=== PATIENT | female | born 1955 | race Caucasian/White ===

== ENCOUNTER → 2016-04-02 | Outpatient (CLI) | payer OTHER ==
[~2016-04-02] MED LIST: FLUO20CA34 PO; LISI-461 PO; OXYCONTIN PO; RANI150T3 PO; SYN25 PO; TYLENOL LIQUID PO; VSC/10 PO
== END | disposition home or self-care (01) ==
LOC: C.LABSPEC 08:42
PROVIDERS: ATTEND Obstetrics & Gynecology
DX: N76.0 Acute vaginitis (principal)

== ENCOUNTER → 2016-04-02 | Outpatient (CLI) | payer OTHER ==
[~2016-04-02] MED LIST changes: +CHOL2000 PO; +FLUO10CA48 PO; +SOLI10TA2 PO; +TAPE100T2 PO
--- NOTE | 2016-04-02 15:49 | MAMMOGRAPHY REPORT ---
BILATERAL DIGITAL SCREENING MAMMOGRAM WITH CAD: 04/02/2016 CLINICAL HISTORY: Routine screening. Patient has no complaints. TECHNIQUE: Bilateral CC, MLO and XCCL views were obtained. Current study was also evaluated with a Computer Aided Detection (CAD) system. COMPARISON: Comparison is made to exams dated: 09/03/2013 mammogram, 12/28/2009 mammogram - [facility], 08/03/2008, and 07/01/2007. BREAST COMPOSITION: The tissue of both breasts is almost entirely fatty. FINDINGS: There are benign rim calcifications within the right breast. No new suspicious mass, arch itectural distortion or cluster of microcalcifications is seen bilaterally. IMPRESSION: ACR BI-RADS CATEGORY 1: NEGATIVE There is no mammographic evidence of malignancy. A 1 year screening mammogram is recommended. The p atient will receive written notification of the results. Approximately 10% of breast cancers are not detected with mammography. A negative mammographic repor t should not delay biopsy if a clinically suggestive mass is present. Carolyn Montana M.D. ay/:04/02/2016 13:43:07 Machine Heel Builder: Jing RAMÍREZ(Jarrett)(Avery)([place]), [facility] letter sent: Normal 1/2 BI-RADS Code: ACR BI-RADS Category 1: Negative
== END | disposition home or self-care (01) ==
LOC: C.MAMM 13:14
PROVIDERS: ATTEND Obstetrics & Gynecology
DX: Z12.31 Encounter for screening mammogram for malignant neoplasm of breast (principal)

== ENCOUNTER → 2017-04-09 | Day surgery (SDC) | payer OTHER ==
[2017-04-04 09:23] VITALS: Ht 152.4 cm; Wt 140.4 kg
[~2017-04-09] VITALS: Ht 152.4 cm; Wt 140.4 kg
[~2017-04-09] MED LIST changes: +ATROPINE SULFATE 0.1 MG/ML 5ML SYR IV PRN; +EpHEDrine SULFATE INJ 50 MG/ML AMP IV PRN; -FLUO20CA34 PO; +LIDOCAINE HCL 2% 2 ML VIAL (20MG/ML) ONE; -OXYCONTIN PO; +PROPOFOL IV EMULSION 10 MG/ML 20 ML VIAL IV ONE; -RANI150T3 PO; +SODIUM CHLORIDE 0.9% 500ML 500 ML IV ONE; -SYN25 PO; -TYLENOL LIQUID PO; -VSC/10 PO
[2017-04-09 11:24] VITALS: TEMP 36.8
--- NOTE | 2017-04-09 11:36 | Endo History and Physical ---
History & Physical Date of Service: Apr 09, 2017. Chief Complaint: Screening Referring Physician: Andry Mcnamara History of Present Illness Average risk colorectal cancer screeing. Past Surgical History Hx Cardiac Surgery: No Hx Internal Defibrillator: No Hx Pacemaker: No Hx Abdominal Surgery: Yes (LAP BAND SURGERY, UTERINE ABLATION) Hx of Implantable Prosthesis: No Hx Post-Op Nausea and Vomiting: No Hx Cancer Surgery: No Hx Thoracic Surgery: No Hx Orthopedic: No Hx Urinary Tract Surgery: No Family History None Social History Smoking Status: Never Smoker Hx Substance Use: Yes (SEE MED REC) Hx Alcohol Use: Yes (OCCASIONALLY) Allergies Coded Allergies: No Known Allergies (Unverified , 04/04/17) Current Medications Reported Home Medications Medications Dose Route/Sig Max Daily Dose Days Date Category Vitamin D3 (Cholecalciferol) 2,000 Unit Cap 2 Cap PO WITH A MEAL 04/04/17 Reported Prozac (Fluoxetine HCl) 10 Mg Cap 10 Mg PO DAILY AFTERNOON 04/04/17 Reported Vesicare (Solifenacin) 10 Mg Tab 10 Mg PO HS 04/04/17 Reported Zestril (Lisinopril) 10 Mg Tab 10 Mg PO HS 04/04/17 Reported Nucynta (Tapentadol Hcl) 100 Mg Tab 1 Tab PO BID 04/04/17 Reported Vital Signs Weight (Kilograms): 140.45 Height (Feet): 5 Height (Inches): 0 Date Time Temp Pulse Resp B/P (MAP) Pulse Ox O2 Delivery O2 Flow Rate FiO2 04/09/17 11:24 36.8 82 18 112/69 (83) 95 Room Air Physical Exam General Appearance: WD/WN, no apparent distress, + obese Respiratory/Chest: Auscultation: breath sounds normal, no wheezing Cardiovascular: Heart Auscultation: RRR, no murmurs Assessment and Plan Screening colonoscopy today.
--- NOTE | 2017-04-09 12:10 | Discharge Instructions ---
Endoscopy Patient Instructions Date / Procedure(s) Performed Apr 09, 2017. Colonoscopy Allergy Information Coded Allergies: No Known Allergies (Unverified , 04/04/17) Discharge Date / Findings Apr 09, 2017. Diverticulosis Medication Instructions Restart Stopped Medication(s): Resume all medications today. Provider Instructions Activity Restrictions - No exercising or heavy lifting for 24 hours. - Do not drink alcohol the day of the procedure. - Do not drive a car or operate machinery until the day after the procedure. - Do not make any important decisions or sign important papers in 24 hours after the procedure. Following Day: - Return to full activity which may include returning to work/school. Diet Start your diet with liquids and light foods (jello, soup, juice, toast). Then eat your usual diet if not nauseated. Treatment For Common After Affects For mild abdominal pain, bloating, or excessive gas: - Rest - Eat lightly - Lie on right side Follow-Up Information Follow-up with Andry Mcnamara as scheduled Anesthesia Information What You Should Know You have had a procedure that required some medicine to reduce anxiety and discomfort. This treatment is called moderate sedation. After receiving the treatment, you may be sleepy, but you will be able to breathe on your own. The effects of the treatment may last for several hours. Follow these instructions along with Activity/Diet recommendations noted above: * Do NOT do anything where dizziness or clumsiness would be dangerous. * Rest quietly at home today, then you can be up and about tomorrow. * Have a responsible person stay with you the rest of today. * You may have had an I.V. today. If so, you may take the dressing off later today. Recommendations Call your doctor if: * Trouble breathing * Continuous vomiting for more than 24 hours * Temperature above 101 degrees * Severe abdominal pain or bloating * Pain not relieved by pain medicine ordered * There is increased drainage or redness from any incision * A large amount of rectal bleeding greater than 2-3 tablespoons. (If you had a polyp/s removed or have hemorrhoids, a small amount of blood - from the rectum is to be expected.) * You have any unanswered questions or concerns. IN THE EVENT OF A SERIOUS EMERGENCY, GO TO THE NEAREST EMERGENCY ROOM Your discharge instructions were prepared by provider Hever Delong. Patient Instructions Signature Page Ana Jacobsen Patient (or Guardian) Signature/Date: I have read and understand the instructions given to me by my caregivers. Caregiver/RN/Doctor Signature/Date: The above-named patient and/or guardian has received patient instructions on this date. + Original Patient Signature Page (only) stays with chart. Please make copy for patient.
--- NOTE | 2017-04-09 12:17 | GI REPORT ---
Procedure Date: 04/09/2017 11:33 AM Procedure: Colonoscopy Indications: Screening for colorectal malignant neoplasm Medicines: Monitored Anesthesia Care Complications: No immediate complications. Estimated blood loss: None. Estimated Blood Loss: Estimated blood loss: none. Procedure: Pre-Anesthesia Assessment: - Prior to the procedure, a History and Physical was performed, and patient medications, allergies and sensitivities were reviewed. The patient's tolerance of previous anesthesia was reviewed. - ASA Grade Assessment: III - A patient with severe systemic disease. After I obtained informed consent, the scope was passed under direct vision. Throughout the procedure, the patient's blood pressure, pulse, and oxygen saturations were monitored continuously. The scope was introduced through the anus and advanced to the terminal ileum, with identification of the appendiceal orifice and IC valve. The colonoscopy was performed with ease. The patient tolerated the procedure well. The quality of the bowel preparation was excellent. The bowel preparation used was split dose MIralax. Findings: Multiple medium-mouthed diverticula were found in the sigmoid colon. Impression: - Diverticulosis in the sigmoid colon. - No specimens collected. - The colon was otherwise normal to the terminal ileum with retroflexed views of the colon and terminal ileum. Recommendation: - Repeat colonoscopy in 10 years for screening purposes. - Discharge patient to home (with escort). Hever Delong M.D. Hever Delong MD 04/09/2017 12:16:56 PM This report has been signed electronically. Note Initiated On: 04/09/2017 11:33 AM I attest to the content of the Intraoperative Record and orders documented therein, exceptions below
[2017-04-09 12:47] VITALS: BP 121/84; PULSE 76; O2SAT 100
--- NOTE | 2017-04-09 13:07 | Anesthesiology Progress Note ---
Anesthesia Post Op Note Date & Time Apr 09, 2017 at 13:06 Vital Signs Pain Intensity: 0 Vital Signs Past 12 Hours Date Time Temp Pulse Resp B/P (MAP) Pulse Ox O2 Delivery O2 Flow Rate FiO2 04/09/17 12:47 76 18 121/84 (96) 100 Room Air 04/09/17 12:33 82 18 127/86 (100) 99 Room Air 04/09/17 12:18 84 18 124/91 (102) 94 Room Air 04/09/17 11:24 36.8 82 18 112/69 (83) 95 Room Air Notes Mental Status: alert / awake / arousable, participated in evaluation Pt Amnestic to Procedure: Yes Nausea / Vomiting: adequately controlled Pain: adequately controlled Airway Patency, RR, SpO2: stable & adequate BP & HR: stable & adequate Hydration State: stable & adequate Anesthetic Complications: no major complications apparent
== END | disposition home or self-care (01) ==
LOC: C.GI 10:36
PROVIDERS: ATTEND Internal Medicine Gastroenterology
DX: Z12.11 Encounter for screening for malignant neoplasm of colon (principal); K57.30 Diverticulosis of large intestine without perforation or abscess without bleeding; I10 Essential (primary) hypertension; E66.01 Morbid (severe) obesity due to excess calories; Z68.44 Body mass index [BMI] 60.0-69.9, adult; J45.909 Unspecified asthma, uncomplicated; Z98.890 Other specified postprocedural states; Z90.89 Acquired absence of other organs

== ENCOUNTER → 2017-05-15 | Outpatient (CLI) | payer OTHER ==
[~2017-05-15] MED LIST changes: -ATROPINE SULFATE 0.1 MG/ML 5ML SYR IV PRN; -EpHEDrine SULFATE INJ 50 MG/ML AMP IV PRN; -LIDOCAINE HCL 2% 2 ML VIAL (20MG/ML) ONE; -PROPOFOL IV EMULSION 10 MG/ML 20 ML VIAL IV ONE; -SODIUM CHLORIDE 0.9% 500ML 500 ML IV ONE
== END | disposition home or self-care (01) ==
LOC: C.PAPS 11:18
PROVIDERS: ATTEND Obstetrics & Gynecology
DX: Z12.4 Encounter for screening for malignant neoplasm of cervix (principal)

== ENCOUNTER 2023-07-23 04:23 | Inpatient (IN) ==
--- NOTE | 2023-07-23 04:58 | Emergency Department Note ---
Impression & Plan Weakness, Ambulatory dysfunction Admit to the [facility] ED Provider Note NAME: JEAN CLAUDE DYER AGE: 67 SEX: Female INFORMANT: Patient ED PROVIDER(S): Miguelina Boo DO CHIEF COMPLAINT: Weakness PLAN: Disposition: Admit to the [facility] MEDICAL DECISION MAKING: This is a 67-year-old female patient who presents to the emergency department with increasing generalized weakness and near falls. Patient states that her knees feel as if they are going to give out on her. She has had to call EMS multiple times over the past couple of days to help her stand up and prevent her from falling. Patient explains that she is currently unable to ambulate or move around. She even finds it quite difficult to even stand. Her boyfriend is no longer able to help her and she is at significant risk of falling. Laboratory studies revealed no evidence of leukocytosis. There was mild anemia with a hemoglobin of 11.7. Glucose was 101. TSH was normal. Troponin was negative. EKG revealed T wave inversion and ST segment depression in the inferior leads but this was in comparison to an EKG from 2010 which was the most recent on that I could find in the [facility] system. EMS was significant late concern for the patient's safety at home as she is unable to stand on her own and family as well as her boyfriend are unable to assist her safely. I discussed case with the [facility] and they will evaluate for further inpatient care. Care/management discussed with: The patient and the [facility]; I did discuss the case with the dry food products mixer and the patient's sister on the phone prior to arrival. Triage Nursing notes: Reviewed and agree with them. Vital Signs: reviewed and unremarkable Additional History obtained from: EMS and the patient's sister Chronic Medical/Social Conditions affecting care: Morbid obesity; chronic edema Differential Diagnosis: Acute renal failure, dehydration, UTI, significant ambulatory dysfunction Diagnostics, independently interpreted by me: ECG: Normal sinus rhythm at a rate of [address] segment elevation or ectopy. There is some T wave inversion noted in leads II and III with ST segment depression noted in aVF. There are no previous EKGs to compare to Cardiac Monitoring: Normal sinus rhythm at a rate of 90 Imaging studies: Portable chest x-ray: As per my independent interpretation- cardiomegaly with no pulmonary infiltrates or consolidation. HPI: 67 year old Female arrives for evaluation of weakness. Patient describes increasing generalized weakness and the feeling as if she is going to fall. She describes her knees feeling as if they are going to give out on her. She has had to call EMS multiple times over the past couple days to help her stand up and prevent her from falling. PAST MEDICAL HISTORY: Hypertension, diabetes, depression, PAST SURGICAL HISTORY: See Below, SOCIAL HISTORY: Patient lives with her boyfriend, HOME MEDICATIONS: See list ALLERGIES: None VITALS: See Below PHYSICAL EXAMINATION: HEENT: Head - normocephalic and atraumatic. Pupils are equal, round, and reactive to light. Extraocular eye muscles are intact, and sclera are anicteric. Nose - moist nasal mucosa without discharge. Mouth -extremely dry buccal mucosa. Oropharynx is nonerythematous and there is no tonsillar exudate or edema noted. Neck: Supple; no JVD, nuchal rigidity, cervical lymphadenopathy, or auscultated bruits. Heart: Regular rate and rhythm. There is a normal S1 and S2 with no murmurs, clicks, or gallops appreciated. Lungs: Extremely distant secondary to body habitus clear to auscultation bilaterally with no wheezes, rales, or rhonchi. Abdomen: Soft, completely nontender, nondistended, with good bowel sounds. There are no palpable pulsatile masses or hepatosplenomegaly. There is no guarding, rigidity, or rebound noted. Extremities: Significant edema both lower extremities Skin: warm and dry with good turgor and no rashes. Areas of breakdown on the buttocks Emergency department course: The patient was evaluated in room A-10. A complete history and physical was performed. A twelve-lead EKG was obtained. An order was placed for continuous cardiac monitoring. The patient was in a normal sinus rhythm at a rate of 90. Portable chest x-ray was performed. I reviewed laboratory results with the patient. I had a lengthy conversation with her about her home life situation and her limitations of mobility and my concerns for keeping her safe. I discussed the case with the [facility] Hospitalist and they will evaluate for further inpatient care. Past Med/Surg History Social History Smoking Status: Former smoker Preferred Language: Greenlandic Feels Safe at Home: Yes Allergies Allergies Allergy/AdvReac Type Severity Reaction Status Date / Time No Known Allergies Allergy Unverified 04/04/17 09:20 Home Meds Home Medications Medication Instructions Recorded Confirmed CHOLECALCIFEROL (VITAMIN D3) 2 cap PO WITH A MEAL #0 caps 04/04/17 07/23/23 Fluoxetine (Prozac) 10 mg PO DAILY AFTERNOON #0 caps 04/04/17 07/23/23 Lisinopril (Zestril) 10 mg PO HS #0 tabs 04/04/17 07/23/23 Solifenacin (Vesicare) 10 mg PO HS #0 tabs 04/04/17 07/23/23 Results & Data (ED) Vital Signs Vital Signs - 24 hr 07/23/23 04:30 07/23/23 04:32 07/23/23 04:32 Temperature 37.1 C Temperature Source Oral Pulse Rate 89 58 L Pulse Rate [Apical] Pulse Rate from SpO2 Sensor Pulse Rhythm Regular Pulse Rhythm [Apical] Pulse Strength Normal Pulse Strength [Apical] Respiratory Rate 20 19 Respiratory Effort / Characteristics Non-Labored Respiratory Depth Normal Respiratory Pattern Regular Blood Pressure 157/94 H 157/94 H Blood Pressure [Left Arm] Blood Pressure Mean 115 115 Blood Pressure Mean [Left Arm] Pulse Oximetry 95 95 95 Oxygen Delivery Method Room Air Room Air Sepsis Recent Fever Within 48 Hours No Sepsis New/Unexplained Change in Mental Status No Sepsis Action Taken by Nursing No Action Required 07/23/23 04:32 07/23/23 04:43 07/23/23 05:00 Temperature 37.1 C Temperature Source Oral Pulse Rate 90 Pulse Rate [Apical] 58 L Pulse Rate from SpO2 Sensor 89 Pulse Rhythm Pulse Rhythm [Apical] Regular Pulse Strength Pulse Strength [Apical] Normal Respiratory Rate 19 Respiratory Effort / Characteristics Non-Labored Respiratory Depth Normal Respiratory Pattern Regular Blood Pressure Blood Pressure [Left Arm] 157/94 H Blood Pressure Mean Blood Pressure Mean [Left Arm] 115 Pulse Oximetry 95 95 Oxygen Delivery Method Room Air Sepsis Recent Fever Within 48 Hours Sepsis New/Unexplained Change in Mental Status Sepsis Action Taken by Nursing 07/23/23 05:08 Temperature Temperature Source Pulse Rate 87 Pulse Rate [Apical] Pulse Rate from SpO2 Sensor Pulse Rhythm Pulse Rhythm [Apical] Pulse Strength Pulse Strength [Apical] Respiratory Rate 20 Respiratory Effort / Characteristics Respiratory Depth Respiratory Pattern Blood Pressure Blood Pressure [Left Arm] Blood Pressure Mean Blood Pressure Mean [Left Arm] Pulse Oximetry 95 Oxygen Delivery Method Room Air Sepsis Recent Fever Within 48 Hours Sepsis New/Unexplained Change in Mental Status Sepsis Action Taken by Nursing Laboratory Data 07/23/23 04:51 07/23/23 04:51 Lab Results 07/23/23 07/23/23 Range/Units 04:51 05:00 WBC 6.13 (4.8-10.8) K/ul RBC 3.86 L (4.20-5.40) M/uL Hgb 11.7 L (12.0-16.0) g/dl Hct 37.8 (37.0-47.0) % MCV 97.9 (80.0-100.0) fL MCH 30.3 (25.0-34.0) pg MCHC 31.0 L (32.0-36.0) g/dL RDW Std Deviation 51.7 H (36.4-46.3) fL RDW Coeff of [place] 14.4 (11.5-14.5) % Plt Count 192 (130-400) K/uL MPV 11.4 (9.4-12.4) fL Immature Gran % (Auto) 0.3 % Neut % (Auto) 77.8 % Lymph % (Auto) 12.7 % [place] % (Auto) 8.0 % Eos % (Auto) 0.7 % Baso % (Auto) 0.5 % Neut # (Auto) 4.77 (1.40-6.50) K/uL Lymph # (Auto) 0.78 L (1.20-3.40) K/uL [place] # (Auto) 0.49 (0.11-0.59) K/uL Eos # (Auto) 0.04 (0.00-0.50) K/uL Baso # (Auto) 0.03 (0.00-0.20) K/uL Immature Gran # (Auto) 0.02 (0.01-0.20) K/uL Sodium 142 (136-145) mmol/L Potassium 3.6 (3.5-5.1) mmol/L Chloride 106 (98-107) mmol/L Carbon Dioxide 30 (21-32) mmol/L Anion Gap 6 (3-11) BUN 15 (6-23) mg/dl Creatinine 0.54 L (0.6-1.2) mg/dl Est Cr Clr Drug Dosing 142.1 ml/min Est GFR ( Amer) 114.0 ml/min Est GFR (Non-Af Amer) 98.3 ml/min BUN/Creatinine Ratio 27.8 H (10-20) Glucose 101 H (70-99(Fasting)) mg/dl Calcium 9.7 (8.6-10.3) mg/dl Magnesium 1.9 (1.7-2.4) mg/dl Total Bilirubin 0.6 (0.2-1.0) mg/dl AST 28 (13-39) U/L ALT 16 (7-52) U/L Alkaline Phosphatase 60 (34-104) U/L Troponin I High Sens 9.8 (0-14) pg/ml Total Protein 6.9 (6.0-8.3) gm/dl Albumin 4.3 (3.4-5.0) gm/dl Globulin 2.6 (2.5-4.0) gm/dl Albumin/Globulin Ratio 1.7 (0.9-2) TSH 0.740 (0.300-4.500) uIu/ml Urine Color Yellow Urine Appearance Clear (Clear) Urine pH 5.0 (4.5-7.5) Ur Specific [place] 1.026 (1.000-1.030) Urine Protein 1+ H (Negative) Urine Glucose (UA) Negative (Negative) Urine Ketones 1+ H (Negative) Urine Blood Negative (Negative) Urine Nitrite Negative (Negative) Urine Bilirubin Negative (Negative) Urine Urobilinogen Negative (Negative) Ur Leukocyte Esterase Negative (Negative) Urine WBC (Auto) 0-5 (0-5) /hpf Urine RBC (Auto) 0-2 (0-2) /hpf U Hyaline Cast (Auto) 0-2 (0-2) /lpf U Epithel Cells (Auto) 0-2 (0-2) /hpf Urine Bacteria (Auto) None Seen (None Seen) Administered Medications Lactated Ringer's (Lr) 1,000 mls @ 75 mls/hr IV .[id number] ONE Stop: 07/23/23 19:13 Last Admin: 07/23/23 06:05 Dose: 75 mls/hr Documented By: NAWAF Discharge Plan Visit Data Chief Complaint: Weakness Stated Complaint: WEAKNESS ED Provider: Miguelina Boo Discharge Problem: Weakness, Ambulatory dysfunction Forms Stand Alone Forms: My [facility] Prescriptions Prescriptions: No Action CHOLECALCIFEROL (VITAMIN D3) 2,000 UNIT capsule 2 cap PO WITH A MEAL Qty: 0 Fluoxetine (Prozac) 10 MG capsule 10 mg PO DAILY AFTERNOON Qty: 0 Lisinopril (Zestril) 10 MG tablet 10 mg PO HS Qty: 0 Solifenacin (Vesicare) 10 MG tablet 10 mg PO HS Qty: 0 Referrals Referrals: Andry Mcnamara DO [Outside Practitioners] -
[2023-07-23 05:06] LABS: Basophils # (auto) 0.03 K/uL (0.00-0.20); Basophils % (auto) 0.5 %; Eosinophils # (auto) 0.04 K/uL (0.00-0.50); Eosinophils % (auto) 0.7 %; Hematocrit (blood only) 37.8 % (37.0-47.0); Hemoglobin 11.7 g/dl (12.0-16.0); Immature Granulocytes # (auto) 0.02 K/uL (0.01-0.20); Immature Granulocytes % (auto) 0.3 %; Lymphocytes # (auto) 0.78 K/uL (1.20-3.40); Lymphocytes % (auto) 12.7 %; Mean Corpuscular Hemoglobin 30.3 pg (25.0-34.0); Mean Corpuscular Volume 97.9 fL (80.0-100.0); Mean Platelet Volume 11.4 fL (9.4-12.4); Monocytes # (auto) 0.49 K/uL (0.11-0.59); Neutrophils # (auto) 4.77 K/uL (1.40-6.50); Neutrophils % (auto) 77.8 %; Platelet Count 192 K/uL (130-400); RDW Coefficient of Variation 14.4 % (11.5-14.5); RDW Standard Deviation 51.7 fL (36.4-46.3); Red Blood Count 3.86 M/uL (4.20-5.40); White Blood Count 6.13 K/ul (4.8-10.8)
[2023-07-23 05:11] LABS: Appearance Urine Clear (Clear); Bacteria Urine Automated None Seen (None Seen); Bilirubin Urine Negative (Negative); Blood Urine Negative (Negative); Cast Urine Automated 0-2 /lpf (0-2); Color Urine Yellow; Epithelial Cell Urine Auto 0-2 /hpf (0-2); Glucose Urine UA Negative (Negative); Ketones Urine 1+ (Negative); Leukocyte Esterase Urine Negative (Negative); Nitrite Urine Negative (Negative); Protein Urine 1+ (Negative); RBC Urine Automated 0-2 /hpf (0-2); Specific Gravity Urine 1.026 (1.000-1.030); Urobilinogen Urine Negative (Negative); WBC Urine Automated 0-5 /hpf (0-5)
[2023-07-23 05:22] LABS: Albumin Globulin Ratio 1.7 (0.9-2); Albumin Level 4.3 gm/dl (3.4-5.0); BUN Creatinine Ratio 27.8 (10-20); Bilirubin,Total 0.6 mg/dl (0.2-1.0); Calcium 9.7 mg/dl (8.6-10.3); Creatinine Clr Calc Pharmacy 142.1 ml/min; Est GFR (Non-African American) 98.3 ml/min; Globulin 2.6 gm/dl (2.5-4.0); Magnesium 1.9 mg/dl (1.7-2.4); Potassium 3.6 mmol/L (3.5-5.1); Total Protein 6.9 gm/dl (6.0-8.3)
[2023-07-23 05:28] LABS: Troponin I High Sensitivity 9.8 pg/ml (0-14)
[2023-07-23 05:37] LABS: Thyroid Stimulating Hormone 0.74 uIu/ml (0.300-4.500)
[2023-07-23] MEDS: LACTATED RINGER'S 1,000 ML IV ONE (06:05)
--- NOTE | 2023-07-23 06:48 | History & Physical Report ---
Date of Service July 23, 2023 Assessment & Plan (1) Ambulatory dysfunction: Plan: Ambulatory dysfunction/functional disability From progressive/end-stage osteoarthritis of both knees in the setting of morbid obesity hypertension, slight elevated secondary discomfort hypothyroidism, euthyroid as of today's TSH, patient currently not on maintenance medications prediabetes, hemoglobin A1c of 5.3 from last year Bilateral adrenal adenomas, nonfunctioning adrenal incidentaloma with some radiology characteristics suspicious of carcinoma as per as per Endo note stable measurement from remote CT from 2012. No need for additional testing as per outpatient provider as per patient. NAFLD, no overt decompensation mood disorder, stable past tobacco abuse OBS GMF Analgesia update plain knee x-rays re: worsening pain with history of falls Orthopedics consult Re: Worsening bilateral knee pain [place] [facility] [place] OT eval May need rehab placement DVT prophylaxis. Lovenox subcu Full code Patient requests her boyfriend to be given updates regarding care. Mr. Tommy Carvalho, contact #[phone]. Text document was generated using [employer] voice recognition software. It may contain grammatical or spelling errors. Kindly contact undersigned for clarification of any documentation item in question. History of Present Illness Chief Complaint: Weakness, worsening knee pain, inability to stand Primary Care Provider: Lina Serna MD History obtained from patient and records. Medical history significant for hypertension, hypothyroidism, prediabetes, morbid obesity, adrenal adenoma, history gastric banding, NAFLD, mood disorder, past tobacco abuse. Patient has had bad arthritis in both knees the last few decades. 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 Severe end-stage osteoarthritis with severe deformity. Patient BMI deemed prohibitive risk for surgery. Supervised weight loss recommended to get to goal BMI to allow for surgery as per note. Last outpatient x-ray showed advanced osteoarthritis of both knees from 2020 Worsening disability from worsening bilateral knee pain over the last few months. Patient having trouble getting up and moving around at home. Home physical therapy services requested by PCP's office last month eventually declined by patient because she could not do recommended PT. Increasing weakness leading to falls on standing up. noted the last few days EMS had to be called to patient's home 3 times this week to help patient get up. Patient denies headache, chest pain, SOB, syncope, abdominal pain. Patient convinced by family and EMS last night that she had to go to hospital to get help. 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 Allergies Allergy/AdvReac Type Severity Reaction Status Date / Time No Known Allergies Allergy Unverified 04/04/17 09:20 Home Medications Medication Instructions Recorded Confirmed Type CHOLECALCIFEROL (VITAMIN D3) 2 cap PO WITH A MEAL #0 caps 04/04/17 07/23/23 History Fluoxetine (Prozac) 10 mg PO DAILY AFTERNOON #0 caps 04/04/17 07/23/23 History Lisinopril (Zestril) 10 mg PO HS #0 tabs 04/04/17 07/23/23 History Solifenacin (Vesicare) 10 mg PO HS #0 tabs 04/04/17 07/23/23 History Past Med/Surg History Social History Smoking Status: Former smoker Preferred Language: Azeri Feels Safe at Home: Yes Review of Systems Review of Systems: As per HPI, all other systems reviewed and negative Physical Exam Physical Exam: GENERAL: Comfortable, pleasant, morbidly obese, no respiratory distress SKIN: Normal color, warm HEENT: Bespectacled, [place] palpebral conjunctivae, no ptosis, dry buccal mucosa NECK : Supple, short neck, no tenderness CHEST : Decreased breath sounds, no tenderness HEART : RRR, no obvious murmurs ABDOMEN: Some distention, nontender EXTREMITIES : Bilateral LE swelling (lymphedema like), bilateral knee tenderness NEUROLOGIC : Coherent, no facial asymmetry, no other gross focality Results & Data Results & Data Vital Signs (Past 12 Hours) Vital Signs Temp Pulse Pulse Resp BP BP Pulse Ox 07/23/23 06:00 94 07/23/23 05:08 87 20 95 07/23/23 05:00 95 07/23/23 04:43 90 07/23/23 04:32 37.1 C 58 L 19 157/94 H 95 07/23/23 04:32 95 07/23/23 04:32 37.1 C 58 L 19 157/94 H 95 07/23/23 04:30 89 20 157/94 H 95 O2 Del Method 07/23/23 06:00 07/23/23 05:08 Room Air 07/23/23 05:00 07/23/23 04:43 07/23/23 04:32 Room Air 07/23/23 04:32 Room Air 07/23/23 04:32 Room Air 07/23/23 04:30 Laboratory Results Laboratory Results WBC 6.13 K/ul (4.8-10.8) 07/23/23 04:51 RBC 3.86 M/uL (4.20-5.40) L 07/23/23 04:51 Hgb 11.7 g/dl (12.0-16.0) L 07/23/23 04:51 Hct 37.8 % (37.0-47.0) 07/23/23 04:51 MCV 97.9 fL (80.0-100.0) 07/23/23 04:51 MCH 30.3 pg (25.0-34.0) 07/23/23 04:51 MCHC 31.0 g/dL (32.0-36.0) L 07/23/23 04:51 RDW Std Deviation 51.7 fL (36.4-46.3) H 07/23/23 04:51 RDW Coeff of Gal[place] 14.4 % (11.5-14.5) 07/23/23 04:51 Plt Count 192 K/uL (130-400) 07/23/23 04:51 MPV 11.4 fL (9.4-12.4) 07/23/23 04:51 Immature Gran % (Auto) 0.3 % 07/23/23 04:51 Neut % (Auto) 77.8 % 07/23/23 04:51 Lymph % (Auto) 12.7 % 07/23/23 04:51 Wright % (Auto) 8.0 % 07/23/23 04:51 Eos % (Auto) 0.7 % 07/23/23 04:51 Baso % (Auto) 0.5 % 07/23/23 04:51 Neut # (Auto) 4.77 K/uL (1.40-6.50) 07/23/23 04:51 Lymph # (Auto) 0.78 K/uL (1.20-3.40) L 07/23/23 04:51 Wright # (Auto) 0.49 K/uL (0.11-0.59) 07/23/23 04:51 Eos # (Auto) 0.04 K/uL (0.00-0.50) 07/23/23 04:51 Baso # (Auto) 0.03 K/uL (0.00-0.20) 07/23/23 04:51 Immature Gran # (Auto) 0.02 K/uL (0.01-0.20) 07/23/23 04:51 Sodium 142 mmol/L (136-145) 07/23/23 04:51 Potassium 3.6 mmol/L (3.5-5.1) 07/23/23 04:51 Chloride 106 mmol/L (98-107) 07/23/23 04:51 Carbon Dioxide 30 mmol/L (21-32) 07/23/23 04:51 Anion Gap 6 (3-11) 07/23/23 04:51 BUN 15 mg/dl (6-23) 07/23/23 04:51 Creatinine 0.54 mg/dl (0.6-1.2) L 07/23/23 04:51 Est Cr Clr Drug Dosing 142.1 ml/min 07/23/23 04:51 Est GFR ( Amer) 114.0 ml/min 07/23/23 04:51 Est GFR (Non-Af Amer) 98.3 ml/min 07/23/23 04:51 BUN/Creatinine Ratio 27.8 (10-20) H 07/23/23 04:51 Glucose 101 mg/dl (70-99(Fasting)) H 07/23/23 04:51 Calcium 9.7 mg/dl (8.6-10.3) 07/23/23 04:51 Magnesium 1.9 mg/dl (1.7-2.4) 07/23/23 04:51 Total Bilirubin 0.6 mg/dl (0.2-1.0) 07/23/23 04:51 AST 28 U/L (13-39) 07/23/23 04:51 ALT 16 U/L (7-52) 07/23/23 04:51 Alkaline Phosphatase 60 U/L (34-104) 07/23/23 04:51 Troponin I High Sens 9.8 pg/ml (0-14) 07/23/23 04:51 Total Protein 6.9 gm/dl (6.0-8.3) 07/23/23 04:51 Albumin 4.3 gm/dl (3.4-5.0) 07/23/23 04:51 Globulin 2.6 gm/dl (2.5-4.0) 07/23/23 04:51 Albumin/Globulin Ratio 1.7 (0.9-2) 07/23/23 04:51 TSH 0.740 uIu/ml (0.300-4.500) 07/23/23 04:51 Urine Color Yellow 07/23/23 05:00 Urine Appearance Clear (Clear) 07/23/23 05:00 Urine pH 5.0 (4.5-7.5) 07/23/23 05:00 Ur Specific [place] 1.026 (1.000-1.030) 07/23/23 05:00 Urine Protein 1+ (Negative) H 07/23/23 05:00 Urine Glucose (UA) Negative (Negative) 07/23/23 05:00 Urine Ketones 1+ (Negative) H 07/23/23 05:00 Urine Blood Negative (Negative) 07/23/23 05:00 Urine Nitrite Negative (Negative) 07/23/23 05:00 Urine Bilirubin Negative (Negative) 07/23/23 05:00 Urine Urobilinogen Negative (Negative) 07/23/23 05:00 Ur Leukocyte Esterase Negative (Negative) 07/23/23 05:00 Urine WBC (Auto) 0-5 /hpf (0-5) 07/23/23 05:00 Urine RBC (Auto) 0-2 /hpf (0-2) 07/23/23 05:00 U Hyaline Cast (Auto) 0-2 /lpf (0-2) 07/23/23 05:00 U Epithel Cells (Auto) 0-2 /hpf (0-2) 07/23/23 05:00 Urine Bacteria (Auto) None Seen (None Seen) 07/23/23 05:00 Diagnostic Findings Chest x-ray as per interpretation cardiomegaly, elevated right hemidiaphragm, no congestion
[2023-07-23] MEDS ORDERED: PROMETHAZINE HCL 12.5 MG in SODIUM CHLORIDE 0.9% 50 ML IV PRN (06:57)
[2023-07-23] MEDS ORDERED: MoRPHine SULFATE 4 MG/ML 1 ML CARP\\VIAL IV PRN (06:57)
--- NOTE | 2023-07-23 07:02 | XRay Report ---
XR chest 1V portable CLINICAL HISTORY: weakness COMPARISON STUDY: No previous studies for comparison. FINDINGS: There is moderate elevation of the right hemidiaphragm. No consolidation to suggest pneumon ia. No pneumothorax or pleural effusion is present. There is mild cardiomegaly without evidence for p ulmonary edema. Right hilar prominence is likely due to pulmonary vessels. There is osteoarthritis of the bilateral glenohumeral joints. IMPRESSION: 1. No acute cardiopulmonary findings. 2. Cardiomegaly without evidence for pulmonary edema. 3. Moderate elevation of the right hemidiaphragm. 4. Right hilar prominence, likely due to pulmonary vessels. ACT 112: Negative or not required by law. Electronically signed by: Rigoberto Oliver M.D. 07/23/2023 7:00 AM
--- NOTE | 2023-07-23 07:16 | XRay Report ---
XR knee LT 1 or 2V routine CLINICAL HISTORY: Left knee pain. COMPARISON: None FINDINGS: Severe tricompartmental joint space narrowing with extensive osteophytosis of the left kne e is present. Near complete loss of the joint space is noted. There are no fractures. There are no os seous lesions. Lateral view is compromised given difficulty positioning. No definite joint effusion. Suprapatellar calcific density versus a large osteophyte is present. There are no osseous lesions. Th ere is diffuse soft tissue swelling. IMPRESSION: 1. Severe tricompartmental osteoarthritis of the left knee. 2. No fractures within the left knee. 3. Diffuse soft tissue swelling. ACT 112: Negative or not required by law. Electronically signed by: Rigoberto Oliver M.D. 07/23/2023 7:15 AM
--- NOTE | 2023-07-23 07:18 | XRay Report ---
XR knee RT 1 or 2V routine CLINICAL HISTORY: Right knee pain. COMPARISON STUDY: None. FINDINGS: Suboptimal evaluation of the right knee due to the patient's body habitus. No definite frac ture or dislocation. Severe tricompartmental osteoarthritis with [id number] articulation and large marginal osteophytes. There is diffuse soft tissue edema. Nondiagnostic evaluation for a knee effusio n. IMPRESSION: 1. Suboptimal evaluation of the right knee. No definite fracture or dislocation. 2. Severe tricompartmental osteoarthritis. 3. Diffuse soft tissue edema. ACT 112: Negative or not required by law. Electronically signed by: Parish Huddleston M.D. 07/23/2023 7:17 AM
--- OUTSIDE RECORDS SUMMARY | 2023-07-23 08:56 | External Medical Summary | Summary of Care ---
Author Name Unknown Organization [facility] Address [address] [facility] [place] [address] Phone [phone] Care Team Providers Care Hand Outside Cutter Name Role Phone Lina Serna MD Primary Care Provider [phone] Reason for Visit * Reason Comments NEW PATIENT Both feet * Evaluate & Treat - Unlimited Visits (Within 30 days (routine)) - Authorized Specialty Diagnoses / Procedures Referred By Shell da silva Referred To Contact Podiatry Diagnoses Pain in both feet Lina Serna MD [address] [place] [address] Referral ID Status Reason Start Date Expiration Date Visits Requested Visits Authorized [id number] Authorized Specialty Services Required 06/24/[phone] Encounter Details Date Type Department Care Team (Latest Contact Info) Description 07/04/2023 1:00 PM EDT Office Visit Podiatry [facility] [address] [place] [address] Neema Ozuna DPM [address] [place] [address] Foot pain, bilateral*; Primary osteoarthritis of both feet; Callus of foot; Pain in both feet [M79.671, M79.672] Allergies No known active allergiesdocumented as of this encounter (statuses as of 07/05/2023) Medications Medication Sig Dispensed Refills Start Date End Date Status TYLENOL ARTHRITIS PAIN 650 MG PO TBCR Take 2 Tablets by mouth in the morning and 2 Tablets before bedtime. 0 Active Cholecalciferol (VITAMIN D) 2000 UNITS CapsuleIndications:Vi tamin D deficiency Take 3,000 Units by mouth daily. 0 01/28/2015 Active diphenhydrAMINE HCl 25 MG Oral Capsule Take 1 Capsule by mouth every 6 hours as needed for Itching. 0 Active Diclofenac Sodium 1 % External Gel Apply topically to affected area. Apply to affected areas 0 Active Calcium Carb-Cholecalciferol 1000-20 MG-MCG Oral Tablet Take by mouth. 0 Active Lisinopril 10 MG Oral Tablet (Prinivil)Indications :HTN, goal below 140/90 Take 1 Tablet by mouth in the morning. 90 Tablet 3 07/30/2022 Active FLUoxetine HCl 20 MG Oral Capsule (PROzac) Take 1 Capsule by mouth in the morning. 90 Capsule 2 04/30/2023 Active Solifenacin Succinate 10 MG Oral Tablet (VESIcare)Indications :Female stress incontinence Take 1 Tablet by mouth in the morning. 90 Tablet 2 04/30/2023 Active NATURAL SUPPLEMENT Take by mouth at bedtime. THC gummies at night for sleep 0 Active Morphine Sulfate ER 30 MG Oral Tablet Extended Release (Ms Contin)Indications:Pr imary osteoarthritis of both knees Take 1 Tablet by mouth in the morning and 1 Tablet before bedtime. Due on 06/29/23. 60 Tablet 0 06/27/2023 Active documented as of this encounter (statuses as of 07/05/2023) Active Problems Problem Noted Date Diagnosed Date High risk for fracture due to osteoporosis by DE XA scan 11/15/2022 Morbid obesity with BMI of 60.0-69.9, adult 07/2020 Major depressive disorder, r ecurrent episode, in partial remission 04/02/2019 Controlled substance agreement signed 09/19/2016 Adrenal adenoma 03/03/2012 OA (osteoarthritis) of knee 02/25/2012 Vitamin D deficiency 10/10/2011 Gastric banding status 08/07/2011 [facility] OTHER*[id number] 06/19/2011 Osteoarthritis of multiple joints 05/17/2011 HTN, GOAL BELOW 140/90 02/21/2009 Overview: Modified per HTN protocol #16. Female stress incontinence 08/26/2007 ADVANCE DIRECTIVE INFORMATION 09/20/2004 Overview: No, Advance Directive brochure given to patient. OSTEOARTHROS NOS-UNSPEC documented as of this encounter (statuses as of 07/05/2023) Resolved Problems Problem Noted Date Diagnosed Date Resolved Date Prediabetes 10/10/2020 05/17/2021 Overview: Per Prediabetes protocol Knee osteoarthritis 05/05/2014 09/19/19 18 BMI 50.0-59.9, adult 04/29/2013 021 Depression 10/22/2012 04/02/2019 Other chronic nonalcoholic liver disease 05/17/2011 09/18/2017 BMI 60.0-69.9, adult 05/16/2011 014 Hypothyroidism 12/13/2009 03/21/2018 Obesity, morbid (more than 1 00 lbs over ideal weight or BMI > 40) 06/28/2009 05/16/2011 Overview: Per Obesity Taxonomy ICD-10 update of inactive term Urinary incontinence 08/26/2007 008 Overview: ICD-10 update of inactive term Morbid obesity, BMI not known 03/10/2007 06/28/2009 Overview: Per Obesity Taxonomy OBESITY, UNSPECIFIED 007 HYPERTENSION NOS 02/21/2009 Overview: Modified per HTN protocol #16. ADJ DISORDER W/DEPRES MOOD 1 05/21/2016 documented as of this encounter (statuses as of 07/05/2023) Immunizations Name Administration Dates Next Due COVID-19 mRNA, LNP-s, No Pre serve, 2-Dose Series ([employer]) 03/28/2021,06/28/2020,05/30/2020 H1N1 2009 Influenza, IM 06/15/2009 Pneumococcal Conjugate Vacci ne, 20-valent ([id number]) 01/02/2022 Pneumococcal Polysaccharide PPV23 (Pneumovax) 09/19/2016 Seasonal Influenza Virus Vac cine, Unspecified Formulation 01/12/2020 Seasonal Influenza, PF, 6 M & above, IM , (FluLaval or Fluzone) 01/11/2021,12/24/2018,03/21/2018,03/20 Seasonal Influenza, Quadriva lent Hd (Fluzone Hd) 01/02/2022 Seasonal Influenza, Quadriva lent, No Preserve, IM 01/05/2020,03/21/2016,01/27/2015 Seasonal Influenza, Split, I IV3, With Preserve, Inj 05/05/2014,01/15/2013,02/25/2012,05/16,02/16/2010,12/09/2008,12/31/2007 ,03/10/2007,03/01/2006 TDAP (age 10 and older)(Boostrix) 09/18/2017 Zoster Vaccine Recombinant (Shingrix) 09/08/2019 ,06/02/2019 documented as of this encounter Social History Tobacco Use Types Packs/Day Years Used Date Smoking Tobacco: Former Cigarettes Q uit: 09/11/1991 Smokeless Tobacco: Never Alcohol Use Standard Drinks/Week Comments Yes 0 (1 standard drink = 0.6 oz pur e alcohol) Rare PHQ-2 Answer Date Recorded PHQ Adult Total Score 2 06/24/2023 Hunger Vital Sign Answer Date Recorded Within the past 12 months, y ou worried that your food would run out before you got the money to buy more. Never true 06/24/19 24 Within the past 12 months, t he food you bought just didn't last and you didn't have money to get more. Never true 06/24/2023 Sex and Gender Information Value Date Recorded Sex Assigned at Female 10/07/2019 8:07 AM EDT Gender Identity Female 10/07/2019 8:07 AM EDT Sexual Orientation Straight 12/20/2021 1: 21 AM EDT Job Start Date Occupation Industry Not on file Not on file Not on file documented as of this encounter Progress Notes * Neema Ozuna, TYRELL - 07/05/2023 7:44 AM EDT Podiatry New Patient Note [facility] Name: Ana Bonilla : 1955 Date: 07/04/2023 CHIEF COMPLAINT: Right heel pain HISTORY OF PRESENT ILLNESS: This patient is a 67 year old female who presents today with complaintsof right heel pain. Pt unable to get into podiatry chair. States she does not do much walking. She states she had this before and has not gone away. Using an off-loading pad. Presents in wheelchair. Denies any other complaints. Past Medical History: Diagnosis Date ADJ DISORDER W/DEPRES MOOD HTN, goal to be determined Obesity, BMI not known Osteoarthrosis Osteoarthritis Past Surgical History: Procedure Laterality Date CARPAL TUNNEL SURGERY 1999' Right hand carpal tunnel surgery COLONOSCOPY, DIAGNOSTIC (RECTUM) 04/09/2017 normal, repeat 10 yrs/[facility] EGD, FLEXIBLE, DIAGNOSTIC 07/26/2011 UPPER GI ENDOSCOPY DIAGNOSTIC performed by KAREN LEGGETT at [place] [facility] GASTRIC BAND PLACEMENT/PORT, LAPAROSCOPIC 07/26/2011 LAPAROSCOPIC GASTRIC RESTRICTIVE SURGERY PLACEMENT BAND performed by KAREN LEGGETT at [place] [facility] LAPAROSCOPE PROCEDURE, LIVER 07/26/2011 UNLISTED LAPAROSCOPIC PROCEDURE LIVER performed by KAREN LEGGETT at [place] [facility] PATIENT EDU, TONSILECTOMY W/ POSS.* REMOVAL OF FIBROID UTERUS TUMOR TOTAL HYSTERECTOMY N/A 09/09/2017 Family History Problem Relation Age of Onset No Past Hx Mother Arthritis Father Social History Socioeconomic History Marital status: Single Tobacco Use Smoking status: Former Current packs/day: 0.00 Types: Cigarettes Quit date: 09/11/1991 Years since quittin.8 Smokeless tobacco: Never Substance and Sexual Activity Alcohol use: Yes Comment: Rare Drug use: No Sexual activity: Yes Partners: Male control/protection: Pill Social Determinants of Health Food Insecurity: No Food Insecurity (06/24/2023) Hunger Vital Sign Worried About Running Out of Food in the Last Year: Never true Ran Out of Food in the Last Year: Never true Current Outpatient Medications Medication Sig Dispense Refill TYLENOL ARTHRITIS PAIN 650 MG PO TBCR Take 2 Tablets by mouth in the morning and 2 Tablets before bedtime. Cholecalciferol (VITAMIN D) 2000 UNITS Capsule Take 3,000 Units by mouth daily. diphenhydrAMINE HCl 25 MG Oral Capsule Take 1 Capsule by mouth every 6 hours as needed for Itching. Diclofenac Sodium 1 % External Gel Apply topically to affected area. Apply to affected areas Calcium Carb-Cholecalciferol 1000-20 MG-MCG Oral Tablet Take by mouth. Lisinopril 10 MG Oral Tablet (Prinivil) Take 1 Tablet by mouth in the morning. 90 Tablet 3 FLUoxetine HCl 20 MG Oral Capsule (PROzac) Take 1 Capsule by mouth in the morning. 90 Capsule 2 Solifenacin Succinate 10 MG Oral Tablet (VESIcare) Take 1 Tablet by mouth in the morning. 90 Tablet2 NATURAL SUPPLEMENT Take by mouth at bedtime. THC gummies at night for sleep Morphine Sulfate ER 30 MG Oral Tablet Extended Release (Ms Contin) Take 1 Tablet by mouth in the morning and 1 Tablet before bedtime. Due on 06/29/23. 60 Tablet 0 No current facility-administered medications for this visit. ALLERGIES: Review of patient's allergies indicates: No Known Allergies REVIEW OF SYSTEMS: CONSTITUTIONAL: No change in weight, No weakness, No fatigue, and No fevers, sweats, or chills EYE: No recent significant change in vision and No eye pain, redness, discharge EARS: No ear pain and No recent change in hearing NOSE: No history of frequent colds or sinusitis and No nasal stuffiness PULMONARY: No cough, sputum, or hemoptysis and No recent change in breathing CARDIOVASCULAR: No chest pain and No shortness of breath SKIN/INTEGUMENTARY: No edema, No rash, and No itching NEUROLOGIC: Normal balance, No headaches, No seizures, and No weakness PSYCHIATRIC: No depression, No anxiety, and No psychosis FOCUSED PODIATRIC EXAM: Vitals: There were no vitals filed for this visit. General: Patient is awake alert oriented to person place time. No apparent distress. Vascular: DP/PT pulses palpable, jaswinder. CFT < 3 sec 1-5, jaswinder. No edema noted, jaswinder. Temperature gradient is normal warm to cold, jaswinder. Neurologic: Protective sensation intact to light touch, jaswinder. Sensation to sharp/dull is intact, jaswinder. There is no babinski response elicited, jaswinder. Ankle clonus is absent, jaswinder. Dermatological: Skin is normal in appearance with no open lesions or interdigital macerations, jaswinder. Nails 1-5, jaswinder are normal in length and thickness. Pedal hair is noted, jaswinder. Callus noted to the plantar right heel. Musculoskeletal: POP noted to the plantar right heel. No pain with active or passive ROM of the digits or ankle joint, jaswinder. Muscle strength is 5/5 for all muscle groups of the lower extremity, jaswinder. DIAGNOSTIC STUDIES: 3 views of bilateral feet- No acute fractures or dislocations noted. OA noted to the midfoot. Plantar and posterior heel spur noted. ASSESSMENT: Bilateral foot pain Callus, right heel OA, TMTJ, right PLAN: - Xrays personally reviewed and discussed with the pt. All questions answered. - Callus debrided to appropriate level with the use of a 15 blade x1 - Explained this will always come back as it is caused by pressure. - Explained we do not do any routine care anymore. List of local nail care providers given. - Activity to tolerance - Pt to RTC PRN. Instructed to call with any problems or questions. Neema Ozuna DPM Referring: Lina Serna MD documented in this encounter Nursing Notes * Justyna Brice LPN - 07/04/2023 1:16 PM EDT Pt presents for new visit, referred by PCP. Describes feeling of walking on a pebble with R heel x 2 months; had this before, has not gone away. C/o pain in the 'whole R foot'. C/o pain on the ball of L foot also. documented in this encounter Plan of Treatment Upcoming Encounters Date Type Department Care Team (Late st Contact Info) Description 07/10/2023 3:00 PM EDT Imaging [address] [address] Pending Results Name Type Priority Associated Diagnoses Date /Time XR FOOT 3 OR MORE VIEWS Medical Imaging Routine Foot pain, bilateral 07/04/2023 1:44 PM EDT Scheduled Procedures Name Priority Associated Diagnoses Date/Ti me COLONOSCOPY FLEXIBLE PROXIMAL DIAGNOSTIC Recall Screen for colon cancer Health Maintenance Due Date Last Done Comments Cologuard 2001 Fecal Occult Blood Test 2001 Sigmoidoscopy 2001 DXA Scan 2006 Mammogram 01/25/2022 01/25/2021, 12/31, 01/25/2020, Additional history exists *BISPHONATE OR OTHER ACCEPTABLE MEDICATION NEEDED FOR OSTEOPOROSIS (REFER TO SMARTSET #1146) 11/17/2022 COVID-19 Vaccine ( season) 2022 03/28/2021, 06/28/2020, 05/30/2020 GFR 11/16/2023 11/15/2022, 06/2021, 04/18/2021, Additional history exists Influenza Vaccine (FLU shot) (Season Ended) 2023 01/02/2022, 01/11/2021, 01/12/2020, Additional history exists Depression Screening 06/23/2024 06/24/2023 Albumin/Creatinine Ratio 01/02/2025 01/02/2022 Diabetes Screening 11/15/2025 11/15/2022, 0 11/15/2022, 01/02/2022, Additional history exists Colonoscopy 04/09/2027 04/09/2017, 03/21/2007 Colorectal Cancer Screening 04/09/2027 DTaP,Tdap,and Td Vaccines (2 - Td or Tdap) 09/19/2027 09/18/2017, 02/02/2003 Lipid Panel 11/16/2027 11/15/2022, 04/01, 04/02/2019, Additional history exists Zoster Vaccines Completed 09/08/2019, 06/02/2019 Pneumococcal Vaccine: 65+ Years Completed 01/02/2022, 09/19/2016 VITAMIN D LEVEL ONCE IN A LIFETIME-USE SMARTSET# [id number] Completed 11/15/2022, 03/21/2018, 03/21/2016, Additional history exists GARDASIL-HPV IMMUNIZATION SERIES Aged Out No longer eligible based on patient's age to complete this topic Hepatitis B Aged Out No longer eligi ble based on patient's age to complete this topic MENINGOCOCCAL (MENACTRA/MENVEO) Aged Out No longer eligible based on patient's age to complete this topic documented as of this encounter Medical Devices Implanted Type Area Laboratory Analyst Device Identifier Shelf Expiration Date Model / Serial / Lot Lap Band Realize Adj [id number] - [id number] Implanted:Qty: 1 on 07/26/2011 [place] [facility]/A: Abdomen JNJ : [employer] 11/30/2015 [id number] / / [id number] documented as of this encounter Visit Diagnoses Diagnosis Foot pain, bilateral- Primary Pain in limb Primary osteoarthritis of both feet Callus of foot Corns and callosities Pain in both feet [M79.671, M79.672] Pain in limb documented in this encounter Advance Directives Latest Code Status on File Code Status Date Activated Date Inactivated Comments Full Code 07/26/2011 8:04 AM 07/26/2011 10:32 AM This order reflects the patients wishes and were consensually agreed upon. Code Status History Code Status Date Activated Date Inactivated Comments Full Code 07/26/2011 7:25 AM 07/26/2011 8:04 AM This order reflects the patients wishes and were consensually agreed upon. Care Teams Hand Outside Cutter Relationship Specialty Start Date End Date Lina Serna MD [address] [place] [address] PCP - General Internal Medicine 01/11/21 documented as of this encounter
--- OUTSIDE RECORDS SUMMARY | 2023-07-23 08:56 | External Medical Summary | Summary of Care ---
Author Name Unknown Organization [facility] Address [address] [facility] [place] [address] Phone [phone] Care Team Providers Care Rn Urgent Care Name Role Phone Lina Serna MD Primary Care Provider [phone] Reason for Visit * Reason Onset Date Comments Test Results 07/11/2023 Encounter Details Date Type Department Care Team (Late st Contact Info) Description 07/11/2023 Telephone General Internal Medicine [facility] [address] [facility] [place] [address] Aldo Garcia MD [address] [place] [address] Test Results Allergies No known active allergiesdocumented as of this encounter (statuses as of 07/11/2023) Medications Medication Sig Dispensed Refills Start Date [...] as of this encounter (statuses as of 07/11/2023) Active Problems Problem Noted Date Diagnosed Date High risk for fracture due to osteoporosis by DE XA scan 11/15/2022 Morbid obesity with BMI of 60.0-69.9, adult 07/2020 Major depressive disorder, r ecurrent episode, in partial remission 04/02/2019 Controlled substance agreement signed 09/19/2016 Adrenal adenoma 03/03/2012 OA (osteoarthritis) of knee 02/25/2012 Vitamin D deficiency 10/10/2011 Gastric banding status 08/07/2011 [facility] OTHER*[id number] 06/19/2011 Osteoarthritis of multiple joints 05/17/2011 HTN, GOAL BELOW 140/90 02/21/2009 Overview: Modified per HTN protocol #16. Female stress incontinence 08/26/2007 ADVANCE DIRECTIVE INFORMATION 09/20/2004 Overview: No, Advance Directive brochure given to patient. OSTEOARTHROS NOS-UNSPEC documented as of this encounter (statuses as of 07/11/2023) Resolved Problems Problem Noted Date Diagnosed Date [...] as of this encounter (statuses as of 07/11/2023) Immunizations Name Administration Dates Next Due COVID-19 mRNA, LNP-s, No Pre serve, 2-Dose Series ([employer]) 03/28/2021,06/28/2020,05/30/2020 H1N1 2009 Influenza, IM 06/15/2009 Pneumococcal Conjugate Vacci ne, 20-valent ([id number]) 01/02/2022 Pneumococcal Polysaccharide PPV23 (Pneumovax) 09/19/2016 Seasonal [...] on file documented as of this encounter Miscellaneous Notes * Telephone Encounter - Bola Bui RN - 07/11/2023 11:37 AM EDT Message sent via [employer]. Provider to address: n/a Reason for Call: Test Results Contact: [facility] Contact Type: Test Results Outcome: See above Face to face time spent with Patient (minutes): 0 Total Time including non face to face (minutes): 10 Bola Bui RN BSN SAMUEL Primary Care Nurse Coordinator [facility] (Helping out) * Telephone Encounter - Bola Bui RN - 07/11/2023 11:34 AM EDT ----- Message from Aldo Garcia MD sent at 07/11/2023 10:42 AM EDT ----- U/s looks ok, no mass or fluid, if symptoms persist, f/u pcp documented in this encounter Plan of Treatment Scheduled Procedures Name Priority Associated Diagnoses Date/Ti [...] 2023 01/02/2022, 01/11/2021, 01/12/2020, Additional history exists Albumin/Creatinine Ratio 01/02/2025 01/02/2022 Diabetes Screening 11/15/2025 11/15/2022, 0 11/15/2022, 01/02/2022, Additional history exists Colonoscopy 04/09/2027 04/09/2017, 03/21/2007 Colorectal Cancer Screening 04/09/2027 DTaP,Tdap,and Td Vaccines (2 - Td or Tdap) 09/19/2027 09/18/2017, 02/02/2003 Lipid Panel 11/16/2027 11/15/2022, 04/01, 04/02/2019, Additional history exists Zoster Vaccines Completed 09/08/2019, 06/02/2019 Pneumococcal Vaccine: 65+ Years Completed 01/02/2022, 09/19/2016 VITAMIN D LEVEL ONCE IN A LIFETIME-USE SMARTSET# [id number] Completed 11/15/2022, 03/21/2018, 03/21/2016, Additional history exists [...] this encounter Medical Devices Implanted Type Area Assisted Living Housekeeper Device Identifier Shelf Expiration Date Model / Serial / Lot Lap Band Realize Adj [id number] - [id number] Implanted:Qty: 1 on 07/26/2011 at OR [facility] N/A: Abdomen JNJ : [employer] 11/30/2015 [id number] / / [id number] documented as of this encounter Advance Directives Latest Code Status [...] and were consensually agreed upon. Care Teams Rn Urgent Care Relationship Specialty Start Date End Date Lina Serna MD [address] [place] [address] PCP - General Internal Medicine 01/11/21 documented as of this encounter
--- OUTSIDE RECORDS SUMMARY | 2023-07-23 08:56 | External Medical Summary | Summary of Care ---
Author Name Unknown Organization [facility] Address [address] [facility] [place] [address] Phone [phone] Care Team Providers Care Fisher Reef Net Name Role Phone Lina Serna MD Primary Care Provider [phone] Reason for Visit * Reason Onset Date Comments FYI 07/09/2023 Encounter Details Date Type Department Care Team (Late st Contact Info) Description 07/09/2023 Telephone General Internal Medicine [facility] [address] [facility] [place] [address] Lina Serna MD [address] [place] [address] FYI Allergies No known active allergiesdocumented as of this encounter (statuses as of 07/09/2023) Medications Medication Sig Dispensed Refills Start Date [...] as of this encounter (statuses as of 07/09/2023) Active Problems Problem Noted Date Diagnosed Date High risk for fracture due to osteoporosis by DE XA scan 11/15/2022 Morbid obesity with BMI of 60.0-69.9, adult 07/2020 Major depressive disorder, r ecurrent episode, in partial remission 04/02/2019 Controlled substance agreement signed 09/19/2016 Adrenal adenoma 03/03/2012 OA (osteoarthritis) of knee 02/25/2012 Vitamin D deficiency 10/10/2011 Gastric banding status 08/07/2011 [facility] OTHER*[id number] 06/19/2011 Osteoarthritis of multiple joints 05/17/2011 HTN, GOAL BELOW 140/90 02/21/2009 Overview: Modified per HTN protocol #16. Female stress incontinence 08/26/2007 ADVANCE DIRECTIVE INFORMATION 09/20/2004 Overview: No, Advance Directive brochure given to patient. OSTEOARTHROS NOS-UNSPEC documented as of this encounter (statuses as of 07/09/2023) Resolved Problems Problem Noted Date Diagnosed Date [...] as of this encounter (statuses as of 07/09/2023) Immunizations Name Administration Dates Next Due COVID-19 mRNA, LNP-s, No Pre serve, 2-Dose Series ([employer]) 03/28/2021,06/28/2020,05/30/2020 H1N1 2009 Influenza, IM 06/15/2009 Pneumococcal Conjugate Vacci ne, 20-valent ([id number]) 01/02/2022 Pneumococcal Polysaccharide PPV23 (Pneumovax) 09/19/2016 Seasonal [...] Telephone Encounter - Bola Bui RN - 07/09/2023 2:32 PM EDT Images from the original note were not included. FYI Provider to address: n/a Reason for Call: FYI Contact: Telephone Call Contact Type: Information Outcome: See above Face to face time spent with Patient (minutes): 0 Total Time including non face to face (minutes): 10 Bola Bui RN BSN SAMUEL Primary Care Nurse Coordinator [facility] (Helping out) * Telephone Encounter - Radha Darling OSA - 07/09/2023 2:19 PM EDT [facility] sarah pérez providing physical therapy once per week for 3 weeks documented in this encounter Plan of Treatment Upcoming Encounters Date Type Department Care Team (Late st Contact Info) Description 07/10/2023 3:00 PM EDT Imaging Radiology, [place] [address] Scheduled Procedures Name Priority Associated Diagnoses Date/Ti [...] D LEVEL ONCE IN A LIFETIME-USE SMARTSET# [id number] Completed 11/15/2022, 03/21/2018, 03/21/2016, Additional history exists [...] this encounter Medical Devices Implanted Type Area Printed Circuit Boards Stripper Etcher Device Identifier Shelf Expiration Date Model / Serial / Lot Lap Band Realize Adj [id number] - [id number] Implanted:Qty: 1 on 07/26/2011 at OR [facility] [place] N/A: Abdomen JNJ : [employer] 11/30/2015 [id number] / / [id number] documented as of this [...] and were consensually agreed upon. Care Teams Fisher Reef Net Relationship Specialty Start Date End Date Lina Serna MD [address] [place] [address] PCP - General Internal Medicine 01/11/21 documented as of this encounter
--- OUTSIDE RECORDS SUMMARY | 2023-07-23 08:56 | External Medical Summary | Summary of Care ---
Author Name Unknown Organization [facility] Address [address] [facility] [place] [address] Phone [phone] Care Team Providers Care Armature Balancer Name Role Phone Lina Serna MD Primary Care Provider [phone] Reason for Visit * Reason Onset Date Comments Test Results 07/11/2023 Encounter Details Date Type Department Care Team (Late st Contact Info) Description 07/11/2023 Telephone General Internal Medicine [facility] [address] [place] [address] Aldo Garcia MD 200 [place] [address] Test Results Allergies No known active allergiesdocumented [...] D deficiency 10/10/2011 Gastric banding status 08/07/2011 [place] OTHER*[id number] 06/19/2011 Osteoarthritis of multiple joints 05/17/2011 HTN, [...] mRNA, LNP-s, No Pre serve, 2-Dose Series (FunCaptcha) 03/28/2021,06/28/2020,05/30/2020 H1N1 2009 Influenza, IM 06/15/2009 Pneumococcal Conjugate Vacci ne, 20-valent ([id number]) 01/02/2022 Pneumococcal Polysaccharide PPV23 (Pneumovax) 09/19/2016 Seasonal [...] 07/11/2023 11:37 AM EDT Message sent via TriPlay. Provider to address: n/a Reason for Call: Test Results Contact: [facility] Contact Type: Test Results Outcome: See above Face to face time spent with Patient (minutes): 0 Total Time including non face to face (minutes): 10 Bola Bui RN BSN SAMUEL Primary Care Nurse Coordinator [facility] (Helping out) * Telephone Encounter - Bola [...] D LEVEL ONCE IN A LIFETIME-USE SMARTSET# 39190 Completed 11/15/2022, 03/21/2018, 03/21/2016, Additional history exists [...] this encounter Medical Devices Implanted Type Area Inclusion Paraeducator Device Identifier Shelf Expiration Date Model / Serial / Lot Lap Band Realize Adj [id number] - [id number] Implanted:Qty: 1 on 07/26/2011 at OR [facility] N/A: Abdomen JNJ : [employer] 11/30/2015 [id number] / / [id number] documented as of this [...] and were consensually agreed upon. Care Teams Armature Balancer Relationship Specialty Start Date End Date Lina Serna MD [address] [place] [address] PCP - General Internal Medicine 01/11/21 documented as of this encounter
--- OUTSIDE RECORDS SUMMARY | 2023-07-23 08:56 | External Medical Summary | Summary of Care ---
Author Name Unknown Organization [facility] Address [address] [facility] [place] [address] Phone [phone] Care Team Providers Care Department Administrator Name Role Phone Lina Serna MD Primary Care Provider [phone] Reason for Visit * Reason Onset Date Comments FYI 07/09/2023 Encounter Details Date Type Department Care Team (Late st Contact Info) Description 07/09/2023 Telephone General Internal Medicine [facility] 200 [facility] [place] [address] Lina Serna MD 200 [place] [address] FYI Allergies No known active allergiesdocumented as [...] D deficiency 10/10/2011 Gastric banding status 08/07/2011 [employer] RESEARCH OTHER*[id number] 06/19/2011 Osteoarthritis of multiple joints 05/17/2011 HTN, [...] mRNA, LNP-s, No Pre serve, 2-Dose Series (Giraffe Friend) 03/28/2021,06/28/2020,05/30/2020 H1N1 2009 Influenza, IM 06/15/2009 Pneumococcal Conjugate Vacci ne, 20-valent ([id number]) 01/02/2022 Pneumococcal Polysaccharide PPV23 (Pneumovax) 09/19/2016 Seasonal Influenza Virus Vac cine, Unspecified Formulation 01/12/2020 Seasonal Influenza, PF, 6 M & above, IM , (FluLaval or Fluzone) 01/11/2021,12/24/2018,03/21/2018,03/20 Seasonal Influenza, Quadriva lent Hd (Fluzone Hd) 01/02/2022 Seasonal Influenza, Quadriva lent, No Preserve, IM 01/05/2020,03/21/2016,01/27/2015 Seasonal Influenza, Split, I IV3, With Preserve, Inj 05/05/2014,01/15/2013,02/25/2012,05/16,02/16/2010,12/09/2008,12/31/2007 ,03/10/2007,03/01/2006,03/02/2003 TD - Tetanus/Diptheria (ADULT) 02/02/2003 TDAP (age 10 and older)(Boostrix) 09/18/2017 Zoster [...] encounter Miscellaneous Notes * Telephone Encounter - Lina Serna MD - 07/09/2023 4:32 PM EDT Noted * Telephone Encounter - Bola Bui RN [...] RN BSN SAMUEL Primary Care Nurse Coordinator [facility] (Helping out) * Telephone Encounter - Radha Darling OSA - 07/09/2023 2:19 PM EDT [facility] sarah pérez providing physical therapy once per week for 3 weeks documented in this encounter Plan of Treatment Upcoming Encounters Date Type Department Care Team (Late st Contact Info) Description 07/10/2023 3:00 PM EDT Imaging Radiology[address] [address] Scheduled Procedures Name Priority Associated Diagnoses Date/Ti [...] 2022 03/28/2021, 06/28/2020, 05/30/2020 GFR 11/16/2023 11/15/2022, 1006/2021, 04/18/2021, Additional history exists Influenza Vaccine (FLU [...] D LEVEL ONCE IN A LIFETIME-USE SMARTSET# 30066 Completed 11/15/2022, 03/21/2018, 03/21/2016, Additional history exists [...] this encounter Medical Devices Implanted Type Area Scientific Technical Writer Device Identifier Shelf Expiration Date Model / Serial / Lot Lap Band Realize Adj [id number] - [id number] Implanted:Qty: 1 on 07/26/2011 [place] [facility] [place] Abdomen JNJ : [employer] 11/30/2015 [id number] / / [id number] documented as of this [...] and were consensually agreed upon. Care Teams Department Administrator Relationship Specialty Start Date End Date Lina Serna MD 200 [facility] [place] [address] PCP - General Internal Medicine 01/11/21 documented as of this encounter
--- OUTSIDE RECORDS SUMMARY | 2023-07-23 08:56 | External Medical Summary | Summary of Care ---
Author Name Unknown Organization [facility] Address [address] [facility] [place] [address] Phone [phone] Care Team Providers Care Radiology Technician Name Role Phone Lina Serna MD Primary Care Provider [phone] Reason for Visit * Reason Onset Date Comments FYI 07/02/2023 Encounter Details Date Type Department Care Team (Late st Contact Info) Description 07/02/2023 Telephone General Internal Medicine [facility] 200 [facility] [place] [address] Lina Serna MD 200 [place] [address] FYI Allergies No known active allergiesdocumented as of this encounter (statuses as of 07/02/2023) Medications Medication Sig Dispensed Refills Start Date [...] gummies at night for sleep 0 Active Doxycycline Hyclate 100 MG Oral CapsuleIndications:Sk in ulcer, limited to breakdown of skin (HCC) Take 1 Capsule by mouth in the morning and 1 Capsule before bedtime. Do all this for 7 days. Take for 7 days. 14 Capsule 0 06/26/2023 07/03/2023 Active Morphine Sulfate ER 30 MG Oral Tablet Extended Release (Ms Contin)Indications:Pr imary osteoarthritis of both knees Take 1 Tablet by mouth in the morning and 1 Tablet before bedtime. Due on 06/29/23. 60 Tablet 0 06/27/2023 Active documented as of this encounter (statuses as of 07/02/2023) Active Problems Problem Noted Date Diagnosed Date High risk for fracture due to osteoporosis by DE XA scan 11/15/2022 Morbid obesity with BMI of 60.0-69.9, adult 07/2020 Major depressive disorder, r ecurrent episode, in partial remission 04/02/2019 Controlled substance agreement signed 09/19/2016 Adrenal adenoma 03/03/2012 OA (osteoarthritis) of knee 02/25/2012 Vitamin D deficiency 10/10/2011 Gastric banding status 08/07/2011 [place] [facility] OTHER*[id number] 06/19/2011 Osteoarthritis of multiple joints 05/17/2011 HTN, GOAL BELOW 140/90 02/21/2009 Overview: Modified per HTN protocol #16. Female stress incontinence 08/26/2007 ADVANCE DIRECTIVE INFORMATION 09/20/2004 Overview: No, Advance Directive brochure given to patient. OSTEOARTHROS NOS-UNSPEC documented as of this encounter (statuses as of 07/02/2023) Resolved Problems Problem Noted Date Diagnosed Date [...] as of this encounter (statuses as of 07/02/2023) Immunizations Name Administration Dates Next Due COVID-19 mRNA, LNP-s, No Pre serve, 2-Dose Series (NatureBox) 03/28/2021,06/28/2020,05/30/2020 H1N1 2009 Influenza, IM 06/15/2009 Pneumococcal Conjugate Vacci ne, 20-valent ([id number]) 01/02/2022 Pneumococcal Polysaccharide PPV23 (Pneumovax) 09/19/2016 Seasonal [...] Telephone Encounter - Lina Serna MD - 07/02/2023 3:47 PM EDT Noted * Telephone Encounter - Comfort Gay OSA - 07/02/2023 2:48 PM EDT Call from Sandy from [facility] home health to let PCP know patient has decided to defer PT evaluation to next week. documented in this encounter Plan of Treatment Upcoming Encounters Date Type Department Care Team (Late st Contact Info) Description 07/04/2023 1:00 PM EDT Office Visit Podiatry [facility] [address] [place] [address] Neema Ozuna DPM [address] [place] [address] 07/10/2023 3:00 PM EDT Imaging [address] [id number] Scheduled Procedures Name Priority Associated Diagnoses Date/Ti [...] D LEVEL ONCE IN A LIFETIME-USE SMARTSET# [id number] Completed 11/15/2022, 03/21/2018, 03/21/2016, Additional history exists [...] this encounter Medical Devices Implanted Type Area Compensation And Benefits Administrator Device Identifier Shelf Expiration Date Model / Serial / Lot Lap Band Realize Adj [id number] - [id number] Implanted:Qty: 1 on 07[place]26/[place] [facility] [place]: Abdomen JNJ : [employer] 11/30/2015 [id number] / / [id number] documented as of this [...] and were consensually agreed upon. Care Teams Radiology Technician Relationship Specialty Start Date End Date Lina Serna MD 200 [place] [address] PCP - General Internal Medicine 01/11/21 documented as of this encounter
--- OUTSIDE RECORDS SUMMARY | 2023-07-23 08:56 | External Medical Summary | Summary of Care ---
Author Name Unknown Organization [facility] Address [address] [place] [address] Phone [phone] Care Team Providers Care Street Engineer Name Role Phone Lina Serna MD Primary Care Provider [phone] Reason for Referral * Evaluate & Treat - Unlimited Visits (Within 30 days (routine)) - Authorized Specialty Diagnoses / Procedures Referred By Shell da silva Referred To Contact Podiatry Diagnoses Pain in both feet Lina Serna MD [address] [place] [address] Referral ID Status Reason Start Date Expiration Date Visits Requested Visits Authorized [id number] Authorized Specialty Services Required 06/24/2023 999 999 Question Answer Referral Priority Within 30 days (routine) Where should this appointment be scheduled? [facility] Which condition are you referring this patient for? General Foot Pain Comments Pain in both feet Reason for Visit * Reason Onset Date Comments case management 06/24/2023 Encounter Details Date Type Department Care Team (Late st Contact Info) Description 06/24/2023 Telephone Care Coordination and Integration [address] [place] [address] Lina Serna MD [address] [facility] [address] case management Allergies No known active allergiesdocumented as of this encounter (statuses as of 07/04/2023) Medications Medication Sig Dispensed Refills Start Date End Date Status TYLENOL ARTHRITIS PAIN 650 MG PO TBCR Take 2 Tablets by mouth in the morning and 2 Tablets before bedtime. 0 Active Cholecalciferol (VITAMIN D) 2000 UNITS CapsuleIndications:V itamin D deficiency Take 3,000 Units by mouth [...] 0 Active Lisinopril 10 MG Oral Tablet (Prinivil)Indication s:HTN, goal below 140/90 Take 1 Tablet by mouth in the morning. 90 Tablet 3 07/30/2022 Active FLUoxetine HCl 20 MG Oral Capsule (PROzac) Take 1 Capsule by mouth in the morning. 90 Capsule 2 04/30/2023 Active Solifenacin Succinate 10 MG Oral Tablet (VESIcare)Indication s:Female stress incontinence Take 1 Tablet by mouth in the morning. 90 Tablet 2 04/30/2023 Active Morphine Sulfate ER 30 MG Oral Tablet Extended Release (Ms Contin)Indications:P rimary osteoarthritis of both knees Take 1 Tablet by mouth in the morning and 1 Tablet before bedtime. 60 Tablet 0 05/30/2023 4 Discontinue d(Refill) documented as of this encounter (statuses as of 07/04/2023) Active Problems Problem Noted Date Diagnosed Date High risk for fracture due to osteoporosis by DE XA scan 11/15/2022 Morbid obesity with BMI of 60.0-69.9, adult 07/2020 Major depressive disorder, r ecurrent episode, in partial remission 04/02/2019 Controlled substance agreement signed 09/19/2016 Adrenal adenoma 03/03/2012 OA (osteoarthritis) of knee 02/25/2012 Vitamin D deficiency 10/10/2011 Gastric banding status 08/07/2011 [employer] RESEARCH OTHER*[id number] 06/19/2011 Osteoarthritis of multiple joints 05/17/2011 HTN, GOAL BELOW 140/90 02/21/2009 Overview: Modified per HTN protocol #16. Female stress incontinence 08/26/2007 ADVANCE DIRECTIVE INFORMATION 09/20/2004 Overview: No, Advance Directive brochure given to patient. OSTEOARTHROS NOS-UNSPEC documented as of this encounter (statuses as of 07/04/2023) Resolved Problems Problem Noted Date Diagnosed Date [...] as of this encounter (statuses as of 07/04/2023) Immunizations Name Administration Dates Next Due COVID-19 mRNA, LNP-s, No Pre serve, 2-Dose Series ([employer]) 03/28/2021,06/28/2020,05/30/2020 H1N1 2009 Influenza, IM 06/15/2009 Pneumococcal Conjugate Vacci ne, 20-valent ([id number]) 01/02/2022 Pneumococcal Polysaccharide PPV23 (Pneumovax) 09/19/2016 Seasonal [...] Telephone Encounter - Lina Serna MD - 06/25/2023 3:19 PM EDT Noted Thanks * Telephone Encounter - Comfort Carrasquillo RN - 06/25/2023 11:09 AM EDT Called patient and got her scheduled to be seen tomorrow for an acute appointment with Dr. Garcia. She was agreeable to this. I will assume pt's case and follow up with her next week. Thanks! * Telephone Encounter - Sujey Arenas LPN - 06/24/2023 3:29 PM EDT Thank you- I would love to help due to pt has an open wound on her buttock- I have tried most of the day to obtain an appt for her unsuccessfully- I advised her to go to urgent care which I highly doubt she will do * Telephone Encounter - Lina Serna MD - 06/24/2023 1:40 PM EDT Signed and sent to scheduling She is also due for recheck visit with me - please help * Telephone Encounter - Sujey Arenas LPN - 06/24/2023 12:59 PM EDT Called to do pts annual assessment She is having so much pain she can hardly walk- she states the pain in her feet is really hinderingher- would like to see a jigger machine operator- Would you recommend one and refer her - ? Mejia fox documented in this encounter Plan of Treatment Upcoming Encounters Date Type Department Care Team (Late st Contact Info) Description 07/10/2023 3:00 PM EDT Imaging [address] [address] Scheduled Procedures Name Priority Associated Diagnoses Date/Ti me COLONOSCOPY FLEXIBLE PROXIMAL DIAGNOSTIC Recall Screen for colon cancer Scheduled Referrals Name Type Priority Associated Diagnoses Orde r Schedule PODIATRY REFERRAL OP Referral Within 30 days (routine) Pain in both feet Ordered: 06/24/2023 Health Maintenance Due Date Last Done Comments [...] D LEVEL ONCE IN A LIFETIME-USE SMARTSET# [id number] Completed 11/15/2022, 03/21/2018, 03/21/2016, Additional history exists [...] this encounter Medical Devices Implanted Type Area Refrigerating Oiler Device Identifier Shelf Expiration Date Model / Serial / Lot Lap Band Realize Adj [id number] - [id number] Implanted:Qty: 1 on 07/26/2011 [place] [facility] [place] Abdomen JNJ : [employer] 11/30/2015 [id number] / / [id number] documented as of this encounter Visit Diagnoses Diagnosis Pain in both feet- Primary Pain in limb documented in this encounter [...] and were consensually agreed upon. Care Teams Street Engineer Relationship Specialty Start Date End Date Lina Serna MD 200 [place] [address] PCP - General Internal Medicine 01/11/21 documented as of this encounter
--- OUTSIDE RECORDS SUMMARY | 2023-07-23 08:56 | External Medical Summary | Summary of Care ---
Author Name Unknown Organization [facility] Address [address] [facility] [place] [address] Phone [phone] Care Team Providers Care Head Control Clerk Name Role Phone Shon Serna MD Primary Care Provider [phone] Reason for Referral * Medication Prior Authorization - Pending Review Specialty Diagnoses / Procedures Referred By Shell t Referred To Contact Diagnoses Primary osteoarthritis of both knees Shon Serna MD [address] [facility] [address] [place] [address] Referral ID Status Reason Start Date Expiration Date V isits Requested Visits Authorized [id number] Pending Review 999 999 Reason for Visit * Reason Onset Date Comments Medication Refill 06/26/2023 Encounter Details Date Type Department Care Team (Late st Contact Info) Description 06/26/2023 Telephone General Internal Medicine [place] Etienne Rowell [address] [place] [address] Shon Serna MD 200 [facility] [place] [address] Medication Refill (/) Allergies No known active allergiesdocumented as of this encounter (statuses as of 07/05/2023) Medications Medication Sig Dispensed Refills Start Date End Date Status TYLENOL ARTHRITIS PAIN 650 MG PO TBCR Take 2 Tablets by mouth in the morning and 2 Tablets before bedtime. 0 Active Cholecalciferol (VITAMIN D) 2000 UNITS CapsuleIndications: Vitamin D deficiency Take 3,000 Units by mouth daily. 0 01/28/2015 Active diphenhydrAMINE HCl 25 MG Oral Capsule Take 1 Capsule by mouth every 6 hours as needed for Itching. 0 Active Diclofenac Sodium 1 % External Gel Apply topically to affected area. Apply to affected areas 0 Active Calcium Carb-Cholecalcifero l 1000-20 MG-MCG Oral Tablet Take by mouth. 0 Active Lisinopril 10 MG Oral Tablet (Prinivil)Indicatio ns:HTN, goal below 140/90 Take 1 Tablet by mouth in the morning. 90 Tablet 3 07/30/2022 Active FLUoxetine HCl 20 MG Oral Capsule (PROzac) Take 1 Capsule by mouth in the morning. 90 Capsule 2 04/30/2023 Active Solifenacin Succinate 10 MG Oral Tablet (VESIcare)Indicatio ns:Female stress incontinence Take 1 Tablet by mouth in the morning. 90 Tablet 2 04/30/2023 Active NATURAL SUPPLEMENT Take by mouth at bedtime. THC gummies at night for sleep 0 Active Morphine Sulfate ER 30 MG Oral Tablet Extended Release (Ms Contin)Indications: Primary osteoarthritis of both knees Take 1 Tablet by mouth in the morning and 1 Tablet before bedtime. Due on 06/29/23. 60 Tablet 0 06/27/2023 Active Morphine Sulfate ER 30 MG Oral Tablet Extended Release (Ms Contin)Indications: Primary osteoarthritis of both knees Take 1 Tablet by mouth in the morning and 1 Tablet before bedtime. 60 Tablet 0 05/30/2023 4 Discontinued (Refill) Doxycycline Hyclate 100 MG Oral CapsuleIndications: Skin ulcer, limited to breakdown of skin (HCC) Take 1 Capsule by mouth in the morning and 1 Capsule before bedtime. Do all this for 7 days. Take for 7 days. 14 Capsule 0 06/26/2023 4 documented as of this encounter (statuses as [...] 10/10/2011 Gastric banding status 08/07/2011 [employer] RESEARCH OTHER*[id number] 06/19/2011 Osteoarthritis of multiple joints 05/17/2011 HTN, [...] mRNA, LNP-s, No Pre serve, 2-Dose Series (Pfizer) 03/28/2021,06/28/2020,05/30/2020 H1N1 2009 Influenza, IM 06/15/2009 Pneumococcal Conjugate Vacci ne, 20-valent ([id number]) 01/02/2022 Pneumococcal Polysaccharide PPV23 (Pneumovax) 09/19/2016 Seasonal [...] encounter Miscellaneous Notes * Telephone Encounter - Chaitanya Mustafa CPhT - 06/27/2023 9:08 AM EDT Patients insurance would like to inform the office that MORPHINE SULF ER 30 MG TABLET is not requiring review because No review needed. test claim approves. Rx released Thank you, Vikram Mustafa ([facility]) Educational Technology Coordinator III [facility] ([facility] (formerly Telepharmacy) 06/27/2023, 9:08 AM * Telephone Encounter - Shon Serna MD - 06/27/2023 8:37 AM EDTSigned Prescriptions: Disp Refills Morphine Sulfate ER 30 MG Oral Tablet Exte*60 Tab*0 Sig: Take 1 Tablet by mouth in the morning and 1 Tablet before bedtime. Due on 06/29/23. Authorizing Provider: SHON SERNA * Telephone Encounter - Shon Serna MD - 06/27/2023 8:34 AM EDT I have reviewed the patients controlled substance dispensing history in the Prescription Drug Monitoring Program in compliance with the [facility] regulations before prescribing a controlled substance. Due on 06/28- signed like that She needs visit with me scheduled for further refill * Telephone Encounter - Heidy Franklin LPN - 06/26/2023 6:55 PM EDT Did you pend patient's preferred pharmacy and medication before forwarding?yes Pharmacy: [id number] [address] Pending Prescriptions: Disp Refills Morphine Sulfate ER 30 MG Oral Tablet Ext*60 Tab*0 Sig: Take 1 Tablet by mouth in the morning and 1 Tablet before bedtime. Last Visit: 06/26/2023 (in office), Visit date not found (telemedicine) Next Visit: Visit date not found If no future appointments scheduled, and last appointment is greater than a year ago, please schedule patient for a follow-up appointment Last date the medication was ordered: 05/30/2023 Is this request for a controlled substance?Yes, What was the last refill date 05/30/2023 w/ [id number] and dosage 30mg and Urine Drug Screen was completed Urine Drug Screen: Results for orders placed or performed in visit on 11/15/22 PAIN MANAGEMENT DRUG PANEL, URINE W/ INTERPRETATION Result Value Compliance Interpretation Based on medication info provided, The presence of morphine and hydromorphone is CONSISTENT with morphine prescription. Amphetamines Screen, U Negative Benzodiazepines Screen, U Negative Cannabinoids Screen, U Negative Cocaine Metabolite Screen, U Negative Fentanyl Screen, U Negative Hydrocodone Screen, U Refer to confirmation results (A) Methadone Metabolite Screen, U Negative Morphine/Codeine Screen, U Refer to confirmation results (A) Oxycodone Screen, U Refer to confirmation results (A) Valid Interpretation Normal Creatinine, U 68 Narrative Cutoff Concentrations: Drug Level Amphetamines 500 ng/mL Benzodiazepines 100 ng/mL Cannabinoids 50 ng/mL Cocaine Metabolite 150 ng/mL Fentanyl 1 ng/mL Hydrocodone / Hydromorphone 300 ng/mL Methadone Metabolite 100 ng/mL Morphine / Codeine 300 ng/mL Oxycodone / Oxymorphone 100 ng/mL Screening results are presumptive and can only be used for medical purposes. Confirmatory testing is available upon request. Patient Phone Numbers Labs: Lab Results Component Value Date/Time CREAT 0.5 11/15/2022 02:10 PM CREAT 0.6 04/11/2020 04:02 PM POTASSIUM 4.9 11/15/2022 02:10 PM POTASSIUM 4.4 04/11/2020 04:02 PM TSH 1.72 03/21/2018 12:12 PM LDLCALC 78 11/15/2022 02:10 PM LDLCALC 104 04/02/2019 03:14 PM LDLDIRECT NOT APPLICABLE 04/02/2019 03:14 PM ALT 8 (L) 11/15/2022 02:10 PM ALT 15 04/11/2020 04:02 PM HGBA1C 5.8 (H) 11/15/2022 02:10 PM HGBA1C 5.6 05/17/2011 12:17 PM documented in this encounter Plan of Treatment Upcoming Encounters Date Type Department Care Team (Late st Contact Info) Description 07/10/2023 3:00 PM EDT Imaging Radiology[address] [address] Scheduled Procedures Name Priority Associated Diagnoses Date/Ti [...] D LEVEL ONCE IN A LIFETIME-USE SMARTSET# 11394 Completed 11/15/2022, 03/21/2018, 03/21/2016, Additional history exists [...] this encounter Medical Devices Implanted Type Area Industrial Organizational Psychologist Device Identifier Shelf Expiration Date Model / Serial / Lot Lap Band Realize Adj [id number] - [id number] Implanted:Qty: 1 on 07/26/2011 at [place] [facility] [place] N/A: Abdomen JNJ : [employer] 11/30/2015 [id number] / / [id number] documented as of this encounter Visit Diagnoses Diagnosis Primary osteoarthritis of both knees Primary localized osteoarthrosis, lower leg documented in this encounter Advance Directives Latest [...] and were consensually agreed upon. Care Teams Head Control Clerk Relationship Specialty Start Date End Date Shon Serna MD [address] [facility] [place] [place] [address] PCP - General Internal Medicine 01/11/21 documented as of this encounter
--- OUTSIDE RECORDS SUMMARY | 2023-07-23 08:57 | External Medical Summary | Summary of Care ---
Author Name Unknown Organization [facility] Address [address] [place] [address] Phone [phone] Care Team Providers Care Home Health Occupational Therapist Name Role Phone Lina Serna MD Primary Care Provider Reason for Visit * Reason Onset Date Comments Order Request 06/27/2023 Encounter Details Date Type Department Care Team (Late st Contact Info) Description 06/27/2023 Telephone General Internal Medicine [facility] [address] [place] [address] Comfort Carrasquillo, RN [address] [place] [address] Order Request Allergies No known active allergiesdocumented as of this encounter (statuses as of 06/27/2023) Medications Medication Sig Dispensed Refills Start Date [...] as of this encounter (statuses as of 06/27/2023) Active Problems Problem Noted Date Diagnosed Date High risk for fracture due to osteoporosis by DE XA scan 11/15/2022 Morbid obesity with BMI of 60.0-69.9, adult 07/2020 Major depressive disorder, r ecurrent episode, in partial remission 04/02/2019 Controlled substance agreement signed 09/19/2016 Adrenal adenoma 03/03/2012 OA (osteoarthritis) of knee 02/25/2012 Vitamin D deficiency 10/10/2011 Gastric banding status 08/07/2011 GRIMALDO RESEARCH OTHER*[id number] 06/19/2011 Osteoarthritis of multiple joints 05/17/2011 HTN, GOAL BELOW 140/90 02/21/2009 Overview: Modified per HTN protocol #16. Female stress incontinence 08/26/2007 ADVANCE DIRECTIVE INFORMATION 09/20/2004 Overview: No, Advance Directive brochure given to patient. OSTEOARTHROS NOS-UNSPEC documented as of this encounter (statuses as of 06/27/2023) Resolved Problems Problem Noted Date Diagnosed Date [...] as of this encounter (statuses as of 06/27/2023) Immunizations Name Administration Dates Next Due COVID-19 mRNA, LNP-s, No Pre serve, 2-Dose Series (CHIC.TV) 03/28/2021,06/28/2020,05/30/2020 H1N1 2009 Influenza, IM 06/15/2009 Pneumococcal Conjugate Vacci ne, 20-valent ([id number]) 01/02/2022 Pneumococcal Polysaccharide PPV23 (Pneumovax) 09/19/2016 Seasonal [...] encounter Miscellaneous Notes * Telephone Encounter - Aldo Garcia MD - 06/27/2023 12:37 PM EDT I would suggest home health wound expert go out and assess what they feel is best first ([facility] has done this for us before), thanks * Telephone Encounter - Comfort Carrasquillo RN - 06/27/2023 10:[address] Garcia Can you please add to the home health care order what sort of wound care is needed (cleaning and bandaging wound? Dressing changes? Ect.) I'm working on finding a home health agency to go out but they need specific orders. Thank you in advanced, documented in this encounter Plan of Treatment [...] Vaccine ( season) 2022 03/28/2021, 06/28/2020, 05/30/2020 Influenza Vaccine (FLU shot) (#1) 2022 01/02/2022, 01/11/2021, 01/12/2020, Additional history exists GFR 11/16/2023 11/15/2022, 06/2021, 04/18/2021, Additional history exists Depression Screening 06/23/2024 06/24/2023 [...] D LEVEL ONCE IN A LIFETIME-USE SMARTSET# 74876 Completed 11/15/2022, 03/21/2018, 03/21/2016, Additional history exists [...] this encounter Medical Devices Implanted Type Area Comparator Operator Device Identifier Shelf Expiration Date Model / Serial / Lot Lap Band Realize Adj [id number] - [id number] [place]:Q[place] 1 [place] [facility] [place] Abdomen JNJ : [employer] 11/30/2015 [id number] / / [id number] documented as of this [...] and were consensually agreed upon. Care Teams Home Health Occupational Therapist Relationship Specialty Start Date End Date Lina Serna MD [address] [place] [address] PCP - General Internal Medicine 01/11/21 documented as of this encounter
--- OUTSIDE RECORDS SUMMARY | 2023-07-23 08:57 | External Medical Summary | Summary of Care ---
Author Name Unknown Organization [facility] Address [address] [facility] [place] [address] Phone [phone] Care Team Providers Care Beekeeper Farmer Name Role Phone Lina Serna MD Primary Care Provider [phone] Reason for Visit * Reason Onset Date Comments Medication Refill 06/28/2023 Encounter Details Date Type Department Care Team (Late st Contact Info) Description 06/28/2023 Refill General Internal Medicine [facility] [address] [facility] [place] [address] Lina Serna MD [address] [place] [address] Primary osteoarthritis of both knees Allergies No known active allergiesdocumented as of this encounter (statuses as of 06/29/2023) Medications Medication Sig Dispensed Refills Start Date [...] as of this encounter (statuses as of 06/29/2023) Active Problems Problem Noted Date Diagnosed Date High risk for fracture due to osteoporosis by DE XA scan 11/15/2022 Morbid obesity with BMI of 60.0-69.9, adult 07/2020 Major depressive disorder, r ecurrent episode, in partial remission 04/02/2019 Controlled substance agreement signed 09/19/2016 Adrenal adenoma 03/03/2012 OA (osteoarthritis) of knee 02/25/2012 Vitamin D deficiency 10/10/2011 Gastric banding status 08/07/2011 GRIMALDO RESEARCH OTHER*[id number] 06/19/2011 Osteoarthritis of multiple joints 05/17/2011 HTN, GOAL BELOW 140/90 02/21/2009 Overview: Modified per HTN protocol #16. Female stress incontinence 08/26/2007 ADVANCE DIRECTIVE INFORMATION 09/20/2004 Overview: No, Advance Directive brochure given to patient. OSTEOARTHROS NOS-UNSPEC documented as of this encounter (statuses as of 06/29/2023) Resolved Problems Problem Noted Date Diagnosed Date [...] as of this encounter (statuses as of 06/29/2023) Immunizations Name Administration Dates Next Due COVID-19 mRNA, LNP-s, No Pre serve, 2-Dose Series (Aceris 3D Inspection) 03/28/2021,06/28/2020,05/30/2020 H1N1 2009 Influenza, IM 06/15/2009 Pneumococcal Conjugate Vacci ne, 20-valent ([id number]) 01/02/2022 Pneumococcal Polysaccharide PPV23 (Pneumovax) 09/19/2016 Seasonal [...] on file documented as of this encounter Plan of Treatment Upcoming Encounters Date Type Department Care Team (Late st Contact Info) Description 07/04/2023 1:00 PM EDT Office Visit Podiatry [facility] [address] [place] [address] Neema Ozuna DPM [address] [place] [address] 07/10/2023 3:00 PM EDT Imaging Radiology[address] [place] [address] Scheduled Procedures Name Priority Associated Diagnoses Date/Ti [...] D LEVEL ONCE IN A LIFETIME-USE SMARTSET# [id number] Completed 11/15/2022, 03/21/2018, 03/21/2016, Additional history exists [...] this encounter Medical Devices Implanted Type Area Director Of Convention Services Device Identifier Shelf Expiration Date Model / Serial / Lot Lap Band Realize Adj [id number] - [id number] Implanted:Qty: 1 on 07/26/2011 [place] [facility] [place]/A: Abdomen JNJ : [employer] 11/30/2015 [id number] / / [id number] documented as of this [...] and were consensually agreed upon. Care Teams Beekeeper Farmer Relationship Specialty Start Date End Date Lina Serna MD [address] [place] [place] [address] PCP - General Internal Medicine 01/11/21 documented as of this encounter
--- OUTSIDE RECORDS SUMMARY | 2023-07-23 08:57 | External Medical Summary | Summary of Care ---
Author Name Unknown Organization [facility] Address [address] [facility] [place] [address] Phone [phone] Care Team Providers Care Sky Line Yarder Name Role Phone Shon Serna MD Primary Care Provider [phone] Reason for Visit * Reason Onset Date Comments Medication Refill 05/29/2023 Encounter Details Date Type Department Care Team (Late st Contact Info) Description 05/29/[address] [facility] [address] [facility] [place] [address] Shon Serna MD [address] [place] [address] Primary osteoarthritis of both knees Allergies No known active allergiesdocumented as of this encounter (statuses as of 06/03/2023) Medications Medication Sig Dispensed Refills Start Date [...] Tablet before bedtime. 60 Tablet 0 05/30/2023 Active Morphine Sulfate ER 30 MG Oral Tablet Extended Release (Ms Contin)Indications:P rimary osteoarthritis of both knees Take 1 Tablet by mouth in the morning and 1 Tablet before bedtime. 60 Tablet 0 04/30/2023 Discontinue d(Refill) documented as of this encounter (statuses as of 06/03/2023) Active Problems Problem Noted Date Diagnosed Date High risk for fracture due to osteoporosis by DE XA scan 11/15/2022 Morbid obesity with BMI of 60.0-69.9, adult 07/2020 Major depressive disorder, r ecurrent episode, in partial remission 04/02/2019 Controlled substance agreement signed 09/19/2016 Adrenal adenoma 03/03/2012 OA (osteoarthritis) of knee 02/25/2012 Vitamin D deficiency 10/10/2011 Gastric banding status 08/07/2011 GRIMALDO RESEARCH OTHER*[id number] 06/19/2011 Osteoarthritis of multiple joints 05/17/2011 HTN, GOAL BELOW 140/90 02/21/2009 Overview: Modified per HTN protocol #16. Female stress incontinence 08/26/2007 ADVANCE DIRECTIVE INFORMATION 09/20/2004 Overview: No, Advance Directive brochure given to patient. OSTEOARTHROS NOS-UNSPEC documented as of this encounter (statuses as of 06/03/2023) Resolved Problems Problem Noted Date Diagnosed Date [...] as of this encounter (statuses as of 06/03/2023) Immunizations Name Administration Dates Next Due COVID-19 mRNA, LNP-s, No Pre serve, 2-Dose Series (IXI-Play) 03/28/2021,06/28/2020,05/30/2020 H1N1 2009 Influenza, IM 06/15/2009 Pneumococcal Conjugate Vacci ne, 20-valent ([id number]) 01/02/2022 Pneumococcal Polysaccharide PPV23 (Pneumovax) 09/19/2016 Seasonal [...] Answer Date Recorded PHQ Adult Total Score 1 04/05/2020 Hunger Vital Sign Answer Date Recorded Within the past 12 months, y ou worried that your food would run out before you got the money to buy more. Never true 07/20/19 23 Within the past 12 months, t he food you bought just didn't last and you didn't have money to get more. Never true 07/19/2022 Sex and Gender Information Value Date Recorded Sex Assigned at Female 10/07/2019 8:07 AM EDT Gender Identity Female 10/07/2019 8:07 AM EDT Sexual Orientation Straight 12/20/2021 1: 21 AM EDT Job Start Date Occupation Industry Not on file Not on file Not on file documented as of this encounter Miscellaneous Notes * Telephone Encounter - Eloina Almonte CPhT - 05/31/2023 3:37 PM EST Pharmacy is requesting to have a hard copy for pt to mixing picker tender from office due to not being able to receive fax's. Please advise at your earliest convenience. Thank you, Eloina Almonte Big Data Software Engineer [facility] 05/31/2023, 3:38 PM * Telephone Encounter - Shon Serna MD - 05/30/2023 8:44 AM ESTSigned Prescriptions: Disp Refills Morphine Sulfate ER 30 MG Oral Tablet Exte*60 Tab*0 Sig: Take 1 Tablet by mouth in the morning and 1 Tablet before bedtime. Authorizing Provider: SHON SERNA * Telephone Encounter - Amy Slater [facility] - 05/29/2023 3:38 PM ESTPending Prescriptions: Disp Refills Morphine Sulfate ER 30 MG Oral Tablet Exte*60 Tab*0 Sig: Take 1 Tablet by mouth in the morning and 1 Tablet before bedtime. * Telephone Encounter - Amy Slater [facility] - 05/29/2023 3:38 PM EST I have reviewed the patients controlled substance dispensing history in the Prescription Drug Monitoring Program in compliance with the [facility] regulations before prescribing a controlled substance. PDMP checked on 05/29/2023. Pending Prescriptions: Disp Refills Morphine Sulfate ER 30 MG Oral Tablet Ext*60 Tab*0 Sig: Take 1 Tablet by mouth in the morning and 1 Tablet before bedtime. Last Visit: Visit date not found (in office), Visit date not found (telemedicine) Next Visit: Visit date not found Date medication was last filled: 04/30/23 Date medication is due for refill: 05/29/23 Pharmacy: [id number] [address] [facility] Is this request for a controlled substance? Yes and Urine Drug Screen was completed Toxicology results: Results for orders placed or performed in [...] purposes. Confirmatory testing is available upon request. Please approve if appropriate. Amy Champoin Clinical Pharmacist [facility] ([facility]) (Formerly Telepharmacy) [phone] 05/29/2023, 3:38 PM documented in this encounter Plan of Treatment Scheduled Procedures Name Priority Associated Diagnoses Date/Ti me COLONOSCOPY FLEXIBLE PROXIMAL DIAGNOSTIC Recall Screen for colon cancer Health Maintenance Due Date Last Done Comments Cologuard 2001 Fecal Occult Blood Test 2001 Sigmoidoscopy 2001 DXA Scan 2006 Depression Screening 04/05/2021 04/05/2020 Mammogram 01/25/2022 01/25/2021, 12/31, 01/25/2020, Additional history exists *BISPHONATE OR OTHER ACCEPTABLE MEDICATION NEEDED FOR OSTEOPOROSIS (REFER TO SMARTSET #1146) 11/17/2022 COVID-19 Vaccine ( season) 2022 03/28/2021, 06/28/2020, 05/30/2020 Influenza Vaccine (FLU shot) (#1) 2022 01/02/2022, 01/11/2021, 01/12/2020, Additional history exists GFR 11/16/2023 11/15/2022, 1006/2021, 04/18/2021, Additional history exists Albumin/Creatinine Ratio 01/02/2025 01/02/2022 [...] D LEVEL ONCE IN A LIFETIME-USE SMARTSET# 06827 Completed 11/15/2022, 03/21/2018, 03/21/2016, Additional history exists [...] this encounter Medical Devices Implanted Type Area Motor Lodge Clerk Device Identifier Shelf Expiration Date Model / Serial / Lot Lap Band Realize Adj [id number] - [id number] Implanted:Qty: 1 on 07/26/2011 at OR [facility] N/A: Abdomen JNJ : [employer] 11/30/2015 [id number] / / [id number] documented as of this [...] and were consensually agreed upon. Care Teams Sky Line Yarder Relationship Specialty Start Date End Date Shon Serna MD [address] [facility], [place] [address] PCP - General Internal Medicine 01/11/21 documented as of this encounter
--- OUTSIDE RECORDS SUMMARY | 2023-07-23 08:57 | External Medical Summary | Summary of Care ---
Author Name Unknown Organization [facility] Address [address] [facility] [place] [address] Phone [phone] Care Team Providers Care Loan Officer Name Role Phone Lina Serna MD Primary Care Provider Reason for Visit * Reason Onset Date Comments FYI 07/02/2023 Encounter Details Date Type Department Care Team (Late st Contact Info) Description 07/02/2023 Telephone General Internal Medicine [facility] [address] [facility] [place] [address] Lina Serna MD 200 [place] [address] FYI Allergies No known active allergiesdocumented as [...] D deficiency 10/10/2011 Gastric banding status 08/07/2011 BEVERLY RESEARCH OTHER*[id number] 06/19/2011 Osteoarthritis of multiple joints 05/17/2011 HTN, [...] mRNA, LNP-s, No Pre serve, 2-Dose Series (Raiing) 03/28/2021,06/28/2020,05/30/2020 H1N1 2009 Influenza, IM 06/15/2009 Pneumococcal Conjugate Vacci ne, 20-valent ([id number]) 01/02/2022 Pneumococcal Polysaccharide PPV23 (Pneumovax) 09/19/2016 Seasonal [...] encounter Miscellaneous Notes * Telephone Encounter - Comfort Gay OSA - 07/02/2023 2:48 PM EDT Call from Sandy from [facility] home health to let PCP know patient has decided to defer PT evaluation to next week. documented in this encounter Plan of Treatment Upcoming Encounters Date Type Department Care Team (Late st Contact Info) Description 07/04/2023 1:00 PM EDT Office Visit Podiatry [address] [place] [address] Neema Ozuna, DPM [address] [place] [address] 07/10/2023 3:00 PM EDT Imaging Radiology[address] [place] [address] Scheduled Procedures Name Priority Associated Diagnoses Date/Ti [...] D LEVEL ONCE IN A LIFETIME-USE SMARTSET# 44511 Completed 11/15/2022, 03/21/2018, 03/21/2016, Additional history exists [...] this encounter Medical Devices Implanted Type Area Paraffin Plant Sweater Operator Device Identifier Shelf Expiration Date Model / Serial / Lot Lap Band Realize Adj [id number] - [id number] Implanted:Qty: 1 on 07/26/2011 [place] [facility] [place] N/A: Abdomen JNJ : [employer] 11/30/2015 [id number] / / [id number] documented as of this [...] and were consensually agreed upon. Care Teams Loan Officer Relationship Specialty Start Date End Date Lina Serna MD [address] [place] [address] PCP - General Internal Medicine 01/11/21 documented as of this encounter
--- OUTSIDE RECORDS SUMMARY | 2023-07-23 08:57 | External Medical Summary | Summary of Care ---
Author Name Unknown Organization [facility] Address [address] [facility] [place] [address] Phone [phone] Care Team Providers Care Child Nutrition Director Name Role Phone Lina Serna MD Primary Care Provider [phone] Reason for Visit * Reason Onset Date Comments Medication Refill 05/31/2023 Encounter Details Date Type Department Care Team (Late st Contact Info) Description 05/31/2023 Telephone General Internal Medicine [facility] [address] [facility] [place] [address] Lina Serna MD 200 [facility] [place] [address] Medication Refill Allergies No known active allergiesdocumented as of [...] before bedtime. 60 Tablet 0 05/30/2023 Active documented as of this encounter (statuses [...] 10/10/2011 Gastric banding status 08/07/2011 GRIMALDO RESEARCH OTHER*[id number] 06/19/2011 Osteoarthritis of multiple joints 05/17/2011 HTN, [...] mRNA, LNP-s, No Pre serve, 2-Dose Series (Shnergle) 03/28/2021,06/28/2020,05/30/2020 H1N1 2009 Influenza, IM 06/15/2009 Pneumococcal Conjugate Vacci ne, 20-valent ([id number]) 01/02/2022 Pneumococcal Polysaccharide PPV23 (Pneumovax) 09/19/2016 Seasonal [...] encounter Miscellaneous Notes * Telephone Encounter - Heidy Franklin LPN - 06/03/2023 11:13 AM EST Patient picked up script Saturday. * Telephone Encounter - Flor Gaspar senior clinical research scientist - 05/31/2023 2:47 PM EST RE Morphine Sulfate ER 30 MG Oral Tablet Extended Release (Ms Contin) Pt needs hard copy and Tommy Carvalho will olive picker the copy as she can not get out Please call her [phone] when ready Thank you for your assistance Flor Gaspar Trail Maintenance Worker II [facility] ([facility]) (Formerly Telepharmacy) 05/31/2023,2:49 PM documented in this encounter Plan of [...] 11/16/2023 11/15/2022, 06/2021, 04/18/2021, Additional history exists Albumin/Creatinine Ratio 01/02/2025 [...] D LEVEL ONCE IN A LIFETIME-USE SMARTSET# [id number] Completed 11/15/2022, 03/21/2018, 03/21/2016, Additional history exists [...] this encounter Medical Devices Implanted Type Area Water Resources Business Segment Leader Device Identifier Shelf Expiration Date Model / Serial / Lot Lap Band Realize Adj [id number] - [id number] Implanted:Qty: 1 on 07/26/2011 at [place] [facility] [place] N/A: Abdomen JNJ : [employer] 11/30/2015 [id number] / / [id number] documented as of this [...] and were consensually agreed upon. Care Teams Child Nutrition Director Relationship Specialty Start Date End Date Lina Serna MD [address] [place] [address] PCP - General Internal Medicine 01/11/21 documented as of this encounter
--- OUTSIDE RECORDS SUMMARY | 2023-07-23 08:57 | External Medical Summary | Summary of Care ---
Author Name Unknown Organization [facility] Address [address] [place] [facility] [place] [address] Phone [phone] Care Team Providers Care Rib Knitter Name Role Phone Lina Serna MD Primary Care Provider [phone] Reason for Referral * Evaluate & Treat - Unlimited Visits (Within 10 days (routine)) - Authorized Specialty Diagnoses / Procedures Referred By Contkartik da silva Referred To Contact HOME CARE / Home Care Diagnoses Skin ulcer, limited to breakdown of skin (HCC) Aldo Garcia MD [address] [facility] [place] [address] Referral ID Status Reason Start Date Expiration Date Visits Requested Visits Authorized [id number] Authorized Specialty Services Required 06/26/2023 999 999 Question Answer Referral Priority Within 10 days (routine) Where should this appointment be scheduled? Noel Comments Documentation of Fezv-iu-Aret Encounter Addendum Patient Name: Ana Bonilla I certify that this patient is under my care and that I, or a nurse practitioner or physician's student assistant working with me, had a [id number] encounter that meets the physician vmfb-[id number] encounter requirements with this patient on: 06/26/2023 The encounter with the patient was in whole, or in part, for the following medical condition, which is the primary reason for home health care (List medical condition): Wound care I certify that, based on my findings, the following services are medically necessary home health services: Nursing To provide the following care/treatments: (All hospitalists not following the patient after discharge should complete this section): Radha Primary Care Physician to follow home care plan of care after discharge: Radha My clinical findings support the need for the above services because: patient with 2 skin ulcer wounds on buttocks, needs wound care Further, I certify that my clinical findings support that this patient is homebound (i.e. Absences from home require considerable and taxing effort and are for medical reasons or anabaptism services or infrequently or of short duration when for other reason) because: Patient morbidly obese, severe knee pain can't ambulate to leave house well, doesn't drive Physician Signature: Date of Signature: Physician Printed Name: Aldo Garcia MD * (Within 10 days (routine)) - Authorized Specialty Diagnoses / Procedures Referred By Shell da silva Referred To Contact Radiology Diagnoses Abdominal swelling Procedures US ABDOMEN LIMITED Aldo Garcia MD [address] [place] [address] Referral ID Status Reason Start Date Expiration Date V isits Requested Visits Authorized [id number] Authorized 06/26/2023 999 999 Reason for Visit * Reason Comments Acute Pt c/o sores on butt ocks, where the elastic on her underwear goes. Says there is one on each side. Having severe swelling on right side body, unsure if leg or abdominal fold. Encounter Details Date Type Department Care Team (Late st Contact Info) Description 06/26/2023 6:00 PM EDT Office Visit General Internal Medicine [address] [place] [address] [place] [address] Aldo Garcia MD [address] [facility] [place] [address] Skin ulcer, limited to breakdown of skin (HCC)*; Abdominal swelling; Morbid obesity with BMI of 60.0-69.9, adult (HCC); HTN, goal below 140/90 Allergies No known active allergiesdocumented as of this encounter (statuses as of 06/26/2023) Medications Medication Sig Dispensed Refills Start Date [...] before bedtime. 60 Tablet 0 05/30/2023 Active NATURAL SUPPLEMENT Take by mouth at bedtime. THC gummies at night for sleep 0 Active Doxycycline Hyclate 100 MG Oral CapsuleIndications:Sk in ulcer, limited to breakdown of skin (HCC) Take 1 Capsule by mouth in the morning and 1 Capsule before bedtime. Do all this for 7 days. Take for 7 days. 14 Capsule 0 06/26/2023 07/03/2023 Active documented as of this encounter (statuses as of 06/26/2023) Active Problems Problem Noted Date Diagnosed Date High risk for fracture due to osteoporosis by DE XA scan 11/15/2022 Morbid obesity with BMI of 60.0-69.9, adult 07/2020 Major depressive disorder, r ecurrent episode, in partial remission 04/02/2019 Controlled substance agreement signed 09/19/2016 Adrenal adenoma 03/03/2012 OA (osteoarthritis) of knee 02/25/2012 Vitamin D deficiency 10/10/2011 Gastric banding status 08/07/2011 GRIMALDO RESEARCH OTHER*[id number] 06/19/2011 Osteoarthritis of multiple joints 05/17/2011 HTN, GOAL BELOW 140/90 02/21/2009 Overview: Modified per HTN protocol #16. Female stress incontinence 08/26/2007 ADVANCE DIRECTIVE INFORMATION 09/20/2004 Overview: No, Advance Directive brochure given to patient. OSTEOARTHROS NOS-UNSPEC documented as of this encounter (statuses as of 06/26/2023) Resolved Problems Problem Noted Date Diagnosed Date [...] as of this encounter (statuses as of 06/26/2023) Immunizations Name Administration Dates Next Due COVID-19 mRNA, LNP-s, No Pre serve, 2-Dose Series ([employer]) 03/28/2021,06/28/2020,05/30/2020 H1N1 2009 Influenza, IM 06/15/2009 Pneumococcal Conjugate Vacci ne, 20-valent ([id number]) 01/02/2022 Pneumococcal Polysaccharide PPV23 (Pneumovax) 09/19/2016 Seasonal [...] on file documented as of this encounter Last Filed Vital Signs Vital Sign Reading Time Taken Comments Blood Pressure 124/76 06/26/2023 6:29 PM EDT Pulse 77 06/26/2023 6:29 PM EDT Temperature 37.7 C (99.9 F) 06/26/2023 6:29 PM ED T Respiratory Rate - - Oxygen Saturation 94% 06/26/2023 6:29 PM EDT Inhaled Oxygen Concentration - - Weight 147.2 kg (324 lb 8 oz) 06/26/2023 6:29 PM EDT Height 152.4 cm (5') 06/26/2023 6:29 PM EDT Body Mass Index 63.37 06/26/2023 6:29 PM EDT documented in this encounter Progress Notes * Aldo Garcia MD - 06/26/2023 6:48 PM EDT Chief Complaint Patient presents with Acute Pt c/o sores on buttocks, where the elastic on her underwear goes. Says there is one on each side. Having severe swelling on right side body, unsure if leg or abdominal fold. SUBJECTIVE: Ana Bonilla is a 67 year old female with PMH as below who presents for acute. Has 2 ulcers on buttocks, happens where she has pressure point on chair in kitchen. They come/go, this round has hadfor 1 week. Painful, no bleeding. No fevers, chills. He also has "lower stomach" swelling for 1-2 weeks as well. No vomiting, no right leg swelling, no pain. Patient Active Problem List Diagnosis Code OSTEOARTHROS NOS-UNSPEC M19.90 ADVANCE DIRECTIVE INFORMATION Female stress incontinence N39.3 HTN, GOAL BELOW 140/90 I10 Osteoarthritis of multiple joints M15.9 GRIMALDO RESEARCH OTHER*[id number] Gastric banding status Z98.84 Vitamin D deficiency E55.9 OA (osteoarthritis) of knee M17.9 Adrenal adenoma D35.00 Controlled substance agreement signed Z79.899 Major depressive disorder, recurrent episode, in partial remission ([facility]) F33.41 Morbid obesity with BMI of 60.0-69.9, adult ([facility]) E66.01, Z68.44 High risk for fracture due to osteoporosis by DEXA scan M81.0 Current Outpatient Medications Medication Sig Dispense Refill [...] by mouth in the morning. 90 Tablet2 Morphine Sulfate ER 30 MG Oral Tablet Extended Release (Ms Contin) Take 1 Tablet by mouth in the morning and 1 Tablet before bedtime. 60 Tablet 0 NATURAL SUPPLEMENT Take by mouth at bedtime. THC gummies at night for sleep Doxycycline Hyclate 100 MG Oral Capsule Take 1 Capsule by mouth in the morning and 1 Capsule beforebedtime. Do all this for 7 days. Take for 7 days. 14 Capsule 0 No current facility-administered medications for this visit. Review of patient's allergies indicates: No Known Allergies Health Maintenance Due Topic Date Due DXA Scan Never done Mammogram 01/25/2022 *BISPHONATE OR OTHER ACCEPTABLE MEDICATION NEEDED FOR OSTEOPOROSIS (REFER TO SMARTSET #1146) Never done Influenza Vaccine (FLU shot) (1) 11/30/2022 COVID-19 Vaccine ( season) 2022 ROS: CONSTITUTIONAL: No fevers, sweats, or chills GASTROINTESTINAL: No nausea, vomiting, diarrhea, or constipation, No hematemesis, No blood in stools or black tarry stools, No abdominal bloating or early satiety, and No dysphagia SKIN/INTEGUMENTARY: as per hpi ALL OTHER SYSTEMS NEGATIVE I reviewed social, PMH, PSH, and family history and updated where needed. Social History Socioeconomic History Marital status: Single Spouse name: Not on file Number of children: Not on file Years of education: Not on file Highest education level: Not on file Occupational History Not on file Tobacco Use Smoking status: Former Current packs/day: 0.00 Types: Cigarettes Quit date: 09/11/1991 Years since quittin.8 Smokeless tobacco: Never Substance and Sexual Activity Alcohol use: Yes Comment: Rare Drug use: No Sexual activity: Yes Partners: Male control/protection: Pill Other Topics Concern Not on file Social History Narrative Not on file Social Determinants of Health Financial Resource Strain: Not on file Food Insecurity: No Food Insecurity (06/24/2023) Hunger Vital Sign Worried About Running Out of Food in the Last Year: Never true Ran Out of Food in the Last Year: Never true Transportation Needs: Not on file Physical Activity: Not on file Stress: Not on file Social Connections: Not on file Intimate Partner Violence: Not on file Housing Stability: Not on file Past Medical History: Diagnosis Date ADJ DISORDER W/DEPRES MOOD HTN, goal to be determined Obesity, BMI not known Osteoarthrosis Osteoarthritis Past Surgical History: Procedure Laterality Date CARPAL TUNNEL SURGERY 1999' Right hand carpal tunnel surgery COLONOSCOPY, DIAGNOSTIC (RECTUM) 04/09/2017 normal, repeat 10 yrs/[facility] EGD, FLEXIBLE, DIAGNOSTIC 07/26/2011 UPPER GI ENDOSCOPY DIAGNOSTIC performed by KAREN LEGGETT [place] [facility] GASTRIC BAND PLACEMENT/PORT, LAPAROSCOPIC 07/26/2011 LAPAROSCOPIC GASTRIC RESTRICTIVE SURGERY PLACEMENT BAND performed by KAREN LEGGETT at [facility] LAPAROSCOPE PROCEDURE, LIVER 07/26/2011 UNLISTED LAPAROSCOPIC PROCEDURE LIVER performed by KAREN LEGGETT [place] [facility] PATIENT EDU, TONSILECTOMY W/ POSS.* REMOVAL OF FIBROID UTERUS TUMOR TOTAL HYSTERECTOMY N/A 09/09/2017 Family History Problem Relation Age of Onset No Past Hx Mother Arthritis Father OBJECTIVE: PHYSICAL EXAM: BP 124/76 | Pulse 77 | Temp 37.7 C (99.9 F) (Tympanic) | Ht 1.524 m (5') | Wt (!) 147.2 kg (324lb 8 oz) | SpO2 94% | BMI 63.37 kg/m | BSA 2.5 m General: alert, healthy, and no distress Head: Normocephalic, No masses, lesions, or abnormalities Abdomen: abdomen soft, non-tender, obese, and +swelling vs skin right lower abdomen, non tender +striae seen Extremities: no clubbing, no cyanosis, no warmth Skin: 2 superficial ulcers of skin break down one on right buttocks one on left, one on right bandaged removed for evaul, tender, but not warm bilaterally, no discharge or purulence about 1 inch in diameter, Neuro: walks with poles Military Pilot Documentation Patient offered review engineer and declined. I reviewed last gfr, lft, a1c ASSESSMENT: L98.491 Skin ulcer, limited to breakdown of skin (HCC) (primary encounter diagnosis) R19.00 Abdominal swelling E66.01,Z68.44 Morbid obesity with BMI of 60.0-69.9, adult (HCC) I10 HTN, goal below 140/90 PLAN: Skin ulcer, limited to breakdown of skin (HCC) (Primary) - Doxycycline Hyclate 100 MG Oral Capsule; Take 1 Capsule by mouth in the morning and 1 Capsule before bedtime. Do all this for 7 days. Take for 7 days. - HOME HEALTH REFERRAL OP Will, given duration, pain, try abx Will also try to get home nursing for wound care Patient to call if increase in warmth, pain, size, swelling, fevers, chills Abdominal swelling - US ABDOMEN LIMITED; Future; Expected date: 06/26/2023 Morbid obesity with BMI of 60.0-69.9, adult (HCC) She will discuss weight loss med with pcp HTN, goal below 140/90 Cont lisinopril Follow Up: Return in about 3 months (around 09/26/2023), or if symptoms worsen or fail to improve, for Return with Physician - f/u pcp . | For: Return with Physician - f/u pcp Aldo Garcia MD documented in this encounter Nursing Notes * Heidy Franklin LPN - 06/26/2023 6:29 PM EDT Chief Complaint Patient presents with Acute Pt c/o sores on buttocks, where the elastic on her underwear goes. Says there is one on each side. Having severe swelling on right side body, unsure if leg or abdominal fold. documented in this encounter Plan of Treatment Scheduled Orders Name Type Priority Associated Diagnoses Orde r Schedule US ABDOMEN LIMITED Medical Imaging Routine Abdominal swelling Expected: 06/26/2023, Expires: 07/26/2024 Scheduled Procedures Name Priority Associated Diagnoses Date/Ti me COLONOSCOPY FLEXIBLE PROXIMAL DIAGNOSTIC Recall Screen for colon cancer Scheduled Referrals Name Type Priority Associated Diagnoses Orde r Schedule HOME HEALTH REFERRAL OP Referral Within 10 days (routine) Skin ulcer, limited to breakdown of skin (HCC) Ordered: 06/26/2023 Health Maintenance Due Date Last Done Comments [...] D LEVEL ONCE IN A LIFETIME-USE SMARTSET# [id number] Completed 11/15/2022, 03/21/2018, 03/21/2016, Additional history exists [...] this encounter Medical Devices Implanted Type Area Delivery Truck Driver Heavy Device Identifier Shelf Expiration Date Model / Serial / Lot Lap Band Realize Adj [id number] - [id number] Implanted:Qty: 1 on 07/26/2011 [place] [facility] [place] N/A: Abdomen JNJ : [employer] 11/30/2015 [id number] / / [id number] documented as of this encounter Visit Diagnoses Diagnosis Skin ulcer, limited to breakdown of skin (HCC)- Primary Abdominal swelling Abdominal or pelvic swelling, mass or lump, unspecified site Morbid obesity with BMI of 60.0-69.9, adult (HCC) Morbid obesity HTN, goal below 140/90 Unspecified essential hypertension documented in this encounter Advance Directives Latest [...] and were consensually agreed upon. Care Teams Rib Knitter Relationship Specialty Start Date End Date Lina Serna MD [address] [place] [address] PCP - General Internal Medicine 01/11/21 documented as of this encounter
--- OUTSIDE RECORDS SUMMARY | 2023-07-23 08:58 | External Medical Summary | Summary of Care ---
Author Name Unknown Organization [facility] Address [address] [facility] [place] [address] Phone [phone] Care Team Providers Care Compliance Coordinator Name Role Phone Lina Serna MD Primary Care Provider Reason for Visit * Reason Onset Date Comments Medication Refill 05/31/2023 Encounter Details Date Type Department Care Team (Late st Contact Info) Description 05/31/2023 Telephone General Internal Medicine [facility] [address] [place] [address] Lina Serna MD [address] [facility] [place] [address] Medication Refill Allergies No known active allergiesdocumented [...] 10/10/2011 Gastric banding status 08/07/2011 GRIMALDO RESEARCH OTHER*[id number] 06/19/2011 Osteoarthritis of multiple joints 05/17/2011 HTN, [...] mRNA, LNP-s, No Pre serve, 2-Dose Series ([employer]) 03/28/2021,06/28/2020,05/30/2020 H1N1 2009 Influenza, IM 06/15/2009 Pneumococcal Conjugate Vacci ne, 20-valent (Jastesq11) 01/02/2022 Pneumococcal Polysaccharide PPV23 (Pneumovax) 09/19/2016 Seasonal [...] encounter Miscellaneous Notes * Telephone Encounter - Flor Gaspar residential property tax appraiser - 05/31/2023 2:47 PM EST RE Morphine Sulfate ER 30 MG Oral Tablet Extended Release (Ms Contin) Pt needs hard copy and Tommy Carvalho will picking machine operator the copy as she can not get out Please call her [phone] when ready Thank you for your assistance Flor Gaspar Purifying Plant Operator II [facility] ([facility]) (Formerly [...] MEDICATION NEEDED FOR OSTEOPOROSIS (REFER TO SMARTSET #3976) 11/17/2022 COVID-19 Vaccine ( season) 2022 03/28/2021, [...] D LEVEL ONCE IN A LIFETIME-USE SMARTSET# [id number] Completed 11/15/2022, 03/21/2018, 03/21/2016, Additional history exists [...] this encounter Medical Devices Implanted Type Area Engineering Analyst Device Identifier Shelf Expiration Date Model / Serial / Lot Lap Band Realize Adj [id number] - [id number] Implanted:Qty: 1 on 07/26/2011 at OR [facility] [place] N/A: Abdomen JNJ : [employer] 11/30/2015 [id number] / / [id number] documented as of this [...] and were consensually agreed upon. Care Teams Compliance Coordinator Relationship Specialty Start Date End Date Lina Serna MD [address] [facility] [place] [address] PCP - General Internal Medicine 01/11/21 documented as of this encounter
--- OUTSIDE RECORDS SUMMARY | 2023-07-23 08:58 | External Medical Summary | Summary of Care ---
Author Name Unknown Organization [facility] Address [address] [facility] [place] [address] Phone [phone] Care Team Providers Care Customer Success Representative Name Role Phone Shon Serna MD Primary Care Provider [phone] Reason for Visit * Reason Onset Date Comments Medication Refill 05/29/2023 Encounter Details Date Type Department Care Team (Late st Contact Info) Description 05/29/2023 Refill Family Practice [facility] [address] [facility] [place] [address] Shon Serna MD [address] [place] [address] Primary osteoarthritis of both knees Allergies No known active allergiesdocumented as of this encounter (statuses as of 05/31/2023) Medications Medication Sig Dispensed Refills Start Date [...] as of this encounter (statuses as of 05/31/2023) Active Problems Problem Noted Date Diagnosed Date High risk for fracture due to osteoporosis by DE XA scan 11/15/2022 Morbid obesity with BMI of 60.0-69.9, adult 07/2020 Major depressive disorder, r ecurrent episode, in partial remission 04/02/2019 Controlled substance agreement signed 09/19/2016 Adrenal adenoma 03/03/2012 OA (osteoarthritis) of knee 02/25/2012 Vitamin D deficiency 10/10/2011 Gastric banding status 08/07/2011 GRIMALDO RESEARCH OTHER*[id number] 06/19/2011 Osteoarthritis of multiple joints 05/17/2011 HTN, GOAL BELOW 140/90 02/21/2009 Overview: Modified per HTN protocol #16. Female stress incontinence 08/26/2007 ADVANCE DIRECTIVE INFORMATION 09/20/2004 Overview: No, Advance Directive brochure given to patient. OSTEOARTHROS NOS-UNSPEC documented as of this encounter (statuses as of 05/31/2023) Resolved Problems Problem Noted Date Diagnosed Date [...] as of this encounter (statuses as of 05/31/2023) Immunizations Name Administration Dates Next Due COVID-19 mRNA, LNP-s, No Pre serve, 2-Dose Series ([employer]) 03/28/2021,06/28/2020,05/30/2020 H1N1 2009 Influenza, IM 06/15/2009 Pneumococcal Conjugate Vacci ne, 20-valent ([id number]) 01/02/2022 Pneumococcal Polysaccharide PPV23 (Pneumovax) 09/19/2016 Seasonal [...] have a hard copy for pt to pick pulling machine operator from office due to not being able to receive fax's. Please advise at your earliest convenience. Thank you, Eloina Almonte Inspector Bullet Slugs Noel BuyanihanpharmRIVS 05/31/2023, 3:38 PM * Telephone Encounter - Shon Serna MD - 05/30/2023 8:44 AM ESTSigned Prescriptions: Disp Refills Morphine Sulfate ER 30 MG Oral Tablet Exte*60 Tab*0 Sig: Take 1 Tablet by mouth in the morning and 1 Tablet before bedtime. Authorizing Provider: SHON SERNA * Telephone Encounter - Amy Slater [facility] - 05/29/2023 3:38 PM ESTPending Prescriptions: Disp Refills Morphine Sulfate ER 30 MG Oral Tablet Exte*60 Tab*0 Sig: Take 1 Tablet by mouth in the morning and 1 Tablet before bedtime. * Telephone Encounter - Amy Slater [facility] - 05/29/2023 3:38 PM EST I have reviewed the patients controlled substance dispensing history in the Prescription Drug Monitoring Program in compliance with the [facility] regulations before prescribing a controlled substance. PDMP [...] is due for refill: 05/29/23 Pharmacy: [id number] [address] [facility] Is this request for a controlled substance? [...] upon request. Please approve if appropriate. Amy Champion Clinical Pharmacist [facility] ([facility]) (Formerly Telepharmacy) [phone] 05/29/2023, 3:38 PM documented in this encounter [...] D LEVEL ONCE IN A LIFETIME-USE SMARTSET# [id number] Completed 11/15/2022, 03/21/2018, 03/21/2016, Additional history exists [...] this encounter Medical Devices Implanted Type Area Mixing Supervisor Device Identifier Shelf Expiration Date Model / Serial / Lot Lap Band Realize Adj [id number] - [id number] Implanted:Qty: 1 on 07/26/2011 at [place] [facility] [place] N/A: Abdomen JNJ : [employer] 11/30/2015 [id number] / / [id number] documented as of this [...] and were consensually agreed upon. Care Teams Customer Success Representative Relationship Specialty Start Date End Date Shon Serna MD [address] [facility], [place] [address] PCP - General Internal Medicine 01/11/21 documented as of this encounter
--- OUTSIDE RECORDS SUMMARY | 2023-07-23 08:58 | External Medical Summary | Summary of Care ---
Author Name Unknown Organization [facility] Address [address] [facility] [place] [address] Phone [phone] Care Team Providers Care Information Systems Audit Manager Name Role Phone Lina Serna MD Primary Care Provider [phone] Reason for Visit * Reason Onset Date Comments Medication Refill 05/31/2023 Encounter Details Date Type Department Care Team (Late st Contact Info) Description 05/31/2023 Telephone General Internal Medicine [facility] 200 [facility] [place] [address] Lina Serna MD 200 [place] [address] Medication Refill Allergies No known active allergiesdocumented as of this encounter (statuses as of 06/02/2023) Medications Medication Sig Dispensed Refills Start Date [...] as of this encounter (statuses as of 06/02/2023) Active Problems Problem Noted Date Diagnosed Date High risk for fracture due to osteoporosis by DE XA scan 11/15/2022 Morbid obesity with BMI of 60.0-69.9, adult 07/2020 Major depressive disorder, r ecurrent episode, in partial remission 04/02/2019 Controlled substance agreement signed 09/19/2016 Adrenal adenoma 03/03/2012 OA (osteoarthritis) of knee 02/25/2012 Vitamin D deficiency 10/10/2011 Gastric banding status 08/07/2011 GRIMALDO RESEARCH OTHER*[id number] 06/19/2011 Osteoarthritis of multiple joints 05/17/2011 HTN, GOAL BELOW 140/90 02/21/2009 Overview: Modified per HTN protocol #16. Female stress incontinence 08/26/2007 ADVANCE DIRECTIVE INFORMATION 09/20/2004 Overview: No, Advance Directive brochure given to patient. OSTEOARTHROS NOS-UNSPEC documented as of this encounter (statuses as of 06/02/2023) Resolved Problems Problem Noted Date Diagnosed Date [...] as of this encounter (statuses as of 06/02/2023) Immunizations Name Administration Dates Next Due COVID-19 mRNA, LNP-s, No Pre serve, 2-Dose Series (Brandlive) 03/28/2021,06/28/2020,05/30/2020 H1N1 2009 Influenza, IM 06/15/2009 Pneumococcal Conjugate Vacci ne, 20-valent ([id number]) 01/02/2022 Pneumococcal Polysaccharide PPV23 (Pneumovax) 09/19/2016 Seasonal [...] Notes * Telephone Encounter - Flor Gaspar industrial yard brake coupler - 05/31/2023 2:47 PM EST RE Morphine Sulfate ER 30 MG Oral Tablet Extended Release (Ms Contin) Pt needs hard copy and Tomym Carvalho will roll picker the copy as she can not get out Please call her [phone] when ready Thank you for your assistance Flor Gaspar Bonding Machine Tender II Centralized Clinical Pharmacy Services (CCPS) (Formerly [...] MEDICATION NEEDED FOR OSTEOPOROSIS (REFER TO SMARTSET #2896) 11/17/2022 COVID-19 Vaccine ( season) 2022 03/28/2021, [...] D LEVEL ONCE IN A LIFETIME-USE SMARTSET# 74976 Completed 11/15/2022, 03/21/2018, 03/21/2016, Additional history exists [...] this encounter Medical Devices Implanted Type Area Material Flow Analyst Device Identifier Shelf Expiration Date Model / Serial / Lot Lap Band Realize Adj [id number] - [id number] [place]planted:Q[place]: 1 on 07[place]2011 [place] [facility] [place]: Abdomen JNJ : [employer] 11/30/2015 [id number] / / [id number] documented as of this [...] and were consensually agreed upon. Care Teams Information Systems Audit Manager Relationship Specialty Start Date End Date Lina Serna MD 200 [place] [address] PCP - General Internal Medicine 01/11/21 documented as of this encounter
--- OUTSIDE RECORDS SUMMARY | 2023-07-23 08:58 | External Medical Summary | Summary of Care ---
Author Name Unknown Organization [facility] Address [address] [facility] [place] [address] Phone [phone] Care Team Providers Care Cementer Hand Name Role Phone Shon Serna MD Primary Care Provider [phone] Reason for Visit * Reason Onset Date Comments Medication Refill 04/29/2023 Encounter Details Date Type Department Care Team (Late st Contact Info) Description 04/29/2023 Refill Family Practice [facility] 200 [facility] [place] [address] Samm Campbell PA-C [address] [facility] [place] [address] Primary osteoarthritis of both knees Allergies No known active allergiesdocumented as of this encounter (statuses as of 04/30/2023) Medications Medication Sig Dispensed Refills Start Date [...] the morning. 90 Capsule 2 04/30/2023 Active Morphine Sulfate ER 30 MG Oral Tablet Extended Release (Ms Contin)Indications:P rimary osteoarthritis of both knees Take 1 Tablet by mouth in the morning and 1 Tablet before bedtime. 60 Tablet 0 04/30/2023 Active Solifenacin Succinate 10 MG Oral Tablet (VESIcare)Indication s:Female stress incontinence Take 1 Tablet by mouth in the morning. 90 Tablet 3 05/02/2022 4 Discontinue d(Refill) Morphine Sulfate ER 30 MG Oral Tablet Extended Release (Ms Contin)Indications:P rimary osteoarthritis of both knees Take 1 Tablet by mouth in the morning and 1 Tablet before bedtime. 60 Tablet 0 03/29/2023 4 Discontinue d(Refill) documented as of this encounter (statuses as of 04/30/2023) Active Problems Problem Noted Date Diagnosed Date High risk for fracture due to osteoporosis by DE XA scan 11/15/2022 Morbid obesity with BMI of 60.0-69.9, adult 07/2020 Major depressive disorder, r ecurrent episode, in partial remission 04/02/2019 Controlled substance agreement signed 09/19/2016 Adrenal adenoma 03/03/2012 OA (osteoarthritis) of knee 02/25/2012 Vitamin D deficiency 10/10/2011 Gastric banding status 08/07/2011 GRIMALDO RESEARCH OTHER*[id number] 06/19/2011 Osteoarthritis of multiple joints 05/17/2011 HTN, GOAL BELOW 140/90 02/21/2009 Overview: Modified per HTN protocol #16. Female stress incontinence 08/26/2007 ADVANCE DIRECTIVE INFORMATION 09/20/2004 Overview: No, Advance Directive brochure given to patient. OSTEOARTHROS NOS-UNSPEC documented as of this encounter (statuses as of 04/30/2023) Resolved Problems Problem Noted Date Diagnosed Date [...] as of this encounter (statuses as of 04/30/2023) Immunizations Name Administration Dates Next Due COVID-19 mRNA, LNP-s, No Pre serve, 2-Dose Series ([employer] 03/28/2021,06/28/2020,05/30/2020 H1N1 2009 Influenza, IM 06/15/2009 Pneumococcal Conjugate Vacci ne, 20-valent ([id number]) 01/02/2022 Pneumococcal Polysaccharide PPV23 (Pneumovax) 09/19/2016 Seasonal [...] encounter Miscellaneous Notes * Telephone Encounter - Shon Serna MD - 04/30/2023 8:28 AM ESTSigned Prescriptions: Disp Refills Morphine Sulfate ER 30 MG Oral Tablet Exte*60 Tab*0 Sig: Take 1 Tablet by mouth in the morning and 1 Tablet before bedtime. Authorizing Provider: SHON SERNA * Telephone Encounter - Russ Kaiser [facility] - 04/30/2023 8:22 AM EST Pending Prescriptions: Disp Refills Morphine Sulfate ER 30 MG Oral Tablet Exte*60 Tab*0 Sig: Take 1 Tablet by mouth in the morning and 1 Tablet before bedtime. * Telephone Encounter - Russ Kaiser, [facility] - 04/30/2023 8:22 AM EST I have reviewed the patients controlled substance dispensing history in the Prescription Drug Monitoring Program in compliance with the [facility] regulations before prescribing a controlled substance. PDMP checked on 04/30/2023. Pending Prescriptions: Disp Refills Morphine Sulfate ER 30 MG Oral Tablet Ext*60 Tab*0 Sig: Take 1 Tablet by mouth in the morning and 1 Tablet before bedtime. Last Visit: Visit date not found (in office), Visit date not found (telemedicine) Next Visit: Visit date not found Date medication was last filled: 03/29/23 Date medication is due for refill: 04/26/23 [id number] [address] [facility] Is this request for a controlled [...] available upon request. Please approve if appropriate. Thanks, Jane Dos SantosD Clinical Pharmacist Centralized Clinical Pharmacy Services (CCPS) (formerly Telepharmacy) [phone] 04/30/2023, 8:22 AM documented in this encounter Plan of Treatment Upcoming Encounters Date Type Department Care Team (Late st Contact Info) Description 05/23/2023 1:40 PM EST Office Visit General Internal Medicine [facility] 200 [facility] [place] [address] Shon Serna MD 200 [place] [address] Scheduled Procedures Name Priority Associated Diagnoses Date/Ti me COLONOSCOPY FLEXIBLE PROXIMAL DIAGNOSTIC Recall Screen for colon cancer Health Maintenance Due Date Last Done Comments Cologuard 2001 Fecal Occult Blood Test 2001 Sigmoidoscopy 2001 DXA Scan 2006 Depression Screening 04/05/2021 04/05/2020 Mammogram 01/25/2022 01/25/2021, 12/31, 01/21/2019, Additional history exists *BISPHONATE OR OTHER ACCEPTABLE [...] D LEVEL ONCE IN A LIFETIME-USE SMARTSET# [id number] Completed 11/15/2022, 03/21/2018, 03/21/2016, Additional history exists [...] this encounter Medical Devices Implanted Type Area Coil Winder Device Identifier Shelf Expiration Date Model / Serial / Lot Lap Band Realize Adj [id number] - [id number] Implanted:Qty: 1 on 07/26/2011 at [place] [facility] [place]A: Abdomen JNJ : [employer] 11/30/2015 [id number] / / [id number] documented as of this [...] and were consensually agreed upon. Care Teams Cementer Hand Relationship Specialty Start Date End Date Shon Serna MD 200 [facility] [place] [address] PCP - General Internal Medicine 01/11/21 documented as of this encounter
--- OUTSIDE RECORDS SUMMARY | 2023-07-23 08:58 | External Medical Summary | Summary of Care ---
Author Name Unknown Organization [facility] Address [address] [facility] [place] [address] Phone [phone] Care Team Providers Care Occupational Therapy Co Director Name Role Phone Shon Serna MD Primary Care Provider [phone] Reason for Visit * Reason Onset Date Comments Medication Refill 05/29/2023 Encounter Details Date Type Department Care Team (Late st Contact Info) Description 05/29/2023 Refill Family Practice [facility] 200 [facility] [place] [address] Shon Serna MD 200 [facility] [place] [address] Primary osteoarthritis of both knees Allergies No known active allergiesdocumented as of this encounter (statuses as of 05/30/2023) Medications Medication Sig Dispensed Refills Start Date [...] as of this encounter (statuses as of 05/30/2023) Active Problems Problem Noted Date Diagnosed Date High risk for fracture due to osteoporosis by DE XA scan 11/15/2022 Morbid obesity with BMI of 60.0-69.9, adult 07/2020 Major depressive disorder, r ecurrent episode, in partial remission 04/02/2019 Controlled substance agreement signed 09/19/2016 Adrenal adenoma 03/03/2012 OA (osteoarthritis) of knee 02/25/2012 Vitamin D deficiency 10/10/2011 Gastric banding status 08/07/2011 GRIMALDO RESEARCH OTHER*[id number] 06/19/2011 Osteoarthritis of multiple joints 05/17/2011 HTN, GOAL BELOW 140/90 02/21/2009 Overview: Modified per HTN protocol #16. Female stress incontinence 08/26/2007 ADVANCE DIRECTIVE INFORMATION 09/20/2004 Overview: No, Advance Directive brochure given to patient. OSTEOARTHROS NOS-UNSPEC documented as of this encounter (statuses as of 05/30/2023) Resolved Problems Problem Noted Date Diagnosed Date [...] as of this encounter (statuses as of 05/30/2023) Immunizations Name Administration Dates Next Due COVID-19 mRNA, LNP-s, No Pre serve, 2-Dose Series (GlassUp) 03/28/2021,06/28/2020,05/30/2020 H1N1 2009 Influenza, IM 06/15/2009 Pneumococcal Conjugate Vacci ne, 20-valent ([id number]) 01/02/2022 Pneumococcal Polysaccharide PPV23 (Pneumovax) 09/19/2016 Seasonal [...] SERNA * Telephone Encounter - Amy Slater [facility] - 05/29/2023 3:38 PM ESTPending Prescriptions: Disp Refills Morphine Sulfate ER 30 MG Oral Tablet Exte*60 Tab*0 Sig: Take 1 Tablet by mouth in the morning and 1 Tablet before bedtime. * Telephone Encounter - Amy Slater [facility] - 05/29/2023 3:38 PM EST I have reviewed the patients controlled substance dispensing history in the Prescription Drug Monitoring Program in compliance with the [facility] regulations before prescribing a controlled substance. [...] is due for refill: 05/29/23 Pharmacy: [id number] [address] [facility] Is this request for a [...] Pharmacist Centralized Clinical Pharmacy Services (CCPS) (Formerly [employer]) [phone] 05/29/2023, 3:38 PM documented in this encounter [...] D LEVEL ONCE IN A LIFETIME-USE SMARTSET# [id number] Completed 11/15/2022, 03/21/2018, 03/21/2016, Additional history exists [...] this encounter Medical Devices Implanted Type Area Specification Manager Device Identifier Shelf Expiration Date Model / Serial / Lot Lap Band Realize Adj [id number] - [id number] Implanted:Qty: 1 on 07/26/2011 at OR [facility] [place] N/A: Abdomen JNJ : [employer] 11/30/2015 [id number] / / [id number] documented as of this [...] and were consensually agreed upon. Care Teams Occupational Therapy Co Director Relationship Specialty Start Date End Date Shon Serna MD [address] [place] [address] PCP - General Internal Medicine 01/11/21 documented as of this encounter
--- OUTSIDE RECORDS SUMMARY | 2023-07-23 08:59 | External Medical Summary | Summary of Care ---
Author Name Unknown Organization [facility] Address [address] [facility] [place] [address] Phone [phone] Care Team Providers Care Rocket Motor Mechanic Name Role Phone Shon Serna MD Primary Care Provider [phone] Reason for Visit * Reason Onset Date Comments Medication Refill 02/28/2023 Encounter Details Date Type Department Care Team (Late st Contact Info) Description 02/28/2023 Refill Family Practice [facility] [address] [facility] [place] [address] Urszula Li MD 200 [place] [address] Primary osteoarthritis of both knees Allergies No known active allergiesdocumented as of this encounter (statuses as of 03/01/2023) Medications Medication Sig Dispensed Refills Start Date [...] area. Apply to affected areas 0 Active FLUoxetine HCl 20 MG Oral Capsule (PROzac) Take 1 Capsule by mouth in the morning. 90 Capsule 3 04/24/2022 Active Solifenacin Succinate 10 MG Oral Tablet (VESIcare)Indication s:Female stress incontinence Take 1 Tablet by mouth in the morning. 90 Tablet 3 05/02/2022 Active Calcium Carb-Cholecalciferol 1000-20 MG-MCG Oral Tablet Take by mouth. 0 Active Lisinopril 10 MG Oral Tablet (Prinivil)Indication s:HTN, goal below 140/90 Take 1 Tablet by mouth in the morning. 90 Tablet 3 07/30/2022 Active Morphine Sulfate ER 30 MG Oral Tablet Extended Release (Ms Contin)Indications:P rimary osteoarthritis of both knees Take 1 Tablet by mouth in the morning and 1 Tablet before bedtime. 60 Tablet 0 03/01/2023 Active Morphine Sulfate ER 30 MG Oral Tablet Extended Release (Ms Contin)Indications:P rimary osteoarthritis of both knees Take 1 Tablet by mouth in the morning and 1 Tablet before bedtime. Do not start before January 27, 2023. 60 Tablet 0 01/27/2023 Discontinue d(Refill) documented as of this encounter (statuses as of 03/01/2023) Active Problems Problem Noted Date Diagnosed Date High risk for fracture due to osteoporosis by DE XA scan 11/15/2022 Morbid obesity with BMI of 60.0-69.9, adult 07/2020 Major depressive disorder, r ecurrent episode, in partial remission 04/02/2019 Controlled substance agreement signed 09/19/2016 Adrenal adenoma 03/03/2012 OA (osteoarthritis) of knee 02/25/2012 Vitamin D deficiency 10/10/2011 Gastric banding status 08/07/2011 GRIMALDO RESEARCH OTHER*[id number] 06/19/2011 Osteoarthritis of multiple joints 05/17/2011 HTN, GOAL BELOW 140/90 02/21/2009 Overview: Modified per HTN protocol #16. Female stress incontinence 08/26/2007 ADVANCE DIRECTIVE INFORMATION 09/20/2004 Overview: No, Advance Directive brochure given to patient. OSTEOARTHROS NOS-UNSPEC documented as of this encounter (statuses as of 03/01/2023) Resolved Problems Problem Noted Date Diagnosed Date [...] as of this encounter (statuses as of 03/01/2023) Immunizations Name Administration Dates Next Due COVID-19 mRNA, LNP-s, No Pre serve, 2-Dose Series ([employer]) 03/28/2021,06/28/2020,05/30/2020 H1N1 2009 Influenza, IM 06/15/2009 Pneumococcal Conjugate Vacci ne, 20-valent ([id number]) 01/02/2022 Pneumococcal Polysaccharide PPV23 (Pneumovax) 09/19/2016 SEASONAL INFLUENZA, PF, 6 M & Above, IM , (FLULAVAL or FLUZONE) 01/11/2021,12/24/2018,03/21/2018,03/20 Seasonal Influenza Virus Vac cine, Unspecified Formulation 01/12/2020 Seasonal Influenza, Quadriva lent Hd (Fluzone Hd) [...] the money to buy more. Never true 12/21/19 22 Within the past 12 months, t he food you bought just didn't last and you didn't have money to get more. Never true 12/20/2021 Sex and Gender Information Value Date Recorded Sex Assigned at Female 10/07/2019 8:07 AM EDT Gender Identity Female 10/07/2019 8:07 AM EDT Sexual Orientation Straight 12/20/2021 1: 21 AM EDT Job Start Date Occupation Industry Not on file Not on file Not on file documented as of this encounter Miscellaneous Notes * Telephone Encounter - Shon Serna MD - 03/01/2023 1:27 PM ESTSigned Prescriptions: Disp Refills Morphine Sulfate ER 30 MG Oral Tablet Exte*60 Tab*0 Sig: Take 1 Tablet by mouth in the morning and 1 Tablet before bedtime. Authorizing Provider: SHON SERNA * Telephone Encounter - Amy Slater [facility] - 03/01/2023 9:49 AM ESTPending Prescriptions: Disp Refills Morphine Sulfate ER 30 MG Oral Tablet Exte*60 Tab*0 Sig: Take 1 Tablet by mouth in the morning and 1 Tablet before bedtime. * Telephone Encounter - Amy Slater [facility] - 03/01/2023 9:48 AM EST I have reviewed the patients controlled substance dispensing history in the Prescription Drug Monitoring Program in compliance with the [facility] regulations before prescribing a controlled substance. PDMP checked on 03/01/2023. Pending Prescriptions: Disp Refills Morphine Sulfate ER 30 MG Oral Tablet Ext*60 Tab*0 Sig: Take 1 Tablet by mouth in the morning and 1 Tablet before bedtime. Last Visit: Visit date not found (in office), Visit date not found (telemedicine) Next Visit: Visit date not found Date medication was last filled: 01/27/23 Date medication is due for refill: 02/25/23 [id number] Is this request for a controlled substance? Yes and Urine Drug Screen was completed Toxicology results: Results for orders placed or performed in visit on 11/15/22 PAIN MANAGEMENT DRUG PANEL, URINE W/ INTERPRETATION Result Value Compliance Interpretation Based on medication info provided, The presence of morphine and hydromorphone is CONSISTENT with morphine prescription. Amphetamine Negative Benzodiazepines Negative Cannabinoids Negative Cocaine Metabolite Negative Fentanyl Negative Hydrocodone / Hydromorphone Refer to confirmation results (A) Methadone Metabolite Negative Morphine / Codeine Refer to confirmation results (A) Oxycodone / Oxymorphone Refer to confirmation results (A) Valid Interpretation Normal Creatinine CLAIRE 68 Narrative Cutoff Concentrations: Drug Level Amphetamines [...] Centralized Clinical Pharmacy Services (CCPS) (Formerly Telepharmacy) [phone] 03/01/2023, 9:48 AM documented in this encounter Plan of Treatment Upcoming Encounters Date Type Department Care Team (Late st Contact Info) Description 05/23/2023 1:40 PM EST Office Visit General Internal Medicine [facility] [place] [address] [facility] [place] [address] Shon Serna MD [address] [facility] [place] [address] Scheduled Procedures Name Priority Associated Diagnoses Date/Ti [...] D LEVEL ONCE IN A LIFETIME-USE SMARTSET# [id number] Completed 11/15/2022, 03/21/2018, 03/21/2016, Additional history exists [...] this encounter Medical Devices Implanted Type Area Label Tacker Device Identifier Shelf Expiration Date Model / Serial / Lot Lap Band Realize Adj [id number] - [id number] Implanted:Qty: 1 [place] [facility] [place] Abdomen JNJ : [employer] 11/30/2015 [id number] / / [id number] documented as of this [...] and were consensually agreed upon. Care Teams Rocket Motor Mechanic Relationship Specialty Start Date End Date Shon Serna MD 200 [place] [address] PCP - General Internal Medicine 01/11/21 documented as of this encounter
--- OUTSIDE RECORDS SUMMARY | 2023-07-23 08:59 | External Medical Summary | Summary of Care ---
Author Name Unknown Organization [facility] Address [address] [address] Phone [phone] Care Team Providers Care Return Agent Name Role Phone Shon Serna MD Primary Care Provider [phone] Reason for Visit * Reason Onset Date Comments Medication Refill 04/29/2023 Encounter Details Date Type Department Care Team (Late st Contact Info) Description 04/29/2023 Refill General Internal Medicine [facility] [address] [facility] [place] [address] Shon Serna MD 200 [place] [address] Female stress incontinence Allergies No known active allergiesdocumented as of [...] the morning. 90 Tablet 2 04/30/2023 Active FLUoxetine HCl 20 MG Oral Capsule (PROzac) Take 1 Capsule by mouth in the morning. 90 Capsule 3 04/24/2022 4 Discontinue d(Refill) Solifenacin Succinate 10 MG Oral Tablet (VESIcare)Indication [...] 10/10/2011 Gastric banding status 08/07/2011 GRIMALDO RESEARCH OTHER*[id number] 06/19/2011 Osteoarthritis of multiple joints 05/17/2011 HTN, [...] mRNA, LNP-s, No Pre serve, 2-Dose Series (Stopango) 03/28/2021,06/28/2020,05/30/2020 H1N1 2009 Influenza, IM 06/15/2009 Pneumococcal Conjugate Vacci ne, 20-valent ([id number]) 01/02/2022 Pneumococcal Polysaccharide PPV23 (Pneumovax) 09/19/2016 Seasonal [...] Encounter - Shon Serna MD - 04/30/2023 8:25 AM ESTSigned Prescriptions: Disp Refills FLUoxetine HCl 20 MG Oral Capsule (PROzac) 90 Cap*2 Sig: Take 1 Capsule by mouth in the morning. Authorizing Provider: SHON SERNA Ordering User: RUSS [facility] Solifenacin Succinate 10 MG Oral Tablet (V*90 Tab*2 Sig: Take 1 Tablet by mouth in the morning. Authorizing Provider: SHON SERNA * Telephone Encounter - Russ Kaiser, [facility] - 04/30/2023 8:22 AM EST Pending Prescriptions: Disp Refills Solifenacin Succinate 10 MG Oral Tablet (V*90 Tab*2 Sig: Take 1 Tablet by mouth in the morning. Signed Prescriptions: Disp Refills FLUoxetine HCl 20 MG Oral Capsule (PROzac) 90 Cap*2 Sig: Take 1 Capsule by mouth in the morning. Authorizing Provider: SHON SERNA Ordering User: RUSS [facility] --- * Telephone Encounter - Russ Kaiser [facility] - 04/30/2023 8:22 AM EST Pending Prescriptions: Disp Refills Solifenacin Succinate 10 MG Oral Tablet (V*90 Tab*2 Sig: Take 1 Tablet by mouth in the morning. Signed Prescriptions: Disp Refills FLUoxetine HCl 20 MG Oral Capsule (PROzac) 90 Cap*2 Sig: Take 1 Capsule by mouth in the morning. Authorizing Provider: SHON SERNA Ordering User: RUSS [facility] 11/15/2022 (in office), Visit date not found (telemedicine) 05/23/2023 If no future appointments scheduled, and last appointment is greater than a year ago, please schedule patient for a follow-up appointment Last date the medication was ordered: 05/02/22 Pharmacy: [id number] [address] [facility] Is this request for a controlled substance?No Patient Phone Numbers Labs: Lab Results Component [...] PM EST Office Visit General Internal Medicine [facility] 200 [facility] [place] [address] Shon Serna MD [address] [facility] [place] [address] Scheduled Procedures Name Priority Associated Diagnoses Date/Ti [...] 01/12/2020, Additional history exists GFR 11/16/2023 11/15/2022, 10/0 06/2021, 04/18/2021, Additional history exists Albumin/Creatinine Ratio [...] D LEVEL ONCE IN A LIFETIME-USE SMARTSET# 23384 Completed 11/15/2022, 03/21/2018, 03/21/2016, Additional history exists [...] this encounter Medical Devices Implanted Type Area Market President Device Identifier Shelf Expiration Date Model / Serial / Lot Lap Band Realize Adj [id number] - [id number] [place]ed:[place] 1 [place] [facility] [place]: Abdomen JNJ : [employer] 11/30/2015 [id number] / / [id number] documented as of this encounter Visit Diagnoses Diagnosis Female stress incontinence documented in this encounter Advance Directives Latest [...] and were consensually agreed upon. Care Teams Return Agent Relationship Specialty Start Date End Date Shon Serna MD [address] [place] [address], [place] [address] PCP - General Internal Medicine 01/11/21 documented as of this encounter
--- OUTSIDE RECORDS SUMMARY | 2023-07-23 08:59 | External Medical Summary | Summary of Care ---
Author Name Unknown Organization [facility] Address [address] [facility] [place] [address] Phone [phone] Care Team Providers Care Tripper Name Role Phone Lina Serna MD Primary Care Provider [phone] Reason for Visit * Reason Onset Date Comments Health Maintenance 04/12/2023 Encounter Details Date Type Department Care Team (Late st Contact Info) Description 04/12/2023 Telephone General Internal Medicine [facility] 200 [facility] [place] [address] Lina Serna MD 200 [place] [address] Health Maintenance Allergies No known active allergiesdocumented as of this encounter (statuses as of 04/12/2023) Medications Medication Sig Dispensed Refills Start Date [...] Tablet before bedtime. 60 Tablet 0 03/29/2023 Active documented as of this encounter (statuses as of 04/12/2023) Active Problems Problem Noted Date Diagnosed Date High risk for fracture due to osteoporosis by DE XA scan 11/15/2022 Morbid obesity with BMI of 60.0-69.9, adult 07/2020 Major depressive disorder, r ecurrent episode, in partial remission 04/02/2019 Controlled substance agreement signed 09/19/2016 Adrenal adenoma 03/03/2012 OA (osteoarthritis) of knee 02/25/2012 Vitamin D deficiency 10/10/2011 Gastric banding status 08/07/2011 GRIMALDO RESEARCH OTHER*[id number] 06/19/2011 Osteoarthritis of multiple joints 05/17/2011 HTN, GOAL BELOW 140/90 02/21/2009 Overview: Modified per HTN protocol #16. Female stress incontinence 08/26/2007 ADVANCE DIRECTIVE INFORMATION 09/20/2004 Overview: No, Advance Directive brochure given to patient. OSTEOARTHROS NOS-UNSPEC documented as of this encounter (statuses as of 04/12/2023) Resolved Problems Problem Noted Date Diagnosed Date [...] as of this encounter (statuses as of 04/12/2023) Immunizations Name Administration Dates Next Due COVID-19 mRNA, LNP-s, No Pre serve, 2-Dose Series (iPerceptions) 03/28/2021,06/28/2020,05/30/2020 H1N1 2009 Influenza, IM 06/15/2009 Pneumococcal Conjugate Vacci ne, 20-valent ([id number]) 01/02/2022 Pneumococcal Polysaccharide PPV23 (Pneumovax) 09/19/2016 Seasonal [...] encounter Miscellaneous Notes * Telephone Encounter - Cathy BoyleTOBIAS - 04/12/2023 1:25 PM EST Care Gaps Comprehensive Care Outreach Last Office/Telemedicine Visit: 11/15/2022 (in office), Visit date not found (telemedicine) Next Office Visit: 05/23/2023 Hemoglobin AIC Results: Lab Results Component Value Date/Time HEMOGLOBIN A1C - [facility] 5.8 (H) 11/15/2022 02:10 PM HEMOGLOBIN A1C - [facility] 5.7 (H) 01/02/2022 03:34 PM HEMOGLOBIN A1C - [facility] 5.6 04/18/2021 12:31 PM HEMOGLOBIN A1C - [facility] 5.6 05/17/2011 12:17 PM HEMOGLOBIN A1C - [facility] 5.8 08/07/2010 09:59 AM HEMOGLOBIN A1C - [facility] 5.2 03/12/2003 04:30 PM Reviewed Health Maintenance below: Health Maintenance Topic Date Due DXA Scan Never done Depression Screening 04/05/2021 Mammogram 01/25/2022 *BISPHONATE OR OTHER ACCEPTABLE MEDICATION NEEDED FOR OSTEOPOROSIS (REFER TO SMARTSET #1146) Never done Influenza Vaccine (FLU shot) (1) 11/30/2022 COVID-19 Vaccine ( season) 2022 Mamm dexa Care Gap Outreach Action Taken: Left message documented in this encounter Plan of Treatment Upcoming Encounters Date Type Department Care Team (Late st Contact Info) Description 05/23/2023 1:40 PM EST Office Visit General Internal Medicine [facility] [place] 200 [facility] [place] [address] Lina Serna MD 200 [facility] [place] [address] Scheduled Procedures Name Priority Associated Diagnoses Date/Ti [...] D LEVEL ONCE IN A LIFETIME-USE SMARTSET# 11717 Completed 11/15/2022, 03/21/2018, 03/21/2016, Additional history exists [...] this encounter Medical Devices Implanted Type Area Senior Ui Developer Device Identifier Shelf Expiration Date Model / Serial / Lot Lap Band Realize Adj [id number] - [id number] Implanted:Qty: 1 on 07/26/2011 at [place] [facility] [place] N/A: Abdomen JNJ : [employer] 11/30/2015 [id number] / / [id number] documented as of this [...] and were consensually agreed upon. Care Teams Tripper Relationship Specialty Start Date End Date Lina Serna MD 200 [facility] [place] [address] PCP - General Internal Medicine 01/11/21 documented as of this encounter
--- OUTSIDE RECORDS SUMMARY | 2023-07-23 08:59 | External Medical Summary | Summary of Care ---
Author Name Unknown Organization [facility] Address [address] [facility] [place] [address] Phone [phone] Care Team Providers Care Campaign Specialist Name Role Phone Lina Serna MD Primary Care Provider [phone] Reason for Visit * Reason Onset Date Comments Medication Refill 03/28/2023 Encounter Details Date Type Department Care Team (Late st Contact Info) Description 03/28/2023 Refill Family Practice [facility] [address] [facility] [place] [address] Lina Serna MD 200 [place] [address] Primary osteoarthritis of both knees Allergies No known active allergiesdocumented as of this encounter (statuses as of 03/29/2023) Medications Medication Sig Dispensed Refills Start Date [...] before bedtime. 60 Tablet 0 03/29/2023 Active Morphine Sulfate ER 30 MG Oral Tablet Extended Release (Ms Contin)Indications:P rimary osteoarthritis of both knees Take 1 Tablet by mouth in the morning and 1 Tablet before bedtime. 60 Tablet 0 03/01/2023 3 Discontinue d(Refill) documented as of this encounter (statuses as of 03/29/2023) Active Problems Problem Noted Date Diagnosed Date High risk for fracture due to osteoporosis by DE XA scan 11/15/2022 Morbid obesity with BMI of 60.0-69.9, adult 07/2020 Major depressive disorder, r ecurrent episode, in partial remission 04/02/2019 Controlled substance agreement signed 09/19/2016 Adrenal adenoma 03/03/2012 OA (osteoarthritis) of knee 02/25/2012 Vitamin D deficiency 10/10/2011 Gastric banding status 08/07/2011 GRIMALDO RESEARCH OTHER*[id number] 06/19/2011 Osteoarthritis of multiple joints 05/17/2011 HTN, GOAL BELOW 140/90 02/21/2009 Overview: Modified per HTN protocol #16. Female stress incontinence 08/26/2007 ADVANCE DIRECTIVE INFORMATION 09/20/2004 Overview: No, Advance Directive brochure given to patient. OSTEOARTHROS NOS-UNSPEC documented as of this encounter (statuses as of 03/29/2023) Resolved Problems Problem Noted Date Diagnosed Date [...] as of this encounter (statuses as of 03/29/2023) Immunizations Name Administration Dates Next Due COVID-19 mRNA, LNP-s, No Pre serve, 2-Dose Series (SellABand) 03/28/2021,06/28/2020,05/30/2020 H1N1 2009 Influenza, IM 06/15/2009 Pneumococcal Conjugate Vacci ne, 20-valent ([id number]) 01/02/2022 Pneumococcal Polysaccharide PPV23 (Pneumovax) 09/19/2016 Seasonal [...] encounter Miscellaneous Notes * Telephone Encounter - Talia Koenig PA-C - 03/29/2023 10:04 AM ESTSigned Prescriptions: Disp Refills Morphine Sulfate ER 30 MG Oral Tablet Exte*60 Tab*0 Sig: Take 1 Tablet by mouth in the morning and 1 Tablet before bedtime.Authorizing Provider: TALIA KOENIG--- * Telephone Encounter - Talia Koenig PA-C - 03/29/2023 10:04 AM EST PDMP reviewed * Telephone Encounter - Alex Smalls, [facility] - 03/29/2023 9:33 AM ESTPending Prescriptions: Disp Refills Morphine Sulfate ER 30 MG Oral Tablet Exte*60 Tab*0 Sig: Take 1 Tablet by mouth in the morning and 1 Tablet before bedtime. * Telephone Encounter - Alex Smalls, [facility] - 03/29/2023 9:32 AM EST I have reviewed the patients controlled substance dispensing history in the Prescription Drug Monitoring Program in compliance with the [facility] regulations before prescribing a controlled substance. PDMP checked on 03/29/2023. Pending Prescriptions: Disp Refills Morphine Sulfate ER 30 MG Oral Tablet Ext*60 Tab*0 Sig: Take 1 Tablet by mouth in the morning and 1 Tablet before bedtime. Last Visit: Visit date not found (in office), Visit date not found (telemedicine) Next Visit: Visit date not found Date medication was last filled: 03/01/23 Date medication is due for refill: 03/30/23 Pharm[id number] [address] [facility] Is this request for a controlled [...] available upon request. Please approve if appropriate. Thank You, Alex Gayle [facility] Clinical Pharmacist Centralized Clinical Pharmacy Services (CCPS) (formerly Telepharmacy) 03/29/2023, 9:32 AM documented in this encounter Plan of Treatment Upcoming Encounters Date Type Department Care Team (Late st Contact Info) Description 05/23/2023 1:40 PM EST Office Visit General Internal Medicine [facility] [place] [address] [facility] [place] [address] Lina Serna MD [address] [facility] [place] [address] Scheduled Procedures Name Priority Associated Diagnoses Date/Ti [...] D LEVEL ONCE IN A LIFETIME-USE SMARTSET# 17091 Completed 11/15/2022, 03/21/2018, 03/21/2016, Additional history exists [...] this encounter Medical Devices Implanted Type Area Filler Shredder Machine Device Identifier Shelf Expiration Date Model / Serial / Lot Lap Band Realize Adj [id number] - [id number] Implanted:Qty: 1 on 07/26/2011 at [place] [facility] [place] N/A: Abdomen JNJ : [employer] 11/30/2015 [id number] / / [id number] documented as of this [...] and were consensually agreed upon. Care Teams Campaign Specialist Relationship Specialty Start Date End Date Lina Serna MD [address] [place] [address] [place] [address] PCP - General Internal Medicine 01/11/21 documented as of this encounter
[2023-07-23] MEDS: FLUoxetine HCL 10 MG CAP PO SCH (11:10)
[2023-07-23] MEDS: ENOXAPARIN INJ 40 MG/0.4 ML SYR SQ SCH (11:10)
--- NOTE | 2023-07-23 13:06 | Electrocardiogram Report ---
Test Reason : Blood Pressure : / mmHG Vent. Rate : 084 BPM Atrial Rate : 084 BPM P-R Int : 154 ms QRS Dur : 088 ms QT Int : 384 ms P-R-T Axes : 032 073 023 degrees QTc Int : 453 ms Poor data quality, interpretation may be adversely affected Normal sinus rhythm Poor R wave progression, consider anterior NV vs. lead placement vs. LVH Abnormal ECG When compared with ECG of 18-APR-2005 13:49, QRS voltage has decreased Confirmed by Hever Abrams ([id number]) on 07/23/2023 1:05:47 PM Referred By: REFERRED SELF Confirmed By:Hever Abrams
--- NOTE | 2023-07-23 14:52 | Communication Note ---
Date of Service: July 23, 2023 Patient is seen and examined at bedside. Complains of bilateral lower extremity edema associated with bilateral knee pain and ambulatory dysfunction. Admits to have multiple falls previously. Offers no other complaints. Chart reviewed. Given significant edema, will obtain resting echo to rule out cardiac etiology. Monitor volume status. Orthopedics consulted. PT OT april was able. May need rehab placement. Imaging studies showed no signs of acute fracture. Further management based on orthopedics evaluation and echo.
--- OUTSIDE RECORDS SUMMARY | 2023-07-23 15:48 | External Medical Summary | Summary of Care ---
Author Name Unknown Organization [facility] Address [address] [facility] [place] [address] Phone [phone] Care Team Providers Care Subsurface Augmentee Elint Operator Name Role Phone Lina Serna MD Primary Care Provider [phone] Reason for Visit * Reason Comments eRx-Medication Refill Encounter Details Date Type Department Care Team (Late st Contact Info) Description 07/21/2023 Refill Family Practice [facility] 200 [facility] [place] [address] Aldo Serna MD 200 [place] [address] HTN, goal below 140/90 Allergies No known active allergiesdocumented as of this encounter (statuses as of 07/23/2023) Medications Medication Sig Dispensed Refills Start Date [...] Oral Tablet Take by mouth. 0 Active FLUoxetine HCl 20 MG Oral [...] on 06/29/23. 60 Tablet 0 06/27/2023 Active Lisinopril 10 MG Oral Tablet (Prinivil)Indicatio ns:HTN, goal below 140/90 TAKE 1 TABLET BY MOUTH EVERY MORNING 90 Tablet 1 07/23/2023 Active Lisinopril 10 MG Oral Tablet (Prinivil)Indicatio ns:HTN, goal below 140/90 Take 1 Tablet by mouth in the morning. 90 Tablet 3 07/30/2022 07/23/19 24 Discontinued documented as of this encounter (statuses as of 07/23/2023) Active Problems Problem Noted Date Diagnosed Date High risk for fracture due to osteoporosis by DE XA scan 11/15/2022 Morbid obesity with BMI of 60.0-69.9, adult 07/2020 Major depressive disorder, r ecurrent episode, in partial remission 04/02/2019 Controlled substance agreement signed 09/19/2016 Adrenal adenoma 03/03/2012 OA (osteoarthritis) of knee 02/25/2012 Vitamin D deficiency 10/10/2011 Gastric banding status 08/07/2011 GRIMALDO RESEARCH OTHER*[id number] 06/19/2011 Osteoarthritis of multiple joints 05/17/2011 HTN, GOAL BELOW 140/90 02/21/2009 Overview: Modified per HTN protocol #16. Female stress incontinence 08/26/2007 ADVANCE DIRECTIVE INFORMATION 09/20/2004 Overview: No, Advance Directive brochure given to patient. OSTEOARTHROS NOS-UNSPEC documented as of this encounter (statuses as of 07/23/2023) Resolved Problems Problem Noted Date Diagnosed Date [...] as of this encounter (statuses as of 07/23/2023) Immunizations Name Administration Dates Next Due COVID-19 mRNA, LNP-s, No Pre serve, 2-Dose Series (Qovia) 03/28/2021,06/28/2020,05/30/2020 H1N1 2009 Influenza, IM 06/15/2009 Pneumococcal Conjugate Vacci ne, 20-valent ([id number]) 01/02/2022 Pneumococcal Polysaccharide PPV23 (Pneumovax) 09/19/2016 Seasonal [...] encounter Miscellaneous Notes * Telephone Encounter - Amy Slater RPh - 07/23/2023 7:59 AM EDTSigned Prescriptions: Disp Refills Lisinopril 10 MG Oral Tablet (Prinivil) 90 Tab*1 Sig: TAKE 1 TABLET BY MOUTH EVERY MORNINGAuthorizing Provider: ALDO SERNA User: AMY SLATER- documented in this encounter Plan of Treatment Upcoming Encounters Date Type Department Care Team (Late st Contact Info) Description 10/10/2023 3:00 PM EDT Telemedicine General Internal Medicine [place] [facility] [place] [address] [facility] [place] [address] Lina Serna MD 200 [facility] [place] [address] Scheduled Procedures Name Priority Associated Diagnoses Date/Ti [...] D LEVEL ONCE IN A LIFETIME-USE SMARTSET# 96515 Completed 11/15/2022, 03/21/2018, 03/21/2016, Additional history exists [...] this encounter Medical Devices Implanted Type Area Dumpster Operator Device Identifier Shelf Expiration Date Model / Serial / Lot Lap Band Realize Adj [id number] - [id number] [place]planted:[place] 1 [place] [facility] [place] Abdomen JNJ : [employer] 11/30/2015 [id number] / / [id number] documented as of this encounter Visit Diagnoses Diagnosis HTN, goal below 140/90 Unspecified essential hypertension [...] and were consensually agreed upon. Care Teams Subsurface Augmentee Elint Operator Relationship Specialty Start Date End Date Lina Serna MD 200 [facility] [place] [address] PCP - General Internal Medicine 01/11/21 documented as of this encounter
[2023-07-23] MEDS: CHOLECALCIFEROL 25 MCG (1000 UNITS) TAB PO SCH (16:58)
[2023-07-23] MEDS: oxyCODONE HCL IR 5 MG TAB (IMMEDIATE RELEASE) PO PRN (20:05)
[2023-07-23] MEDS: lisinopril 10 MG TAB PO SCH (21:42)
[2023-07-23] MEDS: OXYBUTYNIN CHLORIDE XL 5 MG TABCR PO SCH (21:43)
[2023-07-24 07:21] LABS: BUN Creatinine Ratio 25.5 (10-20); Calcium 8.8 mg/dl (8.6-10.3); Creatinine Clr Calc Pharmacy 150.5 ml/min; Est GFR (African American) 116.1 ml/min; Est GFR (Non-African American) 100.2 ml/min; Potassium 3.6 mmol/L (3.5-5.1)
--- NOTE | 2023-07-24 09:13 | Orthopedic Consultation ---
Date of Consultation July 24, 2023 Assessment & Plan (1) Osteoarthritis of knees, bilateral: -Patient states that she is interested in surgical options such as knee replacements. Unfortunately, BMI is 65 which puts her at prohibitive risk for surgery. [place] BMI for surgery would be <40. She may benefit from guided weight loss program for acceptable BMI to consider surgical options -Recommendation is for US guided corticosteroid injections via radiology vs. pain management -WBAT -PT/OT Orthopedics will sign off at this time. Follow-up with Dr. Mendoza in orthopedic surgery clinic as an outpatient. Please call [facility] [place] at [phone] to make an appointment. History of Present Illness Reason for Consultation: Bilateral knee pain Attending Physician: Gregory Veliz MD History of Present Illness Ms. Jacobsen is a 67 year old female with history of hypertension, hypothyroidism, prediabetes, morbid obesity, adrenal adenoma, s/p gastric banding, NAFLD, mood disorder, past tobacco abuse and bilateral knee osteoarthritis who presents for evaluation of worsening pain to her bilateral knees. She did present to the ED via EMS and was admitted to medicine due to ambulatory dysfunction secondary to her pain which has caused weakness and frequent falls. She states that her knees feels as if they buckle beneath her when she attempts to stand. While in the ED, the patient had x-rays taken which were significant for tricompartmental osteoarthritis which appeared similar to previous outpatient x-rays in 2020. The patient has previously followed with Dr. Mendoza at [facility], last visit in 2014. Unfortunately, her BMI put her at prohibitive risk for surgery and supervised weight loss was recommended to allow for surgery. She states that she has not had much luck with weight loss despite having gastric sleeve and has pretty much "given up" on this. Over the past few months, she has noted worsening pain which has made it difficult for her to get up and move around at home. She is unable to use a wheel chair or walker due to her living space in a trailer. She has had to call EMS several times to help her up as her family and boyfriend are no longer able to help her. Orthopedics was consulted for additional evaluation. Allergies Allergy/AdvReac Type Severity Reaction Status Date / Time No Known Allergies Allergy Unverified 04/04/17 09:20 Home Medications Medication Instructions Recorded Confirmed Type CHOLECALCIFEROL (VITAMIN D3) 2 cap PO WITH A MEAL #0 caps 04/04/17 07/23/23 History Fluoxetine (Prozac) 10 mg PO DAILY AFTERNOON #0 caps 04/04/17 07/23/23 History Lisinopril (Zestril) 10 mg PO HS #0 tabs 04/04/17 07/23/23 History Solifenacin (Vesicare) 10 mg PO HS #0 tabs 04/04/17 07/23/23 History Patient History Medical History (Updated 07/24/23 @ 09:10 by Cristin Lipscomb PA-C) Osteoarthritis of knees, bilateral Morbid obesity Prediabetes Hypothyroidism Hypertension Surgical History Gastric banding status Social History (Updated 07/24/23 @ 09:07 by Cristin Lipscomb PA-C) Smoking Status: Former smoker Hx Alcohol Use: No Hx Substance Use: No Preferred Language: Amharic Communication Ability: Effective Biochemistry Technologist Required: No Beliefs That Will Affect Care: None Current Living Situation: Significant Other Feels Safe at Home: Yes Assistive Devices: Walker Review of Systems Review of Systems: Systems were reviewed and were negative unless otherwise stated in HPI as above. Physical Exam Physical Exam: Resting in bed, no acute distress Musculoskeletal: BLE: Edema to the bilateral lower extremities. Tender to palpation generally over the bilateral knees. Unable to actively lift the legs off of the bed. Notes pain with passive knee flexion and extension. Dorsi/plantarflexion intact. NVI Psychiatric: Awake, alert and oriented x 3. Interacting and answering questions appropriately. Results & Data Vital Signs (Past 12 Hours) Vital Signs Temp Pulse Pulse Pulse Resp BP BP 07/24/23 07:35 37.0 C 77 16 148/86 H 07/24/23 07:27 37 C 76 16 158/84 H 07/23/23 21:41 80 18 124/78 Pulse Ox O2 Del Method 07/24/23 07:35 92 Room Air 07/24/23 07:27 92 Room Air 07/23/23 21:41 93 Room Air Diagnostic Findings Bilateral knee x-rays reviewed. No appreciable acute fractures or dislocations. Severe tricompartmental osteoarthritis and soft tissue swelling.
[2023-07-24 10:18] LABS: Basophils # (auto) 0.01 K/uL (0.00-0.20); Basophils % (auto) 0.2 %; Eosinophils # (auto) 0.06 K/uL (0.00-0.50); Eosinophils % (auto) 1.3 %; Hematocrit (blood only) 36.8 % (37.0-47.0); Immature Granulocytes # (auto) 0.02 K/uL (0.01-0.20); Immature Granulocytes % (auto) 0.4 %; Lymphocytes # (auto) 0.96 K/uL (1.20-3.40); Lymphocytes % (auto) 20.2 %; Mean Corpuscular Hemoglobin 30.1 pg (25.0-34.0); Mean Corpuscular Hgb Conc 29.9 g/dL (32.0-36.0); Mean Corpuscular Volume 100.8 fL (80.0-100.0); Mean Platelet Volume 11.2 fL (9.4-12.4); Monocytes # (auto) 0.42 K/uL (0.11-0.59); Monocytes % (auto) 8.8 %; Neutrophils # (auto) 3.28 K/uL (1.40-6.50); Neutrophils % (auto) 69.1 %; Platelet Count 167 K/uL (130-400); RDW Coefficient of Variation 14.3 % (11.5-14.5); RDW Standard Deviation 53.1 fL (36.4-46.3); Red Blood Count 3.65 M/uL (4.20-5.40); White Blood Count 4.75 K/ul (4.8-10.8)
--- NOTE | 2023-07-24 17:17 | Hospitalist Progress Note ---
Date of Service July 24, 2023 Assessment & Plan (1) Ambulatory dysfunction: Plan: Ambulatory dysfunction/functional disability From progressive/end-stage osteoarthritis of both knees in the setting of morbid obesity Appreciate Ortho input and recommendation Advised to have US guided corticosteroid injection/pain management Weightbearing as tolerated PT and OT Hypertension, slight elevated secondary discomfort Blood pressure remains stable now with current medications Hypothyroidism, euthyroid as of today's TSH, patient currently not on maintenance medications Prediabetes, hemoglobin A1c of 5.3 from last year We will continue SSI Bilateral adrenal adenomas, nonfunctioning adrenal incidentaloma with some radiology characteristics suspicious of carcinoma as per as per Endo note stable measurement from remote CT from 2012. No need for additional testing as per outpatient provider as per patient. No other acute symptoms NAFLD, no overt decompensation mood disorder, stable past tobacco abuse DVT prophylaxis. Lovenox subcu Full code Patient requests her boyfriend to be given updates regarding care. Mr. Tommy Carvalho, contact #[phone]. Text document was generated using [employer] voice recognition software. It may contain grammatical or spelling errors. Kindly contact undersigned for clarification of any documentation item in question. Admission and Anticipated Discharge Date Admission Date: July 23, 2023 Subjective 07/24/2023 The patient is seen and examined in medical for She complains to be weak and lethargic and also right knee pain Seen by Ortho and advised for pain management/injection and weightbearing as tolerated Review of Systems Review of Systems: All systems reviewed and are unremarkable except as noted below Physical Exam Physical Exam: Lying in bed without any acute distress Constitutional: well developed, well nourished, + ill appearing and + morbidly obese Eyes: PERRL, conjunctivae normal, anicteric sclerae ENMT: external ear and nose normal, oropharynx normal Neck: trachea midline, no thyromegaly Respiratory: no respiratory distress Auscultation: + diminished lung sounds; no crackles and no wheezes Cardiovascular: Rate/Rhythm: regular rate and regular rhythm; not tachycardic Heart Sounds: normal S1 and normal S2; no murmur Extremities: + edema (1+ edema bilaterally) Gastrointestinal (Abdomen): Inspection/Auscultation: + abdomen distended and normal bowel sounds Percussion/Palpation: abdomen soft; abdomen nontender Musculoskeletal: No acute arthritis involving any of the joints Neurologic: normal touch/pain/proprioception and moves all extremities; no focal motor deficits Psychiatric: A+Ox3, euthymic affect Lymphatic: no cervical or axillary lymphadenopathy Results & Data Results & Data Vital Signs (Past 12 Hours) Vital Signs Temp Pulse Pulse Resp BP Pulse Ox O2 Del Method 07/24/23 16:00 36.7 C 62 16 134/82 91 Room Air 07/24/23 11:52 36.8 C 70 18 156/86 H 92 Room Air 07/24/23 07:35 37.0 C 77 16 148/86 H 92 Room Air 07/24/23 07:27 37 C 76 16 158/84 H 92 Room Air Laboratory Results Short CBC 07/24/23 Range/Units 06:00 WBC 4.75 L (4.8-10.8) K/ul Hgb 11.0 L (12.0-16.0) g/dl Hct 36.8 L (37.0-47.0) % Plt Count 167 (130-400) K/uL BMP 07/24/23 06:00 Sodium 143 Potassium 3.6 Chloride 107 Carbon Dioxide 29 BUN 13 Creatinine 0.51 L Glucose 94 Calcium 8.8 Medications Administered Current Inpatient Medications Acetaminophen (Acetaminophen 500 Mg Tab) 500 mg PO Q6H PRN PRN Reason: fever/pain Stop: 08/22/23 06:56 Enoxaparin Sodium (Enoxaparin Inj 40 Mg/0.4 Ml Syr) 40 mg SQ QAM [facility] Stop: 08/22/23 09:59 Last Admin: 07/24/23 07:34 Dose: 40 mg Fluoxetine HCl (Fluoxetine Hcl 10 Mg Cap) 10 mg PO DAILY@1200 [facility] Stop: 08/22/23 11:59 Last Admin: 07/24/23 12:50 Dose: 10 mg Promethazine HCl 12.5 mg/ (Sodium Chloride) 50.5 mls @ 202 mls/hr IV Q6H PRN PRN Reason: Nausea And Vomiting Stop: 08/22/23 06:56 Lisinopril (Lisinopril 10 Mg Tab) 10 mg PO HS [facility] Stop: 08/22/23 20:59 Last Admin: 07/23/23 21:42 Dose: 10 mg Morphine Sulfate (Morphine Sulfate 2 Mg/Ml Carp) 2 mg IV Q4H PRN PRN Reason: Severe Pain (Scale 7, 8, 9,10) Stop: 08/06/23 09:46 Oxybutynin Chloride (Oxybutynin Chloride Xl 5 Mg Tabcr) 10 mg PO HS [facility]; Protocol Stop: 08/22/23 20:59 Last Admin: 07/23/23 21:43 Dose: 10 mg Oxycodone HCl (Oxycodone Hcl Ir 5 Mg Tab (Immediate Release)) 5 - 10 mg PO QID PRN PRN Reason: Pain Stop: 08/06/23 06:56 Last Admin: 07/24/23 12:43 Dose: 10 mg Vitamin D (Cholecalciferol 25 Mcg (1000 Units) Tab) 50 mcg PO DAILYBD [facility] Stop: 08/22/23 15:29 Last Admin: 07/23/23 16:58 Dose: 50 mcg
[2023-07-25] MEDS: ACETAMINOPHEN 500 MG TAB PO PRN (07:47)
[2023-07-25] MEDS: IBUPROFEN 600 MG TAB PO SCH (12:30)
--- NOTE | 2023-07-25 14:28 | Hospitalist Progress Note ---
Date of Service July 25, 2023 Assessment & Plan (1) Ambulatory dysfunction: Plan: Ambulatory dysfunction/functional disability From progressive/end-stage osteoarthritis of both knees in the setting of morbid obesity Appreciate Ortho input and recommendation Advised to have US guided corticosteroid injection/pain management Weightbearing as tolerated Continue PT and OT -will need placement Will start ibuprofen 600 mg 3 times daily and narcotic pain medications as needed for pain control Strongly advised to participate in physical therapy The pain is worse or is not controlled will get pain therapist involvement Morbid obesity BMI 65.2 Orthopedic surgeon will not do any surgery until BMI is less than 40 Patient is willing to try newer medications for weight loss as an outpatient when appropriate Hypertension, slight elevated secondary discomfort Blood pressure remains stable now with current medications Hypothyroidism, euthyroid as of today's TSH, patient currently not on maintenance medications Prediabetes, hemoglobin A1c of 5.3 from last year We will continue SSI Bilateral adrenal adenomas, nonfunctioning adrenal incidentaloma with some radiology characteristics suspicious of carcinoma as per as per Endo note stable measurement from remote CT from 2012. No need for additional testing as per outpatient provider as per patient. No other acute symptoms NAFLD, no overt decompensation mood disorder, stable past tobacco abuse DVT prophylaxis. Lovenox subcu Full code Patient requests her boyfriend to be given updates regarding care. Mr. Tommy Carvalho, contact #[phone]. Text document was generated using [employer] voice recognition software. It may contain grammatical or spelling errors. Kindly contact undersigned for clarification of any documentation item in question. Admission and Anticipated Discharge Date Admission Date: July 23, 2023 Subjective 07/24/2023 The patient is seen and examined in medical for She complains to be weak and lethargic and also right knee pain Seen by Ortho and advised for pain management/injection and weightbearing as tolerated 07/25/2023 The patient was seen and examined in medical floor She has been complaining of right knee pain She could not do well with physical therapy yesterday Will start ibuprofen on top of her narcotic pain medications to control the pain Review of Systems Review of Systems: All systems reviewed and are unremarkable except as noted below Physical Exam Physical Exam: Lying in bed without any acute distress Constitutional: well developed, well nourished, + ill appearing and + morbidly obese Eyes: PERRL, conjunctivae normal, anicteric sclerae ENMT: external ear and nose normal, oropharynx normal Neck: trachea midline, no thyromegaly Respiratory: no respiratory distress Auscultation: + diminished lung sounds; no crackles and no wheezes Cardiovascular: Rate/Rhythm: regular rate and regular rhythm; not tachycardic Heart Sounds: normal S1 and normal S2; no murmur Extremities: + edema (1+ edema bilaterally) Gastrointestinal (Abdomen): Inspection/Auscultation: + abdomen distended and normal bowel sounds Percussion/Palpation: abdomen soft; abdomen nontender Musculoskeletal: Moderate knee pain with movement of the right knee joint Neurologic: normal touch/pain/proprioception and moves all extremities; no focal motor deficits Psychiatric: A+Ox3, euthymic affect Lymphatic: no cervical or axillary lymphadenopathy Results & Data Results & Data Vital Signs (Past 12 Hours) Vital Signs Temp Pulse Resp BP Pulse Ox O2 Del Method 07/25/23 08:30 Room Air 07/25/23 07:35 37.2 C 80 16 163/83 H 93 Room Air Medications Administered Current Inpatient Medications Acetaminophen (Acetaminophen 500 Mg Tab) 500 mg PO Q6H PRN PRN Reason: fever/pain Stop: 08/22/23 06:56 Last Admin: 07/25/23 07:47 Dose: 500 mg Enoxaparin Sodium (Enoxaparin Inj 40 Mg/0.4 Ml Syr) 40 mg SQ QAM [facility] Stop: 08/22/23 09:59 Last Admin: 07/25/23 09:27 Dose: 40 mg Fluoxetine HCl (Fluoxetine Hcl 10 Mg Cap) 10 mg PO DAILY@1200 [facility] Stop: 08/22/23 11:59 Last Admin: 07/25/23 11:53 Dose: 10 mg Promethazine HCl 12.5 mg/ (Sodium Chloride) 50.5 mls @ 202 mls/hr IV Q6H PRN PRN Reason: Nausea And Vomiting Stop: 08/22/23 06:56 Ibuprofen (Ibuprofen 600 Mg Tab) 600 mg PO Q8H [facility] Stop: 08/24/23 11:59 Last Admin: 07/25/23 12:30 Dose: 600 mg Lisinopril (Lisinopril 10 Mg Tab) 10 mg PO HS [facility] Stop: 08/22/23 20:59 Last Admin: 07/24/23 21:30 Dose: 10 mg Morphine Sulfate (Morphine Sulfate 2 Mg/Ml Carp) 2 mg IV Q4H PRN PRN Reason: Severe Pain (Scale 7, 8, 9,10) Stop: 08/06/23 09:46 Oxybutynin Chloride (Oxybutynin Chloride Xl 5 Mg Tabcr) 10 mg PO [facility]; Protocol Stop: 08/22/23 20:59 Last Admin: 07/24/23 21:29 Dose: 10 mg Oxycodone HCl (Oxycodone Hcl Ir 5 Mg Tab (Immediate Release)) 5 - 10 mg PO QID PRN PRN Reason: Pain Stop: 08/06/23 06:56 Last Admin: 07/25/23 09:56 Dose: 10 mg Vitamin D (Cholecalciferol 25 Mcg (1000 Units) Tab) [facility] Stop: 08/22/23 15:29 Last Admin: 07/24/23 18:01 Dose: 50 mcg
--- NOTE | 2023-07-26 14:06 | Pain Management Consultation ---
Date of Consultation July 26, 2023 Assessment & Plan (1) Osteoarthritis of knees, bilateral: (2) Ambulatory dysfunction: (3) Weakness: Plan 1. Patient does find the oxycodone more efficacious towards diminishing her pain than the MS Contin so she will continue with oxycodone 10 mg 4 times daily. 2. She will follow-up with orthopedics on an outpatient basis for intra- articular knee injections. 3. Nothing interventional to offer the patient from a pain management perspective. Due to insurance coverage, unable to offer genicular nerve blocks/radiofrequency ablation. 4. Continue ibuprofen 600 mg 3 times daily 5. Will sign off on the patient. Please contact with any questions or concerns. History of Present Illness Reason for Consultation: Knee pain Attending Physician: Gregory Veliz MD History of Present Illness This is a 67-year-old female that has been admitted to [facility] for ambulatory dysfunction and right knee pain. She has tried injections into the knees 10+ years ago without any significant improvement. She denies any specific injury that may have increased the knee pain. She describes a deep aching pain along the right knee with movement. She was not able to care for herself and her boyfriend is no longer able to provide full assistance. She has spoken with orthopedics and a right intra-articular knee injection would be recommended on an outpatient basis. Right knee arthroplasty was discussed but due to her current BMI this is not an option. She is going to a rehab facility on discharge. Chronically the patient is on MS Contin 30 mg twice daily which provided about 50% pain relief without any side effects. Inpatient she has been placed on oxycodone 10 mg 4 times daily which is providing about 65% relief. She states that the pain is relieved for 4-1/2 hours in duration before it starts to return. She does report improved pain relief from the oxycodone compared to the MS Contin. She is able to move her bowels. Working with physical therapy on ambulation. Case discussed with Dr. Comfort Gutierrez Allergies Allergy/AdvReac Type Severity Reaction Status Date / Time No Known Allergies Allergy Unverified 04/04/17 09:20 Home Medications Medication Instructions Recorded Confirmed Type CHOLECALCIFEROL (VITAMIN D3) 2 cap PO WITH A MEAL #0 caps 04/04/17 07/23/23 History Fluoxetine (Prozac) 10 mg PO DAILY AFTERNOON #0 caps 04/04/17 07/23/23 History Lisinopril (Zestril) 10 mg PO HS #0 tabs 04/04/17 07/23/23 History Solifenacin (Vesicare) 10 mg PO HS #0 tabs 04/04/17 07/23/23 History Patient History Medical History Osteoarthritis of knees, bilateral Morbid obesity Prediabetes Hypothyroidism Hypertension Surgical History Gastric banding status Social History Smoking Status: Former smoker Hx Alcohol Use: No Hx Substance Use: No Preferred Language: [place]an Communication Ability: Effective Solution Engineer Required: No Beliefs That Will Affect Care: None Current Living Situation: Significant Other Other Information That Helps Us Care for You: No Feels Safe at Home: Yes Safety Concerns: Feels Safe At This Time Assistive Devices: Walker Physical Exam Physical Exam: GENERAL: This is a morbidly obese 67-year-old female in no acute distress. HEAD/FACE: Normocephalic and atraumatic. EYES: No drainage or conjunctival injection. ENT: Nose without bleeding or discharge. Oral mucosa moist. NECK: Full ROM without apparent pain. No swelling or masses noted. RESPIRATORY: Patient with unlabored breathing. No signs of respiratory distress. CHEST/AXILLA: Chest movement symmetrical. No deformities noted. SKIN: [place], warm and dry. No rash noted. MS/EXTREMITY: No swelling, no deformities. Moving extremities appropriately. NEURO: Alert and appears oriented. Speech is fluent. Cranial Nerves are grossly intact. PSYCH: Alert, pleasant, affect is calm
--- NOTE | 2023-07-26 15:37 | Hospitalist Progress Note ---
Date of Service July 26, 2023 Assessment & Plan (1) Ambulatory dysfunction: Plan: Ambulatory dysfunction/functional disability From progressive/end-stage osteoarthritis of both knees in the setting of morbid obesity Appreciate Ortho input and recommendation Advised to have US guided corticosteroid injection/pain management Weightbearing as tolerated Continue PT and OT -will need placement Will start ibuprofen 600 mg 3 times daily and narcotic pain medications as needed for pain control Strongly advised to participate in physical therapy The pain is worse or is not controlled will get pain therapist involvement Appreciate pain management input and recommendation-continue with the oxycodone and orthopedic appointment for intra-articular injection as an outpatient Appreciate input from PT and OT and will need to go to rehab for short-term as Morbid obesity BMI 65.2 Orthopedic surgeon will not do any surgery until BMI is less than 40 Patient is willing to try newer medications for weight loss as an outpatient when appropriate Hypertension, slight elevated secondary discomfort Blood pressure remains stable now with current medications Hypothyroidism, euthyroid as of today's TSH, patient currently not on maintenance medications Prediabetes, hemoglobin A1c of 5.3 from last year We will continue SSI Bilateral adrenal adenomas, nonfunctioning adrenal incidentaloma with some radiology characteristics suspicious of carcinoma as per as per Endo note stable measurement from remote CT from 2012. No need for additional testing as per outpatient provider as per patient. No other acute symptoms NAFLD, no overt decompensation mood disorder, stable past tobacco abuse DVT prophylaxis. Lovenox subcu Full code Patient requests her boyfriend to be given updates regarding care. Mr. Tommy Carvalho, contact #[phone]. Text document was generated using [employer] voice recognition software. It may contain grammatical or spelling errors. Kindly contact undersigned for clarification of any documentation item in question. Admission and Anticipated Discharge Date Admission Date: July 25, 2023 Subjective 07/24/2023 The patient is seen and examined in medical for She complains to be weak and lethargic and also right knee pain Seen by Ortho and advised for pain management/injection and weightbearing as tolerated 07/25/2023 The patient was seen and examined in medical floor She has been complaining of right knee pain She could not do well with physical therapy yesterday Will start ibuprofen on top of her narcotic pain medications to control the pain 07/26/2023 The patient was seen and examined in medical floor Her pain is little bit controlled with ibuprofen Appreciate input from pain pain management Denies any other symptom Review of Systems Review of Systems: All systems reviewed and are unremarkable except as noted below Physical Exam Physical Exam: Lying in bed without any acute distress Constitutional: well developed, well nourished, + ill appearing and + morbidly obese Eyes: PERRL, conjunctivae normal, anicteric sclerae ENMT: external ear and nose normal, oropharynx normal Neck: trachea midline, no thyromegaly Respiratory: no respiratory distress Auscultation: + diminished lung sounds; no crackles and no wheezes Cardiovascular: Rate/Rhythm: regular rate and regular rhythm; not tachycardic Heart Sounds: normal S1 and normal S2; no murmur Extremities: + edema (1+ edema bilaterally) Gastrointestinal (Abdomen): Inspection/Auscultation: + abdomen distended and normal bowel sounds Percussion/Palpation: abdomen soft; abdomen nontender Musculoskeletal: Right knee pain with movement of the right knee joint Neurologic: normal touch/pain/proprioception and moves all extremities; no focal motor deficits Psychiatric: A+Ox3, euthymic affect Lymphatic: no cervical or axillary lymphadenopathy Results & Data Results & Data Vital Signs (Past 12 Hours) Vital Signs Temp Pulse Resp BP Pulse Ox O2 Del Method 07/26/23 15:19 36.4 C L 73 16 157/88 H 91 Room Air 07/26/23 08:15 Room Air 07/26/23 07:57 36.7 C 70 16 146/90 H 93 Room Air Medications Administered Current Inpatient Medications Acetaminophen (Acetaminophen 500 Mg Tab) 500 mg PO Q6H PRN PRN Reason: fever/pain Stop: 08/22/23 06:56 Last Admin: 07/25/23 07:47 Dose: 500 mg Enoxaparin Sodium (Enoxaparin Inj 40 Mg/0.4 Ml Syr) 40 mg SQ QAM [facility] Stop: 08/22/23 09:59 Last Admin: 07/26/23 08:48 Dose: 40 mg Fluoxetine HCl (Fluoxetine Hcl 10 Mg Cap) 10 mg PO DAILY@1200 [facility] Stop: 08/22/23 11:59 Last Admin: 07/26/23 12:10 Dose: 10 mg Promethazine HCl 12.5 mg/ (Sodium Chloride) 50.5 mls @ 202 mls/hr IV Q6H PRN PRN Reason: Nausea And Vomiting Stop: 08/22/23 06:56 Ibuprofen (Ibuprofen 600 Mg Tab) 600 mg PO Q8H [facility] Stop: 08/24/23 11:59 Last Admin: 07/26/23 12:10 Dose: 600 mg Lisinopril (Lisinopril 10 Mg Tab) 10 mg PO HS [facility] Stop: 08/22/23 20:59 Last Admin: 07/25/23 19:47 Dose: 10 mg Morphine Sulfate (Morphine Sulfate 2 Mg/Ml Carp) 2 mg IV Q4H PRN PRN Reason: Severe Pain (Scale 7, 8, 9,10) Stop: 08/06/23 09:46 Oxybutynin Chloride (Oxybutynin Chloride Xl 5 Mg Tabcr) 10 mg PO [facility]; Protocol Stop: 08/22/23 20:59 Last Admin: 07/25/23 19:46 Dose: 10 mg Oxycodone HCl (Oxycodone Hcl Ir 5 Mg Tab (Immediate Release)) 5 - 10 mg PO QID PRN PRN Reason: Pain Stop: 08/06/23 06:56 Last Admin: 07/26/23 12:12 Dose: 10 mg Vitamin D (Cholecalciferol 25 Mcg (1000 Units) Tab) 50 mcg PO DAILYBD [facility] Stop: 08/22/23 15:29 Last Admin: 07/25/23 17:24 Dose: 50 mcg
[2023-07-27] MEDS: MoRPHine SULFATE 2 MG/ML CARP IV PRN (00:37)
[2023-07-27] MEDS: MICONAZOLE NITRATE POWDER 85 GM EXT PRN (06:11)
--- NOTE | 2023-07-27 15:09 | Hospitalist Progress Note ---
Date of Service July 27, 2023 Assessment & Plan (1) Ambulatory dysfunction: Plan: Ambulatory dysfunction/functional disability From progressive/end-stage osteoarthritis of both knees in the setting of morbid obesity Appreciate Ortho input and recommendation Advised to have US guided corticosteroid injection/pain management Weightbearing as tolerated Continue PT and OT -will need placement Will start ibuprofen 600 mg 3 times daily and narcotic pain medications as needed for pain control Strongly advised to participate in physical therapy The pain is worse or is not controlled will get pain therapist involvement Appreciate pain management input and recommendation-continue with the oxycodone and orthopedic appointment for intra-articular injection as an outpatient Appreciate input from PT and OT and will need to go to rehab for short-term as Clinically better and the pain medicine has been working Morbid obesity BMI 65.2 Orthopedic surgeon will not do any surgery until BMI is less than 40 Patient is willing to try newer medications for weight loss as an outpatient when appropriate Strongly motivated to work towards reducing weight Hypertension, slight elevated secondary discomfort Blood pressure remains stable now with current medications Hypothyroidism, euthyroid as of today's TSH, patient currently not on maintenance medications Prediabetes, hemoglobin A1c of 5.3 from last year We will continue SSI Bilateral adrenal adenomas, nonfunctioning adrenal incidentaloma with some radiology characteristics suspicious of carcinoma as per as per Endo note stable measurement from remote CT from 2012. No need for additional testing as per outpatient provider as per patient. No other acute symptoms NAFLD, no overt decompensation mood disorder, stable past tobacco abuse DVT prophylaxis. Lovenox subcu Full code Patient requests her boyfriend to be given updates regarding care. Mr. Tommy Carvalho, contact #[phone]. Text document was generated using [employer] voice recognition software. It may contain grammatical or spelling errors. Kindly contact undersigned for clarification of any documentation item in question. Admission and Anticipated Discharge Date Admission Date: July 25, 2023 Subjective 07/24/2023 The patient is seen and examined in medical for She complains to be weak and lethargic and also right knee pain Seen by Ortho and advised for pain management/injection and weightbearing as tolerated 07/25/2023 The patient was seen and examined in medical floor She has been complaining of right knee pain She could not do well with physical therapy yesterday Will start ibuprofen on top of her narcotic pain medications to control the pain 07/26/2023 The patient was seen and examined in medical floor Her pain is little bit controlled with ibuprofen Appreciate input from pain pain management Denies any other symptom 07/27/2023 The patient was seen and examined in medical floor She has been feeling much better Trying to get the physical therapy and will be discharged on Saturday for short- term rehab Review of Systems Review of Systems: All systems reviewed and are unremarkable except as noted below Physical Exam Physical Exam: Lying in bed without any acute distress Constitutional: well developed, well nourished, + ill appearing and + morbidly obese Eyes: PERRL, conjunctivae normal, anicteric sclerae ENMT: external ear and nose normal, oropharynx normal Neck: trachea midline, no thyromegaly Respiratory: no respiratory distress Auscultation: + diminished lung so unds; no crackles and no wheezes Cardiovascular: Rate/Rhythm: regular rate and regular rhythm; not tachycardic Heart Sounds: normal S1 and normal S2; no murmur Extremities: + edema (1+ edema bilaterally) Gastrointestinal (Abdomen): Inspection/Auscultation: + abdomen distended and normal bowel sounds Percussion/Palpation: abdomen soft; abdomen nontender Musculoskeletal: No acute arthritis involving any of the joint Neurologic: normal touch/pain/proprioception and moves all extremities; no focal motor deficits Psychiatric: A+Ox3, euthymic affect Lymphatic: no cervical or axillary lymphadenopathy Results & Data Results & Data Vital Signs (Past 12 Hours) Vital Signs Temp Pulse Resp BP Pulse Ox O2 Del Method 07/27/23 14:33 36.7 C 64 17 120/78 93 Room Air 07/27/23 07:29 36.7 C 58 L 17 165/89 H 92 Room Air Medications Administered Current Inpatient Medications Acetaminophen (Acetaminophen 500 Mg Tab) 500 mg PO Q6H PRN PRN Reason: fever/pain Stop: 08/22/23 06:56 Last Admin: 07/25/23 07:47 Dose: 500 mg Enoxaparin Sodium (Enoxaparin Inj 40 Mg/0.4 Ml Syr) 40 mg SQ QAM [facility] Stop: 08/22/23 09:59 Last Admin: 07/27/23 08:31 Dose: 40 mg Fluoxetine HCl (Fluoxetine Hcl 10 Mg Cap) 10 mg PO DAILY@1200 [facility] Stop: 08/22/23 11:59 Last Admin: 07/27/23 12:00 Dose: 10 mg Promethazine HCl 12.5 mg/ (Sodium Chloride) 50.5 mls @ 202 mls/hr IV Q6H PRN PRN Reason: Nausea And Vomiting Stop: 08/22/23 06:56 Ibuprofen (Ibuprofen 600 Mg Tab) 600 mg PO Q8H [facility] Stop: 08/24/23 11:59 Last Admin: 07/27/23 12:00 Dose: 600 mg Lisinopril (Lisinopril 10 Mg Tab) 10 mg PO [facility] Stop: 08/22/23 20:59 Last Admin: 07/26/23 20:44 Dose: 10 mg Miconazole Nitrate (Miconazole Nitrate Powder 85 Gm) 1 appln EXT PRN PRN PRN Reason: Affected Skin Folds Stop: 08/25/23 22:39 Last Admin: 07/27/23 06:11 Dose: 1 appln Morphine Sulfate (Morphine Sulfate 2 Mg/Ml Carp) 2 mg IV Q4H PRN PRN Reason: Severe Pain (Scale 7, 8, 9,10) Stop: 08/06/23 09:46 Last Admin: 07/27/23 08:30 Dose: 2 mg Oxybutynin Chloride (Oxybutynin Chloride Xl 5 Mg Tabcr) 10 mg PO HS [facility]; Protocol Stop: 08/22/23 20:59 Last Admin: 07/26/23 20:44 Dose: 10 mg Oxycodone HCl (Oxycodone Hcl Ir 5 Mg Tab (Immediate Release)) 5 - 10 mg PO QID PRN PRN Reason: Pain Stop: 08/06/23 06:56 Last Admin: 07/27/23 13:13 Dose: 10 mg Vitamin D (Cholecalciferol 25 Mcg (1000 Units) Tab) 50 mcg PO DAILYBD [facility] Stop: 08/22/23 15:29 Last Admin: 07/26/23 16:35 Dose: 50 mcg
--- NOTE | 2023-07-28 11:00 | Hospitalist Progress Note ---
Date of Service July 28, 2023 Assessment & Plan (1) Ambulatory dysfunction: Plan: Ambulatory dysfunction/functional disability From progressive/end-stage osteoarthritis of both knees in the setting of morbid obesity Appreciate Ortho input and recommendation Advised to have US guided corticosteroid injection/pain management Weightbearing as tolerated Continue PT and OT -will need placement Will start ibuprofen 600 mg 3 times daily and narcotic pain medications as needed for pain control Strongly advised to participate in physical therapy The pain is worse or is not controlled will get pain therapist involvement Appreciate pain management input and recommendation-continue with the oxycodone and orthopedic appointment for intra-articular injection as an outpatient Appreciate input from PT and OT and will need to go to rehab for short-term as Clinically better and the pain medicine has been working Continue with the PT and OT likely discharge tomorrow Morbid obesity BMI 65.2 Orthopedic surgeon will not do any surgery until BMI is less than 40 Patient is willing to try newer medications for weight loss as an outpatient when appropriate Strongly motivated to work towards reducing weight Hypertension, slight elevated secondary discomfort Blood pressure remains stable now with current medications Hypothyroidism, euthyroid as of today's TSH, patient currently not on maintenance medications Prediabetes, hemoglobin A1c of 5.3 from last year We will continue SSI Bilateral adrenal adenomas, nonfunctioning adrenal incidentaloma with some radiology characteristics suspicious of carcinoma as per as per Endo note stable measurement from remote CT from 2012. No need for additional testing as per outpatient provider as per patient. No other acute symptoms NAFLD, no overt decompensation mood disorder, stable past tobacco abuse DVT prophylaxis. Lovenox subcu Full code Patient requests her boyfriend to be given updates regarding care. Mr. Tommy Carvalho, contact #[phone]. Text document was generated using [employer] voice recognition software. It may contain grammatical or spelling errors. Kindly contact undersigned for clarification of any documentation item in question. Admission and Anticipated Discharge Date Admission Date: July 25, 2023 Subjective 07/24/2023 The patient is seen and examined in medical for She complains to be weak and lethargic and also right knee pain Seen by Ortho and advised for pain management/injection and weightbearing as tolerated 07/25/2023 The patient was seen and examined in medical floor She has been complaining of right knee pain She could not do well with physical therapy yesterday Will start ibuprofen on top of her narcotic pain medications to control the pain 07/26/2023 The patient was seen and examined in medical floor Her pain is little bit controlled with ibuprofen Appreciate input from pain pain management Denies any other symptom 07/27/2023 The patient was seen and examined in medical floor She has been feeling much better Trying to get the physical therapy and will be discharged on Saturday for short- term rehab 07/28/2023 The patient was seen and examined in medical floor She has been stable and still has pain in the right knee She will have more physical therapy likely discharge tomorrow Review of Systems Review of Systems: All systems reviewed and are unremarkable except as noted below Physical Exam Physical Exam: Lying in bed without any acute distress Constitutional: well developed, well nourished, + ill appearing and + morbidly obese Eyes: PERRL, conjunctivae normal, anicteric sclerae ENMT: external ear and nose normal, oropharynx normal Neck: trachea midline, no thyromegaly Respiratory: no respiratory distress Auscultation: + diminished lung sounds; no crackles and no wheezes Cardiovascular: Rate/Rhythm: regular rate and regular rhythm; not tachycardic Heart Sounds: normal S1 and normal S2; no murmur Extremities: + edema (1+ edema bilaterally) Gastrointestinal (Abdomen): Inspection/Auscultation: + abdomen distended and normal bowel sounds Percussion/Palpation: abdomen soft; abdomen nontender Musculoskeletal: Right knee pain with movement of the right knee joint. Neurologic: normal touch/pain/proprioception and moves all extremities; no focal motor deficits Psychiatric: A+Ox3, euthymic affect Lymphatic: no cervical or axillary lymphadenopathy Results & Data Results & Data Vital Signs (Past 12 Hours) Vital Signs Temp Pulse Resp BP Pulse Ox O2 Del Method 07/28/23 07:35 Room Air 07/28/23 07:23 36.7 C 63 17 144/83 H 93 Room Air Medications Administered Current Inpatient Medications Acetaminophen (Acetaminophen 500 Mg Tab) 500 mg PO Q6H PRN PRN Reason: fever/pain Stop: 08/22/23 06:56 Last Admin: 07/25/23 07:47 Dose: 500 mg Enoxaparin Sodium (Enoxaparin Inj 40 Mg/0.4 Ml Syr) 40 mg SQ QAM [facility] Stop: 08/22/23 09:59 Last Admin: 07/28/23 08:32 Dose: 40 mg Fluoxetine HCl (Fluoxetine Hcl 10 Mg Cap) 10 mg PO DAILY@1200 [facility] Stop: 08/22/23 11:59 Last Admin: 07/27/23 12:00 Dose: 10 mg Promethazine HCl 12.5 mg/ (Sodium Chloride) 50.5 mls @ 202 mls/hr IV Q6H PRN PRN Reason: Nausea And Vomiting Stop: 08/22/23 06:56 Ibuprofen (Ibuprofen 600 Mg Tab) [address] [facility] Stop: 08/24/23 11:59 Last Admin: 07/28/23 03:55 Dose: Not Given Lisinopril (Lisinopril 10 Mg Tab) 10 mg PO [facility] Stop: 08/22/23 20:59 Last Admin: 07/27/23 19:53 Dose: 10 mg Miconazole Nitrate (Miconazole Nitrate Powder 85 Gm) 1 appln EXT PRN PRN PRN Reason: Affected Skin Folds Stop: 08/25/23 22:39 Last Admin: 07/27/23 06:11 Dose: 1 appln Morphine Sulfate (Morphine Sulfate 2 Mg/Ml Carp) 2 mg IV Q4H PRN PRN Reason: Severe Pain (Scale 7, 8, 9,10) Stop: 08/06/23 09:46 Last Admin: 07/28/23 07:25 Dose: 2 mg Oxybutynin Chloride (Oxybutynin Chloride Xl 5 Mg Tabcr) 10 mg PO [facility]; Protocol Stop: 08/22/23 20:59 Last Admin: 07/27/23 19:51 Dose: 10 mg Oxycodone HCl (Oxycodone Hcl Ir 5 Mg Tab (Immediate Release)) 5 - 10 mg PO QID PRN PRN Reason: Pain Stop: 08/06/23 06:56 Last Admin: 07/28/23 08:36 Dose: 10 mg Vitamin D (Cholecalciferol 25 Mcg (1000 Units) Tab) [address] [facility] Stop: 08/22/23 15:29 Last Admin: 07/27/23 16:20 Dose: 50 mcg
--- NOTE | 2023-07-29 16:23 | Hospitalist Progress Note ---
Date of Service July 29, 2023 Assessment & Plan (1) Ambulatory dysfunction: Plan: Ambulatory dysfunction/functional disability From progressive/end-stage osteoarthritis of both knees in the setting of morbid obesity Appreciate Ortho input and recommendation Advised to have US guided corticosteroid injection/pain management Weightbearing as tolerated Continue PT and OT -will need placement Will start ibuprofen 600 mg 3 times daily and narcotic pain medications as needed for pain control Strongly advised to participate in physical therapy The pain is worse or is not controlled will get pain therapist involvement Appreciate pain management input and recommendation-continue with the oxycodone and orthopedic appointment for intra-articular injection as an outpatient Appreciate input from PT and OT and will need to go to rehab for short-term as Clinically better and the pain medicine has been working Continue with the PT and OT likely discharge tomorrow Pain seems to be reasonably controlled with current medications Awaiting placement Morbid obesity BMI 65.2 Orthopedic surgeon will not do any surgery until BMI is less than 40 Patient is willing to try newer medications for weight loss as an outpatient when appropriate Strongly motivated to work towards reducing weight Hypertension, slight elevated secondary discomfort Blood pressure remains stable now with current medications Hypothyroidism, euthyroid as of today's TSH, patient currently not on maintenance medications Prediabetes, hemoglobin A1c of 5.3 from last year We will continue SSI Bilateral adrenal adenomas, nonfunctioning adrenal incidentaloma with some radiology characteristics suspicious of carcinoma as per as per Endo note stable measurement from remote CT from 2012. No need for additional testing as per outpatient provider as per patient. No other acute symptoms NAFLD, no overt decompensation mood disorder, stable past tobacco abuse DVT prophylaxis. Lovenox subcu Full code Patient requests her boyfriend to be given updates regarding care. Mr. Tommy Carvalho, contact #[phone]. Text document was generated using [employer] voice recognition software. It may contain grammatical or spelling errors. Kindly contact undersigned for clarification of any documentation item in question. Admission and Anticipated Discharge Date Admission Date: July 25, 2023 Subjective 07/24/2023 The patient is seen and examined in medical for She complains to be weak and lethargic and also right knee pain Seen by Ortho and advised for pain management/injection and weightbearing as tolerated 07/25/2023 The patient was seen and examined in medical floor She has been complaining of right knee pain She could not do well with physical therapy yesterday Will start ibuprofen on top of her narcotic pain medications to control the pain 07/26/2023 The patient was seen and examined in medical floor Her pain is little bit controlled with ibuprofen Appreciate input from pain pain management Denies any other symptom 07/27/2023 The patient was seen and examined in medical floor She has been feeling much better Trying to get the physical therapy and will be discharged on Saturday for short- term rehab 07/28/2023 The patient was seen and examined in medical floor She has been stable and still has pain in the right knee She will have more physical therapy likely discharge tomorrow 07/29/2023 The patient was seen and examined in medical floor She has been stable and awaiting placement Review of Systems Review of Systems: All systems reviewed and are unremarkable except as noted below Physical Exam Physical Exam: Lying in bed without any acute distress Constitutional: well developed, well nourished, + ill appearing and + morbidly obese Eyes: PERRL, conjunctivae normal, anicteric sclerae ENMT: external ear and nose normal, oropharynx normal Neck: trachea midline, no thyromegaly Respiratory: no respiratory distress Auscultation: + diminished lung sounds; no crackles and no wheezes Cardiovascular: Rate/Rhythm: regular rate and regular rhythm; not tachycardic Heart Sounds: normal S1 and normal S2; no murmur Extremities: + edema (1+ edema bilaterally) Gastrointestinal (Abdomen): Inspection/Auscultation: + abdomen distended and normal bowel sounds Percussion/Palpation: abdomen soft; abdomen nontender Neurologic: normal touch/pain/proprioception and moves all extremities; no focal motor deficits Psychiatric: A+Ox3, euthymic affect Lymphatic: no cervical or axillary lymphadenopathy Results & Data Results & Data Vital Signs (Past 12 Hours) Vital Signs Temp Pulse Resp BP Pulse Ox O2 Del Method 07/29/23 14:50 36.6 C 58 L 18 139/71 94 Room Air 07/29/23 14:17 36.7 C 73 17 112/68 95 Room Air 07/29/23 13:38 67 18 139/82 91 Room Air 07/29/23 07:34 36.5 C 64 18 162/81 H 92 Room Air Medications Administered Current Inpatient Medications Acetaminophen (Acetaminophen 500 Mg Tab) 500 mg PO Q6H PRN PRN Reason: fever/pain Stop: 08/22/23 06:56 Last Admin: 07/25/23 07:47 Dose: 500 mg Enoxaparin Sodium (Enoxaparin Inj 40 Mg/0.4 Ml Syr) 40 mg SQ QAM [facility] Stop: 08/22/23 09:59 Last Admin: 07/29/23 08:18 Dose: 40 mg Fluoxetine HCl (Fluoxetine Hcl 10 Mg Cap) 10 mg PO DAILY@1200 [facility] Stop: 08/22/23 11:59 Last Admin: 07/29/23 11:44 Dose: 10 mg Promethazine HCl 12.5 mg/ (Sodium Chloride) 50.5 mls @ 202 mls/hr IV Q6H PRN PRN Reason: Nausea And Vomiting Stop: 08/22/23 06:56 Ibuprofen (Ibuprofen 600 Mg Tab) 600 mg PO Q8H [facility] Stop: 08/24/23 11:59 Last Admin: 07/29/23 11:44 Dose: 600 mg Lisinopril (Lisinopril 10 Mg Tab) 10 mg PO [facility] Stop: 08/22/23 20:59 Last Admin: 07/28/23 20:25 Dose: 10 mg Miconazole Nitrate (Miconazole Nitrate Powder 85 Gm) 1 appln EXT PRN PRN PRN Reason: Affected Skin Folds Stop: 08/25/23 22:39 Last Admin: 07/27/23 06:11 Dose: 1 appln Morphine Sulfate (Morphine Sulfate 2 Mg/Ml Carp) 2 mg IV Q4H PRN PRN Reason: Severe Pain (Scale 7, 8, 9,10) Stop: 08/06/23 09:46 Last Admin: 07/28/23 07:25 Dose: 2 mg Oxybutynin Chloride (Oxybutynin Chloride Xl 5 Mg Tabcr) 10 mg PO [facility]; Protocol Stop: 08/22/23 20:59 Last Admin: 07/28/23 20:25 Dose: 10 mg Oxycodone HCl (Oxycodone Hcl Ir 5 Mg Tab (Immediate Release)) 5 - 10 mg PO QID PRN PRN Reason: Pain Stop: 08/06/23 06:56 Last Admin: 07/29/23 14:19 Dose: 10 mg Vitamin D (Cholecalciferol 25 Mcg (1000 Units) Tab) [facility] Stop: 08/22/23 15:29 Last Admin: 07/29/23 15:13 Dose: 50 mcg
--- NOTE | 2023-07-30 16:44 | Hospitalist Progress Note ---
Date of Service July 30, 2023 Assessment & Plan (1) Ambulatory dysfunction: Plan: Ambulatory dysfunction/functional disability From progressive/end-stage osteoarthritis of both knees in the setting of morbid obesity Appreciate Ortho input and recommendation Advised to have US guided corticosteroid injection/pain management Weightbearing as tolerated Continue PT and OT -will need placement Will start ibuprofen 600 mg 3 times daily and narcotic pain medications as needed for pain control Strongly advised to participate in physical therapy The pain is worse or is not controlled will get pain therapist involvement Appreciate pain management input and recommendation-continue with the oxycodone and orthopedic appointment for intra-articular injection as an outpatient Appreciate input from PT and OT and will need to go to rehab for short-term as Clinically better and the pain medicine has been working Continue with the PT and OT likely discharge tomorrow Pain seems to be reasonably controlled with current medications Awaiting placement-to SNF Advised to participate in physical therapy and she is agreeable Remains medically stable with current medications and the pain is reasonably controlled with current medications too Morbid obesity BMI 65.2 Orthopedic surgeon will not do any surgery until BMI is less than 40 Patient is willing to try newer medications for weight loss as an outpatient when appropriate Strongly motivated to work towards reducing weight Hypertension, slight elevated secondary discomfort Blood pressure remains stable now with current medications Hypothyroidism, euthyroid as of today's TSH, patient currently not on main tenance medications Prediabetes, hemoglobin A1c of 5.3 from last year We will continue SSI Bilateral adrenal adenomas, nonfunctioning adrenal incidentaloma with some radiology characteristics suspicious of carcinoma as per as per Endo note stable measurement from remote CT from 2012. No need for additional testing as per outpatient provider as per patient. No other acute symptoms NAFLD, no overt decompensation mood disorder, stable past tobacco abuse DVT prophylaxis. Lovenox subcu Full code Patient requests her boyfriend to be given updates regarding care. Mr. Tommy Carvalho, contact #[phone]. Discussed with the family members on 07/29/2023 Text document was generated using [employer] voice recognition software. It may contain grammatical or spelling errors. Kindly contact undersigned for clarification of any documentation item in question. Admission and Anticipated Discharge Date Admission Date: July 25, 2023 Subjective 07/24/2023 The patient is seen and examined in medical for She complains to be weak and lethargic and also right knee pain Seen by Ortho and advised for pain management/injection and weightbearing as tolerated 07/25/2023 The patient was seen and examined in medical floor She has been complaining of right knee pain She could not do well with physical therapy yesterday Will start ibuprofen on top of her narcotic pain medications to control the pain 07/26/2023 The patient was seen and examined in medical floor Her pain is little bit controlled with ibuprofen Appreciate input from pain pain management Denies any other symptom 07/27/2023 The patient was seen and examined in medical floor She has been feeling much better Trying to get the physical therapy and will be discharged on Saturday for short- term rehab 07/28/2023 The patient was seen and examined in medical floor She has been stable and still has pain in the right knee She will have more physical therapy likely discharge tomorrow 07/29/2023 The patient was seen and examined in medical floor She has been stable and awaiting placement 07/30/2023 The patient was seen and examined in medical She has been stable with reasonable pain in the right knee with physical therapy Awaiting placement to [facility] Review of Systems Review of Systems: All systems reviewed and are unremarkable except as noted below Physical Exam Physical Exam: Lying in bed without any acute distress Constitutional: well developed, well nourished, + ill appearing and + morbidly obese Eyes: PERRL, conjunctivae normal, anicteric sclerae ENMT: external ear and nose normal, oropharynx normal Neck: trachea midline, no thyromegaly Respiratory: no respiratory distress Auscultation: + diminished lung sounds; no crackles and no wheezes Cardiovascular: Rate/Rhythm: regular rate and regular rhythm; not tachycardic Heart Sounds: normal S1 and normal S2; no murmur Extremities: + edema (1+ edema bilaterally) Gastrointestinal (Abdomen): Inspection/Auscultation: + abdomen distended and normal bowel sounds Percussion/Palpation: abdomen soft; abdomen nontender Neurologic: normal touch/pain/proprioception and moves all extremities; no focal motor deficits Psychiatric: A+Ox3, euthymic affect Lymphatic: no cervical or axillary lymphadenopathy Results & Data Results & Data Vital Signs (Past 12 Hours) Vital Signs Temp Pulse Resp BP Pulse Ox O2 Del Method 07/30/23 14:47 36.5 C 63 16 130/69 92 Room Air 07/30/23 07:41 36.7 C 64 16 149/77 H 95 Room Air Medications Administered Current Inpatient Medications Acetaminophen (Acetaminophen 500 Mg Tab) 500 mg PO Q6H PRN PRN Reason: fever/pain Stop: 08/22/23 06:56 Last Admin: 07/25/23 07:47 Dose: 500 mg Enoxaparin Sodium (Enoxaparin Inj 40 Mg/0.4 Ml Syr) 40 mg SQ QAM [facility] Stop: 08/22/23 09:59 Last Admin: 07/30/23 08:46 Dose: 40 mg Fluoxetine HCl (Fluoxetine Hcl 10 Mg Cap) 10 mg PO DAILY@1200 [facility]UCE Stop: 08/22/23 11:59 Last Admin: 07/30/23 11:27 Dose: 10 mg Promethazine HCl 12.5 mg/ (Sodium Chloride) 50.5 mls @ 202 mls/hr IV Q6H PRN PRN Reason: Nausea And Vomiting Stop: 08/22/23 06:56 Ibuprofen (Ibuprofen 600 Mg Tab) 600 mg PO Q8H [facility] Stop: 08/24/23 11:59 Last Admin: 07/30/23 11:26 Dose: 600 mg Lisinopril (Lisinopril 10 Mg Tab) 10 mg PO [facility] Stop: 08/22/23 20:59 Last Admin: 07/29/23 21:18 Dose: Not Given Miconazole Nitrate (Miconazole Nitrate Powder 85 Gm) 1 appln EXT PRN PRN PRN Reason: Affected Skin Folds Stop: 08/25/23 22:39 Last Admin: 07/27/23 06:11 Dose: 1 appln Morphine Sulfate (Morphine Sulfate 2 Mg/Ml Carp) 2 mg IV Q4H PRN PRN Reason: Severe Pain (Scale 7, 8, 9,10) Stop: 08/06/23 09:46 Last Admin: 07/28/23 07:25 Dose: 2 mg Oxybutynin Chloride (Oxybutynin Chloride Xl 5 Mg Tabcr) 10 mg PO [facility]; Protocol Stop: 08/22/23 20:59 Last Admin: 07/29/23 21:17 Dose: 10 mg Oxycodone HCl (Oxycodone Hcl Ir 5 Mg Tab (Immediate Release)) 5 - 10 mg PO QID PRN PRN Reason: Pain Stop: 08/06/23 06:56 Last Admin: 07/30/23 08:47 Dose: 10 mg Vitamin D (Cholecalciferol 25 Mcg (1000 Units) Tab) 50 mcg PO DAILYBD [facility] Stop: 08/22/23 15:29 Last Admin: 07/30/23 16:39 Dose: 50 mcg
--- NOTE | 2023-07-31 11:16 | Discharge Summary ---
Discharge Summary Date of Service July 31, 2023 Notes For Next Care Provider Medication Changes From Visit Oxycodone 5 mg every 6 hours as needed for severe pain. Ibuprofen 600 mg every 8 hours as needed for mild pain Acetaminophen 500 mg every 6 hours as needed for mild pain. Continue all other medications as prescribed. Admission HPI Per Admitting Provider History obtained from patient and records. Medical history significant for hypertension, hypothyroidism, prediabetes, morbid obesity, adrenal adenoma, history gastric banding, NAFLD, mood disorder, past tobacco abuse. Patient has had bad arthritis in both knees the last few decades. Last seen by [facility] specialist outpatient in 2014. Severe end-stage osteoarthritis with severe deformity. Patient BMI deemed prohibitive risk for surgery. Supervised weight loss recommended to get to goal BMI to allow for surgery as per note. Last outpatient x-ray showed advanced osteoarthritis of both knees from 2020 Worsening disability from worsening bilateral knee pain over the last few months. Patient having trouble getting up and moving around at home. Home physical therapy services requested by PCP's office last month eventually declined by patient because she could not do recommended PT. Increasing weakness leading to falls on standing up. noted the last few days EMS had to be called to patient's home 3 times this week to help patient get up. Patient denies headache, chest pain, SOB, syncope, abdominal pain. Patient convinced by family and EMS last night that she had to go to hospital to get help. 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 Admission Exam Per Admitting Provider GENERAL: Comfortable, pleasant, morbidly obese, no respiratory distress SKIN: Normal color, warm HEENT: Bespectacled, [place] palpebral conjunctivae, no ptosis, dry buccal mucosa NECK : Supple, short neck, no tenderness CHEST : Decreased breath sounds, no tenderness HEART : RRR, no obvious murmurs ABDOMEN: Some distention, nontender EXTREMITIES : Bilateral LE swelling (lymphedema like), bilateral knee tenderness NEUROLOGIC : Coherent, no facial asymmetry, no other gross focality Principal Dx & Hospital Course #1 = Principal Diagnosis (1) Ambulatory dysfunction: Ambulatory dysfunction/functional disability From progressive/end-stage osteoarthritis of both knees in the setting of morbid obesity Appreciate Ortho input and recommendation Advised to have US guided corticosteroid injection/pain management vs weight loss guided program to obtain adequate BMI to consider replacements, BMI must be less than < 40 Weightbearing as tolerated Continue PT and OT -will need placement Will start ibuprofen 600 mg 3 times daily and narcotic pain medications as needed for pain control Strongly advised to participate in physical therapy Medically stable to discharge to rehab and will be discharged later today to [place] care Morbid obesity BMI 65.2 Orthopedic surgeon will not do any surgery until BMI is less than 40 Patient is willing to try newer medications for weight loss as an outpatient when appropriate Strongly motivated to work towards reducing weight Hypertension, slight elevated secondary discomfort continue lisinopril Hypothyroidism, euthyroid as of today's TSH, patient currently not on maintenance medications Prediabetes, hemoglobin A1c of 5.3 from last year We will continue SSI Bilateral adrenal adenomas nonfunctioning adrenal incidentaloma with some radiology characteristics suspicious of carcinoma as per as per Endo note stable measurement from remote CT from 2012. No need for additional testing as per outpatient provider as per patient. No other acute symptoms NAFLD, no overt decompensation mood disorder, stable past tobacco abuse DVT prophylaxis. Lovenox subcu Full code Dispo: D/C to centre care today On day of discharge patient was in good spirits. She continues to experience bilateral knee pain. She is moving her bowels. She has chronic bilateral lower extremity swelling which she feels is at baseline. She is hemodynamically stable and blood pressure is 146/82. Discharge Exam Gen: Morbidly obese, female, WD/WN, NAD, A&O x3 HEENT: Normocephalic, atraumatic, conjunctivae moist, sclerae anicteric, mucous membranes moist. Lung: Clear to Auscultation bilaterally, no wheezes/rales/rhonchi Heart: Regular rate, regular rhythm, no murmurs, rubs, or gallops Abdomen: Soft, NT, ND +BS x 4 Extremities: Obese lower extremities with +1 to +2 pretibial edema Skin: Warm, no rash, negative turgor. Updated Medication List Medication Instructions Recorded Confirmed Type CHOLECALCIFEROL (VITAMIN D3) 2 cap PO WITH A MEAL #60 caps 07/31/23 Rx Fluoxetine (Prozac) 10 mg PO DAILY AFTERNOON #30 caps 07/31/23 Rx Lisinopril (Zestril) 10 mg PO HS #30 tabs 07/31/23 Rx Solifenacin (Vesicare) 10 mg PO HS #30 tabs 07/31/23 Rx acetaminophen 500 mg tablet 500 mg PO Q6H PRN pain #30 tabs 07/31/23 Rx (Tylenol Extra Strength) ibuprofen 600 mg tablet 600 mg PO Q8H PRN pain #30 tabs 07/31/23 Rx oxycodone 5 mg tablet 5 mg PO QID PRN pain #15 tabs 07/31/23 Rx Hospital Stay Data Consultations 07/23/23 05:51 ED Decision to Admit Stat 07/23/23 06:56 Consult Orthopedic Surgery Routine 07/26/23 13:27 Consult Pain Management Routine Diagnostic Imagining Performed Chest X-Ray 07/23/23 04:42 XR chest 1V portable CLINICAL HISTORY: weakness COMPARISON STUDY: No previous studies for comparison. FINDINGS: There is moderate elevation of the right hemidiaphragm. No consolidation to suggest pneumonia. No pneumothorax or pleural effusion is present. There is mild cardiomegaly without evidence for pulmonary edema. Right hilar prominence is likely due to pulmonary vessels. There is osteoarthritis of the bilateral glenohumeral joints. IMPRESSION: 1. No acute cardiopulmonary findings. 2. Cardiomegaly without evidence for pulmonary edema. 3. Moderate elevation of the right hemidiaphragm. 4. Right hilar prominence, likely due to pulmonary vessels. ACT 112: Negative or not required by law. Electronically signed by: Rigoberto Oliver M.D. 07/23/2023 7:00 AM Knee X-Ray 07/23/23 06:57 XR knee LT 1 or 2V routine CLINICAL HISTORY: Left knee pain. COMPARISON: None FINDINGS: Severe tricompartmental joint space narrowing with extensive osteophytosis of the left knee is present. Near complete loss of the joint space is noted. There are no fractures. There are no osseous lesions. Lateral view is compromised given difficulty positioning. No definite joint effusion. Suprapatellar calcific density versus a large osteophyte is present. There are no osseous lesions. There is diffuse soft tissue swelling. IMPRESSION: 1. Severe tricompartmental osteoarthritis of the left knee. 2. No fractures within the left knee. 3. Diffuse soft tissue swelling. ACT 112: Negative or not required by law. Electronically signed by: Rigoberto Oliver M.D. 07/23/2023 7:15 AM Knee X-Ray 07/23/23 06:57 XR knee RT 1 or 2V routine CLINICAL HISTORY: Right knee pain. COMPARISON STUDY: None. FINDINGS: Suboptimal evaluation of the right knee due to the patient's body habitus. No definite fracture or dislocation. Severe tricompartmental osteoarthritis with [id number] articulation and large marginal osteophytes. There is diffuse soft tissue edema. Nondiagnostic evaluation for a knee effusion. IMPRESSION: 1. Suboptimal evaluation of the right knee. No definite fracture or dislocation. 2. Severe tricompartmental osteoarthritis. 3. Diffuse soft tissue edema. ACT 112: Negative or not required by law. Electronically signed by: Parish Huddleston M.D. 07/23/2023 7:17 AM Pending Results Patient Have Any Pending Studies at Discharge: No Discharge Instructions Given to Patient (Per Discharging Provider) MEDICATION CHANGES: Oxycodone 5 mg every 6 hours as needed for severe pain. Ibuprofen 600 mg every 8 hours as needed for mild pain Acetaminophen 500 mg every 6 hours as needed for mild pain. Continue all other medications as prescribed. SUMMARY OF TEST RESULTS: You were admitted to hospital secondary to difficulty walking in setting of end- stage osteoarthritis of knees. Your pain has been controlled with as needed medications. He worked with physical therapy and Occupational Therapy and it is recommended you undergo rehab. RECOMMENDATIONS FOR FOLLOW-UP: Please follow-up with your primary care provider upon discharge from rehab. OTHER INSTRUCTIONS: Seek medical attention if you have: * temperature above 101 * chest pain or trouble breathing * abdominal pain, nausea, vomiting * diarrhea, dark stools or bloody stools * any unanswered questions or concerns Call 911 if symptoms are severe. Please take good care of yourself. It has been a pleasure taking care of you. Please take care of yourself. If you have any questions regarding your recent hospitalization please contact [facility] and request [facility] @ [phone]. Total Time Total Time Spent Total Time Spent (In Minutes): 35 minutes Supervising Physician Co-Signing Physician Notes Pt was seen and examined by myself, Sol Holly MD on the day of service. Care was coordinated with Lauren Chatterjee PA-C. 67yoF with ambulatory dysfunction in setting of severe OA and morbid obesity being discharged to acute rehab. On exam AAOx3, no acute distress RRR, breath sounds present but decreased bilaterally. Abdomen soft, nontender. PT/OT, orthopedics was consulted- recommending BMI 40 or less for surgical consideration. pain management consulted-no interventional recommendations, ibuprofen 600mg TID recommended. Otherwise as above. I spent a total [id number] coordinating, documenting, and providing care for this patient excluding time spent in the performance of separately billed services
== END 2023-07-31 16:35 | DRG 554 ==
LOC: ED 04:23 → EDINP 04:23 → SUATTDRO 06:55 → 3E 09:48 → SUATTDRO 07-25 14:24

== ENCOUNTER 2025-02-07 07:27 | Inpatient (IN) ==
--- NOTE | 2025-02-07 07:40 | Emergency Department Note ---
Impression & Plan Acute hypercapnic respiratory failure, Weakness, Acute UTI, Acute hypernatremia ED Provider Note NAME: JEAN CLAUDE DYER AGE: 69 SEX: F : 1955 ARRIVES VIA: Ambulance INFORMANT: Patient ED PROVIDER(S): Carmelo Abbasi DO CHIEF COMPLAINT: Difficult to arouse HPI: Patient is a 69-year-old female with a history of osteoarthritis who is currently on [facility] care for the past year and has been lethargic since last night and needed sternal rubs to wake up. Today was difficult to arouse and consequently was sent in here. Chronically on 3 L nasal cannula. She has a history of narcotic abuse per report from [facility] and on 01/25 they found 27 oxy's in her room and are concerned that she may have overdosed. Patient denies any headache or change in vision. No chest pain or shortness of breath. No nausea vomiting or diarrhea. No dysuria, urgency or frequency. She notes that she just feels a little cold. ADDITIONAL HISTORY OBTAINED: Per HPI Chronic Medical/Social Conditions Affecting Care: Per HPI PAST MEDICAL HISTORY:See Below PAST SURGICAL HISTORY:See Below FAMILY HISTORY:See Below SOCIAL HISTORY:See Below HOME MEDICATIONS:See Below ALLERGIES:See Below VITALS:See Below PHYSICAL EXAMINATION: GENERAL: Sitting up in bed, alert, morbidly obese talking in full sentences EYE EXAM: normal conjunctiva. PERRL and EOM's grossly intact. OROPHARYNX: no exudate, no erythema, lips, buccal mucosa, and tongue normal and mucous membranes are moist NECK: supple, no nuchal rigidity, no adenopathy, non-tender LUNGS: Distant but clear to auscultation. Normal chest wall mechanics HEART: Distant, no murmurs, S1 normal and S2 normal ABDOMEN: abdomen soft, non-tender, normo-active bowel sounds, no masses, no rebound or guarding. UPPER EXTREMITIES: upper extremities are grossly normal. LOWER EXTREMITIES: Able to lift legs off bed bilaterally NEURO EXAM: Normal sensorium, cranial nerves II-XII intact, normal speech, no weakness of arms, no weakness of legs. Slight tremors in the upper extremities. MEDICAL DECISION MAKING: Patient is a 69-year-old female morbidly obese who presents to the ER for the above-stated complaint. IV was established and blood work was obtained. She was placed on her chronic 3 to 4 L nasal cannula. Labs showed a mild leukocytosis of 12,000. Mild anemia at 11. VBG with a pH of 7.30 and a CO2 of 117. She was placed on BiPAP with this. She was actually awake alert and oriented to person place or time. BMP with hyponatremia 147 and a CO2 of greater than 45. LFTs bilirubin and troponin was negative. Lipase was normal. UA with leuks and whites but slightly contaminated with epithelial cells. Patient was given IV fluids and IV Rocephin. Updated at bedside. Discussed case with the hospitalist for further evaluation management treatment. CT head did show a meningioma. Consults/Care Managements Discussions: Per [facility] Triage Nursing notes reviewed. Limited review of prior medical records performed Vital Signs: reviewed and remarkable for no significant abnormalities Differential diagnosis: Infection, dehydration, metabolic abnormality, hypo/hyperglycemia, electrolyte disturbance, anemia, hypoxia, cardiac sources, intracerebral event, toxicologic, neurologic, as well as other pathologies. ER treatment provided: See below Diagnostics interpreted by me include EKG and cardiac monitoring as listed below: -Cardiac Monitoring: An order was placed for continuous cardiac monitoring. The monitor shows a rate of 100 with sinus rhythm. -ECG: Sinus tachycardia rate of 103 Normal axis Terrible baseline QTc 421 -Laboratory studies:Interpreted by me as stated above in MDM and shown below. Imaging studies: Xrays: As interpreted by me: Portable AP upright 1 view of the chest shows no focal infiltrate CTs show: CT head was positive for meningioma Procedures:none Critical Care: I have personally spent 33 minutes of critical care time in the direct management of this patient. This includes bedside care, interpretation of diagnostic studies, and testing, discussion with consultants, patient, and family members, and other required patient management activities. This 33 minutes is in excess of all separately billable procedures. Past Med/Surg History Problem List (Updated 02/07/25 @ 10:49 by Carmelo Abbasi DO) Acute hypernatremia (Acute) Acute UTI (Acute) Weakness (Acute) Acute hypercapnic respiratory failure (Acute) Osteoarthritis of knees, bilateral Ambulatory dysfunction (Acute) Weakness (Acute) Medical History Osteoarthritis of knees, bilateral Morbid obesity Prediabetes Hypothyroidism Hypertension Surgical History Gastric banding status Social History Smoking Status: Former smoker Hx Alcohol Use: No Hx Substance Use: No Preferred Language: Kiswahili Communication Ability: Effective Director Of Kids Required: No Beliefs That Will Affect Care: None Current Living Situation: Significant Other Feels Safe at Home: Yes Assistive Devices: Walker Allergies Allergies Allergy/AdvReac Type Severity Reaction Status Date / Time No Known Allergies Allergy Unverified 04/04/17 09:20 Home Meds Home Medications Medication Instructions Recorded Confirmed Milk of Magnesia 30 ml PO DAILY PRN Constipation 02/07/25 02/07/25 acetaminophen 325 mg tablet 650 mg PO Q6H PRN Fever 02/07/25 02/07/25 (Tylenol) acetaminophen 325 mg tablet 650 mg PO Q6H PRN Pain 02/07/25 02/07/25 (Tylenol) bisacodyl 10 mg rectal suppository 10 mg TN DAILY PRN Constipation 02/07/25 02/07/25 (Dulcolax (bisacodyl)) cholecalciferol (vitamin D3) 50 50 mcg PO DAILY 02/07/25 02/07/25 mcg (2,000 unit) tablet lisinopril 5 mg tablet 5 mg PO HS 02/07/25 02/07/25 menthol 0.44 %-zinc oxide 20.6 % 1 applic topical BID 02/07/25 02/07/25 topical ointment naloxone 0.4 mg/mL injection 1 mg IM DAILY PRN OVERDOSE 02/07/25 02/07/25 solution oxycodone 5 mg tablet 5 mg PO Q6H PRN pain 02/07/25 02/07/25 polyethylene glycol 3350 17 17 g PO DAILY 02/07/25 02/07/25 gram/dose oral powder (Miralax) ropinirole 1 mg tablet 1 mg PO Q8H 02/07/25 02/07/25 sodium phosphates 19 gram-7 118 ml TN DAILY PRN Constipation 02/07/25 02/07/25 gram/118 mL enema (Fleet Enema) Results & Data (ED) Vital Signs Vital Signs - 24 hr 02/07/25 07:41 02/07/25 07:41 02/07/25 08:23 Temperature 37.5 C Temperature Source Oral Pulse Rate 109 H 100 H Pulse Rate [Apical] Respiratory Rate 24 Respiratory Effort / Characteristics Respiratory Depth Normal Respiratory Pattern Blood Pressure 109/85 Blood Pressure [Left Radial Artery] Blood Pressure Mean 93 Blood Pressure Mean [Left Radial Artery] Pulse Oximetry 91 92 Oxygen Delivery Method Nasal Cannula Nasal Cannula Oxygen Flow Rate 5 5 Fraction of Inspired Oxygen Sepsis Recent Fever Within 48 Hours No Sepsis New/Unexplained Change in Mental Status N/A Sepsis Action Taken by Nursing No Action Required 02/07/25 08:42 02/07/25 08:55 02/07/25 10:03 Temperature 36.8 C Temperature Source Oral Pulse Rate Pulse Rate [Apical] 92 H 96 H Respiratory Rate 20 22 Respiratory Effort / Characteristics Non-Labored Spontaneous Non-Labored Respiratory Depth Normal Normal Respiratory Pattern Blood Pressure Blood Pressure [Left Radial Artery] 113/72 116/88 Blood Pressure Mean Blood Pressure Mean [Left Radial Artery] 85 97 Pulse Oximetry 97 98 Oxygen Delivery Method Nasal Cannula Nasal Cannula Oxygen Flow Rate 5 5 Fraction of Inspired Oxygen Sepsis Recent Fever Within 48 Hours Sepsis New/Unexplained Change in Mental Status Sepsis Action Taken by Nursing 02/07/25 10:14 Temperature Temperature Source Pulse Rate 93 H Pulse Rate [Apical] Respiratory Rate 42 H Respiratory Effort / Characteristics Non-Labored Spontaneous Respiratory Depth Normal Respiratory Pattern Regular Blood Pressure Blood Pressure [Left Radial Artery] Blood Pressure Mean Blood Pressure Mean [Left Radial Artery] Pulse Oximetry 98 Oxygen Delivery Method Oxygen Flow Rate Fraction of Inspired Oxygen 40 Sepsis Recent Fever Within 48 Hours Sepsis New/Unexplained Change in Mental Status Sepsis Action Taken by Nursing Laboratory Data 02/07/25 08:41 02/07/25 08:41 Lab Results 02/07/25 02/07/25 02/07/25 Range/Units 07:45 08:41 09:46 WBC 12.25 H (4.8-10.8) K/ul RBC 3.81 L (4.20-5.40) M/uL Hgb 11.6 L (12.0-16.0) g/dl Hct 43.2 (37.0-47.0) % MCV 113.4 H (80.0-100.0) fL MCH 30.4 (25.0-34.0) pg MCHC 26.9 L (32.0-36.0) g/dL RDW Std Deviation 60.8 H (36.4-46.3) fL RDW Coeff of [place] 14.5 (11.5-14.5) % Plt Count 177 (130-400) K/uL MPV 10.5 (9.4-12.4) fL Immature Gran % (Auto) 1.0 % Neut % (Auto) 88.5 % Lymph % (Auto) 5.6 % [place] % (Auto) 4.5 % Eos % (Auto) 0.2 % Baso % (Auto) 0.2 % Neut # (Auto) 10.84 H (1.40-6.50) K/uL Lymph # (Auto) 0.69 L (1.20-3.40) K/uL [place] # (Auto) 0.55 (0.11-0.59) K/uL Eos # (Auto) 0.03 (0.00-0.50) K/uL Baso # (Auto) 0.02 (0.00-0.20) K/uL Immature Gran # (Auto) 0.12 (0.01-0.20) K/uL Polychromasia 1+ Hypochromasia Present Basophilic Stippling 1+ Macrocytosis Present Stomatocytes 3+ VBG pH 7.30 L (7.36-7.41) VBG pCO2 117 H (38-50) mmHg VBG pO2 32 mmHg VBG HCO3 58 mmol/L VBG O2 Saturation < 60.0 % VBG Base Excess 25.3 mEq/L Sodium 147 H (136-145) mmol/L Potassium 4.8 (3.5-5.1) mmol/L Chloride 93 L (98-107) mmol/L Carbon Dioxide > 45 H* (21-32) mmol/L Anion Gap TNP BUN 14 (6-23) mg/dl Creatinine 0.36 L (0.6-1.2) mg/dl Est Cr Clr Drug Dosing 237.1 ml/min eGFR 110.51 BUN/Creatinine Ratio 38.9 H (10-20) Glucose 106 H (70-99(Fasting)) mg/dl Calcium 9.2 (8.6-10.3) mg/dl Total Bilirubin 0.3 (0.2-1.0) mg/dl AST 12 L (13-39) U/L ALT 7 (7-52) U/L Alkaline Phosphatase 66 (34-104) U/L Troponin I High Sens 9.8 (0-14) pg/ml Total Protein 6.9 (6.0-8.3) gm/dl Albumin 3.7 (3.4-5.0) gm/dl Globulin 3.2 (2.5-4.0) gm/dl Albumin/Globulin Ratio 1.2 (0.9-2) Lipase < 3 L (11-82) U/L Urine Color Yellow Urine Appearance Clear (Clear) Urine pH 5.5 (4.5-7.5) Ur Specific [place] 1.019 (1.000-1.030) Urine Protein Trace H (Negative) Urine Glucose (UA) Negative (Negative) Urine Ketones Negative (Negative) Urine Blood Negative (Negative) Urine Nitrite Negative (Negative) Urine Bilirubin Negative (Negative) Urine Urobilinogen Negative (Negative) Ur Leukocyte Esterase Trace H (Negative) Urine WBC (Auto) 6-10 H (0-5) /hpf Urine RBC (Auto) 0-2 (0-2) /hpf U Hyaline Cast (Auto) 3-5 H (0-2) /lpf U Epithel Cells (Auto) 3-5 H (0-2) /hpf Urine Bacteria (Auto) None Seen (None Seen) Urine Comment Urine Opiates Screen Neg (Neg) Ur Methadone, Qual Neg (Neg) Urine Fentanyl Screen Neg (Neg) Urine Barbiturates Neg (Neg) Ur Phencyclidine (PCP) Neg (Neg) U Amphetamin/Meth Scrn Neg (Neg) MDMA (Ecstasy) Screen Neg (Neg) U Benzodiazepines Scrn Neg (Neg) Ur Cocaine Metabolite Neg (Neg) U Marijuana (THC) Screen Neg (Neg) Administered Medications Sodium Chloride (Nss) 1,000 mls @ 999 mls/hr IV .Q1H1M ONE Stop: 02/07/25 11:08 Last Admin: 02/07/25 10:15 Dose: 999 mls/hr Documented By: CHAUNCEY Discontinued Medications Ceftriaxone Sodium (Rocephin) 2,000 mg in 50 mls @ 100 mls/hr IV NOW STA Stop: 02/07/25 10:09 Last Admin: 02/07/25 10:15 Dose: 100 mls/hr Documented By: CHAUNCEY Imaging Data Radiologist's Impression: Head CT 02/07/25 07:40 CT SCAN OF THE BRAIN WITHOUT IV CONTRAST CLINICAL HISTORY: Weak. COMPARISON STUDY: None. TECHNIQUE: Unenhanced axial CT scan of the brain was performed from the vertex to the skull base. A dose lowering technique was utilized adhering to the principles of ALARA. CT DOSE: 703.85 mGy.cm FINDINGS: Brain parenchyma: No acute intracranial hemorrhage, midline shift or mass effect is present. Dickerson-white matter differentiation is preserved. There are no extra- axial fluid collections. There are no findings to suggest acute dural sinus thrombosis or acute territorial infarct. Note is made of a densely calcified 2.9 x 2.3 cm left posterior parafalcine extra-axial mass without significant mass effect. There may be minimal associated vasogenic edema. Ventricles, sulci, cisterns: There is no hydrocephalus. The basal cisterns are patent. Calvarium: Unremarkable. Sinuses and mastoids: The visualized paranasal sinuses are clear. The mastoid air cells are well pneumatized. Orbits: The bony orbits are grossly intact. IMPRESSION: 1. No acute intracranial findings. 2. 2.9 x 2.3 cm densely calcified left posterior parafalcine extra-axial mass without significant mass effect. Possible minimal associated vasogenic edema. This is highly suggestive of a meningioma. Nonemergent MRI of the brain with and without contrast could be obtained for further evaluation. ACT 112: Positive. There are findings on this exam that require communication between the performing entity and the patient following Patient Test Result Information Act ([place] Act 112) guidelines. Electronically signed by: Rigoberto Oliver M.D. 02/07/2025 9:16 AM Chest X-Ray 02/07/25 09:39 XR chest 1V portable CLINICAL HISTORY: weakness COMPARISON STUDY: Chest radiograph July 23, 2023. FINDINGS: Moderate elevation of the right hemidiaphragm is again noted. Blunting of the right costophrenic angle is present. There are bibasilar opacities. Cardiomegaly with pulmonary vascular congestion. There is no pneumothorax. IMPRESSION: 1. Cardiomegaly with pulmonary vascular congestion. 2. Stable elevation of the right hemidiaphragm. Right basilar opacity favors atelectasis although pneumonia could appear similar. Left basilar opacity favors atelectasis. 3. Trace right pleural effusion. ACT 112: Negative or not required by law. Electronically signed by: Rigoberto Oliver M.D. 02/07/2025 10:24 AM Discharge Plan Visit Data Chief Complaint: Illness Stated Complaint: AMS, HYPOTENSION ED Provider: Carmelo Abbasi Discharge Problem: Acute hypercapnic respiratory failure, Weakness, Acute UTI, Acute hypernatremia Condition: Serious Forms Stand Alone Forms: My [facility] Prescriptions Prescriptions: No Action acetaminophen [Tylenol] 325 mg Tablet 650 mg PO Q6H PRN (Reason: Fever) acetaminophen [Tylenol] 325 mg Tablet 650 mg PO Q6H PRN (Reason: Pain) ropinirole 1 mg tablet 1 mg PO Q8H naloxone 0.4 mg/mL solution 1 mg IM DAILY PRN (Reason: OVERDOSE) bisacodyl [Dulcolax (bisacodyl)] 10 mg Suppository 10 mg TN DAILY PRN (Reason: Constipation) Fleet Enema 19-7 gram/118 mL Enema 118 ml TN DAILY PRN (Reason: Constipation) lisinopril 5 mg tablet 5 mg PO HS polyethylene glycol 3350 [Miralax] 17 gram/dose Powder 17 g PO DAILY cholecalciferol (vitamin D3) 50 mcg (2,000 unit) Tablet 50 mcg PO DAILY menthol-zinc oxide 0.44-20.6 % Ointment 1 applic TOPICAL BID Milk of Magnesia 30 ml PO DAILY PRN (Reason: Constipation) oxycodone 5 mg tablet 5 mg PO Q6H PRN (Reason: pain) Referrals Referrals: [facility] [Primary Care Provider] -
[2025-02-07 08:13] LABS: Appearance Urine Clear (Clear); Bacteria Urine Automated None Seen (None Seen); Glucose Urine UA Negative (Negative); RBC Urine Automated 0-2 /hpf (0-2)
[2025-02-07 08:41] LABS: Amphetamines+Metham, Urine Neg (Neg); MDMA (Ecstacy), Urine Neg (Neg); Marijuana, Urine Neg (Neg)
--- NOTE | 2025-02-07 09:18 | CT Scan Report ---
CT SCAN OF THE BRAIN WITHOUT IV CONTRAST CLINICAL HISTORY: Weak. COMPARISON STUDY: None. TECHNIQUE: Unenhanced axial CT scan of the brain was performed from the vertex to the skull base. A dose lowering technique was utilized adhering to the principles of ALARA. CT DOSE: 703.85 mGy.cm FINDINGS: Brain parenchyma: No acute intracranial hemorrhage, midline shift or mass effect is present. Dickerson-whi te matter differentiation is preserved. There are no extra-axial fluid collections. There are no find ings to suggest acute dural sinus thrombosis or acute territorial infarct. Note is made of a densely calcified 2.9 x 2.3 cm left posterior parafalcine extra-axial mass without significant mass effect. T here may be minimal associated vasogenic edema. Ventricles, sulci, cisterns: There is no hydrocephalus. The basal cisterns are patent. Calvarium: Unremarkable. Sinuses and mastoids: The visualized paranasal sinuses are clear. The mastoid air cells are well pneu matized. Orbits: The bony orbits are grossly intact. IMPRESSION: 1. No acute intracranial findings. 2. 2.9 x 2.3 cm densely calcified left posterior parafalcine extra-axial mass without significant mas s effect. Possible minimal associated vasogenic edema. This is highly suggestive of a meningioma. Non emergent MRI of the brain with and without contrast could be obtained for further evaluation. ACT 112: Positive. There are findings on this exam that require communication between the performing entity and the patient following Patient Test Result Information Act ([place] Act 112) guidelines. Electronically signed by: Rigoberto Oliver M.D. 02/07/2025 9:16 AM
[2025-02-07 09:30] LABS: Alanine Aminotransferase 7 U/L (7-52); Albumin Globulin Ratio 1.2 (0.9-2); Albumin Level 3.7 gm/dl (3.4-5.0); Alkaline Phosphatase 66 U/L (34-104); Bilirubin,Total 0.3 mg/dl (0.2-1.0); Blood Urea Nitrogen 14 mg/dl (6-23); Calcium 9.2 mg/dl (8.6-10.3); Carbon Dioxide > 45 mmol/L (21-32); Chloride 93 mmol/L (98-107); Creatinine Clr Calc Pharmacy 237.1 ml/min; Globulin 3.2 gm/dl (2.5-4.0); Glucose 106 mg/dl (70-99(Fasting)); Lipase < 3 U/L (11-82); Potassium 4.8 mmol/L (3.5-5.1); Sodium 147 mmol/L (136-145); Total Protein 6.9 gm/dl (6.0-8.3)
[2025-02-07 09:40] LABS: Hematocrit (blood only) 43.2 % (37.0-47.0); Hemoglobin 11.6 g/dl (12.0-16.0); Mean Corpuscular Hemoglobin 30.4 pg (25.0-34.0); Mean Corpuscular Volume 113.4 fL (80.0-100.0); Platelet Count 177 K/uL (130-400); RDW Standard Deviation 60.8 fL (36.4-46.3); Red Blood Count 3.81 M/uL (4.20-5.40); White Blood Count 12.25 K/ul (4.8-10.8)
[2025-02-07 09:43] LABS: Basophilic Stippling 1+; Hypochromasia Present; Immature Granulocytes # (auto) 0.12 K/uL (0.01-0.20); Immature Granulocytes % (auto) 1.0 %; Macrocytosis Present; Polychromasia 1+; Stomatocytes 3+
[2025-02-07 09:52] LABS: Base Excess VBG 25.3 mEq/L; HCO3 VBG 58 mmol/L; Oxygen Saturation VBG < 60.0 %; PCO2 VBG 117 mmHg (38-50); PO2 VBG 32 mmHg; pH VBG 7.30 (7.36-7.41)
[2025-02-07] MEDS: cefTRIAXone SODIUM 2,000 MG/50 ML BAG IV STA (10:15)
[2025-02-07] MEDS: SODIUM CHLORIDE 0.9% 1,000 ML IV ONE (10:15)
[2025-02-07] MEDS ORDERED: NALOXONE HCL 0.4 MG/1 ML VIAL/CARP IV PRN (10:16)
[2025-02-07] MEDS ORDERED: VANCOMYCIN CONSULT ACTIVE PRN (10:19)
--- NOTE | 2025-02-07 10:26 | XRay Report ---
XR chest 1V portable CLINICAL HISTORY: weakness COMPARISON STUDY: Chest radiograph July 23, 2023. FINDINGS: Moderate elevation of the right hemidiaphragm is again noted. Blunting of the right costoph renic angle is present. There are bibasilar opacities. Cardiomegaly with pulmonary vascular congestio n. There is no pneumothorax. IMPRESSION: 1. Cardiomegaly with pulmonary vascular congestion. 2. Stable elevation of the right hemidiaphragm. Right basilar opacity favors atelectasis although pne umonia could appear similar. Left basilar opacity favors atelectasis. 3. Trace right pleural effusion. ACT 112: Negative or not required by law. Electronically signed by: Rigoberto Oliver M.D. 02/07/2025 10:24 AM
--- NOTE | 2025-02-07 11:17 | History & Physical Report ---
Date of Service February 07, 2025 Assessment & Plan (1) Acute hypernatremia: (2) Weakness: (3) Acute hypercapnic respiratory failure: (4) Ambulatory dysfunction: (5) Osteoarthritis of knees, bilateral: (6) Morbid obesity: (7) Hypothyroidism: (8) Hypertension: (9) Acute and chronic respiratory failure with hypercapnia: (10) Acute decompensated heart failure: (11) CAP (community acquired pneumonia): Plan 69 yo female with pmhx of chronic hypoxic/hypercarbic respiratory failure (3L baseline), severe morbid obesity, hypothyroidism, prediabetes, adrenal adenoma, history gastric banding, NAFLD, mood disorder, past tobacco abuse, osteoarthritis, chronic pain syndrome (on prn oxycodone), restless leg syndrome (on roprinole), HTN, constipation who presents for being unarousable 2/2 acute on chronic hypoxic/hypercarbic respiratory failure from decompensated HF with po tential CAP. Neuro: #Metabolic Encephalopathy -improving with Bipap -likely 2/2 hypercarbia Plan: -continue Bipap -delirium precautions -check TSH, B12 to finish metabolic workup Cardiac/Respiratory: #Sepsis #Acute on Chronic Hypoxic/Hypercarbic Respiratory Failure #CAP #Pulmonary Edema #Severe Pulmonary HTN #Obesity Hypoventilation Syndrome -patient had echo in 2023 showing severe pulmonary HTN -BMI of 61 with elevated resting C02 (as evidenced by bicarb) consistent with obesity hypoventilation syndrome -patient has 2+ pitting edema in legs with evidence of pulmonary congestion consistent with decompensated HF vs. severe pulmonary HTN, albeit BNP WNL -bedside echo by this provider with lines consistent with edema, consistent with chest xray -meets sepsis criteria with tachycardia, tachypnea, leukocytosis with right basilar opacity concerning for CAP -PE on differential (Wells score PE of 3), but unable to scan chest due to body habitus Plan: -start zosyn/azithro, check MRSA swab, sputum culture, blood cultures, biofire -start 40 IV bid lasix for fluid overload, check echo -recheck ABG one hour after Bipap -start IS, flutter valve -check US of legs/RUE for evidence of DVT, consider starting heparin pending results -pulmonary consult, appreciate recs GI: #Severe Morbid Obesity #Hx of Gastric Banding #NAFLD #Constipation -start miralax daily and prn for constipation -f/u with weight management outpatient -f/u with GI outpatient for NAFLD Renal: -check cystatin c given morbid obesity #Hypernatremia -patient appears volume overloaded Plan: -start diuresis -recheck BMP in AM -check serum osmoles and urine osmoles and urine Na Hematologic: #Macrocytic Anemia -check folic acid, B12, TSH Endocrine: #Hypothyroidism #Adrenal Adenoma -check TSH, AM cortisol Psych: #Chronic Pain Syndrome #MDD -hold home oxycodone given respiratory distress -odd tox screen is negative when patient states she is taking MSK: #Osteoarthritis #RLS -start voltaren cream -continue home ropinole I spent a total of 80 minutes in direct patient care, including [id number] time with the patient and/or family, reviewing medical records, ordering and reviewing diagnostic tests, and coordinating care with other healthcare providers. This time includes: history taking, physical examination, medical decision making, counseling, ECG interpretation, imaging interpretation, lab interpretation, orders, and education, excluding time spent in the performance of separately billed services. History of Present Illness Chief Complaint: -unarousable Primary Care Provider: [facility] 69 yo female with pmhx of severe morbid obesity, hypothyroidism, prediabetes, adrenal adenoma, history gastric banding, NAFLD, mood disorder, past tobacco abuse, osteoarthritis, chronic pain syndrome (on prn oxycodone), restless leg syndrome (on roprinole) HTN, constipation who presents for being unarousable. Her last admission at [facility] was in 2023 for ambulatory dysfunction. In the ED, noted to have respiratory acidosis, started on bipap, given ceftriaxone, given NS, admitted to medicine for further workup. Patient seen and examined at bedside. Patient not doing well today. States she has been feeling drowsy for past few days. Has had slight cough, and her legs have been swelling as well. Mild SOB. No chest pain, nausea, vomiting, diarrhea. Does not walk much at baseline. States she takes oxycodone q6hrs at [facility] but tox screen here is negative. Has been taking meds as prescribed. No tobacco use, no alcohol use, no drug use, full code (discussed with patient). Allergies Allergy/AdvReac Type Severity Reaction Status Date / Time No Known Allergies Allergy Unverified 04/04/17 09:20 Home Medications Medication Instructions Recorded Confirmed Type Milk of Magnesia 30 ml PO DAILY PRN Constipation 02/07/25 02/07/25 History acetaminophen 325 mg tablet 650 mg PO Q6H PRN Fever 02/07/25 02/07/25 History (Tylenol) acetaminophen 325 mg tablet 650 mg PO Q6H PRN Pain 02/07/25 02/07/25 History (Tylenol) bisacodyl 10 mg rectal suppository 10 mg DE DAILY PRN Constipation 02/07/25 02/07/25 History (Dulcolax (bisacodyl)) cholecalciferol (vitamin D3) 50 50 mcg PO DAILY 02/07/25 02/07/25 History mcg (2,000 unit) tablet lisinopril 5 mg tablet 5 mg PO HS 02/07/25 02/07/25 History menthol 0.44 %-zinc oxide 20.6 % 1 applic topical BID 02/07/25 02/07/25 History topical ointment naloxone 0.4 mg/mL injection 1 mg IM DAILY PRN OVERDOSE 02/07/25 02/07/25 History solution oxycodone 5 mg tablet 5 mg PO Q6H PRN pain 02/07/25 02/07/25 History polyethylene glycol 3350 17 17 g PO DAILY 02/07/25 02/07/25 History gram/dose oral powder (Miralax) ropinirole 1 mg tablet 1 mg PO Q8H 02/07/25 02/07/25 History sodium phosphates 19 gram-7 118 ml DE DAILY PRN Constipation 02/07/25 02/07/25 History gram/118 mL enema (Fleet Enema) Past Med/Surg History Problem List (Updated 02/07/25 @ 11:26 by Roosevelt Lozada MD) CAP (community acquired pneumonia) Acute decompensated heart failure Acute and chronic respiratory failure with hypercapnia Acute hypernatremia (Acute) Acute UTI (Acute) Weakness (Acute) Acute hypercapnic respiratory failure (Acute) Osteoarthritis of knees, bilateral Ambulatory dysfunction (Acute) Weakness (Acute) Medical History Osteoarthritis of knees, bilateral Morbid obesity Prediabetes Hypothyroidism Hypertension Surgical History Gastric banding status Social History Smoking Status: Former smoker Hx Alcohol Use: No Hx Substance Use: No Preferred Language: Luxembourgish Communication Ability: Effective 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 External ears normal. No rhinorrhea. Moist mucous membranes. Neck: Supple, full range of motion, no observable masses, No meningeal sign. Lungs: dyspnea noted, crackles noted in bilateral lower lung hendrickson CV: tachycardic, 2+ pitting edema in legs bilaterally Abdomen: Soft, nondistended, No rebound tenderness. MSK: RUE significant pitting edema Skin: No rashes, petechiae, lesions. Normal color per patient. Neuro: Normal Gait, Grossly intact. Psych: Appropriate for situation. Results & Data Results & Data Vital Signs (Past 12 Hours) Vital Signs Temp Pulse Pulse Resp BP BP Pulse Ox 02/07/25 10:14 93 H 42 H 98 02/07/25 10:03 96 H 22 116/88 98 02/07/25 08:55 92 H 20 113/72 97 02/07/25 08:42 36.8 C 02/07/25 08:23 100 H 02/07/25 07:41 92 02/07/25 07:41 37.5 C 109 H 24 109/85 91 O2 Del Method O2 Flow Rate FiO2 02/07/25 10:14 40 02/07/25 10:03 Nasal Cannula 5 02/07/25 08:55 Nasal Cannula 5 02/07/25 08:42 02/07/25 08:23 02/07/25 07:41 Nasal Cannula 5 02/07/25 07:41 Nasal Cannula 5 Laboratory Results -personally reviewed, leukocytosis of 12 noted, pH of 7.3 with co2 of 117 consistent with respiratory acidosis, bicarb over 45 consistent with severe chronic hypercarbia, Na of 147 unclear etiology, creatinine of 0.36 at baseline, tox screen negative for opioids Code Status & VTE Plan Code Status -full code VTE Prophylaxis Plan VTE Prophylaxis will be ordered: Yes
[2025-02-07] MEDS: 4.5GM X1 IV STA (11:35)
[2025-02-07] MEDS ORDERED: POLYETHYLENE (MIRALAX) 17 GM PACK PO PRN ×2 (11:40→14:28)
[2025-02-07] MEDS: AZITHROMYCIN 250 MG TAB PO ONE (12:00)
[2025-02-07] MEDS: FUROSEMIDE 40 MG/4 ML VIAL IV SCH (12:00)
[2025-02-07 12:08] LABS: Thyroid Stimulating Hormone 1.686 uIu/ml (0.300-4.500)
[2025-02-07 12:14] LABS: Folate (Folic Acid),Ser orPlas 10.83 ng/ml (>5.38)
[2025-02-07 12:15] LABS: Vitamin B12 194.0 pg/ml (180-914)
[2025-02-07 12:20] LABS: Chlamydia pneumoniae PCR Not Detected (NotDetected); Coronavirus 229E PCR Not Detected (NotDetected); Coronavirus CoV-2 (COVID19)PCR Not Detected (NotDetected); Coronavirus HKU1 PCR Not Detected (NotDetected); Coronavirus NL63 PCR Not Detected (NotDetected); Coronavirus OC43PCR Not Detected (NotDetected); Human Metapneumovirus PCR Not Detected (NotDetected); Parainfluenza Virus 1 PCR Not Detected (NotDetected); Parainfluenza Virus 2 PCR Not Detected (NotDetected); Parainfluenza Virus 3 PCR Not Detected (NotDetected); Parainfluenza Virus 4 PCR Not Detected (NotDetected); Respiratory Syncytial VirusPCR Not Detected (NotDetected); Rhinovirus/Enterovirus PCR Not Detected (NotDetected)
[2025-02-07 12:36] LABS: iSTAT Art Bld Gas Base Excess 26.0 mmol/L (-9-1.8); iSTAT Art Bld Gas pCO2 Correct 83 mmHg (35-46); iSTAT Art Bld Gas pH Corrected 7.393 (7.35-7.45); iSTAT Arterial Blood Gas pO2 C 86
--- NOTE | 2025-02-07 13:08 | Ultrasound Report ---
RIGHT UPPER EXTREMITY VENOUS DOPPLER ULTRASOUND CLINICAL HISTORY: Right upper extremity swelling. COMPARISON STUDY: No previous studies for comparison. TECHNIQUE: Sonography of the venous system of the right upper extremity was performed. FINDINGS: The right internal jugular, subclavian, axillary, brachial, radial, ulnar and basilic veins were patent. There was no venous thrombus within the right upper extremity. IMPRESSION: No venous thrombus within the right upper extremity. ACT 112: Negative or not required by law. Electronically signed by: Rigoberto Oliver M.D. 02/07/2025 1:06 PM
--- NOTE | 2025-02-07 13:50 | Ultrasound Report ---
BILATERAL LOWER EXTREMITY VENOUS DOPPLER CLINICAL HISTORY: Bilateral lower extremity swelling. COMPARISON STUDY: No previous studies for comparison. TECHNIQUE: Sonography of the deep venous system of the bilateral lower extremities was performed. Co mpression and augmentation were evaluated. FINDINGS: This exam is compromised by suboptimal penetration. The bilateral common femoral, superfic ial femoral and popliteal veins were compressible. Augmentation was normal. Flow was shown within the deep calf vessels. Bilateral lower extremity edema is noted. IMPRESSION: Technically difficult exam but no evidence of deep venous thrombus within the bilateral l ower extremities. ACT 112: Negative or not required by law. Electronically signed by: Rigoberto Oliver M.D. 02/07/2025 1:49 PM
[2025-02-07] MEDS ORDERED: ACETAMINOPHEN 325 MG TAB PO PRN (14:28)
[2025-02-07] MEDS ORDERED: ONDANSETRON INJ 2 MG/ML 2 ML VIAL IV PRN (14:28)
--- NOTE | 2025-02-07 15:21 | Pulmonary Consultation ---
Date of Consultation February 07, 2025 Assessment & Plan (1) Acute and chronic respiratory failure with hypercapnia: (2) Morbid (severe) obesity due to excess calories: (3) Volume overload: Plan Patient is a 69-year-old female with a past medical history that is significant for morbid obesity (BMI 78), chronic hypoxic respiratory failure with 3 L oxygen, hypertension, hypothyroidism, prediabetes, adrenal adenoma, history of gastric banding, NAFLD, history of meningioma, mood disorder, osteoarthritis and previous tobacco use. The patient presented to the emergency department today for evaluation of somnolence and lethargy that was observed at her intermediate facility. The patient was found to have severe hypercapnia and a venous pH of 7.30. Was significantly volume overloaded on examination. She was admitted to the hospitalist service and pulmonary has been consulted for further recommendations. Problem list: Acute on chronic hypoxic and hypercapnic respiratory failure Volume overload Morbid obesity Likely obesity hypoventilation syndrome Pulmonary vascular congestion Recommendation/plan: Patient is not having symptoms consistent with pneumonia. Imaging of the chest shows hypoventilation with evidence of pulmonary vascular congestion and right hemidiaphragm elevation with possible right lower lobe atelectasis and effusion. I will check a procalcitonin. If this is low then antibiotics can be discontinued. Patient has significant hypercapnia. Slightly sleepy. She needs to be treated with BiPAP, she should wear this intermittently during the day and all night long. Repeat VBG in the morning. Patient is massively volume overloaded. She needs aggressive diuresis. Has been started on Lasix 40 mg IV twice daily. Monitor her electrolytes and renal function. Would shoot for a goal net negative of 2 to 3 L daily. Likely underlying obesity hypoventilation. Previous gastric banding surgery. Will need medical management with ventilatory support and volume adjuvant. Started on Lovenox for DVT prophylaxis, would caution its effectiveness with severe obesity. Thank for this consult. Will follow along with you. Please call with any questions. History of Present Illness Reason for Consultation: Hypercapnia, obesity hypoventilation syndrome Requesting Physician: Roosevelt Lozada MD Attending Physician: Roosevelt Lozada MD History of Present Illness Patient is a 69-year-old female with a past medical history that is significant for morbid obesity (BMI 78), chronic hypoxic respiratory failure with 3 L oxygen, hypertension, hypothyroidism, prediabetes, adrenal adenoma, history of gastric banding, NAFLD, history of meningioma, mood disorder, osteoarthritis and previous tobacco use. The patient presented to the emergency department today for evaluation of somnolence and lethargy that was observed at her intermediate facility. The patient takes oxycodones outpatient and they were concerned that she may have overdosed. On arrival to the ER the patient was awake and alert and oriented. Labs showed mild leukocytosis and evidence of respiratory acidosis with a venous CO2 of 117. The patient was placed on BiPAP. She was given IV fluids and Rocephin. CT of the head was obtained and did not show evidence of acute intracranial processes, calcified left posterior mass was appreciated suggestive of meningioma. Chest x-ray showed small lungs, pulmonary vascular congestion, cardiomegaly and right hemidiaphragm elevated. Trace right effusion was appreciated. The patient was not able to have a CT performed due to body habitus, venous studies of the upper and lower extremities were negative for DVT. The patient was admitted to the hospitalist service. She was given IV Lasix twice daily and started on Zosyn and azithromycin. Pulmonary was consulted for further recommendations given her hypercapnia and severe obesity. When I examined the patient she is on nasal cannula. She is a little bit drowsy but able to answer most of my questions. She is grossly volume overloaded on exam. There is at least 3+ pitting edema of her lower extremities. Morbid obesity. She does not use a home BiPAP. She does use home oxygen. She is not having any chest pain and denies shortness of breath. Denies belly pain. She is asking to eat and wondering if she can order in food. I do not appreciate any wheezing or cardiac murmurs. Allergies Allergy/AdvReac Type Severity Reaction Status Date / Time No Known Allergies Allergy Unverified 04/04/17 09:20 Home Medications Medication Instructions Recorded Confirmed Type Milk of Magnesia 30 ml PO DAILY PRN Constipation 02/07/25 02/07/25 History acetaminophen 325 mg tablet 650 mg PO Q6H PRN Fever 02/07/25 02/07/25 History (Tylenol) acetaminophen 325 mg tablet 650 mg PO Q6H PRN Pain 02/07/25 02/07/25 History (Tylenol) bisacodyl 10 mg rectal suppository 10 mg [place] DAILY PRN Constipation 02/07/25 02/07/25 History (Dulcolax (bisacodyl)) cholecalciferol (vitamin D3) 50 50 mcg PO DAILY 02/07/25 02/07/25 History mcg (2,000 unit) tablet lisinopril 5 mg tablet 5 mg PO HS 02/07/25 02/07/25 History menthol 0.44 %-zinc oxide 20.6 % 1 applic topical BID 02/07/25 02/07/25 History topical ointment naloxone 0.4 mg/mL injection 1 mg IM DAILY PRN OVERDOSE 02/07/25 02/07/25 History solution oxycodone 5 mg tablet 5 mg PO Q6H PRN pain 02/07/25 02/07/25 History polyethylene glycol 3350 17 17 g PO DAILY 02/07/25 02/07/25 History gram/dose oral powder (Miralax) ropinirole 1 mg tablet 1 mg PO Q8H 02/07/25 02/07/25 History sodium phosphates 19 gram-7 118 ml [place] DAILY PRN Constipation 02/07/25 02/07/25 History gram/118 mL enema (Fleet Enema) Patient History Medical History Morbid obesity Prediabetes Hypothyroidism Hypertension Surgical History Gastric banding status Social History Smoking Status: Former smoker Hx Alcohol Use: No Hx Substance Use: No Preferred Language: Palestinian Communication Ability: Effective Research Environmental Engineer Required: No Beliefs That Will Affect Care: None Current Living Situation: Personal Care Facility Feels Safe at Home: Yes Assistive Devices: Wheelchair Review of Systems Review of Systems: A 12 point review of systems was obtained in detail. Negative except as noted in HPI. Physical Exam Physical Exam: General: Morbidly obese, awake, appears comfortable and not in distress. Slightly sleepy. HEENT: Normocephalic, atraumatic. Extraocular movements intact. Sclera are nonicteric. No JVD appreciated. Skin: Warm and dry. No rashes appreciated. No jaundice appreciated. Cardiovascular: Heart is a regular rate and rhythm, no murmurs appreciated on my exam. Significant at least 3+ pitting edema of bilateral lower extremities. Lungs: Diminished bilaterally. No wheezing. Nontachypneic. On nasal cannula. Abdomen: Protuberant, nontender to palpation. Musculoskeletal: Normal muscle mass and tone. No gross joint deformity abnormalities. Neurologic: Awake and alert, oriented. CN II through XII are grossly intact. Speech is fluent. Slightly sleepy. Psychiatric: Appropriate cooperative during my exam. Results & Data Results & Data Vital Signs (Past 12 Hours) Vital Signs Temp Pulse Pulse Resp BP BP BP 02/07/25 14:59 02/07/25 14:35 37.4 C 92 H 105/97 02/07/25 14:30 37.4 C 93 H 105/67 02/07/25 13:34 92 H 20 116/68 02/07/25 12:02 116/78 02/07/25 11:36 102 H 20 02/07/25 10:14 93 H 42 H 02/07/25 10:03 96 H 22 116/88 02/07/25 08:55 92 H 20 113/72 02/07/25 08:42 36.8 C 02/07/25 08:23 100 H 02/07/25 07:41 02/07/25 07:41 37.5 C 109 H 24 109/85 Pulse Ox O2 Del Method O2 Flow Rate FiO2 02/07/25 14:59 Nasal Cannula 4 02/07/25 14:35 93 Nasal Cannula 4 02/07/25 14:30 93 Nasal Cannula 4 02/07/25 13:34 94 Nasal Cannula 4 02/07/25 12:02 02/07/25 11:36 92 BiPAP 02/07/25 10:14 98 40 02/07/25 10:03 98 Nasal Cannula 5 02/07/25 08:55 97 Nasal Cannula 5 02/07/25 08:42 02/07/25 08:23 02/07/25 07:41 92 Nasal Cannula 5 02/07/25 07:41 91 Nasal Cannula 5 PG Care Time/CCT Total # of Minutes Spent Total Time Spent with Patient: Total time spent is greater than 50% in coordination of care (as documented) at patient's floor/unit and/or counseling patient: [place] [address] IN/OBS CONSULT LVL 4,60M Patient Type New History Detailed Exam Detailed Medical Decision Making Moderate Complexity Diagnoses Acute and chronic respiratory failure with hypercapnia J96.22 Morbid (severe) obesity due to excess calories E66.01 Volume overload E87.70
[2025-02-07] MEDS: ENOXAPARIN INJ 40 MG/0.4 ML SYR SQ SCH (17:37)
[2025-02-07] MEDS: PIPERACILLIN/TAZOBACTAM 4.5 GM/100 ML BAG IV SCH (17:37)
--- NOTE | 2025-02-07 17:57 | XCELERA ---
[id number]
[2025-02-07] MEDS: DICLOFENAC SOD 1% GEL 100 GM TUBE EXT SCH (22:25)
[2025-02-08 06:14] LABS: Base Excess VBG 26.0 mEq/L; HCO3 VBG 56 mmol/L; Oxygen Saturation VBG 87.4 %; PCO2 VBG 80 mmHg (38-50); PO2 VBG 51 mmHg; pH VBG 7.45 (7.36-7.41)
[2025-02-08 06:26] LABS: Hematocrit (blood only) 38.1 % (37.0-47.0); Hemoglobin 10.9 g/dl (12.0-16.0); Mean Corpuscular Hemoglobin 30.3 pg (25.0-34.0); Mean Corpuscular Volume 105.8 fL (80.0-100.0); Platelet Count 169 K/uL (130-400); RDW Standard Deviation 56.9 fL (36.4-46.3); Red Blood Count 3.60 M/uL (4.20-5.40); White Blood Count 10.20 K/ul (4.8-10.8)
[2025-02-08 06:46] LABS: Blood Urea Nitrogen 16 mg/dl (6-23); Calcium 9.3 mg/dl (8.6-10.3); Carbon Dioxide > 45 mmol/L (21-32); Chloride 87 mmol/L (98-107); Creatinine Clr Calc Pharmacy 185.0 ml/min; Glucose 112 mg/dl (70-99(Fasting)); Magnesium 1.7 mg/dl (1.7-2.4); Potassium 3.8 mmol/L (3.5-5.1); Sodium 143 mmol/L (136-145)
[2025-02-08 08:31] LABS: A calco-baum cmplx NotReported Not Detected (NotDetected); Bact fragilis Not Reported Not Detected (NotDetected); Blood Culture Id Panel See PCR Comment (NotDetected); C auris Not Reported Not Detected (NotDetected); Calbicans Not Reported Not Detected (NotDetected); Candida glabrata Not Reported Not Detected (NotDetected); Candida krusei Not Reported Not Detected (NotDetected); Cneoformans/gatti Not Reported Not Detected (NotDetected); Cparapsilosis Not Reported Not Detected (NotDetected); Ctropicalis Not Reported Not Detected (NotDetected); E cloacae compx Not Reported Not Detected (NotDetected); Efaecalis Not Reported Not Detected (NotDetected); Efaecium Not Reported Not Detected (NotDetected); Enterobacterales Not Reported Not Detected (NotDetected); Escherichia coli Not Reported Not Detected (NotDetected); H influenzae Not Reported Not Detected (NotDetected); K aerogenes Not Reported Not Detected (NotDetected); Koxytoca Not Reported Not Detected (NotDetected); Kpneumoniae grp Not Reported Not Detected (NotDetected); Lmonocyt Not Reported Not Detected (NotDetected); N meningitidis Not Reported Not Detected (NotDetected); P aeruginosa Not Reported Not Detected (NotDetected); Proteus spp Not Reported Not Detected (NotDetected); Salmonella spp Not Reported Not Detected (NotDetected); Staph lugdunensis Not Reported Not Detected (NotDetected); Staph spp. Not Reported DETECTED (NotDetected); Staphaureus Not Reported Not Detected (NotDetected); Staphepi Not Reported Not Detected (NotDetected); Stenmaltophilia Not Reported Not Detected (NotDetected); Strep agal(GrpB) Not Reported Not Detected (NotDetected); Strep pneum Not Reported Not Detected (NotDetected); Strep pyog (GrpA) Not Reported Not Detected (NotDetected); Strep spp Not Reported Not Detected (NotDetected)
[2025-02-08 08:39] LABS: Staphylococcus spp. DETECTED (NotDetected)
[2025-02-08] MEDS: POLYETHYLENE (MIRALAX) 17 GM PACK PO SCH ×2 (09:00)
--- NOTE | 2025-02-08 11:30 | Cardiology Consultation ---
Date of Consultation February 08, 2025 Assessment & Plan (1) Acute and chronic respiratory failure with hypercapnia: (2) Acute hypercapnic respiratory failure: (3) Acute on chronic heart failure with preserved ejection fraction: (4) Sepsis: (5) Bacteremia: Plan Patient is a morbidly obese 69 year old female admitted to [facility] from snf for worsening lethargy, weakness, mental status changes. Found to be in acute respiratory distress with hypoxia and hypercapnia and markedly volume overload, consistent with acute HFpEF. Started on BIPAP and IV lasix Also found to have possible UTI with +E. Coli in urine cultures Now found to have gram + cocci in 1 out of 2 blood cultures. Source unknown vs contaminant? Acute respiratory failure with hypercapnia -Continue BIPAP during periods of sleep and as tolerated -Patient reports she does not have CPAP or BIPAP at SNF. Will likely need on discharge. Acute on chronic HFpEF -Echo technically limited due to body habitus -Normal LVEF without wall motion abnormalities -No evidence of valvular disease by doppler -continue IV lasix 40 mg BID -start potassium 20 meq daily with diuresis -Mag low at 1.7 - 2 grams ordered -Gandhi in place - monitor I+O's -1500 ml fluid restriction Monitor renal function and electrolytes HS troponin negative on admission Sepsis/bacteremia/UTI +E. coli in urine per culture + 1 out of 2 blood cultures with gram positive cocci Continue broad spectrum antibiotics WBC was elevated yesterday, now improved normal procalcitonin level would repeat blood cultures Valvular structures were not well visualized and source of infection is unclear at this time. Given patient's current respiratory status and morbid obesity, she is not an ideal candidate for ZAN. HTN Lisinopril on hold due to low BP and allow for diuretics Case discussed with Dr. Lewis. Further recommendations pending his assessment. Cheli Moya PA-C Department of Cardiology, [facility] This chart was completed in part utilizing Speech Voice Recognition Software. Grammatical errors, random word insertions, pronoun errors, and incomplete sentences are an occasional consequence of this system due to software limitations, ambient noise, and hardware issues. Any formal questions or concerns about the content, text, or information contained within the body of this dictation should be directly addressed to the provider for clarification. Supervising Physician Co-Signing Physician Notes Attending attestation: Case reviewed with the advanced practitioner. I have personally performed a history and physical examination on the patient. I have reviewed the advanced practitioner's documentation on the date of service referenced in note, and I agree with, and take responsibility for the plan of care. Subjective: Patient had been napping on BiPAP prior to my arrival. Conversant. Comfortable. Exam: Cardiovascular: Distant heart sounds, no detectable murmur, 2-3+ bilateral pitting edema of the lower extremities Data: Telemetry reveals sinus rhythm rhythm and sinus tachycardia in the range of 9515 bpm Impression/ Plan: Morbid obesity Volume overload Normal left ventricular systolic function Echocardiogram performed 02/07/2025 insufficient to estimate the right ventricular systolic pressure or pulmonary artery systolic pressure however pulm artery systolic pressure estimated be in the 60s on the prior echo in 2023. CO2 retention/hypercapnia Sepsis/bacteremia/UTI - Agree with IV diuretics and positive pressure ventilation. -Agree with empiric antibiotic therapy Jamal Lewis, History of Present Illness Reason for Consultation: Acute on chronic respiratory failure with hypercapnia acute on chronic HFpEF Requesting Physician: Noel Hospitalist Attending Physician: Dr. Lewis History of Present Illness Patient is a 69-year-old female with history of morbid obesity, hypertension, hypothyroidism, admitted to [facility] with lethargy, weakness, acute respiratory failure with hypercapnia, and volume overload consistent with acute HFpEF. On arrival, patient found to have pulm vascular congestion on chest xray. ABG with elevated CO2 Started on BIPAP and IV lasix. Venous duplex was negative for DVT. Started on antibiotics for possible UTI and/or possible pneumonia. Pulm evaluated patient for recommendations on BIPAP Patient denies history of cardiovascular problems. She does not wear CPAP/BIPAP at home. She was started on supplemental O2 at night several months ago. 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 She reports worsening edema/swelling over the last few months. She does not believe she was taking a diuretic. This morning 1 out of 2 blood cultures were positive - gram positive cocci Urine culture + for E.Coli WBC was elevated on arrival, improved today. Procalcitonin was normal At time of consult, patient just finished eating breakfast. Feels "sleepy" and is agreeable to resuming BIPAP while trying to sleep. She has conversational dyspnea. No chest pain. No palpitations, dizziness. Ongoing edema noted. Good urine output noted since admission. Gandhi in place. Allergies Allergy/AdvReac Type Severity Reaction Status Date / Time No Known Allergies Allergy Unverified 04/04/17 09:20 Home Medications Medication Instructions Recorded Confirmed Type Milk of Magnesia 30 ml PO DAILY PRN Constipation 02/07/25 02/07/25 History acetaminophen 325 mg tablet 650 mg PO Q6H PRN Fever 02/07/25 02/07/25 History (Tylenol) acetaminophen 325 mg tablet 650 mg PO Q6H PRN Pain 02/07/25 02/07/25 History (Tylenol) bisacodyl 10 mg rectal suppository 10 mg PA DAILY PRN Constipation 02/07/25 02/07/25 History (Dulcolax (bisacodyl)) cholecalciferol (vitamin D3) 50 50 mcg PO DAILY 02/07/25 02/07/25 History mcg (2,000 unit) tablet lisinopril 5 mg tablet 5 mg PO HS 02/07/25 02/07/25 History menthol 0.44 %-zinc oxide 20.6 % 1 applic topical BID 02/07/25 02/07/25 History topical ointment naloxone 0.4 mg/mL injection 1 mg IM DAILY PRN OVERDOSE 02/07/25 02/07/25 History solution oxycodone 5 mg tablet 5 mg PO Q6H PRN pain 02/07/25 02/07/25 History polyethylene glycol 3350 17 17 g PO DAILY 02/07/25 02/07/25 History gram/dose oral powder (Miralax) ropinirole 1 mg tablet 1 mg PO Q8H 02/07/25 02/07/25 History sodium phosphates 19 gram-7 118 ml PA DAILY PRN Constipation 02/07/25 02/07/25 History gram/118 mL enema (Fleet Enema) Patient History Medical History Morbid obesity Prediabetes Hypothyroidism Hypertension Surgical History Gastric banding status Social History Smoking Status: Former smoker Hx Alcohol Use: No Hx Substance Use: No Preferred Language: Honduran Communication Ability: Effective Clothing Patternmaker Required: No Beliefs That Will Affect Care: None Current Living Situation: Personal Care Facility Feels Safe at Home: Yes Assistive Devices: Wheelchair Review of Systems Review of Systems: All systems reviewed & are unremarkable except as noted in HPI & below Physical Exam Constitutional: WD/WN, vitals as above + morbidly obese Neck: + thick neck Respiratory: + labored breathing (conversational dysp jordi) and + tachypneic Cardiovascular: Rate/Rhythm: regular rate Heart Sounds: no murmur (No audible murmur ) Vessels: + JVD Extremities: + edema (2-3+ edema ) Gastrointestinal (Abdomen): normal bowel sounds, soft, nontender, no hepatosplenomegaly Musculoskeletal: no cyanosis or clubbing, extremities motor strength 5/5 Neurologic: PERRL, EOMI, accommodation nl, no face palsy, no dysarthria Results & Data Vital Signs (Past 12 Hours) Vital Signs Temp Pulse Resp BP Pulse Ox O2 Del Method O2 Flow Rate 02/08/25 10:06 Nasal Cannula 3 02/08/25 07:46 37.1 C 106 H 24 111/71 94 Nasal Cannula 3 02/08/25 02:25 36.8 C 102 H 20 106/69 93 Nasal Cannula 3 Laboratory Results CBC 02/08/25 Range/Units 05:26 WBC 10.20 (4.8-10.8) K/ul RBC 3.60 L (4.20-5.40) M/uL Hgb 10.9 L (12.0-16.0) g/dl Hct 38.1 (37.0-47.0) % Plt Count 169 (130-400) K/uL Comprehensive Metabolic Panel 02/08/25 Range/Units 05:26 Sodium 143 (136-145) mmol/L Potassium 3.8 D (3.5-5.1) mmol/L Chloride 87 L (98-107) mmol/L Carbon Dioxide > 45 H* (21-32) mmol/L BUN 16 (6-23) mg/dl Creatinine 0.46 L (0.6-1.2) mg/dl Glucose 112 H (70-99(Fasting)) mg/dl Calcium 9.3 (8.6-10.3) mg/dl Intake and Output 02/07/25 02/08/25 02/08/25 22:59 06:59 14:59 Intake Total 460 / 1710.00 100 / 1710.00 Output Total 2300 / 4652 602 / 4652 1300 / 1300 Balance -1840 / -2942.00 -502 / -2942.00 -1300 / -1300 Intake: IV 100 / 1350.00 100 / 1350.00 Piperacillin/Tazobactam 4.5 gm 100 / 200 100 / 200 In 100 ml @ 25 mls/hr IV Q8H [facility] Rx#:[id number] Oral 360 / 360 Output: Urine 2300 / 4050 Urine Amount (Catheter) 600 / 600 1300 / 1300 Gandhi/Indwelling 600 / 600 1300 / 1300 # Bowel Movements 2 / 2 Diagnostic Findings Telemetry reviewed: NSR in the 90-100's. No abnormal arrhythmias EKG reviewed: Sinus tach at 103 Low voltage QRS Artifact noted Echo report reviewed from 02/07/25: Technically limited and difficult study LVEF 55-60% No wall motion abnormalities No pericardial effusion Valve structures were not well visualized No significant stenosis or regurgitation noted by doppler Head CT 02/07/25 07:40 CT SCAN OF THE BRAIN WITHOUT IV CONTRAST CLINICAL HISTORY: Weak. COMPARISON STUDY: None. TECHNIQUE: Unenhanced axial CT scan of the brain was performed from the vertex to the skull base. A dose lowering technique was utilized adhering to the principles of ALARA. CT DOSE: 703.85 mGy.cm FINDINGS: Brain parenchyma: No acute intracranial hemorrhage, midline shift or mass effect is present. Dickerson-white matter differentiation is preserved. There are no extra- axial fluid collections. There are no findings to suggest acute dural sinus thrombosis or acute territorial infarct. Note is made of a densely calcified 2.9 x 2.3 cm left posterior parafalcine extra-axial mass without significant mass effect. There may be minimal associated vasogenic edema. Ventricles, sulci, cisterns: There is no hydrocephalus. The basal cisterns are patent. Calvarium: Unremarkable. Sinuses and mastoids: The visualized paranasal sinuses are clear. The mastoid air cells are well pneumatized. Orbits: The bony orbits are grossly intact. IMPRESSION: 1. No acute intracranial findings. 2. 2.9 x 2.3 cm densely calcified left posterior parafalcine extra-axial mass without significant mass effect. Possible minimal associated vasogenic edema. This is highly suggestive of a meningioma. Nonemergent MRI of the brain with and without contrast could be obtained for further evaluation. ACT 112: Positive. There are findings on this exam that require communication between the performing entity and the patient following Patient Test Result Information Act ([place] Act 112) guidelines. Electronically signed by: Rigoberto Oliver M.D. 02/07/2025 9:16 AM Chest X-Ray 02/07/25 09:39 XR chest 1V portable CLINICAL HISTORY: weakness COMPARISON STUDY: Chest radiograph July 23, 2023. FINDINGS: Moderate elevation of the right hemidiaphragm is again noted. Blunting of the right costophrenic angle is present. There are bibasilar opacities. Cardiomegaly with pulmonary vascular congestion. There is no pneumothorax. IMPRESSION: 1. Cardiomegaly with pulmonary vascular congestion. 2. Stable elevation of the right hemidiaphragm. Right basilar opacity favors atelectasis although pneumonia could appear similar. Left basilar opacity favors atelectasis. 3. Trace right pleural effusion. ACT 112: Negative or not required by law. Electronically signed by: Rigoberto Oliver M.D. 02/07/2025 10:24 AM Venous Doppler Study 02/07/25 11:13 BILATERAL LOWER EXTREMITY VENOUS DOPPLER CLINICAL HISTORY: Bilateral lower extremity swelling. COMPARISON STUDY: No previous studies for comparison. TECHNIQUE: Sonography of the deep venous system of the bilateral lower extremities was performed. Compression and augmentation were evaluated. FINDINGS: This exam is compromised by suboptimal penetration. The bilateral common femoral, superficial femoral and popliteal veins were compressible. Augmentation was normal. Flow was shown within the deep calf vessels. Bilateral lower extremity edema is noted. IMPRESSION: Technically difficult exam but no evidence of deep venous thrombus within the bilateral lower extremities. ACT 112: Negative or not required by law. Electronically signed by: Rigoberto Oliver M.D. 02/07/2025 1:49 PM Medications Administered Current Inpatient Medications Acetaminophen (Acetaminophen 325 Mg Tab) 650 mg PO Q4H PRN PRN Reason: Pain or Fever Stop: 03/09/25 14:27 Diclofenac Sodium (Diclofenac Sod 1% Gel 100 Gm Tube) 4 gm EXT Q12 BRUCE; Protocol Stop: 03/09/25 20:59 Last Admin: 02/08/25 08:59 Dose: 4 gm Furosemide (Furosemide 40 Mg/4 Ml Vial) 40 mg IV BID17 BRUCE Stop: 03/09/25 11:29 Last Admin: 02/08/25 09:00 Dose: 40 mg Heparin Sodium (Porcine) (Heparin Sod 5,000 Unit/0.5 Ml Vial) 7,500 units SQ Q8 BRUCE Stop: 03/10/25 13:59 Piperacillin Sod/Tazobactam Sod (Zosyn) 4.5 gm in 100 mls @ 25 mls/hr IV Q8H BRUCE; Protocol Stop: 02/09/25 16:59 Last Admin: 02/08/25 09:00 Dose: 25 mls/hr Ondansetron HCl (Ondansetron Inj 2 Mg/Ml 2 Ml Vial) 4 mg IV Q6H PRN PRN Reason: Nausea Stop: 03/09/25 14:27 Polyethylene Glycol (Polyethylene (Miralax) 17 Gm Pack) 17 gm PO DAILY BRUCE Stop: 03/10/25 08:59 Last Admin: 02/08/25 09:00 Dose: 17 gm Polyethylene Glycol (Polyethylene (Miralax) 17 Gm Pack) 17 gm PO DAILY PRN PRN Reason: Constipation Stop: 03/09/25 14:27 Polyethylene Glycol (Polyethylene (Miralax) 17 Gm Pack) 17 gm PO DAILY BRUCE Stop: 03/10/25 08:59 Last Admin: 02/08/25 09:00 Dose: 17 gm Ropinirole HCl (Ropinirole Hcl 1 Mg Tablet) 1 mg PO Q8H BRUCE Stop: 03/09/25 14:29 Last Admin: 02/08/25 06:48 Dose: 1 mg Coding Level of Care Code 12678 IN/OBS CONSULT LVL 5,80M Diagnoses Acute and chronic respiratory failure with hypercapnia J96.22 Acute hypercapnic respiratory failure J96.02 Acute on chronic heart failure with preserved ejection fraction I50.33 Sepsis A41.9 Bacteremia R78.81
[2025-02-08] MEDS: MAGNESIUM SULFATE / D5W 1 GM/100 ML BAG IV SCH (13:07)
[2025-02-08] MEDS: POTASSIUM CHLORIDE CRTAB 20 MEQ TABCR PO SCH (13:07)
[2025-02-08] MEDS: HEPARIN SOD 5,000 UNIT/0.5 ML VIAL SQ SCH (13:07)
--- NOTE | 2025-02-08 14:41 | Pulmonology Progress Note ---
Date of Service February 08, 2025 Assessment & Plan (1) Acute and chronic respiratory failure with hypercapnia: Plan: I do not think that Obstructive Sleep Apnea is contributing significantly to this patient hypoventilation problem. (2) Morbid (severe) obesity due to excess calories: (3) Volume overload: (4) Elevated hemidiaphragm: Plan: * Elevated Right hemidiaphragm with decreased sounds over the whole hemidiaphragm * It is possible that the elevated right hemidiaphragm could be paralyzed, and contributing to hypoventilation as a neuromuscular restrictive thoracic disorder; however, it will be very difficult and would cause the patient a lot of inconvenience to try to prove or disprove this issue with a fluoroscopic Sniff-test. * If this becomes the only way to qualify the patient for non-invasive ventilation (NIV) then will consider Sniff-test accordingly. * At this time I will try to qualify the patient via Overnight Oximetry (will require at least 2-hour study, and spend at least 5 minutes at SpO2 88% or less) (5) Lymphedema: Plan: * Suspect lymphedema as part of overall fluid-overload status. * Consider PT consult for evaluation/treatment of suspected lymphedema. Plan Recommendation/plan: * Overnight oximetry on 3 L/min (patient's home prescription). Will try 4 hours without BiPAP and consider options if cannot qualify, accordingly. * Continue diuresis. * PT consult for evaluation/treatment of suspected lymphedema. Admission and Anticipated Discharge Date Admission Date: February 07, 2025 Subjective The patient is a very pleasant 69-year-old female who presented to the ED due to somnolence and lethargy that had been observed at her [facility] facility since the previous night. Staff at her care facility expressed concern for possible oxycodone overdose, as a significant quantity of pills was found in her room. On arrival, she was on 3 L/min nasal cannula (baseline rate) and was noted to be morbidly obese, sitting up in bed, alert, and able to speak in full sentences. Initial laboratory evaluation demonstrated mild leukocytosis, mild anemia, significant hypercapnia (VBG pH 7.30, CO2 117), and hyponatremia. Imaging included a CT head, which showed a calcified left posterior mass consistent with a meningioma, and a chest x-ray was interpreted as showing pulmonary vascular congestion, cardiomegaly, right hemidiaphragm elevation, and a trace right pleural effusion. She had 3+ pitting edema in the lower extremities. She was started on BiPAP for acute on chronic hypoxic and hypercapnic respiratory failure, IV fluids, IV Rocephin, and later received IV Lasix and broad-spectrum antibiotics (Zosyn and azithromycin) for possible community-acquired pneumonia (CAP) and sepsis. During her hospital course, she remained slightly drowsy but was able to answer questions. She did not use home BiPAP but did use home oxygen. Pulmonary consultation was requested, and the patient was seen by Dr. Corbin on 02/07/2025. The plan included continued ventilatory support with BiPAP, aggressive diuresis, monitoring of electrolytes and renal function, and further workup for infection and metabolic derangements. Her past medical history was significant for morbid obesity, chronic hypoxic and hypercapnic respiratory failure, HTN, hypothyroidism, prediabetes, adrenal adenoma, history of gastric banding, NAFLD, meningioma, mood disorder, osteoarthritis, chronic pain syndrome, restless legs syndrome, previous tobacco use, and constipation. Note from 02/08/2025: The patient denies feeling winded, but admits to being sleepy. She thinks that se didn't sleep last night. She still has Gandhi catheter. Seen by Cardiology. Echo unremarkable, but probably not very diagnostic due to body habitus. I have concern that the patient may have lymphedema as part of her overall fluid-overload status. I recommended PT evaluation accordingly. The patient seems to be tolerating BiPAP, and her PCO2 seems to be improving. I will order overnight Oximetry for 4 hours on 3 L/min without BiPAP tonight, hoping to he able to qualify the patient for BiPAP, accordingly. Review of Systems Review of Systems: All systems reviewed & are unremarkable except as noted in HPI & below Physical Exam Physical Exam: General: In no acute distress, using Oxygenvia nasal cannula. Morbidly obese, but mostly peripheral obesity (non-central). Skin: Warm and dry to touch. Noobvious lesions. Eyes: Anicteric.Noconjunctival hyperemia or exudates.No periorbital edema. ENT: No oral thrush. No oropharyngeal erythema or exudates. Modified-Mallampati 2 (Hard and soft palate, and partial uvula seen). Neck: No palpable masses or adenopathy. Respiratory: Decreased breath sounds over the right hemithorax, no wheezing or crackles. No use of accessory muscles and no prolonged exhalation. Cardiac: Distant sounds, regular rhythm, no murmurs, no gallops, no rubs; could not appreciate JV pulse elevation. GI: Soft, nontender, obese, I could not appreciate organomegaly. Extremities No clubbing,no cyanosis,2-3+ edema over the lower extremities with positive Stemmer's sign. Neuro: No gross motor deficits. Seems appropriate. No facial-droop. Speech is clear. Seems a little sleepy. Results & Data Results & Data Vital Signs (Past 12 Hours) Vital Signs Temp Pulse Resp BP Pulse Ox O2 Del Method O2 Flow Rate 02/08/25 11:28 36.8 C 95 H 24 103/69 95 BiPAP 02/08/25 10:06 Nasal Cannula 3 02/08/25 07:46 37.1 C 106 H 24 111/71 94 Nasal Cannula 3 Laboratory Results 02/07/25 11:21 Aerobic Blood Culture - Preliminary Blood Gram positive cocci clusters Anaerobic Blood Culture - Preliminary No growth in Anaerobic bottle after 24 hours. 02/07/25 08:41 Aerobic Blood Culture - Preliminary Blood No growth in Aerobic bottle after 24 hours. Anaerobic Blood Culture - Preliminary No growth in Anaerobic bottle after 24 hours. 02/08/25 02/07/25 05:26 11:21 WBC 10.20 RBC 3.60 L Hgb 10.9 L Hct 38.1 MCV 105.8 H D MCH 30.3 MCHC 28.6 L RDW Std Deviation 56.9 H RDW Coeff of Galo 14.6 H Plt Count 169 MPV 11.2 VBG pH 7.45 H VBG pCO2 80 H VBG pO2 51 VBG HCO3 56 VBG O2 Saturation 87.4 VBG Base Excess 26.0 Sodium 143 Potassium 3.8 D Chloride 87 L Carbon Dioxide > 45 H* Anion Gap TNP BUN 16 Creatinine 0.46 L Est Cr Clr Drug Dosing 185.0 eGFR 104.17 BUN/Creatinine Ratio 34.8 H Glucose 112 H Calcium 9.3 Phosphorus 2.6 Magnesium 1.7 Procalcitonin 0.02 Staphylococcus sp PCR DETECTED A Bld Cult ID Panel PCR See PCR Comment Medications Administered Home Medications Medication Instructions Recorded Confirmed Last Taken Milk of Magnesia 30 ml PO DAILY PRN Constipation 02/07/25 02/07/25 Unknown acetaminophen 325 mg tablet 650 mg PO Q6H PRN Fever 02/07/25 02/07/25 Unknown (Tylenol) acetaminophen 325 mg tablet 650 mg PO Q6H PRN Pain 02/07/25 02/07/25 Unknown (Tylenol) bisacodyl 10 mg rectal suppository 10 mg [place] DAILY PRN Constipation 02/07/25 02/07/25 Unknown (Dulcolax (bisacodyl)) cholecalciferol (vitamin D3) 50 50 mcg PO DAILY 02/07/25 02/07/25 Unknown mcg (2,000 unit) tablet lisinopril 5 mg tablet 5 mg PO HS 02/07/25 02/07/25 Unknown menthol 0.44 %-zinc oxide 20.6 % 1 applic topical BID 02/07/25 02/07/25 Unknown topical ointment naloxone 0.4 mg/mL injection 1 mg IM DAILY PRN OVERDOSE 02/07/25 02/07/25 Unknown solution oxycodone 5 mg tablet 5 mg PO Q6H PRN pain 02/07/25 02/07/25 Unknown polyethylene glycol 3350 17 17 g PO DAILY 02/07/25 02/07/25 Unknown gram/dose oral powder (Miralax) ropinirole 1 mg tablet 1 mg PO Q8H 02/07/25 02/07/25 Unknown sodium phosphates 19 gram-7 118 ml [place] DAILY PRN Constipation 02/07/25 02/07/25 Unknown gram/118 mL enema (Fleet Enema) Active Medications Generic Name Dose Route Start Last Admin Trade Name Freq PRN Reason Stop Dose Admin Diclofenac Sodium 4 gm 02/07/25 21:00 02/08/25 08:59 Diclofenac Sod 1% Gel 100 Gm Tube EXT 03/09/25 20:59 4 gm Q12 BRUCE Administration Protocol Furosemide 40 mg 02/07/25 11:30 02/08/25 09:00 Furosemide 40 Mg/4 Ml Vial IV 03/09/25 11:29 40 mg BID17 BRUCE Administration Heparin Sodium (Porcine) 7,500 units 02/08/25 14:00 02/08/25 13:07 Heparin Sod 5,000 Unit/0.5 Ml Vial SQ 03/10/25 13:59 7,500 units Q8 BRUCE Administration Magnesium Sulfate/Dextrose 1 gm in 100 mls @ 50 mls/hr 02/08/25 12:30 02/08/25 13:07 Magnesium Sulfate / D5w IV 02/08/25 16:29 50 mls/hr Q2H BRUCE Administration Polyethylene Glycol 17 gm 02/08/25 09:00 02/08/25 09:00 Polyethylene (Miralax) 17 Gm Pack PO 03/10/25 08:59 17 gm DAILY BRUCE Administration Potassium Chloride 20 meq 02/08/25 12:30 02/08/25 13:07 Potassium Chloride Crtab 20 Meq Tabcr PO 03/10/25 12:29 20 meq QAM BRUCE Administration Ropinirole HCl 1 mg 02/07/25 14:30 02/08/25 14:22 Ropinirole Hcl 1 Mg Tablet PO 03/09/25 14:29 1 mg Q8H BRUCE Administration PG Care Time/CCT Total # of Minutes Spent Total Time Spent with Patient: Total time spent is greater than 50% in coordination of care (as documented) at patient's floor/unit and/or counseling patient: 45 minutes Coding Level of Care Code 77711 SUB INP/OBS CARE 2/35MIN Diagnoses Acute and chronic respiratory failure with hypercapnia J96.22 Morbid (severe) obesity due to excess calories E66.01 Volume overload E87.70 Elevated hemidiaphragm J98.6 Lymphedema I89.0 Time Spent (min) 45
--- NOTE | 2025-02-08 15:22 | Hospitalist Progress Note ---
Date of Service February 08, 2025 Assessment & Plan (1) Acute hypernatremia: (2) Weakness: (3) Acute hypercapnic respiratory failure: (4) Ambulatory dysfunction: (5) Osteoarthritis of knees, bilateral: (6) Morbid obesity: (7) Hypothyroidism: (8) Hypertension: (9) Acute and chronic respiratory failure with hypercapnia: (10) Acute decompensated heart failure: (11) CAP (community acquired pneumonia): Plan 69 yo female with pmhx of chronic hypoxic/hypercarbic respiratory failure (3L baseline), severe morbid obesity, hypothyroidism, prediabetes, adrenal adenoma, history gastric banding, NAFLD, mood disorder, past tobacco abuse, osteoarthritis, chronic pain syndrome (on prn oxycodone), restless leg syndrome (on roprinole), HTN, constipation who presents for being unarousable 2/2 acute on chronic hypoxic/hypercarbic respiratory failure from decompensated HF. Acute on Chronic Hypoxic/Hypercarbic Respiratory Failure Acute HFpEF Severe Pulmonary HTN (per echo from 2023) Obesity Hypoventilation Syndrome UTI SIRS Presenting VBG - ph 7.30, pCO2 117 Improving with BiPap --> VBG this AM ph 7.45, pCO2 80 Patient likely to benefit from outpatient BiPap. Will preform nocturnal study tonight on chronic 3L with follow up ABG. Discussed with CM who will submit results for approval tomorrow. Unable to perform CTA chest due to body habitus. BL LE Doppler negative for DVT although technically difficult exam Pulmonary consulted - notes reviewed Met SIRS criteria on admission with tachycardia, tachypnea, and leukocytosis. Question of pneumonia on CXR. Negative procalcitonin and MRSA nasal. Was started on IV Zosyn. Per pulmonary, symptoms are not consistent with pneumonia and given negative procalcitonin, will de-escalate to ceftriaxone for treatment of UTI Urine culture 20,000 colonies E. Coli - ceftriaxone as above, follow final culture results 1 blood culture with GPC, likely contaminant - follow final results Cardiology consulted - note reviewed Continue IV Lasix 40mg IV BID Daily weights, I/Os, moreno Echo: EF 55 to 60%, valvular structures not well-visualized Metabolic encephalopathy, resolved Likely due to hypercarbia, improved Hypernatremia Presenting Na+ 147 - improved to 143 with diuresis Continue to monitor daily BMP Severe Morbid Obesity Hx of Gastric Banding NAFLD Constipation Miralax daily and prn for constipation f/u with weight management outpatient f/u with GI outpatient for NAFLD Chronic Macrocytic Anemia Hgb 10.9, at baseline Folic acid, B12, TSH WNL Hypothyroidism Hx Adrenal Adenoma Currently not on levothyroxine TSH 1.686 AM Cortisol to be drawn tomorrow Chronic Pain Syndrome MDD Hold home oxycodone given respiratory status Osteoarthritis RLS Start voltaren cream Continue home ropinole DVT PROPHYLAXIS SQ heparin Patient seen in collaboration with Dr. Wong. I spent a total of 40 minutes coordinating, documenting, and providing care for this patient excluding time spent in the performance of separately billed services. This included personally reviewing all current laboratories and imaging studies, medication reconciliation, outpatient chart review, and discussion with specialists. Admission and Anticipated Discharge Date Admission Date: February 07, 2025 Supervising Physician Co-Signing Physician Notes I have discussed the case with the collaborating advanced practitioner. I agree with the above H&P. I have reviewed and confirmed the patients medical history, the findings on physical examination, and the patients diagnosis and treatment plan with Nini FLANAGAN and agree with the information documented. Not on cpap/bipap at her facility, only on O2 reports feeling better than on arrival tolerating bipap, co2 improving on vbg -Suspect / GPC blood cultures contaminant, CTM -Urine with e coli iso of reported dysuria, deescalte to CTX -Pulm working for home bipap qualification -Cardiology consulted--continue IV diuersis, aggressive replacement of lytes rest of plan as above I spent a total of 15 minutes coordinating, documenting, and providing care for this patient excluding time spent in the performance of separately billed services. All of the aforementioned completed outside of collaborating with the assigned advanced practitioner for a full treatment plan. I have reviewed the advanced practitioner's documentation, and I agree with, and take responsibility for the plan of care Subjective Follow-up for acute on chronic hypoxic and hypercarbic respiratory failure, acute HFpEF. Patient seen and examined. Resting in bed. Sleeping with BiPap on but arouses easily. Offers no complaints. Physical Exam Constitutional: + obese; no acute distress Respiratory: normal respiratory effort; no respiratory distress Auscultation: + diminished lung sounds Cardiovascular: Rate/Rhythm: regular rate and regular rhythm Vessels: normal peripheral pulses Extremities: + edema (+2-3 pitting edema BLE) Skin: no rashes, warm and dry Neurologic: no focal motor deficits Psychiatric: A+Ox3, euthymic affect Results & Data Results & Data Vital Signs (Past 12 Hours) Vital Signs Temp Pulse Resp BP Pulse Ox O2 Del Method O2 Flow Rate 02/08/25 11:28 36.8 C 95 H 24 103/69 95 BiPAP 02/08/25 10:06 Nasal Cannula 3 02/08/25 07:46 37.1 C 106 H 24 111/71 94 Nasal Cannula 3 Laboratory Results Short CBC 02/08/25 Range/Units 05:26 WBC 10.20 (4.8-10.8) K/ul Hgb 10.9 L (12.0-16.0) g/dl Hct 38.1 (37.0-47.0) % Plt Count 169 (130-400) K/uL BMP 02/08/25 05:26 Sodium 143 Potassium 3.8 D Chloride 87 L Carbon Dioxide > 45 H* BUN 16 Creatinine 0.46 L Glucose 112 H Calcium 9.3
[2025-02-08] MEDS: cefTRIAXone SODIUM 2,000 MG/50 ML BAG IV SCH (17:00)
[2025-02-09 03:19] LABS: HCO3 ABG 57 mmol/L (19-24); Oxygen Saturation ABG 97.9 % (90-95); PCO2 ABG 111 mmHg (35-46); PO2 ABG 92 mmHg (80-95)
[2025-02-09 03:21] LABS: Allen Test Pos (Pos)
[2025-02-09 07:38] LABS: Hematocrit (blood only) 40.4 % (37.0-47.0); Hemoglobin 11.3 g/dl (12.0-16.0); Mean Corpuscular Hemoglobin 30.5 pg (25.0-34.0); Mean Corpuscular Volume 109.2 fL (80.0-100.0); Platelet Count 151 K/uL (130-400); RDW Standard Deviation 59.4 fL (36.4-46.3); Red Blood Count 3.70 M/uL (4.20-5.40); White Blood Count 8.93 K/ul (4.8-10.8)
[2025-02-09 07:55] LABS: Blood Urea Nitrogen 15 mg/dl (6-23); Calcium 9.2 mg/dl (8.6-10.3); Carbon Dioxide > 45 mmol/L (21-32); Chloride 87 mmol/L (98-107); Creatinine Clr Calc Pharmacy 226.6 ml/min; Glucose 113 mg/dl (70-99(Fasting)); Magnesium 2.1 mg/dl (1.7-2.4); Potassium 3.8 mmol/L (3.5-5.1); Sodium 144 mmol/L (136-145)
[2025-02-09 08:31] LABS: Iron 22 mcg/dl (35-150); Total Iron Binding Cap Calc 342 mcg/dl (250-450); Transferrin 244 mg/dl (200-360); Transferrin (FE) Percent Satur 6 % (15-50)
--- NOTE | 2025-02-09 08:37 | Hospitalist Progress Note ---
Date of Service February 09, 2025 Assessment & Plan (1) Acute and chronic respiratory failure with hypercapnia: (2) Acute decompensated heart failure: (3) Acute UTI: (4) Sepsis: (5) Morbid obesity: Plan 69 yo female who resides at [facility] with pmhx of chronic hypoxic/hypercarbic respiratory failure (3L baseline), severe morbid obesity, hypothyroidism, prediabetes, adrenal adenoma, history gastric banding, NAFLD, mood disorder, past tobacco abuse, osteoarthritis, chronic pain syndrome (on prn oxycodone), restless leg syndrome (on roprinole), HTN, constipation who presents for being unarousable 2/2 acute on chronic hypoxic/hypercarbic respiratory failure from decompensated HF. Acute on Chronic Hypoxic/Hypercarbic Respiratory Failure Acute HFpEF Patient presenting with lethargy and fluid overload VBG on admission revealed ph 7.30 and pCO2 117 -> initially placed on bipap Admitting CXR revealed pulmonary vascular congestion and bibasilar opacities favoring atelectasis Initial leukocytosis resolved and procalcitonin negative making pneumonia less likely Echo revealed EF 55-60%, valvular structures not well-visualized Pulmonology and Cardiology following Plan: -Continue diuresis with IV lasix 40mg bid -Monitor I&Os - net -6L so far this admission -Daily weights -Monitor lytes -Continue baseline 3L NC as patient is refusing bipap UTI Urine culture pansensitive E Coli Continue ceftriaxone Moreno in place Sepsis secondary to UTI Met criteria on admission with tachycardia, tachypnea, leukocytosis Blood culture with 1/4 bottles +staph hominis - likely contaminant Antibiotics for UTI as above 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 Nocturnal oximetry study completed with 25 min of SpO2<89% CM following for obtaining bipap machine for patient at discharge Hypernatremia-> resolved Presenting Na+ 147 - improved with diuresis Continue to monitor daily BMP Metabolic encephalopathy-> resolved Likely due to hypercarbia Chronic anemia Hgb at baseline B12 and folate WNL Hypothyroidism Hx Adrenal Adenoma Currently not on levothyroxine TSH 1.686 AM cortisol normal Chronic Pain Syndrome Home oxycodone on hold due to lethargy on admission RLS Continue ropinirole DVT Prophylaxis: SQ Heparin Code Status: FULL CODE PCP: [facility] Disposition: bed hold at [facility] until medically stable Patient seen in collaboration with Dr. Wong. Please see addendum. I spent a total of 50 minutes coordinating, documenting and providing care for this patient excluding time spent in the performance of separately billed ser vices or time spent by another provider/QHP. Admission and Anticipated Discharge Date Admission Date: February 07, 2025 Supervising Physician Co-Signing Physician Notes I have seen and discussed the case with the collaborating advanced practitioner. I agree with the above PN. I have reviewed and confirmed the patients medical history, the findings on physical examination, and the patients diagnosis and treatment plan with Amparo TAVERA and agree with the information documented. Evaluated at bedside, easy to awaken. Reports no new concerns this am. She reports improvement overall since arrival. Denies chest pain or any new con cerns. Initially disoriented when awakened, but able to orient to self, situation, and location. 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 #Obesity hypoventilation syndrome ECHO with no RWMA continue on lasix BID IV maintain moreno and follow I/Os 1.5L FR #Acute hypoxic hypercapnia resp failure, multifactorial as above #Elevated hemidiaphragm Pulm aiding in BiPAP authorization continue aggressive diuresis ' #acute uncomplicated uti symptoms reported of dysuria, will continue CTX #Positive blood culture likely contaminant, patient clinically improving 1/4 staph hominus rest of plan as above I spent a total of 15 minutes coordinating, documenting, and providing care for this patient excluding time spent in the performance of separately billed services. All of the aforementioned completed outside of collaborating with the assigned advanced practitioner for a full treatment plan. I have reviewed the advanced practitioner's documentation, and I agree with, and take responsibility for the plan of care Subjective Patient seen resting in bed Reports her breathing is slightly improved from yesterday No other acute complaints Denies chest pain and abdominal pain Review of Systems Review of Systems: All systems reviewed & are unremarkable except as noted in HPI & below Physical Exam Physical Exam: General/Psych: morbidly obese, sitting up in bed, NAD, conversing easily Head: normocephalic, atraumatic Eyes: PERRL, conjunctivae pink, +thick yellow discharge ENT: external ear and nose normal, oropharynx normal Neck: normal visual inspection, trachea midline Respiratory: normal respiratory effort, lungs diminished with crackles bilaterally, no accessory muscle use Cardiovascular: regular rate and rhythm, no murmur/rub/gallop Extremities: no cyanosis or clubbing, normal peripheral pulses, 3+ pitting edema bilaterally Abdomen/GI: normal bowel sounds, soft, nontender : moreno in place Neurologic/MSK: A+Ox3, motor strength 5/5, moves all extremities Skin: no rashes, normal color, warm and dry Results & Data Results & Data Vital Signs (Past 12 Hours) Vital Signs Temp Pulse Pulse Resp BP BP Pulse Ox 02/09/25 08:04 02/09/25 07:47 36.8 C 88 18 99/66 L 93 02/09/25 04:41 36.7 C 87 18 100/63 97 02/09/25 03:01 91 H 02/09/25 02:10 93 H 02/09/25 00:53 36.6 C 91 H 16 111/72 94 02/08/25 22:20 91 H 02/08/25 22:19 93 H 02/08/25 22:16 93 H 02/08/25 21:14 Pulse Ox O2 Del Method O2 Del Method O2 Flow Rate O2 Flow Rate 02/09/25 08:04 Nasal Cannula 3 02/09/25 07:47 Nasal Cannula 2 02/09/25 04:41 Nasal Cannula 02/09/25 03:01 94 Nasal Cannula 3 02/09/25 02:10 94 Nasal Cannula 3 02/09/25 00:53 Nasal Cannula 3 02/08/25 22:20 93 Nasal Cannula 3 02/08/25 22:19 88 L Nasal Cannula 2 02/08/25 22:16 79 L Room Air 02/08/25 21:14 Nasal Cannula 3 Laboratory Results Short CBC 02/09/25 Range/Units 07:13 WBC 8.93 (4.8-10.8) K/ul Hgb 11.3 L (12.0-16.0) g/dl Hct 40.4 (37.0-47.0) % Plt Count 151 (130-400) K/uL BMP 02/09/25 07:13 Sodium 144 Potassium 3.8 Chloride 87 L Carbon Dioxide > 45 H* BUN 15 Creatinine 0.33 L Glucose 113 H Calcium 9.2 I have independently reviewed and interpreted patient's labs including CBC and BMP. Medications Administered Current Inpatient Medications Acetaminophen (Acetaminophen 325 Mg Tab) 650 mg PO Q4H PRN PRN Reason: Pain or Fever Stop: 03/09/25 14:27 Diclofenac Sodium (Diclofenac Sod 1% Gel 100 Gm Tube) 4 gm EXT Q12 [facility]; Protocol Stop: 03/09/25 20:59 Last Admin: 02/09/25 10:02 Dose: Not Given Furosemide (Furosemide 40 Mg/4 Ml Vial) 40 mg IV BID17 [facility] Stop: 03/09/25 11:29 Last Admin: 02/09/25 08:49 Dose: 40 mg Heparin Sodium (Porcine) (Heparin Sod 5,000 Unit/0.5 Ml Vial) 7,500 units SQ Q8 [facility] Stop: 03/10/25 13:59 Last Admin: 02/09/25 14:25 Dose: 7,500 units Ceftriaxone Sodium (Rocephin) 2,000 mg in 50 mls @ 100 mls/hr IV Q24H [facility] Stop: 02/13/25 16:29 Last Infusion: 02/08/25 17:35 Dose: Infused Ondansetron HCl (Ondansetron Inj 2 Mg/Ml 2 Ml Vial) 4 mg IV Q6H PRN PRN Reason: Nausea Stop: 03/09/25 14:27 Polyethylene Glycol (Polyethylene (Miralax) 17 Gm Pack) 17 gm PO DAILY PRN PRN Reason: Constipation Stop: 03/09/25 14:27 Polyethylene Glycol (Polyethylene (Miralax) 17 Gm Pack) 17 gm PO DAILY [facility] Stop: 03/10/25 08:59 Last Admin: 02/09/25 08:49 Dose: 17 gm Potassium Chloride (Potassium Chloride Crtab 20 Meq Tabcr) 20 meq PO QAM [facility] Stop: 03/10/25 12:29 Last Admin: 02/09/25 08:49 Dose: 20 meq Ropinirole HCl (Ropinirole Hcl 1 Mg Tablet) 1 mg PO Q8H [facility] Stop: 03/09/25 14:29 Last Admin: 02/09/25 14:26 Dose: 1 mg
[2025-02-09 08:43] LABS: Ferritin 63.1 ng/ml (8-388)
--- NOTE | 2025-02-09 12:28 | Cardiology Progress Note ---
Date of Service February 09, 2025 Assessment & Plan (1) Acute and chronic respiratory failure with hypercapnia: (2) Acute hypercapnic respiratory failure: (3) Acute on chronic heart failure with preserved ejection fraction: (4) Sepsis: (5) Bacteremia: Plan Patient is a morbidly obese 69 year old female admitted to [facility] from senior living for worsening lethargy, weakness, mental status changes. Found to be in acute respiratory distress with hypoxia and hypercapnia and mar kedly volume overload, consistent with acute HFpEF. Started on BIPAP and IV lasix Also found to have possible UTI with +E. Coli in urine cultures Now found to have gram + cocci in 1 out of 4 blood cultures. Source unknown vs contaminant? Acute respiratory failure with hypercapnia -Continue BIPAP during periods of sleep and as tolerated -Patient reports she does not have CPAP or BIPAP at SNF. Will likely need on discharge. Acute on chronic HFpEF -Echo technically limited due to body habitus -Normal LVEF without wall motion abnormalities -No evidence of valvular disease by doppler -continue IV lasix 40 mg BID with potassium -stable renal function and electrolytes -Magnesium level improved -Gandhi in place - monitor I+O's -1500 ml fluid restriction -8.5 L output since admission. -Standing weight not able to be done. Sepsis/bacteremia/UTI +E. coli in urine per culture + 1 out of 4 blood cultures with gram positive cocci. Possible contaminant. Continue broad spectrum antibiotics WBC was elevated yesterday, now improved normal procalcitonin level would repeat blood cultures Valvular structures were not well visualized and source of infection is unclear at this time. Given patient's current respiratory status and morbid obesity, she is not an ideal candidate for ZAN. HTN Lisinopril on hold due to low BP and allow for diuretics Case discussed with Dr. Lewis I spent a total of 30 minutes on the date of service in preparation, delivery, and documentation of the care provided to this patient, excluding any time spent in the performance of separately billed services. Cheli Moya PA-C Department of Cardiology, [facility] This chart was completed in part utilizing Speech Voice Recognition Software. Grammatical errors, random word insertions, pronoun errors, and incomplete sentences are an occasional consequence of this system due to software limitations, ambient noise, and hardware issues. Any formal questions or concerns about the content, text, or information contained within the body of this dictation should be directly addressed to the provider for clarification. Admission and Anticipated Discharge Date Admission Date: February 07, 2025 Supervising Physician Co-Signing Physician Notes Attending attestation: Case reviewed with the advanced practitioner. I have personally performed a history and physical examination on the patient. I have reviewed the advanced practitioner's documentation on the date of service referenced in note, and I agree with, and take responsibility for the plan of care. Subjective: Breathing improved. Exam: Gandhi catheter in place draining clear yellow urine Impression/ Plan: Obesity hypoventilation syndrome Volume overload 1/2 blood cultures positive for Staphylococcus hominis (possible contaminant?) E. coli UTI -Continue IV diuretics, monitor electrolytes and renal function -Continue Rocephin -SQ heparin for DVT phrophylaxis Jamal Debbie, DO Subjective Patient resting in bed. She reports shortness of breath has improved from yesterday She feels tired and "washed out". Still with significant fluid retention noted On exam. She denies chest pain. Review of Systems Review of Systems: All systems reviewed & are unremarkable except as noted in HPI & below Physical Exam Constitutional: WD/WN, vitals as above + morbidly obese Neck: + thick neck Respiratory: + labored breathing (conversational dysp jordi) and + tachypneic Cardiovascular: Rate/Rhythm: regular rate Heart Sounds: no murmur (No audible murmur ) Vessels: + JVD Extremities: + edema (2-3+ edema ) Gastrointestinal (Abdomen): normal bowel sounds, soft, nontender, no hepatosplenomegaly Musculoskeletal: no cyanosis or clubbing, extremities motor strength 5/5 Neurologic: PERRL, EOMI, accommodation nl, no face palsy, no dysarthria Results & Data Vital Signs (Past 12 Hours) Vital Signs Temp Pulse Pulse Pulse Resp BP BP 02/09/25 11:15 36.8 C 90 18 110/73 02/09/25 11:00 92 H 02/09/25 08:04 02/09/25 07:47 36.8 C 88 18 02/09/25 04:41 36.7 C 87 18 100/63 02/09/25 03:01 91 H 02/09/25 02:10 93 H 02/09/25 00:53 36.6 C 91 H 16 BP Pulse Ox Pulse Ox O2 Del Method O2 Del Method O2 Flow Rate O2 Flow Rate 02/09/25 11:15 93 Nasal Cannula 2 02/09/25 11:00 02/09/25 08:04 Nasal Cannula 3 02/09/25 07:47 99/66 L 93 Nasal Cannula 2 02/09/25 04:41 97 Nasal Cannula 02/09/25 03:01 94 Nasal Cannula 3 02/09/25 02:10 94 Nasal Cannula 3 02/09/25 00:53 111/72 94 Nasal Cannula 3 Laboratory Results CBC 02/09/25 Range/Units 07:13 WBC 8.93 (4.8-10.8) K/ul RBC 3.70 L (4.20-5.40) M/uL Hgb 11.3 L (12.0-16.0) g/dl Hct 40.4 (37.0-47.0) % Plt Count 151 (130-400) K/uL Comprehensive Metabolic Panel 02/09/25 Range/Units 07:13 Sodium 144 (136-145) mmol/L Potassium 3.8 (3.5-5.1) mmol/L Chloride 87 L (98-107) mmol/L Carbon Dioxide > 45 H* (21-32) mmol/L BUN 15 (6-23) mg/dl Creatinine 0.33 L (0.6-1.2) mg/dl Glucose 113 H (70-99(Fasting)) mg/dl Calcium 9.2 (8.6-10.3) mg/dl Intake and Output 02/08/25 02/09/25 02/09/25 22:59 06:59 14:59 Intake Total 650 / 1800 450 / 1800 Output Total 1999 / 0 500 / 3800 Balance -1350 / -2000 - / -1999 Intake: IV 250 / 350 Magnesium Sulfate / D5w 1 gm In 200 / 200 100 ml @ 50 mls/hr IV Q2H [facility] Rx#:[id number] cefTRIAXone SODIUM 2,000 mg In 50 / 50 50 ml @ 100 mls/hr IV Q24H [facility] Rx#:[id number] Oral 400 / 1450 450 / 1450 Output: Urine Amount (Catheter) 19990 500 / 3800 Gandhi/Indwelling 19990 500 / 3800 Other: Weight 151.7 kg Weight Measurement Method Built in [facility] Diagnostic Findings Telemetry reviewed: Normal sinus rhythm in the 80s to 90s. No arrhythmias noted. Medications Administered Current Inpatient Medications Acetaminophen (Acetaminophen 325 Mg Tab) 650 mg PO Q4H PRN PRN Reason: Pain or Fever Stop: 03/09/25 14:27 Diclofenac Sodium (Diclofenac Sod 1% Gel 100 Gm Tube) 4 gm EXT Q12 [facility]; Protocol Stop: 03/09/25 20:59 Last Admin: 02/09/25 10:02 Dose: Not Given Furosemide (Furosemide 40 Mg/4 Ml Vial) 40 mg IV BID17 [facility] Stop: 03/09/25 11:29 Last Admin: 02/09/25 08:49 Dose: 40 mg Heparin Sodium (Porcine) (Heparin Sod 5,000 Unit/0.5 Ml Vial) 7,500 units SQ Q8 [facility] Stop: 03/10/25 13:59 Last Admin: 02/09/25 06:18 Dose: 7,500 units Ceftriaxone Sodium (Rocephin) 2,000 mg in 50 mls @ 100 mls/hr IV Q24H [facility] Stop: 02/13/25 16:29 Last Infusion: 02/08/25 17:35 Dose: Infused Ondansetron HCl (Ondansetron Inj 2 Mg/Ml 2 Ml Vial) 4 mg IV Q6H PRN PRN Reason: Nausea Stop: 03/09/25 14:27 Polyethylene Glycol (Polyethylene (Miralax) 17 Gm Pack) 17 gm PO DAILY PRN PRN Reason: Constipation Stop: 03/09/25 14:27 Polyethylene Glycol (Polyethylene (Miralax) 17 Gm Pack) 17 gm PO DAILY [facility] Stop: 03/10/25 08:59 Last Admin: 02/09/25 08:49 Dose: 17 gm Potassium Chloride (Potassium Chloride Crtab 20 Meq Tabcr) 20 meq PO QAM [facility] Stop: 03/10/25 12:29 Last Admin: 02/09/25 08:49 Dose: 20 meq Ropinirole HCl (Ropinirole Hcl 1 Mg Tablet) 1 mg PO Q8H [facility] Stop: 03/09/25 14:29 Last Admin: 02/09/25 06:18 Dose: 1 mg Coding Level of Care Code 99081 SUB INP/OBS CARE 3/50MIN Diagnoses Acute and chronic respiratory failure with hypercapnia J96.22 Acute hypercapnic respiratory failure J96.02 Acute on chronic heart failure with preserved ejection fraction I50.33 Sepsis A41.9 Bacteremia R78.81
--- NOTE | 2025-02-09 16:18 | Pulmonology Progress Note ---
Date of Service February 09, 2025 Assessment & Plan (1) Acute and chronic respiratory failure with hypercapnia: Plan: I do not think that Obstructive Sleep Apnea is contributing significantly to this patient hypoventilation problem. (2) Restrictive lung disease secondary to obesity: (3) Morbid (severe) obesity with alveolar hypoventilation: (4) Morbid (severe) obesity due to excess calories: (5) Volume overload: (6) Elevated hemidiaphragm: Plan: * Elevated Right hemidiaphragm with decreased sounds over the whole hemidiaphragm * It is possible that the elevated right hemidiaphragm could be paralyzed, and contributing to hypoventilation as a neuromuscular restrictive thoracic disorder; however, it will be very difficult and would cause the patient a lot of inconvenience to try to prove or disprove this issue with a fluoroscopic Sniff-test. (7) Lymphedema: Plan: * Suspect lymphedema as part of overall fluid-overload status. * Consider PT consult for evaluation/treatment of suspected lymphedema. Plan Recommendation/plan: * Resume treatment with BiPAP during sleep and PRN during the daytime. * Continue diuresis. Admission and Anticipated Discharge Date Admission Date: February 07, 2025 Subjective The patient is a very pleasant 69-year-old female who presented to the ED due to somnolence and lethargy that had been observed at her half-way facility since the previous night. Staff at her care facility expressed concern for possible oxycodone overdose, as a significant quantity of pills was found in her room. On arrival, she was on 3 L/min nasal cannula (baseline rate) and was noted to be morbidly obese, sitting up in bed, alert, and able to speak in full sentences. Initial laboratory evaluation demonstrated mild leukocytosis, mild anemia, significant hypercapnia (VBG pH 7.30, CO2 117), and hyponatremia. Imaging included a CT head, which showed a calcified left posterior mass consistent with a meningioma, and a chest x-ray was interpreted as showing pulmonary vascular congestion, cardiomegaly, right hemidiaphragm elevation, and a trace right pleural effusion. She had 3+ pitting edema in the lower extremities. She was started on BiPAP for acute on chronic hypoxic and hypercapnic respiratory failure, IV fluids, IV Rocephin, and later received IV Lasix and broad-spectrum antibiotics (Zosyn and azithromycin) for possible community-acquired pneumonia (CAP) and sepsis. During her hospital course, she remained slightly drowsy but was able to answer questions. She did not use home BiPAP but did use home oxygen. Pulmonary consultation was requested, and the patient was seen by Dr. Corbin on 02/07/2025. The plan included continued ventilatory support with BiPAP, aggressive diuresis, monitoring of electrolytes and renal function, and further workup for infection and metabolic derangements. Her past medical history was significant for morbid obesity, chronic hypoxic and hypercapnic respiratory failure, HTN, hypothyroidism, prediabetes, adrenal adenoma, history of gastric banding, NAFLD, meningioma, mood disorder, osteoarthritis, chronic pain syndrome, restless legs syndrome, previous tobacco use, and constipation. Note from 02/08/2025: The patient denies feeling winded, but admits to being sleepy. She thinks that se didn't sleep last night. She still has Gandhi catheter. Seen by Cardiology. Echo unremarkable, but probably not very diagnostic due to body habitus. I have concern that the patient may have lymphedema as part of her overall fluid-overload status. I recommended PT evaluation accordingly. The patient seems to be tolerating BiPAP, and her PCO2 seems to be improving. I will order overnight Oximetry for 4 hours on 3 L/min without BiPAP tonight, hoping to he able to qualify the patient for BiPAP, accordingly. Note from 02/08/2025: The patient denies new complaints. I reviewed her overnight Oximetry from last night. She spent around 25 minutes on Oxygen less than 89% while using her home-prescribed Oxygen flow of 3 L/min. Review of Systems Review of Systems: All systems reviewed & are unremarkable except as noted in HPI & below Physical Exam Physical Exam: General: In no acute distress, using Oxygenvia nasal cannula. Morbidly obese, but mostly peripheral obesity (non-central). Skin: Warm and dry to touch. Noobvious lesions. Eyes: Anicteric.Noconjunctival hyperemia or exudates.No periorbital edema. ENT: No oral thrush. No oropharyngeal erythema or exudates. Neck: No palpable masses or adenopathy. Respiratory: Decreased breath sounds over the right hemithorax, no wheezing or crackles. No use of accessory muscles and no prolonged exhalation. Cardiac: Distant sounds, regular rhythm, no murmurs, no gallops, no rubs; could not appreciate JV pulse elevation. GI: Soft, nontender, obese, I could not appreciate organomegaly. Extremities No clubbing,no cyanosis,2-3+ edema over the lower extremities with positive Stemmer's sign. Neuro: No gross motor deficits. Seems appropriate. No facial-droop. Speech is clear. Seems a little sleepy. Results & Data Results & Data Vital Signs (Past 12 Hours) Vital Signs Temp Pulse Pulse Resp BP BP BP 02/09/25 15:34 37.2 C 101 H 19 121/81 02/09/25 13:19 101 H 02/09/25 11:15 36.8 C 90 18 110/73 02/09/25 11:00 92 H 02/09/25 08:04 02/09/25 07:47 36.8 C 88 18 99/66 L 02/09/25 04:41 36.7 C 87 18 100/63 Pulse Ox O2 Del Method O2 Flow Rate 02/09/25 15:34 92 Nasal Cannula 2 02/09/25 13:19 02/09/25 11:15 93 Nasal Cannula 2 02/09/25 11:00 02/09/25 08:04 Nasal Cannula 3 02/09/25 07:47 93 Nasal Cannula 2 02/09/25 04:41 97 Nasal Cannula Laboratory Results 02/07/25 11:21 Aerobic Blood Culture - Preliminary Blood Staphylococcus hominis Anaerobic Blood Culture - Preliminary No growth in Anaerobic bottle after 48 hours. 02/07/25 08:41 Aerobic Blood Culture - Preliminary Blood No growth in Aerobic bottle after 48 hours. Anaerobic Blood Culture - Preliminary No growth in Anaerobic bottle after 48 hours. 02/09/25 02/09/25 02/09/25 07:16 07:13 02:57 WBC 8.93 RBC 3.70 L Hgb 11.3 L Hct 40.4 MCV 109.2 H MCH 30.5 MCHC 28.0 L RDW Std Deviation 59.4 H RDW Coeff of Galo 14.6 H Plt Count 151 MPV 10.4 ABG pH 7.32 L ABG pCO2 111 H ABG pO2 92 ABG HCO3 57 H ABG O2 Saturation 97.9 H ABG Base Excess 24.5 H Molina Test Pos Oxygen Given 3L Sodium 144 Potassium 3.8 Chloride 87 L Carbon Dioxide > 45 H* Anion Gap TNP BUN 15 Creatinine 0.33 L Est Cr Clr Drug Dosing 226.6 eGFR 112.85 BUN/Creatinine Ratio 45.5 H Glucose 113 H Calcium 9.2 Magnesium 2.1 Iron 22 L TIBC 342 Transferrin 244 Transferrin % Sat 6 L Ferritin 63.1 Cortisol AM Sample 15.81 Medications Administered Home Medications Medication Instructions Recorded Confirmed Last Taken Milk of Magnesia 30 ml PO DAILY PRN Constipation 02/07/25 02/07/25 Unknown acetaminophen 325 mg tablet 650 mg PO Q6H PRN Fever 02/07/25 02/07/25 Unknown (Tylenol) acetaminophen 325 mg tablet 650 mg PO Q6H PRN Pain 02/07/25 02/07/25 Unknown (Tylenol) bisacodyl 10 mg rectal suppository 10 mg FL DAILY PRN Constipation 02/07/25 02/07/25 Unknown (Dulcolax (bisacodyl)) cholecalciferol (vitamin D3) 50 50 mcg PO DAILY 02/07/25 02/07/25 Unknown mcg (2,000 unit) tablet lisinopril 5 mg tablet 5 mg PO HS 02/07/25 02/07/25 Unknown menthol 0.44 %-zinc oxide 20.6 % 1 applic topical BID 02/07/25 02/07/25 Unknown topical ointment naloxone 0.4 mg/mL injection 1 mg IM DAILY PRN OVERDOSE 02/07/25 02/07/25 Unknown solution oxycodone 5 mg tablet 5 mg PO Q6H PRN pain 02/07/25 02/07/25 Unknown polyethylene glycol 3350 17 17 g PO DAILY 02/07/25 02/07/25 Unknown gram/dose oral powder (Miralax) ropinirole 1 mg tablet 1 mg PO Q8H 02/07/25 02/07/25 Unknown sodium phosphates 19 gram-7 118 ml FL DAILY PRN Constipation 02/07/25 02/07/25 Unknown gram/118 mL enema (Fleet Enema) Active Medications Generic Name Dose Route Start Last Admin Trade Name Freq PRN Reason Stop Dose Admin Diclofenac Sodium 4 gm 02/07/25 21:00 02/09/25 10:02 Diclofenac Sod 1% Gel 100 Gm Tube EXT 03/09/25 20:59 Not Given Q12 BRUCE Protocol Furosemide 40 mg 02/07/25 11:30 02/09/25 08:49 Furosemide 40 Mg/4 Ml Vial IV 03/09/25 11:29 40 mg [id number] BRUCE Administration Heparin Sodium (Porcine) 7,500 units 02/08/25 14:00 02/09/25 14:25 Heparin Sod 5,000 Unit/0.5 Ml Vial SQ 03/10/25 13:59 7,500 units Q8 BRUCE Administration Ceftriaxone Sodium 2,000 mg in 50 mls @ 100 mls/hr 02/08/25 16:30 02/08/25 17:35 Rocephin IV 02/13/25 16:29 Infused Q24H BRUCE Infusion Polyethylene Glycol 17 gm 02/08/25 09:00 02/09/25 08:49 Polyethylene (Miralax) 17 Gm Pack PO 03/10/25 08:59 17 gm DAILY BRUCE Administration Potassium Chloride 20 meq 02/08/25 12:30 02/09/25 08:49 Potassium Chloride Crtab 20 Meq Tabcr PO 03/10/25 12:29 20 meq QAM BRUCE Administration Ropinirole HCl 1 mg 02/07/25 14:30 02/09/25 14:26 Ropinirole Hcl 1 Mg Tablet PO 03/09/25 14:29 1 mg Q8H BRUCE Administration PG Care Time/CCT Total # of Minutes Spent Total Time Spent with Patient: Total time spent is greater than 50% in coordination of care (as documented) at patient's floor/unit and/or counseling patient: Coding Level of Care Code 84719 SUB INP/OBS CARE 2/35MIN Diagnoses Acute and chronic respiratory failure with hypercapnia J96.22 Restrictive lung disease secondary to obesity J98.4; E66.9 Morbid (severe) obesity with alveolar hypoventilation E66.2 Morbid (severe) obesity due to excess calories E66.01 Volume overload E87.70 Elevated hemidiaphragm J98.6 Lymphedema I89.0 Time Spent (min) 40
[2025-02-10 06:44] LABS: Hematocrit (blood only) 40.1 % (37.0-47.0); Hemoglobin 10.9 g/dL (12.0-16.0); Mean Corpuscular Hemoglobin 29.9 pg (25.0-34.0); Mean Corpuscular Volume 109.9 fL (80.0-100.0); Platelet Count 164 K/uL (130-400); RDW Standard Deviation 58.5 fL (36.4-46.3); Red Blood Count 3.65 M/uL (4.20-5.40); White Blood Count 8.06 K/ul (4.8-10.8)
[2025-02-10 07:23] LABS: Blood Urea Nitrogen 16 mg/dl (6-23); Calcium 9.2 mg/dl (8.6-10.3); Carbon Dioxide > 45 mmol/L (21-32); Chloride 84 mmol/L (98-107); Creatinine Clr Calc Pharmacy 233.3 ml/min; Glucose 102 mg/dl (70-99(Fasting)); Magnesium 1.9 mg/dl (1.7-2.4); Potassium 3.9 mmol/L (3.5-5.1); Sodium 144 mmol/L (136-145)
[2025-02-10 10:47] LABS: eGFR 52.0 (>=60)
--- NOTE | 2025-02-10 14:06 | Hospitalist Progress Note ---
<Statement entered by Ar Green DO - 02/10/25 15:30> I have seen and examined the patient and have discussed the case with the advance practice provider. I have reviewed the advanced practitioner's documentation, and I agree with, and take responsibility for that plan of care. Patient evaluated with FAIVO at bedside. Took some time explaining the critical nature of the patient wearing her BiPAP at night. Explained to her how her carbon dioxide accumulates during the day and the BiPAP helps her breathe off the CO2 at night. Explained how high CO2 levels can cause her to be sleepy and drowsy. Encouraged her to continue to work on tolerating the BiPAP. Continue diuresis, discussed with patient and she knew a good dry weight for her. She was unable to really give a good weight. Reviewed weights in EMR, fluctuating widely, unsure how accurate they are. Intake and output has been negative Signed prescription for obtaining BiPAP at [facility] facility Further plan of care as outlined below I spent a total of minutes coordinating, documenting, and providing care for this patient excluding time spent by another provider/QHP. Date of Service February 10, 2025 Assessment & Plan (1) Acute and chronic respiratory failure with hypercapnia: (2) Acute decompensated heart failure: (3) Acute UTI: (4) Sepsis: (5) Morbid obesity: Plan 69 yo female who resides at [facility] with pmhx of chronic hypoxic/hypercarbic respiratory failure (3L baseline), severe morbid obesity, hypothyroidism, prediabetes, adrenal adenoma, history gastric banding, NAFLD, mood disorder, past tobacco abuse, osteoarthritis, chronic pain syndrome (on prn oxycodone), restless leg syndrome (on roprinole), HTN, constipation who presented on 02/07/2025 for being unarousable 2/2 acute on chronic hypoxic/hypercarbic respiratory failure and decompensated HF. Acute on Chronic Hypoxic/Hypercarbic Respiratory Failure Acute HFpEF Patient presenting with lethargy and fluid overload VBG on admission revealed ph 7.30 and pCO2 117 -> initially placed on bipap Admitting CXR revealed pulmonary vascular congestion and bibasilar opacities favoring atelectasis Initial leukocytosis resolved and procalcitonin negative making pneumonia less likely Echo revealed EF 55-60%, valvular structures not well-visualized Pulmonology and Cardiology following Plan: -Continue diuresis with IV lasix 40mg bid -Remove moreno when IV lasix is de-escalated -Monitor I&Os - net -6L so far this admission -Daily weights (patient reports pre admission weight was around 395lb but weights here via bed scale are all over the place) -Monitor lytes and replete as needed -Continue baseline 3L NC during day and bipap at night -Encouraged patient to try to wear bipap as able UTI Urine culture pansensitive E Coli at 20,000 colonies Received 3 days of ceftriaxone Sepsis secondary to UTI Met criteria on admission with tachycardia, tachypnea, leukocytosis Blood culture with 1/4 bottles +staph hominis - likely contaminant Repeat blood cultures pending Received antibiotics for UTI as above 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 Nocturnal oximetry study completed with 25 min of SpO2<89% CM submitted script for bipap at home Hypernatremia-> resolved Presenting Na+ 147 - improved with diuresis Continue to monitor daily BMP Metabolic encephalopathy-> resolved Likely due to hypercarbia and increased use of oxycodone per patient Chronic pain syndrome secondary to osteoarthritis Home oxycodone on hold due to lethargy on admission Recommend against opioids for arthritis pain as they are not indicated and in the setting of chronic respiratory failure for this patient Chronic anemia Hgb at baseline B12 and folate WNL Hypothyroidism Hx Adrenal Adenoma Currently not on levothyroxine TSH 1.686 AM cortisol normal RLS Continue ropinirole DVT Prophylaxis: SQ Heparin Code Status: FULL CODE PCP: [facility] Disposition: bed hold at [facility] until medically stable Patient seen in collaboration with Dr. Green. Please see addendum. I spent a total of 50 minutes coordinating, documenting and providing care for this patient excluding time spent in the performance of separately billed services or time spent by another provider/QHP. Admission and Anticipated Discharge Date Admission Date: February 07, 2025 Subjective Patient seen sitting up in bed Reports she is feeling much improved today Feels anxious wearing the bipap at night due to not knowing how to take it off Is hopeful that she will be able to tolerate it better at home when she is comfortable with the machine Review of Systems Review of Systems: All systems reviewed & are unremarkable except as noted in HPI & below Physical Exam Physical Exam: General/Psych: morbidly obese, sitting up in bed, NAD, conversing easily Head: normocephalic, atraumatic Eyes: PERRL, conjunctivae pink ENT: external ear and nose normal, oropharynx normal Neck: normal visual inspection, trachea midline Respiratory: normal respiratory effort, lungs diminished with crackles bilaterally, no accessory muscle use Cardiovascular: regular rate and rhythm, no murmur/rub/gallop Extremities: no cyanosis or clubbing, normal peripheral pulses, 2+ pitting edema bilaterally Abdomen/GI: normal bowel sounds, soft, nontender : moreno in place Neurologic/MSK: A+Ox3, motor strength 5/5, moves all extremities Skin: no rashes, normal color, warm and dry Results & Data Results & Data Vital Signs (Past 12 Hours) Vital Signs Temp Pulse Resp BP BP Pulse Ox O2 Del Method 02/10/25 11:45 Nasal Cannula 02/10/25 11:27 37.4 C 90 19 115/77 92 Nasal Cannula 02/10/25 07:37 36.9 C 84 20 110/75 93 Nasal Cannula 02/10/25 03:45 36.7 C 94 H 20 122/80 95 Nasal Cannula O2 Flow Rate 02/10/25 11:45 3 02/10/25 11:27 2.5 02/10/25 07:37 2.5 02/10/25 03:45 3 Laboratory Results Short CBC 02/10/25 Range/Units 05:37 WBC 8.06 (4.8-10.8) K/ul Hgb 10.9 L (12.0-16.0) g/dL Hct 40.1 (37.0-47.0) % Plt Count 164 (130-400) K/uL BMP 02/10/25 05:37 Sodium 144 Potassium 3.9 Chloride 84 L Carbon Dioxide > 45 H* BUN 16 Creatinine 0.36 L Glucose 102 H Calcium 9.2 I have independently reviewed and interpreted patient's labs including CBC and BMP Medications Administered Current Inpatient Medications Acetaminophen (Acetaminophen 325 Mg Tab) 650 mg PO Q4H PRN PRN Reason: Pain or Fever Stop: 03/09/25 14:27 Diclofenac Sodium (Diclofenac Sod 1% Gel 100 Gm Tube) 4 gm EXT Q12 BRUCE; Protocol Stop: 03/09/25 20:59 Last Admin: 02/10/25 09:50 Dose: 4 gm Furosemide (Furosemide 40 Mg/4 Ml Vial) 40 mg IV BID17 [facility] Stop: 03/09/25 11:29 Last Admin: 02/10/25 09:50 Dose: 40 mg Heparin Sodium (Porcine) (Heparin Sod 5,000 Unit/0.5 Ml Vial) 7,500 units SQ Q8 BRUCE Stop: 03/10/25 13:59 Last Admin: 02/10/25 05:38 Dose: 7,500 units Ceftriaxone Sodium (Rocephin) 2,000 mg in 50 mls @ 100 mls/hr IV Q24H BRUCE Stop: 02/13/25 16:29 Last Infusion: 02/09/25 16:58 Dose: Infused Ondansetron HCl (Ondansetron Inj 2 Mg/Ml 2 Ml Vial) 4 mg IV Q6H PRN PRN Reason: Nausea Stop: 03/09/25 14:27 Polyethylene Glycol (Polyethylene (Miralax) 17 Gm Pack) 17 gm PO DAILY PRN PRN Reason: Constipation Stop: 03/09/25 14:27 Polyethylene Glycol (Polyethylene (Miralax) 17 Gm Pack) 17 gm PO DAILY BRUCE Stop: 03/10/25 08:59 Last Admin: 02/10/25 09:47 Dose: Not Given Potassium Chloride (Potassium Chloride Crtab 20 Meq Tabcr) 20 meq PO QAM BRUCE Stop: 03/10/25 12:29 Last Admin: 02/10/25 09:50 Dose: 20 meq Ropinirole HCl (Ropinirole Hcl 1 Mg Tablet) 1 mg PO Q8H BRUCE Stop: 03/09/25 14:29 Last Admin: 02/10/25 05:38 Dose: 1 mg
--- NOTE | 2025-02-10 14:50 | Cardiology Progress Note ---
Date of Service February 10, 2025 Assessment & Plan (1) Acute and chronic respiratory failure with hypercapnia: (2) Acute hypercapnic respiratory failure: (3) Acute on chronic heart failure with preserved ejection fraction: (4) Sepsis: (5) Bacteremia: Plan Patient is a morbidly obese 69 year old female admitted to [facility] from correction for worsening lethargy, weakness, mental status changes. Found to be in acute respiratory distress with hypoxia and hypercapnia and mar kedly volume overload, consistent with acute HFpEF. Started on BIPAP and IV lasix Also found to have possible UTI with +E. Coli in urine cultures Found to have gram + cocci in 1 out of 4 blood cultures. Source unknown vs contaminant Acute respiratory failure with hypercapnia -Continue BIPAP during periods of sleep and as tolerated -Patient reports she does not have CPAP or BIPAP at SNF. Will likely need on discharge. Acute on chronic HFpEF -Echo technically limited due to body habitus -Normal LVEF without wall motion abnormalities -No evidence of valvular disease by Doppler -continue IV lasix 40 mg BID with potassium -ongoing diuresis noted --6 L since admission -stable renal function and electrolytes -Magnesium level improved -Gandhi in place - monitor I+O's -1500 ml fluid restriction -8.5 L output since admission. -Standing weight not able to be done. Sepsis/bacteremia/UTI +E. coli in urine per culture + 1 out of 4 blood cultures with gram positive cocci. Possible contaminant. Continue broad spectrum antibiotics WBC was elevated, now improved normal procalcitonin level repeat blood cultures ordered Valvular structures were not well visualized and source of infection is unclear at this time. Given patient's current respiratory status and morbid obesity, she is not an ideal candidate for ZAN. HTN Lisinopril on hold due to low BP and allow for diuretics Case discussed with Dr. Elaine I spent a total of 30 minutes on the date of service in preparation, delivery, and documentation of the care provided to this patient, excluding any time spent in the performance of separately billed services. Cheli Moya PA-C Department of Cardiology, [facility] This chart was completed in part utilizing Speech Voice Recognition Software. Grammatical errors, random word insertions, pronoun errors, and incomplete sentences are an occasional consequence of this system due to software limitations, ambient noise, and hardware issues. Any formal questions or concerns about the content, text, or information contained within the body of this dictation should be directly addressed to the provider for clarification. Admission and Anticipated Discharge Date Admission Date: February 07, 2025 Supervising Physician Co-Signing Physician Notes I have personally performed a history and physical examination on the patient. I have reviewed the advance practitioner's documentation, and I agree with, and take responsibility for the plan of care. 61-year-old female with acute on chronic respiratory failure with hypercapnia, bacteremia, and acute on chronic heart failure with preserved ejection fraction. Clinically improving. Continue IV diuresis, Lasix 40 mg twice daily. Supplement potassium as indicated. Monitor daily BMP, fluid balance, and weight. BiPAP during periods of sleep as tolerated. Arnold Elaine DO, [facility] Subjective Patient resting in bed. Ongoing conversational dyspnea noted. No chest pain. No dizziness. Ongoing edema. Bed bound. tolerating diuretics. Not tolerating BIPAP well and continues to remove. Review of Systems Review of Systems: All systems reviewed & are unremarkable except as noted in HPI & below Physical Exam Constitutional: WD/WN, vitals as above + morbidly obese Neck: + thick neck Respiratory: + labored breathing (conversational dysp jordi) and + tachypneic Cardiovascular: Rate/Rhythm: regular rate Heart Sounds: no murmur (No audible murmur ) Vessels: + JVD Extremities: + edema (2-3+ edema ) Gastrointestinal (Abdomen): normal bowel sounds, soft, nontender, no hepatosplenomegaly Musculoskeletal: no cyanosis or clubbing, extremities motor strength 5/5 Neurologic: PERRL, EOMI, accommodation nl, no face palsy, no dysarthria Results & Data Vital Signs (Past 12 Hours) Vital Signs Temp Pulse Resp BP BP Pulse Ox O2 Del Method 02/10/25 11:45 Nasal Cannula 02/10/25 11:27 37.4 C 90 19 115/77 92 Nasal Cannula 02/10/25 07:37 36.9 C 84 20 110/75 93 Nasal Cannula 02/10/25 03:45 36.7 C 94 H 20 122/80 95 Nasal Cannula O2 Flow Rate 02/10/25 11:45 3 02/10/25 11:27 2.5 02/10/25 07:37 2.5 02/10/25 03:45 3 Laboratory Results CBC 02/10/25 Range/Units 05:37 WBC 8.06 (4.8-10.8) K/ul RBC 3.65 L (4.20-5.40) M/uL Hgb 10.9 L (12.0-16.0) g/dL Hct 40.1 (37.0-47.0) % Plt Count 164 (130-400) K/uL Comprehensive Metabolic Panel 02/10/25 Range/Units 05:37 Sodium 144 (136-145) mmol/L Potassium 3.9 (3.5-5.1) mmol/L Chloride 84 L (98-107) mmol/L Carbon Dioxide > 45 H* (21-32) mmol/L BUN 16 (6-23) mg/dl Creatinine 0.36 L (0.6-1.2) mg/dl Glucose 102 H (70-99(Fasting)) mg/dl Calcium 9.2 (8.6-10.3) mg/dl Intake and Output 02/09/25 02/10/25 02/10/25 22:59 06:59 14:59 Intake Total 530 / 1250 480 / 1250 Output Total 1050 / 2550 300 / 2550 Balance -520 / -1300 180 / -1300 Intake: IV 50 / 50 cefTRIAXone SODIUM 2,000 mg In 50 / 50 50 ml @ 100 mls/hr IV Q24H [facility] Rx#:[id number] Oral 480 / 1200 480 / 1200 Output: Urine Amount (Catheter) 1050 / 2550 300 / 2550 Gandhi/Indwelling 1050 / 2550 300 / 2550 Other: Weight 174 kg 178.8 kg Weight Measurement Method Built in [facility] Built in [facility] Diagnostic Findings Telemetry reviewed: NSR with PVCs. no arrhythmias Medications Administered Current Inpatient Medications Acetaminophen (Acetaminophen 325 Mg Tab) 650 mg PO Q4H PRN PRN Reason: Pain or Fever Stop: 03/09/25 14:27 Diclofenac Sodium (Diclofenac Sod 1% Gel 100 Gm Tube) 4 gm EXT Q12 [facility]; Protocol Stop: 03/09/25 20:59 Last Admin: 02/10/25 09:50 Dose: 4 gm Furosemide (Furosemide 40 Mg/4 Ml Vial) 40 mg IV BID17 [facility] Stop: 03/09/25 11:29 Last Admin: 02/10/25 09:50 Dose: 40 mg Heparin Sodium (Porcine) (Heparin Sod 5,000 Unit/0.5 Ml Vial) 7,500 units SQ Q8 [facility] Stop: 03/10/25 13:59 Last Admin: 02/10/25 14:19 Dose: 7,500 units Ondansetron HCl (Ondansetron Inj 2 Mg/Ml 2 Ml Vial) 4 mg IV Q6H PRN PRN Reason: Nausea Stop: 03/09/25 14:27 Polyethylene Glycol (Polyethylene (Miralax) 17 Gm Pack) 17 gm PO DAILY PRN PRN Reason: Constipation Stop: 03/09/25 14:27 Polyethylene Glycol (Polyethylene (Miralax) 17 Gm Pack) 17 gm PO DAILY [facility] Stop: 03/10/25 08:59 Last Admin: 02/10/25 09:47 Dose: Not Given Potassium Chloride (Potassium Chloride Crtab 20 Meq Tabcr) 20 meq PO QAM [facility] Stop: 03/10/25 12:29 Last Admin: 02/10/25 09:50 Dose: 20 meq Ropinirole HCl (Ropinirole Hcl 1 Mg Tablet) 1 mg PO Q8H [facility] Stop: 03/09/25 14:29 Last Admin: 02/10/25 14:19 Dose: 1 mg PG Care Time/CCT Total # of Minutes Spent Total Time Spent with Patient: Total time spent is greater than 50% in coordination of care (as documented) at patient's floor/unit and/or counseling patient: 30 minutes Coding Level of Care Code 87930 SUB INP/OBS CARE 3/50MIN Diagnoses Acute and chronic respiratory failure with hypercapnia J96.22 Acute hypercapnic respiratory failure J96.02 Acute on chronic heart failure with preserved ejection fraction I50.33 Sepsis A41.9 Bacteremia R78.81
[2025-02-11 06:28] LABS: Blood Urea Nitrogen 16 mg/dl (6-23); Calcium 9.5 mg/dl (8.6-10.3); Carbon Dioxide > 45 mmol/L (21-32); Chloride 84 mmol/L (98-107); Creatinine Clr Calc Pharmacy 190.1 ml/min; Glucose 106 mg/dl (70-99(Fasting)); Magnesium 1.7 mg/dl (1.7-2.4); Potassium 3.8 mmol/L (3.5-5.1); Sodium 141 mmol/L (136-145)
[2025-02-11 06:54] LABS: Base Excess VBG 35.3 mEq/L; HCO3 VBG 65 mmol/L; Oxygen Saturation VBG 95.3 %; PCO2 VBG 82 mmHg (38-50); PO2 VBG 67 mmHg; pH VBG 7.51 (7.36-7.41)
[2025-02-11 07:05] LABS: Hematocrit (blood only) 39.3 % (37.0-47.0); Hemoglobin 11.5 g/dL (12.0-16.0); Mean Corpuscular Hemoglobin 30.5 pg (25.0-34.0); Mean Corpuscular Volume 104.2 fL (80.0-100.0); Platelet Count 170 K/uL (130-400); RDW Standard Deviation 55.1 fL (36.4-46.3); Red Blood Count 3.77 M/uL (4.20-5.40); White Blood Count 7.62 K/ul (4.8-10.8)
[2025-02-11] MEDS: acetaZOLAMIDE 250 MG TAB PO SCH (09:50)
--- NOTE | 2025-02-11 10:30 | Pulmonology Progress Note ---
Date of Service February 11, 2025 Assessment & Plan (1) Acute and chronic respiratory failure with hypercapnia: Plan: I do not think that Obstructive Sleep Apnea is contributing significantly to this patient hypoventilation problem. (2) Restrictive lung disease secondary to obesity: (3) Morbid (severe) obesity with alveolar hypoventilation: (4) Morbid (severe) obesity due to excess calories: (5) Volume overload: (6) Elevated hemidiaphragm: Plan: * Elevated Right hemidiaphragm with decreased sounds over the whole hemidiaphragm * It is possible that the elevated right hemidiaphragm could be paralyzed, and contributing to hypoventilation as a neuromuscular restrictive thoracic disorder; however, it will be very difficult and would cause the patient a lot of inconvenience to try to prove or disprove this issue with a fluoroscopic Sniff-test. (7) Lymphedema: Plan: * Suspect lymphedema as part of overall fluid-overload status. Plan * Continue treatment with BiPAP during sleep and PRN during the daytime. * Continue diuresis. Admission and Anticipated Discharge Date Admission Date: February 07, 2025 Subjective The patient is a very pleasant 69-year-old female who presented to the ED due to somnolence and lethargy that had been observed at her [facility] facility since the previous night. Staff at her care facility expressed concern for possible oxycodone overdose, as a significant quantity of pills was found in her room. On arrival, she was on 3 L/min nasal cannula (baseline rate) and was noted to be morbidly obese, sitting up in bed, alert, and able to speak in full sentences. Initial laboratory evaluation demonstrated mild leukocytosis, mild anemia, significant hypercapnia (VBG pH 7.30, CO2 117), and hyponatremia. Imaging included a CT head, which showed a calcified left posterior mass consistent with a meningioma, and a chest x-ray was interpreted as showing pulmonary vascular congestion, cardiomegaly, right hemidiaphragm elevation, and a trace right pleural effusion. She had 3+ pitting edema in the lower extremities. She was started on BiPAP for acute on chronic hypoxic and hypercapnic respiratory failure, IV fluids, IV Rocephin, and later received IV Lasix and broad-spectrum antibiotics (Zosyn and azithromycin) for possible community-acquired pneumonia (CAP) and sepsis. During her hospital course, she remained slightly drowsy but was able to answer questions. She did not use home BiPAP but did use home oxygen. Pulmonary consultation was requested, and the patient was seen by Dr. Corbin on 02/07/2025. The plan included continued ventilatory support with BiPAP, aggressive diuresis, monitoring of electrolytes and renal function, and further workup for infection and metabolic derangements. Her past medical history was significant for morbid obesity, chronic hypoxic and hypercapnic respiratory failure, HTN, hypothyroidism, prediabetes, adrenal adenoma, history of gastric banding, NAFLD, meningioma, mood disorder, osteoarthritis, chronic pain syndrome, restless legs syndrome, previous tobacco use, and constipation. Note from 02/08/2025: The patient denies feeling winded, but admits to being sleepy. She thinks that se didn't sleep last night. She still has Gandhi catheter. Seen by Cardiology. Echo unremarkable, but probably not very diagnostic due to body habitus. I have concern that the patient may have lymphedema as part of her overall fluid-overload status. I recommended PT evaluation accordingly. The patient seems to be tolerating BiPAP, and her PCO2 seems to be improving. I will order overnight Oximetry for 4 hours on 3 L/min without BiPAP tonight, hoping to he able to qualify the patient for BiPAP, accordingly. Note from 02/09/2025: The patient denies new complaints. I reviewed her overnight Oximetry from last night. She spent around 25 minutes on Oxygen less than 89% while using her home-prescribed Oxygen flow of 3 L/min. Note from 02/11/2025: Patient feels better, but not tolerating BiPAP all the time. I had a long and detailed discussion with the patient regarding importance of and need for her to try her best using the BiPAP as much as possible during sleep including naps. She verbalized understanding. Review of Systems Review of Systems: All systems reviewed & are unremarkable except as noted in HPI & below Physical Exam Physical Exam: General: In no acute distress, using Oxygenvia nasal cannula. Morbidly obese, but mostly peripheral obesity (non-central). Respiratory: Decreased breath sounds over the right hemithorax, no wheezing or crackles. No use of accessory muscles and no prolonged exhalation. Cardiac: Distant sounds, regular rhythm, no murmurs, no gallops, no rubs; could not appreciate JV pulse elevation. GI: Soft, nontender, obese, I could not appreciate organomegaly. Extremities No clubbing,no cyanosis,2+ edema over the lower extremities with positive Stemmer's sign. Neuro: No gross motor deficits. Seems appropriate. No facial-droop. Speech is clear. Seems a little sleepy. Results & Data Results & Data Vital Signs (Past 12 Hours) Vital Signs Temp Pulse Pulse Resp BP BP BP 02/11/25 07:56 92 H 02/11/25 07:56 02/11/25 07:54 37.3 C 89 19 103/68 02/11/25 03:04 36.7 C 105 H 20 127/82 02/10/25 23:02 36.9 C 96 H 18 123/73 Pulse Ox O2 Del Method O2 Flow Rate 02/11/25 07:56 02/11/25 07:56 Nasal Cannula, BiPAP 3 02/11/25 07:54 96 Nasal Cannula 2.5 02/11/25 03:04 95 Nasal Cannula 3 02/10/25 23:02 95 Nasal Cannula 2.5 Laboratory Results 02/10/25 10:35 Aerobic Blood Culture - Pending Blood Anaerobic Blood Culture - Pending 02/10/25 10:40 Aerobic Blood Culture - Pending Blood Anaerobic Blood Culture - Pending 02/11/25 02/11/25 02/07/25 06:47 05:41 08:41 WBC 7.62 RBC 3.77 L Hgb 11.5 L Hct 39.3 MCV 104.2 H D MCH 30.5 MCHC 29.3 L RDW Std Deviation 55.1 H RDW Coeff of Galo 14.3 Plt Count 170 MPV 10.8 VBG pH 7.51 H VBG pCO2 82 H VBG pO2 67 VBG HCO3 65 VBG O2 Saturation 95.3 VBG Base Excess 35.3 Sodium 141 Potassium 3.8 Chloride 84 L Carbon Dioxide > 45 H* Anion Gap TNP BUN 16 Creatinine 0.43 L Est Cr Clr Drug Dosing 190.1 eGFR 105.88 Cystatin C 1.25 H Est GFR (Cystatin C) 52 L BUN/Creatinine Ratio 37.2 H Glucose 106 H Calcium 9.5 Magnesium 1.7 Medications Administered Home Medications Medication Instructions Recorded Confirmed Last Taken Milk of Magnesia 30 ml PO DAILY PRN Constipation 02/07/25 02/07/25 Unknown acetaminophen 325 mg tablet 650 mg PO Q6H PRN Fever 02/07/25 02/07/25 Unknown (Tylenol) acetaminophen 325 mg tablet 650 mg PO Q6H PRN Pain 02/07/25 02/07/25 Unknown (Tylenol) bisacodyl 10 mg rectal suppository 10 mg NM DAILY PRN Constipation 02/07/25 02/07/25 Unknown (Dulcolax (bisacodyl)) cholecalciferol (vitamin D3) 50 50 mcg PO DAILY 02/07/25 02/07/25 Unknown mcg (2,000 unit) tablet lisinopril 5 mg tablet 5 mg PO HS 02/07/25 02/07/25 Unknown menthol 0.44 %-zinc oxide 20.6 % 1 applic topical BID 02/07/25 02/07/25 Unknown topical ointment naloxone 0.4 mg/mL injection 1 mg IM DAILY PRN OVERDOSE 02/07/25 02/07/25 Unknown solution oxycodone 5 mg tablet 5 mg PO Q6H PRN pain 02/07/25 02/07/25 Unknown polyethylene glycol 3350 17 17 g PO DAILY 02/07/25 02/07/25 Unknown gram/dose oral powder (Miralax) ropinirole 1 mg tablet 1 mg PO Q8H 02/07/25 02/07/25 Unknown sodium phosphates 19 gram-7 118 ml NM DAILY PRN Constipation 02/07/25 02/07/25 Unknown gram/118 mL enema (Fleet Enema) Active Medications Generic Name Dose Route Start Last Admin Trade Name Freq PRN Reason Stop Dose Admin Acetazolamide 250 mg 02/11/25 09:15 02/11/25 09:50 Acetazolamide 250 Mg Tab PO 03/13/25 09:14 250 mg BID [facility] Administration Diclofenac Sodium 4 gm 02/07/25 21:00 02/11/25 08:22 Diclofenac Sod 1% Gel 100 Gm Tube EXT 03/09/25 20:59 Not Given Q12 [facility] Protocol Furosemide 40 mg 02/07/25 11:30 02/11/25 08:26 Furosemide 40 Mg/4 Ml Vial IV 03/09/25 11:29 Not Given BID17 [facility] Heparin Sodium (Porcine) 7,500 units 02/08/25 14:00 02/11/25 05:38 Heparin Sod 5,000 Unit/0.5 Ml Vial SQ 03/10/25 13:59 7,500 units Q8 [facility] Administration Polyethylene Glycol 17 gm 02/08/25 09:00 02/11/25 08:19 Polyethylene (Miralax) 17 Gm Pack PO 03/10/25 08:59 Not Given DAILY [facility] Potassium Chloride 20 meq 02/08/25 12:30 02/11/25 08:23 Potassium Chloride Crtab 20 Meq Tabcr PO 03/10/25 12:29 20 meq QAM [facility] Administration Ropinirole HCl 1 mg 02/07/25 14:30 02/11/25 05:38 Ropinirole Hcl 1 Mg Tablet PO 03/09/25 14:29 1 mg Q8H [facility] Administration PG Care Time/CCT Total # of Minutes Spent Total Time Spent with Patient: Total time spent is greater than 50% in coordination of care (as documented) at patient's floor/unit and/or counseling patient: 40 minutes Coding Level of Care Code 09921 SUB INP/OBS CARE 2/35MIN Diagnoses Acute and chronic respiratory failure with hypercapnia J96.22 Restrictive lung disease secondary to obesity J98.4; E66.9 Morbid (severe) obesity with alveolar hypoventilation E66.2 Morbid (severe) obesity due to excess calories E66.01 Volume overload E87.70 Elevated hemidiaphragm J98.6 Lymphedema I89.0 Time Spent (min) 40
--- NOTE | 2025-02-11 12:12 | Hospitalist Progress Note ---
<Statement entered by Ar Green, DO - 02/11/25 14:30> I have seen and examined the patient and have discussed the case with the advance practice provider. I have reviewed the advanced practitioner's documentation, and I agree with, and take responsibility for that plan of care. Patient edema again decreased from yesterday. Reviewed ABG, suspect contraction alkalosis on top of her chronic metabolic alkalosis compensating for her chronic respiratory acidosis. I they believe this is an indication that patient has probably been diuresed just about as much as possible. Hold Lasix today Trial of Diamox diuresis, discussed with cardiology and FAVIO Further plan of care as outlined below I spent a total of 20 minutes coordinating, documenting, and providing care for this patient excluding time spent by another provider/QHP. Date of Service February 11, 2025 Assessment & Plan (1) Acute and chronic respiratory failure with hypercapnia: (2) Acute decompensated heart failure: (3) Acute UTI: (4) Sepsis: (5) Morbid obesity: Plan 69 yo female who resides at [facility] with pmhx of chronic hypoxic/hypercarbic respiratory failure (3L baseline), severe morbid obesity, hypothyroidism, prediabetes, adrenal adenoma, history gastric banding, NAFLD, mood disorder, past tobacco abuse, osteoarthritis, chronic pain syndrome (on prn oxycodone), restless leg syndrome (on roprinole), HTN, constipation who presented on 02/07/2025 for being unarousable 2/2 acute on chronic hypoxic/hypercarbic respiratory failure and decompensated HF. Acute on Chronic Hypoxic/Hypercarbic Respiratory Failure Respiratory acidosis Acute HFpEF Patient presenting with lethargy and fluid overload VBG on admission revealed ph 7.30 and pCO2 117 -> placed on bipap for respiratory acidosis with improvement Admitting CXR revealed pulmonary vascular congestion and bibasilar opacities favoring atelectasis Echo revealed EF 55-60%, valvular structures not well-visualized due to body habitus Significant diuresis during admission with -9 since admission, wt downtrending but question accuracy due to unable to get a standing weight Pulmonology and Cardiology following Plan: -Suspect contraction metabolic alkalosis in setting of diuresis based on AM VBG pH of 7.5 -Hold IV lasix and ordered Diamox 250mg BID for today -Monitor I&Os, moreno in place -1500 ml fluid restriction -Monitor lytes and replete as needed -Continue baseline 3L NC during day and bipap at night -Consider torsemide 40 mg daily on discharge UTI Urine culture pansensitive E Coli at 20,000 colonies Received 3 days of ceftriaxone Sepsis secondary to UTI Met criteria on admission with tachycardia, tachypnea, leukocytosis Blood culture with 1/4 bottles +staph hominis - likely contaminant Repeat blood cultures pending Received antibiotics for UTI as above 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 Nocturnal oximetry study completed with 25 min of SpO2<89% CM submitted script for bipap at home Hypernatremia-> resolved Presenting Na+ 147 - improved with diuresis Continue to monitor daily BMP Metabolic encephalopathy-> resolved Likely due to hypercarbia and increased use of oxycodone per patient Chronic pain syndrome secondary to osteoarthritis Home oxycodone on hold due to lethargy on admission Recommend against opioids for arthritis pain as they are not indicated and in the setting of chronic respiratory failure for this patient Chronic anemia Hgb at baseline B12 and folate WNL Hypothyroidism Hx Adrenal Adenoma Currently not on levothyroxine TSH 1.686 AM cortisol normal RLS Continue ropinirole DVT Prophylaxis: SQ Heparin Code Status: FULL CODE PCP: [facility] Disposition: bed hold at [facility] until medically stable Patient seen in collaboration with Dr. Green. Please see addendum. I spent a total of 50 minutes coordinating, documenting and providing care for this patient excluding time spent in the performance of separately billed services or time spent by another provider/QHP. Admission and Anticipated Discharge Date Admission Date: February 07, 2025 Subjective Seen and examined this morning. Back to baseline 2.5-3L NC O2. Feeling swelling of legs significantly improved from previous. Sitting up eating breakfast. No F/C, lightheadedness, CP, SOB, N/V, abd pain, dysuria, diarrhea or constipation. Review of Systems Review of Systems: At least ten systems reviewed and negative except as noted in the HPI. Physical Exam Physical Exam: Gen: WD/WN, NAD, sitting up in bed eating breakfast, morbidly obese, A&Ox3 HEENT: Normocephalic, atraumatic Lung: Diminished lung sounds bilaterally Heart: Regular rate, regular rhythm Abdomen: Soft, NT, ND +BS x 4 Extremities: 2+ BLE edema, improved Skin: Warm, no rash Results & Data Results & Data Vital Signs (Past 12 Hours) Vital Signs Temp Pulse Pulse Resp BP BP Pulse Ox 02/11/25 11:31 37.1 C 70 20 112/77 95 02/11/25 07:56 92 H 02/11/25 07:56 02/11/25 07:54 37.3 C 89 19 103/68 96 02/11/25 03:04 36.7 C 105 H 20 127/82 95 O2 Del Method O2 Flow Rate 02/11/25 11:31 Nasal Cannula 2.5 02/11/25 07:56 02/11/25 07:56 Nasal Cannula, BiPAP 3 02/11/25 07:54 Nasal Cannula 2.5 02/11/25 03:04 Nasal Cannula 3 Laboratory Results Short CBC 02/11/25 Range/Units 05:41 WBC 7.62 (4.8-10.8) K/ul Hgb 11.5 L (12.0-16.0) g/dL Hct 39.3 (37.0-47.0) % Plt Count 170 (130-400) K/uL BMP 02/11/25 05:41 Sodium 141 Potassium 3.8 Chloride 84 L Carbon Dioxide > 45 H* BUN 16 Creatinine 0.43 L Glucose 106 H Calcium 9.[address] 02/07/25 07:40 CT SCAN OF THE BRAIN WITHOUT IV CONTRAST CLINICAL HISTORY: Weak. COMPARISON STUDY: None. TECHNIQUE: Unenhanced axial CT scan of the brain was performed from the vertex to the skull base. A dose lowering technique was utilized adhering to the principles of ALARA. CT DOSE: 703.85 mGy.cm FINDINGS: Brain parenchyma: No acute intracranial hemorrhage, midline shift or mass effect is present. Dickerson-white matter differentiation is preserved. There are no extra- axial fluid collections. There are no findings to suggest acute dural sinus thrombosis or acute territorial infarct. Note is made of a densely calcified 2.9 x 2.3 cm left posterior parafalcine extra-axial mass without significant mass effect. There may be minimal associated vasogenic edema. Ventricles, sulci, cisterns: There is no hydrocephalus. The basal cisterns are patent. Calvarium: Unremarkable. Sinuses and mastoids: The visualized paranasal sinuses are clear. The mastoid air cells are well pneumatized. Orbits: The bony orbits are grossly intact. IMPRESSION: 1. No acute intracranial findings. 2. 2.9 x 2.3 cm densely calcified left posterior parafalcine extra-axial mass without significant mass effect. Possible minimal associated vasogenic edema. This is highly suggestive of a meningioma. Nonemergent MRI of the brain with and without contrast could be obtained for further evaluation. ACT 112: Positive. There are findings on this exam that require communication between the performing entity and the patient following Patient Test Result Information Act ([place] Act 112) guidelines. Electronically signed by: Rigoberto Oliver M.D. 02/07/2025 9:16 AM Chest X-Ray 02/07/25 09:39 XR chest 1V portable CLINICAL HISTORY: weakness COMPARISON STUDY: Chest radiograph July 23, 2023. FINDINGS: Moderate elevation of the right hemidiaphragm is again noted. Blunting of the right costophrenic angle is present. There are bibasilar opacities. Cardiomegaly with pulmonary vascular congestion. There is no pneumothorax. IMPRESSION: 1. Cardiomegaly with pulmonary vascular congestion. 2. Stable elevation of the right hemidiaphragm. Right basilar opacity favors atelectasis although pneumonia could appear similar. Left basilar opacity favors atelectasis. 3. Trace right pleural effusion. ACT 112: Negative or not required by law. Electronically signed by: Rigoberto Oliver M.D. 02/07/2025 10:24 AM Venous Doppler Study 02/07/25 11:13 RIGHT UPPER EXTREMITY VENOUS DOPPLER ULTRASOUND CLINICAL HISTORY: Right upper extremity swelling. COMPARISON STUDY: No previous studies for comparison. TECHNIQUE: Sonography of the venous system of the right upper extremity was performed. FINDINGS: The right internal jugular, subclavian, axillary, brachial, radial, ulnar and basilic veins were patent. There was no venous thrombus within the right upper extremity. IMPRESSION: No venous thrombus within the right upper extremity. ACT 112: Negative or not required by law. Electronically signed by: Rigoberto Oliver M.D. 02/07/2025 1:06 PM Venous Doppler Study 02/07/25 11:13 BILATERAL LOWER EXTREMITY VENOUS DOPPLER CLINICAL HISTORY: Bilateral lower extremity swelling. COMPARISON STUDY: No previous studies for comparison. TECHNIQUE: Sonography of the deep venous system of the bilateral lower extremities was performed. Compression and augmentation were evaluated. FINDINGS: This exam is compromised by suboptimal penetration. The bilateral common femoral, superficial femoral and popliteal veins were compressible. Augmentation was normal. Flow was shown within the deep calf vessels. Bilateral lower extremity edema is noted. IMPRESSION: Technically difficult exam but no evidence of deep venous thrombus within the bilateral lower extremities. ACT 112: Negative or not required by law. Electronically signed by: Rigoberto Oliver M.D. 02/07/2025 1:49 PM
--- NOTE | 2025-02-11 12:29 | Electrocardiogram Report ---
Test Reason : Blood Pressure : */* mmHG Vent. Rate : 103 BPM Atrial Rate : 103 BPM P-R Int : 158 ms QRS Dur : 78 ms QT Int : 322 ms P-R-T Axes : 68 95 62 degrees QTcB Int : 421 ms Poor data quality, interpretation may be adversely affected Sinus tachycardia with artifact vs atrial flutter Rightward axis Low voltage QRS Borderline ECG When compared with ECG of 23-Jul-2023 04:34, No significant change was found Confirmed by Christian Black ([id number]) on 02/11/2025 12:28:56 PM Referred By: [facility] Confirmed By: Christian Black
--- NOTE | 2025-02-11 12:49 | Cardiology Progress Note ---
Date of Service February 11, 2025 Assessment & Plan (1) Acute and chronic respiratory failure with hypercapnia: (2) Acute hypercapnic respiratory failure: (3) Acute on chronic heart failure with preserved ejection fraction: (4) Sepsis: (5) Bacteremia: Plan Patient is a morbidly obese 69 year old female admitted [facility] for worsening lethargy, weakness, mental status changes. Found to be in acute respiratory distress with hypoxia and hypercapnia and mar kedly volume overload, consistent with acute HFpEF. Started on BIPAP and IV lasix Also found to have possible UTI with +E. Coli in urine cultures Found to have gram + cocci in 1 out of 4 blood cultures. Source unknown vs contaminant Acute respiratory failure with hypercapnia -Continue BIPAP during periods of sleep and as tolerated -Patient reports she does not have CPAP or BIPAP at SNF. Will likely need on discharge. -encourage daily suse Acute on chronic HFpEF -Echo technically limited due to body habitus -Normal LVEF without wall motion abnormalities -No evidence of valvular disease by Doppler -Received IV lasix over the last few days. -[id number] Ml output noted, Negative 9 L since admission -stable renal function and electrolytes -discussed with hospitalist team - Per ABG's this morning - PH increased and now with metabolic alkalosis -Will hold additional IV diuretics -Diamox added at 250 BID -Gandhi in place - monitor I+O's -1500 ml fluid restriction -Standing weight not able to be done. -Consider torsemide 40 mg daily on discharge. Sepsis/bacteremia/UTI +E. coli in urine per culture + 1 out of 4 blood cultures with gram positive cocci. Possible contaminant. Continue broad spectrum antibiotics WBC was elevated, now improved normal procalcitonin level repeat blood cultures ordered - prelim are negative. Valvular structures were not well visualized and source of infection is unclear at this time. Given patient's current respiratory status and morbid obesity, she is not an ideal candidate for ZAN. HTN Lisinopril on hold due to low BP and allow for diuretics No further cardiac testing warranted. Transition to oral diuretics on discharge. Does not appear patient was taking prior to admission would consider torsemide 40 mg daily to start Will sign off. Please contact front office manager cardiology provider with additional questions or concerns. Case discussed with Dr. Lewis I spent a total of 30 minutes on the date of service in preparation, delivery, and documentation of the care provided to this patient, excluding any time spent in the performance of separately billed services. Cheli Moya PA-C Department of Cardiology, [facility] This chart was completed in part utilizing Speech Voice Recognition Software. Grammatical errors, random word insertions, pronoun errors, and incomplete sentences are an occasional consequence of this system due to software limitations, ambient noise, and hardware issues. Any formal questions or concerns about the content, text, or information contained within the body of this dictation should be directly addressed to the provider for clarification. Admission and Anticipated Discharge Date Admission Date: February 07, 2025 Supervising Physician Co-Signing Physician Notes Attending attestation: Case reviewed with the advanced practitioner. I have personally performed a history and physical examination on the patient. I have reviewed the advanced practitioner's documentation on the date of service referenced in note, and I agree with, and take responsibility for the plan of care. Subjective: Patient without any subjective complaint. Had worn her BiPAP for an hour just before my arrival and status was stable. Telemetry reveals Sinus rhythm in the 80s. Two brief runs of atrial tachycardia from 12 seconds apiece noted that were nonsustained. Exam: Extremities: Lower extremity edema improved Gandhi catheter remains in place draining clear yellow urine Impression/ Plan: Obesity hypoventilation syndrome with volume overload and hypercapnia - Furosemide on hold - Defer addition of Diamox to the hospitalist service - Future considerations include transition to oral torsemide Jamal Lewis, DO Subjective Patient resting in bed. Wearing BIPAP. Reports she feels "about the same". Ongoing edema noted but possibly improved. SOB at baseline. No chest pain. Review of Systems Review of Systems: All systems reviewed & are unremarkable except as noted in HPI & below Physical Exam Constitutional: WD/WN, vitals as above + morbidly obese Neck: + thick neck Respiratory: no respiratory distress and no cough Auscultation: + diminished lung sounds; no crackles and no rales Cardiovascular: Rate/Rhythm: regular rate Heart Sounds: no murmur (No audible murmur ) Vessels: + JVD Extremities: + edema (2-3+ edema ) Gastrointestinal (Abdomen): normal bowel sounds, soft, nontender, no hepatosplenomegaly Musculoskeletal: no cyanosis or clubbing, extremities motor strength 5/5 Neurologic: PERRL, EOMI, accommodation nl, no face palsy, no dysarthria Results & Data Vital Signs (Past 12 Hours) Vital Signs Temp Pulse Pulse Resp BP BP Pulse Ox 02/11/25 11:31 37.1 C 70 20 112/77 95 02/11/25 07:56 92 H 02/11/25 07:56 02/11/25 07:54 37.3 C 89 19 103/68 96 02/11/25 03:04 36.7 C 105 H 20 127/82 95 O2 Del Method O2 Flow Rate 02/11/25 11:31 Nasal Cannula 2.5 02/11/25 07:56 02/11/25 07:56 Nasal Cannula, BiPAP 3 02/11/25 07:54 Nasal Cannula 2.5 02/11/25 03:04 Nasal Cannula 3 Laboratory Results CBC 02/11/25 Range/Units 05:41 WBC 7.62 (4.8-10.8) K/ul RBC 3.77 L (4.20-5.40) M/uL Hgb 11.5 L (12.0-16.0) g/dL Hct 39.3 (37.0-47.0) % Plt Count 170 (130-400) K/uL Comprehensive Metabolic Panel 02/11/25 Range/Units 05:41 Sodium 141 (136-145) mmol/L Potassium 3.8 (3.5-5.1) mmol/L Chloride 84 L (98-107) mmol/L Carbon Dioxide > 45 H* (21-32) mmol/L BUN 16 (6-23) mg/dl Creatinine 0.43 L (0.6-1.2) mg/dl Glucose 106 H (70-99(Fasting)) mg/dl Calcium 9.5 (8.6-10.3) mg/dl Intake and Output 02/10/25 02/11/25 02/11/25 22:59 06:59 14:59 Intake Total 730 / 1130 400 / 1130 Output Total 2202 / 3004 802 / 3004 1000 / 1000 Balance -1472 / -1874 -402 / -1874 -1000 / -1000 Intake: Oral 730 / 1130 400 / 1130 Output: Urine Amount (Catheter) 2200 / 3000 800 / 3000 1000 / 1000 Gandhi/Indwelling 2200 / 3000 800 / 3000 1000 / 1000 # Bowel Movements 2 / 4 2 / 4 Other: Weight 172.2 kg Weight Measurement Method Built in [facility] Diagnostic Findings Telemetry reviewed: NSR ranging 90-100's Medications Administered Current Inpatient Medications Acetaminophen (Acetaminophen 325 Mg Tab) 650 mg PO Q4H PRN PRN Reason: Pain or Fever Stop: 03/09/25 14:27 Acetazolamide (Acetazolamide 250 Mg Tab) 250 mg PO BID [facility] Stop: 03/13/25 09:14 Last Admin: 02/11/25 09:50 Dose: 250 mg Diclofenac Sodium (Diclofenac Sod 1% Gel 100 Gm Tube) 4 gm EXT Q12 [facility]; Protocol Stop: 03/09/25 20:59 Last Admin: 02/11/25 08:22 Dose: Not Given Furosemide (Furosemide 40 Mg/4 Ml Vial) 40 mg IV BID17 [facility] Stop: 03/09/25 11:29 Last Admin: 02/11/25 08:26 Dose: Not Given Heparin Sodium (Porcine) (Heparin Sod 5,000 Unit/0.5 Ml Vial) 7,500 units SQ Q8 [facility]UCE Stop: 03/10/25 13:59 Last Admin: 02/11/25 05:38 Dose: 7,500 units Ondansetron HCl (Ondansetron Inj 2 Mg/Ml 2 Ml Vial) 4 mg IV Q6H PRN PRN Reason: Nausea Stop: 03/09/25 14:27 Polyethylene Glycol (Polyethylene (Miralax) 17 Gm Pack) 17 gm PO DAILY PRN PRN Reason: Constipation Stop: 03/09/25 14:27 Polyethylene Glycol (Polyethylene (Miralax) 17 Gm Pack) 17 gm PO DAILY [facility] Stop: 03/10/25 08:59 Last Admin: 02/11/25 08:19 Dose: Not Given Potassium Chloride (Potassium Chloride Crtab 20 Meq Tabcr) 20 meq PO QAM [facility] Stop: 03/10/25 12:29 Last Admin: 02/11/25 08:23 Dose: 20 meq Ropinirole HCl (Ropinirole Hcl 1 Mg Tablet) 1 mg PO Q8H [facility] Stop: 03/09/25 14:29 Last Admin: 02/11/25 05:38 Dose: 1 mg Coding Level of Care Code 13698 SUB INP/OBS CARE 3/50MIN Diagnoses Acute and chronic respiratory failure with hypercapnia J96.22 Acute hypercapnic respiratory failure J96.02 Acute on chronic heart failure with preserved ejection fraction I50.33 Sepsis A41.9 Bacteremia R78.81
[2025-02-12 07:37] VITALS: PULSE 86; RESP 19; TEMP 98.8; O2SAT 95
--- NOTE | 2025-02-12 10:11 | Discharge Summary ---
<Statement entered by Ar Green, - 02/12/25 12:58> I have seen and examined the patient and have discussed the case with the advance practice provider. I have reviewed the advanced practitioner's documentation, and I agree with, and take responsibility for that plan of care. Patient appears to be essentially at her baseline. She was proud that she wore her BiPAP for 2 hours last night. Continued to encourage her to increase that time each night by a little bit. Overall patient's anasarca/edema seems improved when compared to admission. Suspect this is close to her baseline. Continue diuretics orally on discharge. Reviewed diuretic plan with cardiology. Ultimately, the therapeutic intervention that we will have the most impact for her is to wear the BiPAP consistently all night and even with naps during the day. This will make her edema much more manageable along with her other medical issues much more manageable. Continue care at skilled facility. Further discharge plans as outlined below I spent a total of 20 minutes coordinating, documenting, and providing care for this patient excluding time spent by another provider/QHP. Discharge Summary Date of Service February 12, 2025 Principal Dx & Hospital Course #1 = Principal Diagnosis (1) Acute and chronic respiratory failure with hypercapnia: (2) Acute decompensated heart failure: (3) Acute UTI: (4) Sepsis: (5) Morbid obesity: Plan This is a 69 yo female who resides at [facility] with pmhx of chronic hypoxic/hypercarbic respiratory failure (3L baseline), severe morbid obesity, hypothyroidism, prediabetes, adrenal adenoma, history gastric banding, NAFLD, mood disorder, past tobacco abuse, osteoarthritis, chronic pain syndrome (on prn oxycodone), restless leg syndrome (on ropinirole), HTN, constipation who presented on 02/07/2025 for being unarousable 2/2 acute on chronic hypoxic/hypercarbic respiratory failure and decompensated HF. Acute on Chronic Hypoxic/Hypercarbic Respiratory Failure Respiratory acidosis Acute HFpEF Patient presenting with lethargy and fluid overload VBG on admission revealed ph 7.30 and pCO2 117 -> placed on bipap for respiratory acidosis with improvement Admitting CXR revealed pulmonary vascular congestion and bibasilar opacities favoring atelectasis Echo revealed EF 55-60%, valvular structures not well-visualized due to body habitus Significant diuresis during admission with -9 since admission, wt downtrending but accuracy difficult as patient cannot provide standing weight Pulmonology and Cardiology following Plan: -Suspect contraction metabolic alkalosis in setting of diuresis based on AM VBG pH of 7.5 -Hold IV lasix 02/11 and ordered Diamox 250mg BID for today - On discharge: -Continue 1500 ml fluid restriction -Continue baseline 3L NC during day and bipap at night - reinforced importance of bipap use at night, patient agreeable to try. 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 Nocturnal oximetry study completed with 25 min of SpO2<89% CM submitted script for bipap at home - approved Hypernatremia-> resolved Presenting Na+ 147 - improved with diuresis Continue to monitor daily BMP Metabolic encephalopathy-> resolved Likely due to hypercarbia and increased use of oxycodone per patient Chronic pain syndrome secondary to osteoarthritis Home oxycodone on hold due to lethargy on admission Recommend against opioids for arthritis pain as they are not indicated and in the setting of chronic respiratory failure for this patient Chronic anemia Hgb at baseline B12 and folate WNL Hypothyroidism Hx Adrenal Adenoma Currently not on levothyroxine TSH 1.686 AM cortisol normal RLS Continue ropinirole Patient returning to [facility] today. Patient seen in collaboration with Dr. Green. Notes For Next Care Provider HFpEF in setting of morbid obesity, chronic resp acidosis. Approved for bipap to use at home- strongly recommended compliance, sending on 12 over 5 settings Medication Changes From Visit torsemide 40 mg daily Admission HPI Per Admitting Provider 69 yo female with pmhx of severe morbid obesity, hypothyroidism, prediabetes, adrenal adenoma, history gastric banding, NAFLD, mood disorder, past tobacco abuse, osteoarthritis, chronic pain syndrome (on prn oxycodone), restless leg syndrome (on roprinole) HTN, constipation who presents for being unarousable. Her last admission at [facility] was in 2023 for ambulatory dysfunction. In the ED, noted to have respiratory acidosis, started on bipap, given ceftriaxone, given NS, admitted to medicine for further workup. Patient seen and examined at bedside. Patient not doing well today. States she has been feeling drowsy for past few days. Has had slight cough, and her legs have been swelling as well. Mild SOB. No chest pain, nausea, vomiting, diarrhea. Does not walk much at baseline. States she takes oxycodone q6hrs at [facility] but tox screen here is negative. Has been taking meds as prescribed. No tobacco use, no alcohol use, no drug use, full code (discussed with patient). Admission Exam Per Admitting Provider Gen: A&O 3 dyspnea noted HEENT: NCAT, EOMI, not icteric. External ears normal. No rhinorrhea. Moist mucous membranes. Neck: Supple, full range of motion, no observable masses, No meningeal sign. Lungs: dyspnea noted, crackles noted in bilateral lower lung hendrickson CV: tachycardic, 2+ pitting edema in legs bilaterally Abdomen: Soft, nondistended, No rebound tenderness. MSK: RUE significant pitting edema Skin: No rashes, petechiae, lesions. Normal color per patient. Neuro: Normal Gait, Grossly intact. Psych: Appropriate for situation. Discharge Exam Gen: WD/WN, NAD, sitting up in bed eating breakfast, morbidly obese, A&Ox3 HEENT: Normocephalic, atraumatic Lung: Diminished lung sounds bilaterally Heart: Regular rate, regular rhythm Abdomen: Soft, NT, ND +BS x 4 Extremities: 2+ BLE edema, improved Skin: Warm, no rash Updated Medication List Medication Instructions Recorded Confirmed Type Milk of Magnesia 30 ml PO DAILY PRN Constipation 02/07/25 02/07/25 History acetaminophen 325 mg tablet 650 mg PO Q6H PRN Fever 02/07/25 02/07/25 History (Tylenol) acetaminophen 325 mg tablet 650 mg PO Q6H PRN Pain 02/07/25 02/07/25 History (Tylenol) bisacodyl 10 mg rectal suppository 10 mg [place] DAILY PRN Constipation 02/07/25 02/07/25 History (Dulcolax (bisacodyl)) cholecalciferol (vitamin D3) 50 50 mcg PO DAILY 02/07/25 02/07/25 History mcg (2,000 unit) tablet lisinopril 5 mg tablet 5 mg PO HS 02/07/25 02/07/25 History menthol 0.44 %-zinc oxide 20.6 % 1 applic topical BID 02/07/25 02/07/25 History topical ointment naloxone 0.4 mg/mL injection 1 mg IM DAILY PRN OVERDOSE 02/07/25 02/07/25 History solution oxycodone 5 mg tablet 5 mg PO Q6H PRN pain 02/07/25 02/07/25 History polyethylene glycol 3350 17 17 g PO DAILY 02/07/25 02/07/25 History gram/dose oral powder (Miralax) ropinirole 1 mg tablet 1 mg PO Q8H 02/07/25 02/07/25 History sodium phosphates 19 gram-7 118 ml [place] DAILY PRN Constipation 02/07/25 02/07/25 History gram/118 mL enema (Fleet Enema) torsemide 40 mg tablet 40 mg PO DAILY #30 tabs 02/12/25 Rx Hospital Stay Data Consultations 02/07/25 09:58 ED Decision to Admit Stat 02/07/25 11:52 Consult Pulmonology Routine 02/08/25 08:08 Consult Cardiology Routine Diagnostic Imagining Performed 02/07/25 07:40 CT head/brain wo con Stat 02/07/25 11:13 US arm [US venous doppler UE RT] Urgent US venous doppler LE BI Urgent Pending Results Patient Have Any Pending Studies at Discharge: Yes Discharge Instructions Given to Patient (Per Discharging Provider) MEDICATION CHANGES: NEW: Torsemide 40mg daily PENDING TEST RESULTS: Final blood cultures (preliminary with no growth to date) RECOMMENDATIONS FOR FOLLOW-UP: Follow up with PCP as scheduled. Strongly encourage use of bipap at night to prevent further confusion. Repeat labwork (basic metabolic panel in 1 week) to ensure renal function and electrolytes are in range. Continue medication regimen as scheduled aside from changes noted above. OTHER INSTRUCTIONS: Seek medical attention if you have: * temperature above 101 * chest pain or trouble breathing * abdominal pain, nausea, vomiting * diarrhea, dark stools or bloody stools * any unanswered questions or concerns Call 911 if symptoms are severe. Please take good care of yourself. Call if you have any questions or problems. You can reach a [facility] hospitalist on duty at [facility] 24 hours a day by calling [phone]. Total Time Total Time Spent Total Time Spent (In Minutes): 60
[2025-02-12 10:18] VITALS: BP 127/82
--- NOTE | 2025-02-12 11:47 | Cardiology Progress Note ---
Date of Service February 12, 2025 Assessment & Plan (1) Acute and chronic respiratory failure with hypercapnia: (2) Acute hypercapnic respiratory failure: (3) Acute on chronic heart failure with preserved ejection fraction: (4) Sepsis: (5) Bacteremia: Plan Patient is a morbidly obese 69 year old female admitted to [facility] from intermediate for worsening lethargy, weakness, mental status changes. Found to be in acute respiratory distress with hypoxia and hypercapnia and mar kedly volume overload, consistent with acute HFpEF. Started on BIPAP and IV lasix Also found to have possible UTI with +E. Coli in urine cultures Found to have gram + cocci in 1 out of 4 blood cultures. Source unknown vs contaminant Acute respiratory failure with hypercapnia -Continue BIPAP during periods of sleep and as tolerated -Patient reports she does not have CPAP or BIPAP at SNF. Will likely need on discharge. -encourage daily use Acute on chronic HFpEF -Echo technically limited due to body habitus -Normal LVEF without wall motion abnormalities -No evidence of valvular disease by Doppler -Received IV lasix over the last few days then Diamox yesterday due to metabolic alkalosis. -She still diuresed 3.8 L over the last 24 hours -update labs -Gandhi in place - monitor I+O's -1500 ml fluid restriction -Standing weight not able to be done. -Consider torsemide 40 mg daily on discharge. Sepsis/bacteremia/UTI +E. coli in urine per culture + 1 out of 4 blood cultures with gram positive cocci. Possible contaminant. Continue broad spectrum antibiotics WBC was elevated, now improved normal procalcitonin level repeat blood cultures ordered - prelim are negative. Valvular structures were not well visualized and source of infection is unclear at this time. Given patient's current respiratory status and morbid obesity, she is not an ideal candidate for ZAN. HTN Lisinopril on hold due to low BP and allow for diuretics No further cardiac testing warranted. Transition to oral diuretics on discharge. Does not appear patient was taking prior to admission would consider torsemide 40 mg daily to start Will sign off. Please contact bonding agent cardiology provider with additional questions or concerns. Case discussed with LAUREN BoudreauxC Department of Cardiology, [facility] This chart was completed in part utilizing Speech Voice Recognition Software. Grammatical errors, random word insertions, pronoun errors, and incomplete se ntences are an occasional consequence of this system due to software limitations, ambient noise, and hardware issues. Any formal questions or concerns about the content, text, or information contained within the body of this dictation should be directly addressed to the provider for clarification. Admission and Anticipated Discharge Date Admission Date: February 07, 2025 Supervising Physician Co-Signing Physician Notes Attending attestation: Case reviewed with the advanced practitioner. I have personally performed a history and physical examination on the patient. I have reviewed the advanced practitioner's documentation on the date of service referenced in note, and I agree with, and take responsibility for the plan of care. Subjective: Patient without any subjective complaint. Had worn her BiPAP for an hour just before my arrival and status was stable. Telemetry reveals Sinus rhythm in the 80s. Two brief runs of atrial tachycardia from 12 seconds apiece noted that were nonsustained. Exam: Extremities: Lower extremity edema improved Gandhi catheter remains in place draining clear yellow urine Impression/ Plan: Obesity hypoventilation syndrome with volume overload and hypercapnia - Future considerations include transition to oral torsemide Jamal Lewis DO Subjective Patient reports feeling "ok". SOB nearly at baseline. No chest pain. Ongoing diuresis noted despite holding lasix yesterday. Tolerating diamox. No labs done this morning. Review of Systems Review of Systems: All systems reviewed & are unremarkable except as noted in HPI & below Physical Exam Constitutional: WD/WN, vitals as above + morbidly obese Neck: + thick neck Respiratory: no respiratory distress and no cough Auscultation: + diminished lung sounds; no crackles and no rales Cardiovascular: Rate/Rhythm: regular rate Heart Sounds: no murmur (No audible murmur ) Vessels: + JVD Extremities: + edema (2-3+ edema ) Gastrointestinal (Abdomen): normal bowel sounds, soft, nontender, no hepatosplenomegaly Musculoskeletal: no cyanosis or clubbing, extremities motor strength 5/5 Neurologic: PERRL, EOMI, accommodation nl, no face palsy, no dysarthria Results & Data Vital Signs (Past 12 Hours) Vital Signs Temp Pulse Pulse Resp BP BP Pulse Ox 02/12/25 10:17 37.1 C 86 19 127/82 115/78 95 02/12/25 07:36 37.1 C 86 19 115/78 95 02/12/25 07:25 94 H 02/12/25 07:25 02/12/25 04:07 37.2 C 92 H 16 142/88 H 94 O2 Del Method O2 Flow Rate 02/12/25 10:17 02/12/25 07:36 Nasal Cannula 2.5 02/12/25 07:25 02/12/25 07:25 Nasal Cannula 3 02/12/25 04:07 Nasal Cannula 2.5 Laboratory Results Intake and Output 02/11/25 02/12/25 02/12/25 22:59 06:59 14:59 Output Total 1101 / 3851 1450 / 3851 Balance -1101 / -3291 -1450 / -3291 Output: Urine Amount (Catheter) 1100 / 3850 1450 / 3850 Gandhi/Indwelling 1100 / 3850 1450 / 3850 # Bowel Movements Other: Weight 172.9 kg 172.9 kg Weight Measurement Method Built in [facility] Patient Weight 02/13/25 06:59 Weight 172.9 kg Diagnostic Findings Telemetry reviewed: NSR with PAC's Medications Administered Current Inpatient Medications Acetaminophen (Acetaminophen 325 Mg Tab) 650 mg PO Q4H PRN PRN Reason: Pain or Fever Stop: 03/09/25 14:27 Acetazolamide (Acetazolamide 250 Mg Tab) 250 mg PO BID [facility] Stop: 03/13/25 09:14 Last Admin: 02/12/25 08:34 Dose: 250 mg Diclofenac Sodium (Diclofenac Sod 1% Gel 100 Gm Tube) 4 gm EXT Q12 [facility]; Protocol Stop: 03/09/25 20:59 Last Admin: 02/12/25 08:33 Dose: Not Given Furosemide (Furosemide 40 Mg/4 Ml Vial) 40 mg IV BID17 [facility] Stop: 03/09/25 11:29 Last Admin: 02/11/25 08:26 Dose: Not Given Heparin Sodium (Porcine) (Heparin Sod 5,000 Unit/0.5 Ml Vial) 7,500 units SQ Q8 [facility] Stop: 03/10/25 13:59 Last Admin: 02/12/25 06:35 Dose: 7,500 units Ondansetron HCl (Ondansetron Inj 2 Mg/Ml 2 Ml Vial) 4 mg IV Q6H PRN PRN Reason: Nausea Stop: 03/09/25 14:27 Polyethylene Glycol (Polyethylene (Miralax) 17 Gm Pack) 17 gm PO DAILY PRN PRN Reason: Constipation Stop: 03/09/25 14:27 Polyethylene Glycol (Polyethylene (Miralax) 17 Gm Pack) 17 gm PO DAILY [facility] Stop: 03/10/25 08:59 Last Admin: 02/12/25 08:33 Dose: Not Given Potassium Chloride (Potassium Chloride Crtab 20 Meq Tabcr) 20 meq PO QAM [facility] Stop: 03/10/25 12:29 Last Admin: 02/12/25 08:33 Dose: 20 meq Ropinirole HCl (Ropinirole Hcl 1 Mg Tablet) 1 mg PO Q8H [facility] Stop: 03/09/25 14:29 Last Admin: 02/12/25 06:35 Dose: 1 mg Coding Level of Care Code 68142 SUB INP/OBS CARE 3/50MIN Diagnoses Acute and chronic respiratory failure with hypercapnia J96.22 Acute hypercapnic respiratory failure J96.02 Acute on chronic heart failure with preserved ejection fraction I50.33 Sepsis A41.9 Bacteremia R78.81
[2025-02-12 13:31] LABS: Blood Urea Nitrogen 13 mg/dl (6-23); Calcium 9.7 mg/dl (8.6-10.3); Carbon Dioxide > 45 mmol/L (21-32); Chloride 93 mmol/L (98-107); Creatinine Clr Calc Pharmacy 241.1 ml/min; Glucose 119 mg/dl (70-99(Fasting)); Magnesium 2.0 mg/dl (1.7-2.4); Potassium 3.8 mmol/L (3.5-5.1); Sodium 143 mmol/L (136-145)
== END 2025-02-12 13:29 | DRG 871 ==
LOC: ED 07:27 → SUATTDRO 10:11 → 4W 10:11